=== PATIENT | female | born 1960 | race African-American/Black ===

== ENCOUNTER 2024-08-28 10:49 | Outpatient (CLI) | payer MEDICARE, SELFPAY ==
--- NOTE | 2024-08-28 12:03 | ECG_ITS ---
Test Date: 2024-08-28 12:23:20 Measurements Intervals [place] Rate: 92 P: -1 AR: 147 QRS: 10 QRSD: 92 T: 27 QT: 351 QTc: 435 Interpretive Statements SINUS RHYTHM NONSPECIFIC ST AND T WAVE ABNORMALITY No previous ECG available for comparison Electronically Signed On 08-28-2024 14:46:36 COMPUTER REPAIR INSTRUCTOR by Latia Escalona M.D.
[2024-08-28 12:45] LABS: Urine Cotinine NEGATIVE
[2024-08-28 12:46] LABS: Albumin Level 4.4 g/dL (3.5-5.1)
[2024-08-28 12:50] LABS: Anion Gap 5 mmol/L (4-12); Basophils Percent Auto 0.8 % (0.2-1.2); Blood Urea Nitrogen 25 mg/dL (7-17); Calcium 9.8 mg/dL (8.4-10.2); Carbon Dioxide 22 mmol/L (22-30); Chloride 108 mmol/L (98-107); Eosinophils Absolute Auto 0.4 K/mm3 (0-0.3); Eosinophils Percent Auto 6.8 % (0-4.4); Estimated Glomerular Filt Rate 46; Glucose 90 mg/dL (65-110); Hemoglobin 11.5 g/dL (12.0-15.0); Immature Granulocyte Absolute 0.01 K/mm3 (0.00-0.031); Immature Granulocyte Percent A 0.2 % (0-0.5); Lymphocytes Absolute Auto 1.51 K/mm3 (0.9-3.2); Lymphocytes Percent Auto 28.3 % (18.3-44.2); Mean Corpuscular HGB Conc 31.9 g/dl (32-36); Mean Corpuscular Hemoglobin 28.4 pg (26-34); Mean Corpuscular Volume 88.9 fl (80-100); Mean Platelet Volume 9.3 fl (7.4-10.4); Monocytes Absolute Auto 0.6 K/mm3 (0.1-0.6); Neutrophils Absolute Auto 2.8 K/mm3 (1.3-6.7); Neutrophils Percent Auto 51.9 % (45.5-73.1); Platelet Count Result 299 k/mm3 (150-375); Potassium 4.2 mmol/L (3.4-5.0); Red Blood Count 4.05 M/mm3 (4.2-5.4); Red Cell Distribution Width 14.7 % (11.5-14.5); Sodium 135 mmol/L (137-145); White Blood Count 5.3 K/mm3 (4.5-10.0)
[2024-08-28 12:51] LABS: INR 0.9; Prothrombin Time 12.6 Seconds (11.1-14.7)
[2024-08-28 12:52] LABS: Partial Thromboplastin Time 27.9 Seconds (22.3-36.8)
[2024-08-28 13:09] LABS: Hemoglobin A1C 5.7 % (<5.7)
[2024-08-28 13:54] LABS: MRSA (PCR) NOT DETECTED (NOT DETECTE)
== END 2024-08-28 10:50 | disposition home or self-care (01) ==
PROVIDERS: Anesthesiology; PCP Internal Medicine; Visit Provider Orthopaedic Surgery
DX: M17.11 Unilateral primary osteoarthritis, right knee (principal); N18.9 Chronic kidney disease, unspecified; Z01.818 Encounter for other preprocedural examination
CPT/HCPCS: 36415; 80048; 80307; 82040; 83036; 85025; 85610; 85730; 87641; 93005

== ENCOUNTER 2024-09-16 00:22 | Day surgery (SDC) | payer MEDICARE, SELFPAY ==
[2024-08-28 11:22] VITALS: BP 143/86; PULSE 86; RESP 16; TEMP 37.2; O2SAT 96; BMI 34.5
--- NOTE | 2024-08-28 11:45 | PC.NURSE ---
Report to the Outpatient Waiting Room, entrance under the green pavilion located off [facility], at time __0600am on date _09/16/24 . Planned Procedure Time: _0730am .? Time changes happen often and if your time is changed the preop area will call you the afternoon before. - You and your visitor will be asked to self-screen and do not enter if you have any COVID symptoms. Please call surgeon if you need to reschedule. - A mask is optional within the hospital at this time. Patients may have clear liquids (water, carbonated beverages, clear teas, apple juice) until 3 hours prior to surgery with a maximum of 20 ounces. - No food from midnight until time of surgery and no smoking. This includes no chewing gum, candy or mints. (0430) Take only the following medications with a SIP of water on the morning of surgery: ____Amlodipine and tylenol if needed for pain DO NOT STOP ANY OF YOUR OTHER PRESCRIPTION MEDICATIONS PRIOR TO SURGERY EXCEPT THE FOLLOWING Medications to discontinue per physician Hold all NSAIDS for [address] Fernando Date to take last dose___09/08/24 Hold all vitamins and supplements for 3 days prior to surgery per Anesthesia, date to take last dose is 09/12/24 Please no make-up, nail hebrew, hairspray, perfume, deodorant, or body powder the day of surgery.? No jewelry (including any body piercings) or valuables the day of surgery, leave them at home.? Please take a shower or bath the night before, or the morning of, surgery with an antibacterial soap.? Wear comfortable, loose fitting clothing.? - Jewelry must be removed prior to entering the operating room.? Rings and piercings that are not removed may be cut off. - The hospital will not accept responsibility for valuables.? - Please leave all valuables, including medications, at home the day of surgery. If you are going home after surgery, a licensed coach tour driver must drive you home.? - NO public transportation without another adult if you receive anesthesia. - We recommend that an adult stay with you for 24 hours following discharge. - We also recommend that you do not drive, make important decision, drink alcoholic beverages, or take any drugs that were not prescribed by your health care provider for at least 24 hours after your discharge time. Follow any additional instructions given to you from your surgeon. Pt to check in with PCP regarding cough and current congestion preop. Telephone instructions given to __patient and asked if any additional questions and then verbalized understanding. Patient advised to call surgeon office or pre surgery nurse liaison [phone] if any additional questions.
--- NOTE | 2024-09-12 07:22 | PM.IMHP ---
H&P: HPI History of Present Illness Date/Time: 09/12/24 07:22 Chief Complaint: Patient has an arthritic right knee. She has [id number] changes been unresponsive to conservative treatment at this time. She would like to proceed with knee replacement surgery. Review of Systems Musculoskeletal: Musculoskeletal: Reports arthralgias, Reports joint swelling and Reports stiffness Neurologic: Reports abnormal gait [facility] Past Medical History Medical History (Updated 09/12/24 @ 07:24 by Dave Fernando MD) Osteoarthritis of right knee Osteoarthritis Hypertension Hyperlipidemia Arthritis Surgical History Surgical History (Updated 07/16/24 @ 10:03 by Rayna Moran [facility]) Right knee meniscal tear repair 2016 Family History Family History (Updated 07/16/24 @ 10:04 by Rayna Moran CMA) Father Hypertension Cerebrovascular accident Grandparent Asthma Cancer Social History Social History (Updated 07/16/24 @ 10:07 by Christina Vivar [facility]) Smoking packs per day: 1 Smoking cigarettes per day: 20.0 Years smoked: 3 Smoking pack-years: 3.00 Smoking status: Former smoker Smoking end date: 09/11/78 Additional smoking assessment comments: No nicotine currently, pt denies Alcohol intake: never Substance use: never Do You Feel Safe in your Home?: Yes Lack of Transportation: No Lack of Food: Never True Current Housing: I Have Housing Concerned About Future Housing: No Difficulty Paying Gas/Electric Bills: No Difficulty Paying for Meds: No Currently Unemployed: No Education: Bachelor's Degree Difficulty w/ Childcare or Family Care: No Living arrangements: with family Additional living arrangements comments: daughter Spiritual care concerns: No Meds Home Medications and Allergies Home Medications ?Medication ?Instructions ?Recorded ?Confirmed ?Type amlodipine 10 mg tablet 10 mg PO DAILY 07/16/24 08/28/24 History ascorbate calcium (vitamin C) 500 500 mg PO DAILY 07/16/24 08/28/24 History mg tablet ferrous sulfate 325 mg (65 mg 325 mg PO DAILY 07/16/24 08/28/24 History iron) tablet flaxseed 1,000 mg capsule 1,000 mg PO DAILY 07/16/24 08/28/24 History rosuvastatin 40 mg tablet 40 mg PO DAILY 07/16/24 08/28/24 History acetaminophen 500 mg tablet 500 mg PO Q6H PRN pain 08/28/24 08/28/24 History (Acetaminophen Extra Strength) cetirizine 10 mg tablet (24Hour 10 mg PO DAILY PRN allergy symptoms 08/28/24 08/28/24 History Allergy) diphenhydramine HCl 25 mg capsule 25 mg PO HS PRN itching 08/28/24 08/28/24 History (Allergy Medication) ibuprofen 800 mg tablet (IBU) 800 mg PO Q6H PRN pain 08/28/24 08/28/24 History tramadol 50 mg tablet 50 mg PO Q6H PRN pain 08/28/24 08/28/24 History Allergies Allergy/AdvReac Type Severity Reaction Status Date / Time No Known Allergies Allergy Verified 08/28/24 11:13 Exam Narrative: Examination demonstrates motion from about 5 to 100 and 10?. She has varus deformity. She has grinding crepitus and pain with manipulation. Neurologically she is intact. She walks with an antalgic gait. Eyes: General: appearance normal, both eyes and all related structures Neck: Neck: supple Resp: Effort & Inspection: normal respiratory effort Cardio: Rate: regular rate Rhythm: regular rhythm Radiology Reports: Comments: RIGHT KNEE X-RAYS: Interpretation: AP lateral skyline view right knee demonstrates severe [id number] change right knee with varus deformity. She has moderately severe degenerative changes in her left knee. Knee X-Ray 07/16/24 Orthopedics Result Report 07/16/24 Assessment and Plan Assessment and plan (1) Osteoarthritis of right knee: Code(s): M17.11 - Unilateral primary osteoarthritis, right knee Assessment and Plan: Patient has arthritis right knee. She has failed conservative treatment like to proceed with knee replacement surgery. She would like to do the right knee 1st. I have discussed treatment options with her risks benefits limitations and alternatives in detail. Will proceed with total knee arthroplasty on the right per her request.
[2024-09-16] VITALS (17 sets, daily range): BP systolic 122–153; BP diastolic 56–90; PULSE 81–99; RESP 10–26; TEMP 36.3–36.8; O2SAT 93–100
--- NOTE | ~2024-09-16 | XR_ITS ---
[id number] Ordering provider: Dave Fernando MD History: . POST OP RIGHT TOTAL KNEE . Comparison: None. FINDINGS: BONES: No acute fracture or dislocation. JOINT SPACES: Total knee arthroplasty. SOFT TISSUES: Postoperative changes in the subcutaneous tissues. IMPRESSION: No acute osseous abnormality right knee. Total knee arthroplasty. Reviewed, dictated and finalized at location A. AL HYGIENIST
[2024-09-16] MEDS: ACETAMINOPHEN 500 MG TABLET 1000 MG PO (06:50)
[2024-09-16] MEDS: TRANEXAMIC ACID 1,000MG/ISO100 1,000 MG/100 ML BAG 200 MG IVPB (06:55)
[2024-09-16] MEDS: LACTATED RINGERS 1,000 ML 30 ML IV CONT ×2 (06:55→09:28)
[2024-09-16] MEDS: VANCOMYCIN 1,500 MG/NS 500 ML BAG 250 MG IVPB (07:00)
--- NOTE | 2024-09-16 07:13 | WPDANESEPPF ---
Anes - Initial Pre Proc Eval Procedure: Operation Date: 09/16/24 07:30 Proposed Procedures p Right Total Knee Arthroplasty - Dave Fernando MD Date/Time: 09/16/24 07:13 Surgeon: Dave Fernando MD Pre Op Diagnosis: oa right knee Patient Data Age: 64 Gender: F Height: 1.6 m Weight: 88.4 kg Last Vital Signs Temp 37.2 C 08/28/24 11:22 Pulse 86 08/28/24 11:22 Resp 16 08/28/24 11:22 BP 143/86 H 08/28/24 11:22 Pulse Ox 96 08/28/24 11:22 O2 Del Method Room Air 08/28/24 11:22 Allergies Allergy/AdvReac Type Severity Reaction Status Date / Time No Known Allergies Allergy Verified 08/28/24 11:13 Home Medications ?Medication ?Instructions ?Recorded ?Confirmed ?Type amlodipine 10 mg tablet 10 mg PO DAILY 07/16/24 08/28/24 History ascorbate calcium (vitamin C) 500 500 mg PO DAILY 07/16/24 08/28/24 History mg tablet ferrous sulfate 325 mg (65 mg 325 mg PO DAILY 07/16/24 08/28/24 History iron) tablet flaxseed 1,000 mg capsule 1,000 mg PO DAILY 07/16/24 08/28/24 History rosuvastatin 40 mg tablet 40 mg PO DAILY 07/16/24 08/28/24 History acetaminophen 500 mg tablet 500 mg PO Q6H PRN pain 08/28/24 08/28/24 History (Acetaminophen Extra Strength) cetirizine 10 mg tablet (24Hour 10 mg PO DAILY PRN allergy symptoms 08/28/24 08/28/24 History Allergy) diphenhydramine HCl 25 mg capsule 25 mg PO HS PRN itching 08/28/24 08/28/24 History (Allergy Medication) ibuprofen 800 mg tablet (IBU) 800 mg PO Q6H PRN pain 08/28/24 08/28/24 History tramadol 50 mg tablet 50 mg PO Q6H PRN pain 08/28/24 08/28/24 History Patient hx anesthesia problems: none Family hx anesthesia problems: none Results Review: All pre-operative results and documents have been reviewed as part of the pre-operative evaluation. [facility] Past Medical History Medical History Osteoarthritis of right knee Osteoarthritis Hypertension Hyperlipidemia Arthritis Surgical History Surgical History Right knee meniscal tear repair 2016 Family History Family History Father Hypertension Cerebrovascular accident Grandparent Asthma Cancer Social History Social History Smoking status: Never smoker Alcohol intake: never Substance use: never Do You Feel Safe in your Home?: Yes Lack of Transportation: No Lack of Food: Never True Current Housing: I Have Housing Concerned About Future Housing: No Difficulty Paying Gas/Electric Bills: No Difficulty Paying for Meds: No Currently Unemployed: No Education: Bachelor's Degree Difficulty w/ Childcare or Family Care: No Additional living arrangements comments: daughter Rebecca Goldstein Final PreProcedure Day of Procedure 09/16/24 07:13 Patient weight: obese Heart: regular rate and rhythm Lungs: clear to auscultation Airway: Mallampati scale class II Neurological: alert and oriented Last oral intake: >/= 8 hours ASA classification: III Emergent: no Anesthetic plan: proceed Anesthesia type and monitoring: general LMA and standard monitoring Results Review: All pre-operative results and documents have been reviewed as part of the pre-operative evaluation. Informed Consent: The patient's anesthetic plan and its attendant risks and benefits were discussed with the patient/family/POA. Questions were solicited and answers provided to the satisfaction of the patient/family/POA.
--- NOTE | 2024-09-16 07:17 | WPDHPUPDATE1 ---
History and Physical Update Update Date/Time: 09/16/24 07:17 History and Physical has been reviewed, including an updated exam of the patient. There are NO changes in the patient's condition. Risks, benefits, and alternatives have been discussed and questions answered. Patient agrees to proceed with procedure.
--- NOTE | 2024-09-16 07:29 | WPDANESPNB ---
Anes - Peripheral Nerve Block Date/Time: 09/16/24 07:29 I have discussed with the patient/family/POA the placement of a peripheral nerve block for post-operative pain management, including associated risks, benefits, complications, and side effects. Alternative methods of post-operative analgesia were detailed. Questions were solicited and answers provided to the satisfaction of the patient/family/POA. Time-Out: A pre-procedural Time-Out was completed immediately before starting the procedure and confirmed: Patient Identification, Site, Procedure, Patient Position and the Availability of Requisite Equipment. Clinical Indications: Acute post-operative pain management requested by the operative surgeon. Nerve Block Insertion Note Anes-nerve block: adductor canal right Patient position: supine Skin prep: chlorhexidine Needle: 22 gauge, stimulating, insulated echogenic needle. Needle length: 80 mm Technique: ultrasound Injectate: bupivacaine 0.5% with epi 5 mcg/ml (30ml no epi) and dexamethasone (mg) (4) Observations: tolerated well Complications: none Procedure start time:: 722 Procedure end time:: 729
[2024-09-16] MEDS: ceFAZolin 2 GM/D5W 50 ML 2 GM/50 ML BAG IVPB ×3 (07:30→23:08)
--- NOTE | 2024-09-16 08:16 | SUR.OPER ---
Blood draw sent with Mary Carmen Chavarria CST and received in lab by
[2024-09-16] MEDS: SODIUM CHLORIDE 0.9% IV 37.7 ML, MORPHINE SULFATE INJ (*CRX) 2 MG, ROPivacaine HCL 1% 2... INFILTRATE (08:22)
[2024-09-16] MEDS: GENTAMICIN BONE CEMENT REFOBACIN 1 EACH TOPICAL (08:22)
[2024-09-16] MEDS: ceFAZolin SODIUM 1 GM VIAL IV PUSH (08:40)
[2024-09-16] MEDS: TRANEXAMIC ACID 1,000 MG/10 ML AMPUL 1000 MG IV PUSH (08:45)
--- NOTE | 2024-09-16 09:00 | P.OP_ITS ---
Procedure Note - Detailed Date of Procedure 09/16/24 Pre-op Diagnosis Osteoarthritis right knee Post-op Diagnosis Same Procedure Performed RIGHT total knee arthroplasty Surgeon Dave Fernando MD Anesthesia General Indications Pain and Arthritis Description of Procedure The patient was brought to operating room #7. A general anesthetic was administered. Placed on the operating table and sterilely prepped and draped in usual manner. A longitudinal incision was made. Tourniquet inflated to 300 mmHg for a total of 45 minutes. Dissection was carried down to the fascia. Medial parapatellar incision was made and the patella subluxated laterally. P atella cut from 22 to 14 mm and sized for a 34 mm button. The tibia was cut perpendicular to the long axis and femur cut in 5 degrees of valgus. A 60 femur trialed. 67 tibia was felt to fit the best. The soft tissues balanced, hemostasis obtained. All [address], 67 tibia, 60 femur, 34 mm patella, and 12 mm poly. Motion was 0-125 degrees with good stability in both flexion and extension. The wound was closed with #2 Vicryl, 2-0 Vicryl and nhi. [employer] Estimated Blood Loss 200 Drains No Packing No Pathology None sent Complications No immediate complications Condition Stable Disposition PACU [facility] Billing Surgery - Charge Forward: Surgery Billing ([id number] TKA)
[2024-09-16] MEDS: fentaNYL CITRATE INJ (*CRX) 100 MCG/2 ML VIAL 25 MCG IV PUSH ×8 (09:30→09:53)
[2024-09-16] MEDS: HYDROmorphone HCL INJ (*CRX) 1 MG/ML SYR IV PUSH ×2 (10:09→10:29)
[2024-09-16] MEDS: SODIUM CHLORIDE 0.9% IV 1,000 ML 125 ML IV CONT (12:06)
--- NOTE | 2024-09-16 13:34 | PC.NURSE ---
This patient, Sriram Srinivasan, was admitted to [address] [facility] Surg Room 314-02 on 09/16/24 @ 1145. Patient/family oriented to hospital policies and general routines including ID bracelet, bed and alarms, visiting hours, pain management, procedures, bathroom and other care routines, personal items, smoking policy, room service/diet, and visiting hours. Information on how to activate the Rapid Response Team has been discussed. Patient/Family are encouraged to report perceived risks to care and to ask questions if they do not understand what they are told or what they should do.
[2024-09-16] MEDS: ONDANSETRON INJ 4 MG/2 ML VIAL IV PUSH (14:09)
--- NOTE | 2024-09-16 14:38 | ADMGEN ---
This patient, Sriram Srinivasan, was admitted to 3 [facility] Surg Room 314-02. Patient/family oriented to hospital policies and general routines including ID bracelet, bed and alarms, visiting hours, pain management, procedures, bathroom and other care routines, personal items, smoking policy, room service/diet, and visiting hours. Information on how to activate the Rapid Response Team has been discussed. Patient/Family are encouraged to report perceived risks to care and to ask questions if they do not understand what they are told or what they should do.
[2024-09-16] MEDS: SENNA/DOCUSATE SODIUM TABLET 2 TAB PO (16:46)
[2024-09-16] MEDS: CELECOXIB 200 MG CAPSULE PO (16:46)
[2024-09-16] MEDS: RIVAROXABAN 10 MG TABLET PO (16:46)
[2024-09-16] MEDS: HYDROcodone/acetaminophen (*CRX) 7.5-325 MG TABLET 1 TAB PO ×2 (17:40→23:08)
--- NOTE | 2024-09-16 18:38 | PM.IMCN ---
Assessment and Plan Assessment and plan (1) Osteoarthritis of right knee: Code(s): M17.11 - Unilateral primary osteoarthritis, right knee Status: Acute Assessment and Plan: - Patient s/p RIGHT total knee arthroplasty. - Reports minimal pain to R. Knee. - Continue pain meds PRN. - PT eval and treatment with Ortho restrictions. - Fall precautions. - Further mgt per ortho. (2) Hypertension: Code(s): I10 - Essential (primary) hypertension Status: Acute Assessment and Plan: - BP well currently well controlled. - Resume home home BP meds in AM. - Monitor closely. (3) Hyperlipidemia: Code(s): E78.5 - Hyperlipidemia, unspecified Status: Acute Assessment and Plan: - Statin resumed. HPI Date of Consult Consult date: 09/16/24 Requesting Physician: Dave Fernando MD Primary Care Provider: Yinka HarrisonMD Consult Narrative Narrative: Sriram Srinivasan is a 64 year old female who was admitted for osteoarthritis of Right Knee, and patient underwent a successful RIGHT total knee arthroplasty. Patient currently sitting on chair and reports minimal discomfort to right knee. Patient states she's determined to get well and return to her previous active lifestyle. Review of Systems Review of Systems: All systems reviewed & are unremarkable except as noted in HPI and below PMFSH Past Medical History Medical History (Updated 09/16/24 @ 18:46 by Quyen Harmon NP) Osteoarthritis of right knee Osteoarthritis Hypertension Hyperlipidemia Arthritis Surgical History Surgical History Right knee meniscal tear repair 2016 Family History Family History Father Hypertension Cerebrovascular accident Grandparent Asthma Cancer Social History Social History Smoking packs per day: 1 Smoking cigarettes per day: 20.0 Years smoked: 3 Smoking pack-years: 3.00 Smoking status: Never smoker Smoking end date: 09/11/78 Additional smoking assessment comments: Tried smoking in her 20's Alcohol intake: never Substance use: never Do You Feel Safe in your Home?: Yes Lack of Transportation: No Lack of Food: Never True Current Housing: I Have Housing Concerned About Future Housing: No Difficulty Paying Gas/Electric Bills: No Difficulty Paying for Meds: No Currently Unemployed: No Education: Bachelor's Degree Difficulty w/ Childcare or Family Care: No Living arrangements: with family Additional living arrangements comments: daughter Spiritual care concerns: No Meds Home Medications and Allergies Home Medications ?Medication ?Instructions ?Recorded ?Confirmed ?Type amlodipine 10 mg tablet 10 mg PO DAILY 07/16/24 09/16/24 History ascorbate calcium (vitamin C) 500 500 mg PO DAILY 07/16/24 09/16/24 History mg tablet ferrous sulfate 325 mg (65 mg 325 mg PO DAILY 07/16/24 09/16/24 History iron) tablet flaxseed 1,000 mg capsule 1,000 mg PO DAILY 07/16/24 09/16/24 History rosuvastatin 40 mg tablet 40 mg PO DAILY 07/16/24 09/16/24 History acetaminophen 500 mg tablet 500 mg PO Q6H PRN pain 08/28/24 09/16/24 History (Acetaminophen Extra Strength) cetirizine 10 mg tablet (24Hour 10 mg PO DAILY PRN allergy symptoms 08/28/24 08/28/24 History Allergy) diphenhydramine HCl 25 mg capsule 25 mg PO HS PRN itching 08/28/24 08/28/24 History (Allergy Medication) ibuprofen 800 mg tablet (IBU) 800 mg PO Q6H PRN pain 08/28/24 09/16/24 History tramadol 50 mg tablet 50 mg PO Q6H PRN pain 08/28/24 08/28/24 History Allergies Allergy/AdvReac Type Severity Reaction Status Date / Time No Known Allergies Allergy Verified 09/16/24 13:35 Vital Signs Vital Signs - 24 hr 09/16/24 06:48 09/16/24 09:28 09/16/24 09:35 Temperature 97.6 F 97.9 F Pulse Rate 94 86 85 Respiratory Rate 18 26 H 20 Blood Pressure 153/65 H 127/67 133/76 Pulse Oximetry 100 100 100 Oxygen Delivery Room Air Simple Face Mask Simple Face Mask Oxygen Flow Rate 8 8 09/16/24 09:50 09/16/24 10:05 09/16/24 10:20 Temperature Pulse Rate 86 85 85 Respiratory Rate 26 H 15 15 Blood Pressure 127/67 135/64 150/90 H Pulse Oximetry 100 100 100 Oxygen Delivery Simple Face Mask Simple Face Mask Simple Face Mask Oxygen Flow Rate 8 8 8 09/16/24 10:35 09/16/24 10:50 09/16/24 11:05 Temperature Pulse Rate 85 88 85 Respiratory Rate 12 12 12 Blood Pressure 122/73 135/64 128/73 Pulse Oximetry 95 93 96 Oxygen Delivery Simple Face Mask Room Air Nasal Cannula Oxygen Flow Rate 8 2 09/16/24 11:20 09/16/24 11:35 09/16/24 12:01 Temperature 97.9 F 97.4 F L Pulse Rate 82 82 81 Respiratory Rate 10 L 12 16 Blood Pressure 140/59 L 128/77 127/70 Pulse Oximetry 96 95 96 Oxygen Delivery Nasal Cannula Nasal Cannula Oxygen Flow Rate 2 2 09/16/24 12:31 09/16/24 13:28 09/16/24 13:49 Temperature 98.1 F 97.4 F L Pulse Rate 81 90 Respiratory Rate 16 16 Blood Pressure 127/58 L 137/56 L Pulse Oximetry 98 100 Oxygen Delivery Room Air Oxygen Flow Rate 09/16/24 14:39 09/16/24 17:31 Temperature 98.0 F Pulse Rate 81 Respiratory Rate 16 Blood Pressure 125/63 Pulse Oximetry 100 95 Oxygen Delivery Nasal Cannula Oxygen Flow Rate 2 Exam Narrative: General: Well appearing and in no acute distress. HEENT: Atraumatic, PERRL, EOM, anicteric, moist mucosa. NECK: Supple. Lungs: Clear bilaterally. Heart: RRR, no murmurs. Extremities: No cyanosis, 1+ edema migue. feet. Roe wrap to Right Knee. Skin: Warm and dry. No lesions noted. Neuro: Well oriented. CN II-XII grossly intact. Psych: Pleasant and co-operative. Quality VTE Prophylaxis VTE prophylaxis: mechanical ordered Hospitalist MIPS Advance Care Plan I have confirmed that the patient's Advanced Care Plan is present, code status is documented, or surrogate decision maker is listed in patient medical record.: Yes Medication Reconciliation I have utilized all available resources to obtain, update and review the patients current medications (includes all prescriptions, OTC, herbals, cannabis, and nutritional supplements).: Yes
[2024-09-16] MEDS: CYCLOBENZAPRINE HCL 10 MG TABLET PO (21:26)
[2024-09-17 00:05] VITALS: BP 149/88; PULSE 103; RESP 14; TEMP 36.9; O2SAT 98
[2024-09-17 04:16] VITALS: BP 144/79; PULSE 87; RESP 12; TEMP 36.2; O2SAT 97
[2024-09-17] MEDS: HYDROcodone/acetaminophen (*CRX) 7.5-325 MG TABLET 1 TAB PO ×2 (06:17→10:23)
[2024-09-17] MEDS: ceFAZolin 2 GM/D5W 50 ML 2 GM/50 ML BAG IVPB (06:18)
[2024-09-17 07:16] LABS: Basophils Percent Auto 0.1 % (0.2-1.2); Hematocrit 31.6 % (37.0-47.0); Hemoglobin 10.2 g/dL (12.0-15.0); Immature Granulocyte Absolute 0.05 K/mm3 (0.00-0.031); Immature Granulocyte Percent A 0.5 % (0-0.5); Lymphocytes Absolute Auto 0.67 K/mm3 (0.9-3.2); Lymphocytes Percent Auto 6.2 % (18.3-44.2); Mean Corpuscular HGB Conc 32.3 g/dl (32-36); Mean Corpuscular Hemoglobin 29.2 pg (26-34); Mean Corpuscular Volume 90.5 fl (80-100); Mean Platelet Volume 9.9 fl (7.4-10.4); Monocytes Absolute Auto 0.6 K/mm3 (0.1-0.6); Monocytes Percent Auto 5.7 % (2.6-8.5); Neutrophils Absolute Auto 9.4 K/mm3 (1.3-6.7); Neutrophils Percent Auto 87.5 % (45.5-73.1); Platelet Count Result 284 k/mm3 (150-375); Red Blood Count 3.49 M/mm3 (4.2-5.4); White Blood Count 10.8 K/mm3 (4.5-10.0)
[2024-09-17 07:28] LABS: Anion Gap 6 mmol/L (4-12); Blood Urea Nitrogen 24 mg/dL (7-17); Calcium 9.1 mg/dL (8.4-10.2); Carbon Dioxide 21 mmol/L (22-30); Chloride 108 mmol/L (98-107); Estimated CRCL calculation 48 ml/min; Estimated Glomerular Filt Rate > 60; Glucose 148 mg/dL (65-110); Potassium 4.2 mmol/L (3.4-5.0); Sodium 135 mmol/L (137-145)
--- NOTE | 2024-09-17 07:29 | PM.PNORT ---
Progress Note: A&P Assessment and Plan (1) History of knee replacement procedure of right knee: Code(s): Z96.651 - Presence of right artificial knee joint Status: Acute Assessment and Plan: Patient underwent total knee arthroplasty for osteoarthritis. She has done reasonably well postoperatively and can be dismissed home at this time. She may be full weight-bearing. I would anticipate follow-up in 2 weeks for sutures out. If she has any changes or problems she will call. We discussed the fact that after knee replacement motion is vela and she understands. Subjective Subjective Date/Time Seen: 09/17/24 07:29 Post Op day: 1 Principal diagnosis: RIGHT TOTAL KNEE for osteoarthritis Review of Systems Musculoskeletal: Musculoskeletal: Reports arthralgias, Reports joint swelling and Reports stiffness Neurologic: Reports abnormal gait Exam Narrative: NVI Dressing intact Ambulating with a walker Objective Data Vital Signs Vital Signs: Vital Signs - 24 hr 09/16/24 09:28 09/16/24 09:35 09/16/24 09:50 Temperature 97.9 F Pulse Rate 86 85 86 Respiratory Rate 26 H 20 26 H Blood Pressure 127/67 133/76 127/67 Pulse Oximetry 100 100 100 Oxygen Delivery Simple Face Mask Simple Face Mask Simple Face Mask Oxygen Flow Rate 8 8 8 09/16/24 10:05 09/16/24 10:20 09/16/24 10:35 Temperature Pulse Rate 85 85 85 Respiratory Rate 15 15 12 Blood Pressure 135/64 150/90 H 122/73 Pulse Oximetry 100 100 95 Oxygen Delivery Simple Face Mask Simple Face Mask Simple Face Mask Oxygen Flow Rate 8 8 8 09/16/24 10:50 09/16/24 11:05 09/16/24 11:20 Temperature Pulse Rate 88 85 82 Respiratory Rate 12 12 10 L Blood Pressure 135/64 128/73 140/59 L Pulse Oximetry 93 96 96 Oxygen Delivery Room Air Nasal Cannula Nasal Cannula Oxygen Flow Rate 2 2 09/16/24 11:35 09/16/24 12:01 09/16/24 12:31 Temperature 97.9 F 97.4 F L 98.1 F Pulse Rate 82 81 81 Respiratory Rate 12 16 16 Blood Pressure 128/77 127/70 127/58 L Pulse Oximetry 95 96 98 Oxygen Delivery Nasal Cannula Oxygen Flow Rate 2 09/16/24 13:28 09/16/24 13:49 09/16/24 14:39 Temperature 97.4 F L Pulse Rate 90 Respiratory Rate 16 Blood Pressure 137/56 L Pulse Oximetry 100 100 Oxygen Delivery Room Air Nasal Cannula Oxygen Flow Rate 2 09/16/24 17:00 09/16/24 17:31 09/16/24 20:36 Temperature 98.0 F 98.2 F Pulse Rate 81 99 Respiratory Rate 16 14 Blood Pressure 125/63 153/64 H Pulse Oximetry 95 100 Oxygen Delivery Room Air Oxygen Flow Rate 09/17/24 00:05 09/17/24 04:16 Temperature 98.4 F 97.2 F L Pulse Rate 103 H 87 Respiratory Rate 14 12 Blood Pressure 149/88 H 144/79 H Pulse Oximetry 98 97 Oxygen Delivery Oxygen Flow Rate Intake/Output Intake/Output: Intake & Output 09/14/24 09/15/24 09/16/24 09/17/24 23:59 23:59 23:59 23:59 Intake Total 1350 225 Balance 1350 225 Meds/Results Medications: Active Medications Generic Name Dose Route Start Last Admin Trade Name Freq PRN Reason Stop Dose Admin Hydrocodone Bitart/Acetaminophen 1 tab 09/16/24 11:46 Hydrocodone/Acetaminophen (*Crx) 5-325 Mg Tablet PO Q4H PRN Pain Rated 4-6 Hydrocodone Bitart/Acetaminophen 1 tab 09/16/24 11:46 09/17/24 06:17 Hydrocodone/Acetaminophen (*Crx) 7.5-325 Mg Tablet PO 1 tab Q4H PRN Administration Pain Rated 7-10 Amlodipine Besylate 10 mg 09/17/24 09:00 Amlodipine Besylate 10 Mg Tablet PO DAILY LEANN Ascorbic Acid 500 mg 09/17/24 09:00 Ascorbic Acid 500 Mg Tablet PO DAILY LEANN Celecoxib 200 mg 09/16/24 17:00 09/16/24 16:46 Celecoxib 200 Mg Capsule PO 200 mg BIDWM LEANN Administration Cyclobenzaprine HCl 10 mg 09/16/24 11:46 09/16/24 21:26 Cyclobenzaprine Hcl 10 Mg Tablet PO 10 mg Q8H PRN Administration Spasms Diphenhydramine HCl 25 mg 09/16/24 11:46 Diphenhydramine Hcl Inj 50 Mg/Ml Vial IV PUSH Q6H PRN Itching Diphenhydramine HCl 25 mg 09/16/24 18:36 Diphenhydramine Hcl Cap 25 Mg Capsule PO HS PRN itching Ferrous Sulfate 325 mg 09/17/24 09:00 Ferrous Sulfate [address] BY MOUTH DAILY LEANN Hydromorphone HCl 1 mg 09/16/24 11:46 Hydromorphone Hcl Inj (*Crx) 1 Mg/Ml Syr IV PUSH Q2H PRN Breakthrough Pain Rated 7-10 or NPO Hydromorphone HCl 0.5 mg 09/16/24 11:46 Hydromorphone Hcl Inj (*Crx) 1 Mg/Ml Syr IV PUSH Q2H PRN Breakthrough Pain Rated 4-6 or NPO Cefazolin Sodium 2 gm in 50 mls @ 100 mls/hr 09/16/24 15:00 09/17/24 06:48 Ancef 2 Gm/D5w 50 Ml IVPB 09/17/24 07:29 Infused Q8H [facility] Infusion Ibuprofen 800 mg in 200 mls @ 400 mls/hr 09/16/24 11:46 Caldolor 800 Mg/200 Ml IVPB Q6H PRN Breakthrough Pain Rated 1-3 or NPO Loratadine 10 mg 09/16/24 20:05 Loratadine 10 Mg Tablet PO QAM PRN allergy symptoms Naloxone HCl 0.1 mg 09/16/24 11:46 Naloxone Hcl 0.4 Mg/Ml Vial IV PUSH Q2M PRN Opiate Reversal Ondansetron HCl 4 mg 09/16/24 11:46 09/16/24 14:09 Ondansetron Inj 4 Mg/2 Ml Vial IV PUSH 4 mg Q4H PRN Administration Nausea And Vomiting Polyethylene Glycol 17 gm 09/17/24 09:00 Polyethylene Glycol 3350 17 Gm Powd.Pack PO QAM [facility] Rivaroxaban 10 mg 09/16/24 17:00 09/16/24 16:46 Rivaroxaban 10 Mg Tablet PO 09/27/24 17:01 10 mg DAILY@17 [facility] Administration Rosuvastatin Calcium 40 mg 09/17/24 09:00 Rosuvastatin 20 Mg Tablet PO DAILY [facility] Senna/Docusate Sodium 2 tab 09/16/24 17:00 09/16/24 16:46 Senna/Docusate Sodium Tablet PO 2 tab BID [facility] Administration Tramadol HCl 50 mg 09/16/24 18:36 Tramadol Hcl (*Crx) 50 Mg Tablet PO Q6H PRN pain 1-3 Radiology Results: ITS Impressions Knee X-Ray 09/16/24 09:49 IMPRESSION: No acute osseous abnormality right knee. Total knee arthroplasty. Labs Labs: Laboratory Results - last 24 hr 09/16/24 09/17/24 06:52 06:51 WBC 10.8 H RBC 3.49 L Hgb 10.2 L Hct 31.6 L MCV 90.5 MCH 29.2 MCHC 32.3 RDW 15.0 H Plt Count 284 MPV 9.9 Immature Gran % (Auto) 0.5 Neut % (Auto) 87.5 H Lymph % (Auto) 6.2 L [place] % (Auto) 5.7 Eos % (Auto) 0.0 Baso % (Auto) 0.1 L Lymph # (Auto) 0.67 L [place] # (Auto) 0.6 Eos # (Auto) 0.0 Baso # (Auto) 0.0 Abs Immat Gran (auto) 0.05 H Absolute Neuts (auto) 9.4 H Absolute Nucleated RBC 0.000 Nucleated RBC % 0.0 Sodium 135 L Potassium 4.2 Chloride 108 H Carbon Dioxide 21 L Anion Gap 6 BUN 24 H Creatinine 1.09 H Estim Creat Clear Calc 48 Estimated GFR > 60 Glucose 148 H Calcium 9.1 Blood Type A Positive Antibody Screen Negative
--- NOTE | 2024-09-17 07:32 | P.DS_ITS ---
DS: Admitting Diagnosis Discharge Date 09/17/2024 Admitting Diagnosis Osteoarthritis right knee. DS: Discharge Diagnosis Discharge Diagnosis (1) History of knee replacement procedure of right knee: Code(s): Z96.651 - Presence of right artificial knee joint Status: Acute Assessment and Plan: Patient underwent a knee replacement on the right for osteoarthritis of her right knee. She failed conservative treatment. She has done well postoperatively. I believe she can be dismissed home. Follow-up in 2 weeks to take out the nhi. We discussed motion is being vela after knee replacement surgery. She has any changes or problems she will call. Discussed. DS: Summary Hospital Course Hospital Course: Patient underwent total knee arthroplasty for osteoarthritis. She has done well postoperatively and can be dismissed home at this time. If she has any changes or problems she will call. Otherwise she is dismissed. Status at Discharge Functional status at discharge: uses cane/walker Time Spent with Patient Time attestation: Total time spent providing and/or coordinating discharge services: Exam Narrative: CHERELLE Cerda toes Ambulates with a walker Eyes: General: appearance normal, both eyes and all related structures Neck: Neck: supple Resp: Effort & Inspection: normal respiratory effort Cardio: Rate: regular rate Rhythm: regular rhythm DS: Data Data Completed and Pending Labs on day of discharge: Labs from last 24 hours 09/17/24 09/16/24 06:51 06:52 WBC 10.8 H RBC 3.49 L Hgb 10.2 L Hct 31.6 L MCV 90.5 MCH 29.2 MCHC 32.3 RDW 15.0 H Plt Count 284 MPV 9.9 Immature Gran % (Auto) 0.5 Neut % (Auto) 87.5 H Lymph % (Auto) 6.2 L [place] % (Auto) 5.7 Eos % (Auto) 0.0 Baso % (Auto) 0.1 L Lymph # (Auto) 0.67 L [place] # (Auto) 0.6 Eos # (Auto) 0.0 Baso # (Auto) 0.0 Abs Immat Gran (auto) 0.05 H Absolute Neuts (auto) 9.4 H Absolute Nucleated RBC 0.000 Nucleated RBC % 0.0 Sodium 135 L Potassium 4.2 Chloride 108 H Carbon Dioxide 21 L Anion Gap 6 BUN 24 H Creatinine 1.09 H Estim Creat Clear Calc 48 Estimated GFR > 60 Glucose 148 H Calcium 9.1 Blood Type A Positive Antibody Screen Negative Discharge Plan Discharge Patient Disposition: Home, Self-Care Discharge Instructions: Dr. Dave Fernando M.D [address] [place] [address] POST-OPERATIVE DISCHARGE INSTRUCTIONS TOTAL KNEE ARTHROPLASTY 1. When resting, do not rest in the chair.When resting, lie on your back, with back flat on the couch or bed, with leg elevated above heart to minimize swelling. You may put a pillow under your head. . Significant swelling could indicate a blood clot and if this occurs call the office (or go to the ER) to have a venous ultrasound. Therefore, do not rest in a chair. 2. At least five times a day spend several minutes stretching your knee into flexion while sitting in the chair and also stretching your knee out straight The abilities to bend your knee fulling and straighten your knee fully are two most important knee functions to focus on during your recovery. 3. It is ok to sit in chair to eat, use the toilet and receive a guest and to do your stretching exercises, but, sitting in a chair will cause your leg to swell. Therefore, avoid additional time sitting in the chair. and don't rest in the chair. 4. Wound Care: Nursing will give you an additional Mepilex dressing at the time of discharge. Patient to remove the dressing and apply a new Mepilex dressing at home 7 days after surgery and leave the dressing on until seen in office. 5. May shower with a Mepilex dressing in place.The water will run off the dressing. 6. Unless you are told otherwise, you may put full weight on your operated leg. Use a walker for balance and practice walking as normally as you can, ideally for a few minutes every hour while you are awake. 7. I would advise against putting ice packs on your knee incision. Ice constricts blood flow which can impar healing of the knee incision. IMPORTANT: Remember not to sit in the chair for more than 30 minutes at a time. As a rule, during the first 14 days after surgery, only sit in the chair to work on the chair knee bending stretch exercise, for meals or for use of the restroom. Sitting in the chair promotes significant swelling in the knee and leg which will make your knee stiff and more painful and which simulates having a blood clot in the veins of the leg. If this type of significant diffuse swelling occurs, an ultrasound at the hospital will be necessary to rule out a blood clot. Be up walking around with the walker for a few minutes every hour while awake and then rest laying on your back on the couch or in bed with your leg elevated on cushions or pillows. Do not rest in the chair. Patient Language: Tunisian Stand Alone Forms: General Discharge Instructions Follow-up/Referrals: Dave Fernando MD [Physician] - Discharge Medications: New doxycycline hyclate 100 mg tablet 100 mg PO DAILY Qty: 10 0RF hydrocodone-acetaminophen 7.5-325 mg tablet 1 tablet PO Q4H PRN (Reason: pain) Qty: 40 0RF Xarelto 10 mg tablet 10 mg PO DAILY Qty: 10 0RF Rx Instructions: for 35 days Continued amlodipine 10 mg tablet 10 mg PO DAILY rosuvastatin 40 mg tablet 40 mg PO DAILY flaxseed 1,000 mg capsule 1,000 mg PO DAILY ferrous sulfate 325 mg (65 mg iron) tablet 325 mg PO DAILY ascorbate calcium (vitamin C) 500 mg tablet 500 mg PO DAILY tramadol 50 mg tablet 50 mg PO Q6H PRN (Reason: pain) cetirizine [24Hour Allergy] 10 mg tablet 10 mg PO DAILY PRN (Reason: allergy symptoms) diphenhydramine HCl [Allergy Medication] 25 mg capsule 25 mg PO HS PRN (Reason: itching) ibuprofen [IBU] 800 mg tablet 800 mg PO Q6H PRN (Reason: pain) acetaminophen [Acetaminophen Extra Strength] 500 mg tablet 500 mg PO Q6H PRN (Reason: pain)
--- NOTE | 2024-09-17 07:44 | WPDANESPN ---
Anes - Prog Note Post-Op Date/Time: 09/17/24 07:44 Cardiovascular status: normal Respiratory status: normal Airway patency: baseline Mental status: baseline Post-Op hydration status: normal Vital Signs: Last Vital Signs Temp 36.2 C L 09/17/24 04:16 Pulse 87 09/17/24 04:16 Resp 12 09/17/24 04:16 BP 144/79 H 09/17/24 04:16 Pulse Ox 97 09/17/24 04:16 O2 Del Method Room Air 09/16/24 17:00 O2 Flow Rate 2 09/16/24 14:39 Pain Score (VAS): 0 I/O: Intake & Output 09/16/24 09/16/24 09/17/24 15:59 23:59 07:59 Intake Total 1100 250 225 Balance 1100 250 225 Laboratory Tests 09/17/24 06:51 09/17/24 06:51 09/16/24 09/17/24 06:52 06:51 WBC 10.8 H RBC 3.49 L Hgb 10.2 L Hct 31.6 L MCV 90.5 MCH 29.2 MCHC 32.3 RDW 15.0 H Plt Count 284 MPV 9.9 Immature Gran % (Auto) 0.5 Neut % (Auto) 87.5 H Lymph % (Auto) 6.2 L [place] % (Auto) 5.7 Eos % (Auto) 0.0 Baso % (Auto) 0.1 L Lymph # (Auto) 0.67 L [place] # (Auto) 0.6 Eos # (Auto) 0.0 Baso # (Auto) 0.0 Abs Immat Gran (auto) 0.05 H Absolute Neuts (auto) 9.4 H Absolute Nucleated RBC 0.000 Nucleated RBC % 0.0 Sodium 135 L Potassium 4.2 Chloride 108 H Carbon Dioxide 21 L Anion Gap 6 BUN 24 H Creatinine 1.09 H Estim Creat Clear Calc 48 Estimated GFR > 60 Glucose 148 H Calcium 9.1 Blood Type A Positive Antibody Screen Negative Post-procedural complaints: none Patient Feedback: Patient satisfied with anesthetic care.
[2024-09-17] MEDS: amLODIPine BESYLATE 10 MG TABLET PO (10:12)
[2024-09-17] MEDS: CELECOXIB 200 MG CAPSULE PO (10:13)
[2024-09-17] MEDS: FERROUS SULFATE 325 MG TABLET DR BY MOUTH (10:13)
[2024-09-17] MEDS: ASCORBIC ACID 500 MG TABLET PO (10:13)
[2024-09-17] MEDS: ROSUVASTATIN 20 MG TABLET 40 MG PO (10:13)
--- NOTE | 2024-09-17 11:06 | PM.IMPN ---
Progress Note: A&P Assessment and Plan (1) Osteoarthritis of right knee: Code(s): M17.11 - Unilateral primary osteoarthritis, right knee Status: Acute Assessment and Plan: - Patient s/p RIGHT total knee arthroplasty. - Reports minimal pain to R. Knee. Pain control and DVT prophylaxis per ortho team continue follow up with ortho (2) Hypertension: Code(s): I10 - Essential (primary) hypertension Status: Acute Assessment and Plan: - BP well currently well controlled. Continue home meds (3) Hyperlipidemia: Code(s): E78.5 - Hyperlipidemia, unspecified Status: Acute Assessment and Plan: - Statin resumed. Plan Patient is table for discharge from medical standpoint F/u with PCP in 3-5 days and with ortho as instructed Subjective Date/time seen: 09/17/24 11:06 Interval history: Patient comfortable at bedside She is stable from medical standpoint for discharge Review of Systems Review of Systems: All systems reviewed & are unremarkable except as noted in HPI and below Exam Narrative: General: Well appearing and in no acute distress. HEENT: Atraumatic, PERRL, EOM, anicteric, moist mucosa. NECK: Supple. Lungs: Clear bilaterally. Heart: RRR, no murmurs. Extremities: No cyanosis, 1+ edema migue. feet. Roe wrap to Right Knee. Skin: Warm and dry. No lesions noted. Neuro: Well oriented. CN II-XII grossly intact. Psych: Pleasant and co-operative. Objective Data Vital Signs Vital Signs: Vital Signs - 24 hr 09/16/24 11:20 09/16/24 11:35 09/16/24 12:01 Temperature 97.9 F 97.4 F L Pulse Rate 82 82 81 Respiratory Rate 10 L 12 16 Blood Pressure 140/59 L 128/77 127/70 Pulse Oximetry 96 95 96 Oxygen Delivery Nasal Cannula Nasal Cannula Oxygen Flow Rate 2 2 09/16/24 12:31 09/16/24 13:28 09/16/24 13:49 Temperature 98.1 F 97.4 F L Pulse Rate 81 90 Respiratory Rate 16 16 Blood Pressure 127/58 L 137/56 L Pulse Oximetry 98 100 Oxygen Delivery Room Air Oxygen Flow Rate 09/16/24 14:39 09/16/24 17:00 09/16/24 17:31 Temperature 98.0 F Pulse Rate 81 Respiratory Rate 16 Blood Pressure 125/63 Pulse Oximetry 100 95 Oxygen Delivery Nasal Cannula Room Air Oxygen Flow Rate 2 09/16/24 20:36 09/17/24 00:05 09/17/24 04:16 Temperature 98.2 F 98.4 F 97.2 F L Pulse Rate 99 103 H 87 Respiratory Rate 14 14 12 Blood Pressure 153/64 H 149/88 H 144/79 H Pulse Oximetry 100 98 97 Oxygen Delivery Oxygen Flow Rate Intake/Output Intake/Output: Intake & Output 09/14/24 09/15/24 09/16/24 09/17/24 23:59 23:59 23:59 23:59 Intake Total 1350 585 Balance 1350 585 Meds/Results Medications: Active Medications Generic Name Dose Route Start Last Admin Trade Name Freq PRN Reason Stop Dose Admin Hydrocodone Bitart/Acetaminophen 1 tab 09/16/24 11:46 Hydrocodone/Acetaminophen (*Crx) 5-325 Mg Tablet PO Q4H PRN Pain Rated 4-6 Hydrocodone Bitart/Acetaminophen 1 tab 09/16/24 11:46 09/17/24 10:23 Hydrocodone/Acetaminophen (*Crx) 7.5-325 Mg Tablet PO 1 tab Q4H PRN Administration Pain Rated 7-10 Amlodipine Besylate 10 mg 09/17/24 09:00 09/17/24 10:12 Amlodipine Besylate 10 Mg Tablet PO 10 mg DAILY LEANN Administration Ascorbic Acid 500 mg 09/17/24 09:00 09/17/24 10:13 Ascorbic Acid 500 Mg Tablet PO 500 mg DAILY LEANN Administration Celecoxib 200 mg 09/16/24 17:00 09/17/24 10:13 Celecoxib 200 Mg Capsule PO 200 mg BIDWM LEANN Administration Cyclobenzaprine HCl 10 mg 09/16/24 11:46 09/16/24 21:26 Cyclobenzaprine Hcl 10 Mg Tablet PO 10 mg Q8H PRN Administration Spasms Diphenhydramine HCl 25 mg 09/16/24 11:46 Diphenhydramine Hcl Inj 50 Mg/Ml Vial IV PUSH Q6H PRN Itching Diphenhydramine HCl 25 mg 09/16/24 18:36 Diphenhydramine Hcl Cap 25 Mg Capsule PO HS PRN itching Ferrous Sulfate 325 mg 09/17/24 09:00 09/17/24 10:13 Ferrous Sulfate [address] BY MOUTH 325 mg DAILY LEANN Administration Hydromorphone HCl 1 mg 09/16/24 11:46 Hydromorphone Hcl Inj (*Crx) 1 Mg/Ml Syr IV PUSH Q2H PRN Breakthrough Pain Rated 7-10 or NPO Hydromorphone HCl 0.5 mg 09/16/24 11:46 Hydromorphone Hcl Inj (*Crx) 1 Mg/Ml Syr IV PUSH Q2H PRN Breakthrough Pain Rated 4-6 or NPO Ibuprofen 800 mg in 200 mls @ 400 mls/hr 09/16/24 11:46 Caldolor 800 Mg/200 Ml IVPB Q6H PRN Breakthrough Pain Rated 1-3 or NPO Loratadine 10 mg 09/16/24 20:05 Loratadine 10 Mg Tablet PO QAM PRN allergy symptoms Naloxone HCl 0.1 mg 09/16/24 11:46 Naloxone Hcl 0.4 Mg/Ml Vial IV PUSH Q2M PRN Opiate Reversal Ondansetron HCl 4 mg 09/16/24 11:46 09/16/24 14:09 Ondansetron Inj 4 Mg/2 Ml Vial IV PUSH 4 mg Q4H PRN Administration Nausea And Vomiting Polyethylene Glycol 17 gm 09/17/24 09:00 09/17/24 10:12 Polyethylene Glycol 3350 17 Gm Powd.Pack PO Not Given QAM [facility] Rivaroxaban 10 mg 09/16/24 17:00 09/16/24 16:46 Rivaroxaban 10 Mg Tablet PO 09/27/24 17:01 10 mg DAILY@17 [facility] Administration Rosuvastatin Calcium 40 mg 09/17/24 09:00 09/17/24 10:13 Rosuvastatin 20 Mg Tablet PO 40 mg DAILY [facility] Administration Senna/Docusate Sodium 2 tab 09/16/24 17:00 09/17/24 10:13 Senna/Docusate Sodium Tablet PO Not Given BID [facility] Tramadol HCl 50 mg 09/16/24 18:36 Tramadol Hcl (*Crx) 50 Mg Tablet PO Q6H PRN pain 1-3 Radiology Results: ITS Impressions Knee X-Ray 09/16/24 09:49 IMPRESSION: No acute osseous abnormality right knee. Total knee arthroplasty. Labs Labs: Laboratory Results - last 24 hr 09/17/24 06:51 WBC 10.8 H RBC 3.49 L Hgb 10.2 L Hct 31.6 L MCV 90.5 MCH 29.2 MCHC 32.3 RDW 15.0 H Plt Count 284 MPV 9.9 Immature Gran % (Auto) 0.5 Neut % (Auto) 87.5 H Lymph % (Auto) 6.2 L [place] % (Auto) 5.7 Eos % (Auto) 0.0 Baso % (Auto) 0.1 L Lymph # (Auto) 0.67 L [place] # (Auto) 0.6 Eos # (Auto) 0.0 Baso # (Auto) 0.0 Abs Immat Gran (auto) 0.05 H Absolute Neuts (auto) 9.4 H Absolute Nucleated RBC 0.000 Nucleated RBC % 0.0 Sodium 135 L Potassium 4.2 Chloride 108 H Carbon Dioxide 21 L Anion Gap 6 BUN 24 H Creatinine 1.09 H Estim Creat Clear Calc 48 Estimated GFR > 60 Glucose 148 H Calcium 9.1 Quality VTE Prophylaxis VTE prophylaxis: mechanical ordered
--- OUTSIDE RECORDS SUMMARY | 2024-09-22 13:02 | XMS_ITS | Clinical Summary ---
Author Organization [facility] Address [address], [address] [address] Phone Care Team Providers Care Seed District Sales Manager Name Role Phone Yinka Harrison MD Primary Care Provider [phone] Dave Fernando MD Unavailable [phone] Allergies Active Allergy Reactions Criticality Noted Date Comments Other-Environmental Allergen (Not Found In Search) Itching,Rash 12/24/2023 Medications Ascorbic Acid (VITAMIN C PO) Take 500 mg by mouth. Active IRON PO Take by mouth. Active Flaxseed, Linseed, (Flax Seed Oil) 1000 MG Capsule Take 1,000 mg by mouth daily. Active ibuprofen (MOTRIN) 800 MG Tablet TAKE ONE (1) TAB BY MOUTH EVERY 8 HOURS NEEDED FOR MILD OR MORE SEVERE PAIN. 270 Tablet 1 09/13/19 23 Active triamcinolone (KENALOG) 0.1 % CreamIndications: Irritant contact dermatitis, unspecified trigger Apply sparingly twice a day to the affected area. Rub cream in until invisible. 45 g 1 03/22/20 24 Active rosuvastatin (CRESTOR) 40 MG TabletIndications :Mixed hyperlipidemia Take 1 Tablet by mouth daily. 90 Tablet 1 06/07/20 24 Active amLODIPine (NORVASC) 10 MG TabletIndications :Essential hypertension TAKE ONE (1) TABLET BY MOUTH DAILY. 90 Tablet 2 07/30/20 24 Active fluticasone (FLONASE) 50 MCG/ACT SuspensionIndicat ions:Chronic cough 1 Adams by Nasal route daily. 16 g 09/02/20 24 Active traMADol (ULTRAM) 50 MG TabletIndications :Arthritis,Chroni c pain of right knee,Rheumatoid arthritis involving multiple sites with positive rheumatoid factor (HCC) TAKE 1 TABLET BY MOUTH EVERY 8 HOURS NEEDED FOR MODERATE OR MORE SEVERE PAIN. 30 Tablet 1 09/06/20 24 Active traMADol (ULTRAM) 50 MG TabletIndications :Arthritis,Chroni c pain of right knee,Rheumatoid arthritis involving multiple sites with positive rheumatoid factor (HCC) TAKE 1 TABLET BY MOUTH EVERY 8 HOURS NEEDED FOR MODERATE OR MORE SEVERE PAIN. 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 Obesity Resolved Problems Problem Noted Date Diagnosed Date Resolved Date Chest pain 08/05/2015 07/27/2018 Hyperlipemia 07/27/2018 Hypertension 07/27/2018 Chest pain 07/27/2018 Encounters Date Type Department Care Team Description 09/21/2024 Travel 09/05/2024 Refill [facility] [place] [address] Yinka Harrison MD Medication Refill 09/02/2024 Results Follow-Up [facility] [place] [address] [address] Yinka Harrison MD Chronic cough (Primary Dx) 08/30/2024 9:40 AM UNDER WATER ASSISTANT Ancillary Procedure [facility] [place] [address] Yinka Harrison MD Chronic cough Discharge Disposition: Discharged to home or Selfcare 08/30/2024 9:00 AM UNDER WATER ASSISTANT Office Visit [facility] [place] [address] Yinka Harrison MD Chronic cough (Primary Dx); Colon cancer screening; Screening for osteoporosis; Encounter for vaccination; Postmenopausal Discharge Disposition: Discharged to home or Selfcare 08/30/2024 Travel 08/29/2024 Travel 08/28/2024 Telephone [facility] [address] [place] [phone] Yinka Harrison MD Advice Only 08/13/2024 9:40 AM UNDER WATER ASSISTANT Lab [facility] [address] [place] [address] Abnormal serum creatinine level Discharge Disposition: Discharged to home or Selfcare 08/12/2024 Travel 07/30/2024 [facility] [address] [place] [address] Yinka Harrison MD Medication Refill 07/22/2024 Telephone [facility] [address] [place] [address] Yinka Harrison MD Form Completion (Pre-op) 07/22/2024 Transcribe Orders [facility] [address] [place] [phone] Dave Fernando MD Presence of right artificial knee joint (Primary Dx) 07/15/2024 9:20 AM UNDER WATER ASSISTANT Lab [facility] [address] [place] [address] Lab [place] [facility] Abnormal serum creatinine level Discharge Disposition: Discharged to home or Selfcare 07/15/2024 Telephone [facility] [address] [place] [address] Yinka Harrison MD Results (labs) 07/13/2024 Travel 07/08/2024 Refill [facility] [place] [address] [place] [address] Yinka Harrison MD Medication Refill from Last 3 Months Immunizations Immunization Administration Dates Next Due Covid-19, Mrna, Lnp-s, PF, 1 00 mcg/0.5 mL Dose (Moderna) 05/31/2021,05/03/2021 Influenza Vaccine 07/16/2018,06/23/2015 Influenza Vaccine, Quadrivalent, PF 08/12/2020,1 Influenza, Trivalent, Adjuvanted, PF 08/30/2024 Pneumococcal conjugate PCV20 , polysaccharide [id number] conjugate, adjuvant, PF 08/30/2024 Family History Medical History Relation Name Comments High Cholesterol Father [place] Hypertension Father Jessy Stroke Father Jessy x3 Rheumatoid Arthritis Maternal Aunt Jasmina Asthma Maternal Grandmother Viviana Rheumatoid Arthritis Maternal Grandmother Viviana Rheumatoid Arthritis Mother Shannan Migraines Other Rheumatoid Arthritis Paternal Aunt Arely Breast Cancer Paternal Grandmother Brianne Cancer Paternal Grandmother Brianne Rheumatoid Arthritis Paternal Grandmother Brianne Relation Name Status Comments Father [place] (Age 95) Maternal Aunt Jasmina Maternal Grandmother Viviana Mother Shannan Other Paternal Aunt Arely Paternal Grandmother Brianne Social History Tobacco Use Types Packs/Day Years Used Date Smoking Tobacco: Former Cigarettes Q uit: 09/11/1984 Smokeless Tobacco: Never Alcohol Use Standard Drinks/Week Comments No 0 (1 standard drink = 0.6 oz pur e alcohol) [facility] Utilities Answer Date Recorded In the past 12 months has [employer], [employer], oil, or water [email or web address] threatened to shut off services in your home? No 02/26/2024 Social Connection and Isolat ion Panel [NHANES] Answer Date Recorded In a typical week, how many times do you talk on the phone with family, friends, or neighbors? More than three times a week 02/26/2024 How often do you get togethe r with friends or relatives? More than three times a week 02/26/2024 How often do you attend [facility] or baptism services? More than 4 times per year 02/26/2024 Do you belong to any clubs o r organizations such as spiritism groups, unions, fraternal or athletic groups, or school groups? Yes 02/26/2024 How often do you attend meet ings of the clubs or organizations you belong to? More than 4 times per year 02/26/2024 Are you , , di vorced, , never , or living with a partner? Never 02/26/2024 AUDIT-C Answer Date Recorded Q1: How often do you have a drink containing alcohol? Never 02/26/2024 Q2: How many drinks containi ng alcohol do you have on a typical day when you are drinking? Patient does not drink Q3: How often do you have si x or more drinks on one occasion? Never 02/26/2024 Overall Financial Resource Strain (CARDIA) Answe r Date Recorded How hard is it for you to pa y for the very basics like food, housing, medical care, and heating? Somewhat hard 02/26/2024 PHQ-2 Answer Date Recorded Total Score - Questions 1-9 0 12/10 [facility] - Occupational Stress Questionnaire Answer Date Recorded Do you feel stress - tense, restless, nervous, or anxious, or unable to sleep at night because your mind is troubled all the time - these days? Only a little 02/26/2024 Exercise Vital Sign Answer Date Recorde d On average, how many days pe r week do you engage in moderate to strenuous exercise (like a brisk walk)? 0 days On average, how many minutes do you engage in exercise at this level? Patient declined 02/26/2024 Hunger Vital Sign Answer Date Recorded Within the past 12 months, y ou worried that your food would run out before you got the money to buy more. Never true 02/26/20 24 Within the past 12 months, t he food you bought just didn't last and you didn't have money to get more. Never true 02/26/2024 PRAPARE - Transportation Answer Date Re corded In the past 12 months, has l ack of transportation kept you from medical appointments or from getting medications? No 02/09 In the past 12 months, has l ack of transportation kept you from meetings, work, or from getting things needed for daily living? No 02/26/2024 Housing Stability Vital Sign Answer Sushil e Recorded In the last 12 months, was t here a time when you were not able to pay the mortgage or rent on time? No 12/26/2023 In the last 12 months, how many places have you lived? 1 12/26/2023 In the last 12 months, was t here a time when you did not have a steady place to sleep or slept in a residential (including now)? No 12/26/2023 Housing Stability Vital Sign Answer Sushil e Recorded In the last 12 months, was t here a time when you were not able to pay the mortgage or rent on time? No 02/26/2024 In the past 12 months, how m any times have you moved where you were living? 0 02/26/2024 At any time in the past 12 m [facility], were you homeless or living in a residential (including now)? No 02/26/2024 Education Answer Date Recorded What is the highest level of school you have completed or the highest degree you have received? Bachelor's degree (e.g., BA, AB, BS) 03/05/2021 Sexually Active Control Partners Comments Not Currently None Comments Unknown Sex and Gender Information Value Date Recorded Sex Assigned at Not on file Legal Sex Female 11:27 PM CDT Gender Identity Not on file Sexual Orientation Not on file Last Filed Vital Signs Vital Sign Reading Time Taken Comments Blood Pressure 148/68 08/30/2024 9:14 AM UNDER WATER ASSISTANT Pulse 106 08/30/2024 9:14 AM UNDER WATER ASSISTANT Temperature 36.3 ??C (97.4 ??F) 08/30/2024 9:14 AM CS T Respiratory Rate 18 08/30/2024 9:14 AM UNDER WATER ASSISTANT Oxygen Saturation 99% 08/30/2024 9:14 AM UNDER WATER ASSISTANT Inhaled Oxygen Concentration - - Weight 88.7 kg (195 lb 8 oz) 08/30/2024 9:14 AM UNDER WATER ASSISTANT Height 160 cm (5' 3 ) 08/30/2024 9:14 AM UNDER WATER ASSISTANT Body Mass Index 34.63 08/30/2024 9:14 AM UNDER WATER ASSISTANT Plan of Treatment Upcoming Encounters Date Type Department Care Team (Latest Contact Info) Description 09/23/2024 10:45 AM UNDER WATER ASSISTANT Physical Therapy [facility] [address] [place] [phone] Dave Fernando MD [address] [place] [address] Lucy Garduno, [place] Discharge Disposition: Discharged to home or Selfcare 11/22/2024 10:15 AM CDT [facility]ment [facility] [address] [facility] [place] [phone] Yinka Harrison MD [address] [place] [address] Discharge Disposition: Discharged to home or Selfcare 06/13/2025 10:30 AM CDT Office Visit [facility] [place] [address] [place] [phone] Yinka Harrison MD [address] [place] [address] Health Maintenance Due Date Last Done Comments DEXA Bone Density 1959 TdaP Immunization 1959 Cologuard 2009 Immunochemical Fecal Occult Blood 2009 Zoster Immunization (1 of 2) 2009 Colonoscopy 05/14/2020 05/14/2010 Colorectal Cancer Screening 05/14/2020 Pap Smear 03/24/2024 03/24/2021 SARS-COV-2 Immunization ( season) 2024 05/31/2021, 05/03/2021 Mammogram 01/22/2026 01/23/2024, 12/10, 12/19/2022, Additional history exists Cervical Cancer Screening (CCS) 03/24/2026 HPV/Cotest 03/24/2026 03/24/2021 Respiratory Syncytial Virus (RSV) Immunization (Adult) (1 - 1-dose 75+ series) 2034 05/14/2010 Hepatitis C Virus (HCV) Screening Completed 06/07/2024 Influenza Immunization Completed , 08/12/2020, 06/20/2019, Additional history exists Pneumococcal Immunization (50+ years) Completed 08/30/2024 Pneumococcal Immunization Combined Discontinued 08/30/2024 Hepatitis B Immunization Aged Out No longer eligible based on patient's age to complete this topic Meningococcal Immunization (ACWY) Aged Out No longer eligible based on patient's age to complete this topic Rotavirus Immunization Aged Out No lo nger eligible based on patient's age to complete this topic Procedures Procedure Name Priority Date/Time Associated Diagnosis Comments COMPLETE BLOOD COUNT (CBC) WITH DIFF 09/17/2024 12:00 AM UNDER WATER ASSISTANT UR 24 HR CREATININE CLEARANCE 09/17/2024 12:00 AM UNDER WATER ASSISTANT BASIC METABOLIC PANEL W/ CALCIUM TOTAL 09/17/2024 12:00 AM UNDER WATER ASSISTANT ORTHOPEDIC SURGERY CONSULT 09/16/2024 12:00 AM UNDER WATER ASSISTANT XR - LOWER EXTREMITY 09/16/2024 12:00 AM UNDER WATER ASSISTANT ORTHOPEDIC PROCEDURE 09/16/2024 12:00 AM UNDER WATER ASSISTANT XR CHEST 2 VIEWS Today 08/30/2024 9:44 AM UNDER WATER ASSISTANT Chronic cough PROTIME (PT) (PROTHROMBIN TIME) 08/28/2024 12:00 AM UNDER WATER ASSISTANT HEMOGLOBIN, A1C 08/28/2024 12:00 AM UNDER WATER ASSISTANT APTT (PTT) 08/28/2024 12:00 AM UNDER WATER ASSISTANT COMPLETE BLOOD COUNT (CBC) WITH DIFF 08/28/2024 12:00 AM UNDER WATER ASSISTANT LAB - MISCELLANEOUS 08/28/2024 1 2:00 AM UNDER WATER ASSISTANT RENAL FUNCTION PANEL (RFP) 08/28/2024 12:00 AM UNDER WATER ASSISTANT CULTURE - MISCELLANEOUS 08/28/2024 12:00 AM UNDER WATER ASSISTANT BASIC METABOLIC PANEL W/ CALCIUM TOTAL Routine 08/13/2024 8:40 AM UNDER WATER ASSISTANT Abnormal serum creatinine level BASIC METABOLIC PANEL W/ CALCIUM TOTAL Routine 07/15/2024 9:20 AM UNDER WATER ASSISTANT Abnormal serum creatinine level HEPATITIS C ANTIBODY Routine 06/07/2024 1:31 PM CDT Encounter for hepatitis C screening test for low risk patient KASI SCREENING BILATERAL DIGITAL W CAD W PIYUSH Routine 01/23/2024 9:20 AM CDT Visit for screening mammogram HUMAN PAPILLOMA VIRUS (HPV) Routine 03/24/2021 PATHOLOGY CYTOLOGY HELMINTHOLOGIST Routine 03/24/2021 HM COLONOSCOPY Routine 05/14/2010 from Last 3 Months or Most Recently Relevant to Health Maintenance Results * UR 24 HR CREATININE CLEARANCE (09/17/2024 12:00 AM UNDER WATER ASSISTANT) 09/17/2024 us Provider Scan CHEMISTRY ORDERABLES Final Resul t Performing Organization Address [facility] de Phone Number SCAN * COMPLETE BLOOD COUNT (CBC) WITH DIFF (09/17/2024 12:00 AM UNDER WATER ASSISTANT) Only the most recent of2 resultswithin the time period is included. 09/17/2024 us Provider Scan HEMATOLOGY ORDERABLES Final Resu lt Performing Organization Address [facility] de Phone Number SCAN * BASIC METABOLIC PANEL W/ CALCIUM TOTAL (09/17/2024 12:00 AM UNDER WATER ASSISTANT) Only the most recent of3 resultswithin the time period is included. 09/17/2024 us Provider Scan CHEMISTRY ORDERABLES Final Resul t Performing Organization Address [facility] de Phone Number SCAN * ORTHOPEDIC PROCEDURE (09/16/2024 12:00 AM UNDER WATER ASSISTANT) 09/16/2024 us Provider Scan GEN ORDERS Final Result Performing Organization Address [facility] de Phone Number SCAN * XR - LOWER EXTREMITY (09/16/2024 12:00 AM UNDER WATER ASSISTANT) 09/16/2024 us Provider Scan IMG DIAGNOSTIC ORDERABLES Final Result Performing Organization Address [facility]/State/ZIP Co de Phone Number SCAN * ORTHOPEDIC SURGERY CONSULT (09/16/2024 12:00 AM UNDER WATER ASSISTANT) 09/16/2024 us Provider Scan GENERIC SCAN ORDERS CONSULT [place] Result Performing Organization Address City/[facility]/ZIP Co de Phone Number SCAN * XR CHEST 2 VIEWS (08/30/2024 9:44 AM UNDER WATER ASSISTANT) Anatomical Region Laterality Modality Chest N/A Digital Radiogra phy 08/30/2024 5:31 PM UNDER WATER ASSISTANT Impressions 08/30/2024 5:34 PM UNDER WATER ASSISTANT IMPRESSION: No acute cardiopulmonary abnormality. Narrative 08/30/2024 5:34 PM UNDER WATER ASSISTANT EXAM DESCRIPTION: XR CHEST 2 VIEWS REASON FOR STUDY: Cough and congestion for 2 months ?? TECHNIQUE: Frontal and lateral ??radiographic view(s) of the chest. COMPARISON: 12/15/2016 FINDINGS: LUNGS: ??No focal opacity, pleural effusion, or pneumothorax. ?? HEART/MEDIASTINUM: ??Cardiac silhouette normal in size. Mediastinal and hilar contours appear normal. ?? There is mild atherosclerotic calcification of the aorta. LINES/TUBES: ??None. BONES: ??No acute osseous abnormality. THIS IS AN ELECTRONICALLY VERIFIED FINAL REPORT 08/30/2024 5:31 PM - Electronically signed by ??Richard Mckeon M.D. AM: AM D: ??08/30/2024 5:31 PM T: ??08/30/2024 5:31 PM Report ID: [id number] Reading Location: ??[id number] Procedure Note Richard Mckeon MD - 08/30/2024 EXAM DESCRIPTION: XR CHEST 2 VIEWS REASON FOR STUDY: Cough and congestion for 2 months TECHNIQUE: Frontal and lateral radiographic view(s) of the chest. COMPARISON: 12/15/2016 FINDINGS: LUNGS: No focal opacity, pleural effusion, or pneumothorax. HEART/MEDIASTINUM: Cardiac silhouette normal in size. Mediastinal and hilar contours appear normal. There is mild atherosclerotic calcification of the aorta. LINES/TUBES: None. BONES: No acute osseous abnormality. THIS IS AN ELECTRONICALLY VERIFIED FINAL REPORT 08/30/2024 5:31 PM - Electronically signed by Richard Mckeon M.D. AM: AM Report ID: [id number] Reading Location: [place] [address] IMPRESSION: No acute cardiopulmonary abnormality. us Yinka Harrison MD IMG DIAGNOSTIC ORDERABLES Final Result * LAB - MISCELLANEOUS (08/28/2024 12:00 AM UNDER WATER ASSISTANT) 08/28/2024 us Provider Scan CHEMISTRY ORDERABLES Final Resul t Performing Organization Address [facility] de Phone Number SCAN * CULTURE - MISCELLANEOUS (08/28/2024 12:00 AM UNDER WATER ASSISTANT) 08/28/2024 us Provider Scan MICROBIOLOGY - GENERAL ORDERABLE S Final Result Performing Organization Address [facility] de Phone Number SCAN * RENAL FUNCTION PANEL (RFP) (08/28/2024 12:00 AM UNDER WATER ASSISTANT) 08/28/2024 us Provider Scan CHEMISTRY ORDERABLES Final Resul t Performing Organization Address [facility] de Phone Number SCAN * APTT (PTT) (08/28/2024 12:00 AM UNDER WATER ASSISTANT) 08/28/2024 us Provider Scan HEMATOLOGY ORDERABLES Final Resu lt Performing Organization Address [facility] de Phone Number SCAN * PROTIME (PT) (PROTHROMBIN TIME) (08/28/2024 12:00 AM UNDER WATER ASSISTANT) INR 0.9 SCAN 08/28/2024 us Provider Scan HEMATOLOGY ORDERABLES Final Resu lt Performing Organization Address City/[facility]/ZIP Co de Phone Number SCAN * HEMOGLOBIN, A1C (08/28/2024 12:00 AM UNDER WATER ASSISTANT) HGB-A1C 5.7 SCAN 08/28/2024 us Provider Scan CHEMISTRY ORDERABLES Final Resul t Performing Organization Address [facility] de Phone Number SCAN * HEPATITIS C ANTIBODY (06/07/2024 1:31 PM CDT) hepatitis C antibody 0.14 <1 S/CO 06/07/2024 10:57 PM CDT [facility] Comment: Signal/Cutoff ratio ??< 0.79 is Nondetected Signal/Cutoff ratio 0.80-0.99 is Grayzone Signal/Cutoff ratio > 0.99 is Detected Supplemental assays are recommended if signal/cutoff ratio is >/=1.00. ??Signal/cutoff ratio result >/= 5.00 is 97% predictive of positivity for recombinant immunoblot assay (RIBA) and will be reported to the [place] Department of Public [facility] as required. Blood Venipuncture / Unknown 06/07/2024 1:31 PM CDT 06/07/2024 1:31 PM CDT Yinka Harrison MD CHEMISTRY ORDERABLES [place] l Result Performing Organization Address [facility] [[email or web address]] Co de Phone Number [facility] [address] [place] [address], [place] * KASI SCREENING BILATERAL DIGITAL W CAD W [place] (01/23/2024 9:20 AM CDT) Anatomical Region Laterality Modality breast Bilateral Mammography 01/23/2024 10:1 0 AM CDT Narrative 01/23/2024 12:26 PM CDT - KASI SCREENING BILATERAL DIGITAL W CAD W [place] BILATERAL DIGITAL SCREENING MAMMOGRAM 3D/2D WITH CAD WITH MEDIOLATERAL OBLIQUE CRANIOCAUDAL: 01/23/2024 The study was acquired using digital technology and interpreted from soft copy. Current study was also evaluated with ICAD version 7.2. 2D digital mammographic views, as well as 3D digital tomosynthesis were performed in the CC and MLO projections. ?? CLINICAL: Routine screening. Patient has no complaints. No personal history of cancer. Paternal grandmother had breast cancer. ?? COMPARISONS: Comparison is made to exams dated: ??12/09/2016, 04/02/2015, and 02/05/2014 [facility]. ?? BREAST TISSUE:The tissue of both breasts is predominantly fatty. ?? FINDINGS: There are benign intramammary nodes in the left breast. ?? No significant masses, calcifications, or other findings are seen in either breast. ?? There has been no significant interval change. IMPRESSION: BI-RAD 2 BENIGN There is no mammographic evidence of malignancy. A 1 year screening mammogram is recommended. ?? A letter will be sent to the patient with these results. The patient will be entered into a reminder system with a target due date of 1 year for her next screening exam. Electronically signed by: Violet Stein M.D. ? ll/penshirley:01/23/2024 11:12:16 ?? Vehicle Body Sander(s): Karissa ??RT Juan A(R)(M), [facility] letter sent: Normal Exam ?? Reading location: [facility] BI-RADS: 2 Benign Procedure Note Violet Stein MD - 01/23/2024 - KASI SCREENING BILATERAL DIGITAL W CAD W [place] BILATERAL DIGITAL SCREENING MAMMOGRAM 3D/2D WITH CAD WITH MEDIOLATERAL OBLIQUE CRANIOCAUDAL: 01/23/2024 The study was acquired using digital technology and interpreted from soft copy. Current study was also evaluated with ICAD version 7.2. 2D digital mammographic views, as well as 3D digital tomosynthesis were performed in the CC and MLO projections. CLINICAL: Routine screening. Patient has no complaints. No personal history of cancer. Paternal grandmother had breast cancer. COMPARISONS: Comparison is made to exams dated: 12/09/2016, 04/02/2015, and 02/05/2014 [facility]. BREAST TISSUE:The tissue of both breasts is predominantly fatty. FINDINGS: There are benign intramammary nodes in the left breast. No significant masses, calcifications, or other findings are seen in either breast. There has been no significant interval change. IMPRESSION: BI-RAD 2 BENIGN There is no mammographic evidence of malignancy. A 1 year screening mammogram is recommended. A letter will be sent to the patient with these results. The patient will be entered into a reminder system with a target due date of 1 year for her next screening exam. Electronically signed by: Violet Stein M.D. ll/penrad:01/23/2024 11:12:16 Vehicle Body Sander(s): RT Trevin(R)(M), [facility] letter sent: Normal Exam Reading location: [facility] BI-RADS: 2 Benign Edouard Lozoya IMG MAMMO ORDERABLES Final Resul t * PATHOLOGY CYTOLOGY HELMINTHOLOGIST (03/24/2021) Other Edouard Lozoya PATHOLOGY/CYTOLOGY ORDERABLES Fi nal Result * HUMAN PAPILLOMA VIRUS (HPV) (03/24/2021) Other Edouard Lozyoa LAB SEND OUTS Final Result * HM COLONOSCOPY (05/14/2010) Hollis Mcfadden MD PROCEDURE/MINOR SURGICAL ORDERABLES Final Result from Last 3 Months or Most Recently Relevant to Health Maintenance Insurance MEDICARE [place] [facility] Advance Directives * Full Code (Latest Code Status on File) Date Activated Date Inactivated Comments 08/05/2015 6:23 AM 08/05/2015 9:03 PM Full Code: FULL ARREST: Attempt Resuscitation/CPR and use intubation and mechanical ventilation as indicated. PRE-ARREST: Use all measures to stabilize patient. Care Teams Seed District Sales Manager Relationship Specialty Start Date End Date Yinka Harrison MD [address] [place] [address] PCP - General Internal Medicine 07/27/18 Dave Fernando MD [address] [place] [address] Consulting Physician Orthopaedic Surgery 02/20/19
--- OUTSIDE RECORDS SUMMARY | 2024-09-22 13:02 | XMS_ITS | Encounter Summary ---
Author Organization [facility] Address [address] [place] [address] Phone Care Team Providers Care Production Engine Repairer Name Role Phone Yinka Harrison MD Primary Care Provider [phone] Dave Fernando MD Unavailable Reason for Referral * Radiology Services (Routine) - Authorized Specialty Diagnoses / Procedures Referred By Contac t Referred To Contact Radiology Diagnoses Screening for osteoporosis Postmenopausal Procedures KASI BONE DENSITOMETRY AXIAL SKELETON Yinka Harrison MD [address] [place] [address] Phone: tel: fax: Referral ID Status Reason Start Date Expiration Date V isits Requested Visits Authorized [id number] Authorized 08/30/2024 1 1 STERED ASSOCIATE Reason for Visit * Reason Comments Cough Onset 2 weeks, suppo se to be having knee surgery Sep 16, would like to be checked out. Deep cough, yellow phlem. Metallic taste in mouth, no blood. Pt denies SOB Encounter Details Date Type Department Care Team (Late Contact Info) Description 08/30/2024 9:00 AM REGISTERED ASSOCIATE Office Visit [facility] - Primary Care - [place] [address] [place] [address] Yinka Harrison MD [address] [place] [address] Chronic cough (Primary Dx); Colon cancer screening; Screening for osteoporosis; Encounter for vaccination; Postmenopausal Discharge Disposition: Discharged to home or Selfcare Social History Tobacco Use Types Packs/Day Years Used Date Smoking Tobacco: Former Cigarettes Q uit: 09/11/1984 Smokeless Tobacco: Never Alcohol Use Standard Drinks/Week Comments No 0 (1 standard drink = 0.6 oz pur e alcohol) [facility] Utilities Answer Date Recorded In the past 12 months has [employer], gas, oil, or water [employer] threatened to shut off services in your [...] week 02/26/2024 How often do you attend [facility] ch or sabianist services? More than 4 times per year 02/26/2024 Do you belong to any clubs o r organizations such as jain groups, unions, fraternal or athletic groups, or [...] Total Score - Questions 1-9 0 12/10 [facility] [place] of Occupat ional Health - Occupational Stress Questionnaire Answer Date Recorded [...] place to sleep or slept in a fpc (including now)? No 12/26/2023 Housing Stability Vital Sign Answer Sushil e Recorded In the last 12 months, was t here a time when you were not able to pay the mortgage or rent on time? No 02/26/2024 In the past 12 months, how m any times have you moved where you were living? 0 02/26/2024 At any time in the past 12 m [facility], were you homeless or living in a fpc (including now)? No 02/26/2024 Education Answer Date [...] on file Sexual Orientation Not on file documented as of this encounter Last Filed Vital Signs Vital Sign Reading Time Taken Comments Blood Pressure 148/68 08/30/2024 9:14 AM REGISTERED ASSOCIATE Pulse 106 08/30/2024 9:14 AM REGISTERED ASSOCIATE Temperature 36.3 ??C (97.4 ??F) 08/30/2024 9:14 AM CS T Respiratory Rate 18 08/30/2024 9:14 AM REGISTERED ASSOCIATE Oxygen Saturation 99% 08/30/2024 9:14 AM REGISTERED ASSOCIATE Inhaled Oxygen Concentration - - Weight 88.7 kg (195 lb 8 oz) 08/30/2024 9:14 AM REGISTERED ASSOCIATE Height 160 cm (5' 3 ) 08/30/2024 9:14 AM REGISTERED ASSOCIATE Body Mass Index 34.63 08/30/2024 9:14 AM REGISTERED ASSOCIATE documented in this encounter Patient Instructions * Patient Instructions* Yinka Harrison MD - 08/30/2024 9:00 AM REGISTERED ASSOCIATE Use an OTC cough medication (dextromethorphan) as needed for cough, Mucinex (plain) as needed for nasal and head congestion, and [place] nasal spray liberally (at least 10-20 times per day). The nasal spray is the most important item. Avoid use of decongestants. STERED ASSOCIATE documented in this encounter Progress Notes * Julissa Rivera CMA - 08/30/2024 9:00 AM CST Sriram Srinivasan, 64 y.o., female is here for Cough Medication Refills: Patient reports/denies need for medication refills. Orders Pended: no Requested Prescriptions No prescriptions requested or ordered in this encounter Home Medications Medication Sig Start Date End Date Taking? Authorizing Provider amLODIPine (NORVASC) 10 MG Tablet TAKE ONE (1) TABLET BY MOUTH DAILY. 07/30/24 Yinka Harrison MD Ascorbic Acid (VITAMIN C PO) Take 500 mg by mouth. Provider, Historical, MD Flaxseed, Linseed, (Flax Seed Oil) 1000 MG Capsule Take 1,000 mg by mouth daily. Provider, MD Rsoendo ibuprofen (MOTRIN) 800 MG Tablet TAKE ONE (1) TAB BY MOUTH EVERY 8 HOURS NEEDED FOR MILD OR MORESEVERE PAIN. 09/13/22 Yinka Harrison MD IRON PO Take by mouth. Provider, MD Rosendo rosuvastatin (CRESTOR) 40 MG Tablet Take 1 Tablet by mouth daily. 06/07/24 Yinka Harrison MD traMADol (ULTRAM) 50 MG Tablet TAKE 1 TABLET BY MOUTH EVERY 8 HOURS NEEDED FOR MODERATE OR MORE SEVERE PAIN. 07/08/24 Yinka Harrison MD triamcinolone (KENALOG) 0.1 % Cream Apply sparingly twice a day to the affected area. Rub cream in until invisible. 03/22/24 Yinka Harrison MD There are no discontinued medications. I have reviewed the home medication list with the patient and have reconciled discrepancies. The list is accurate to the best of my knowledge. Smoking Status: Social History Tobacco Use Smoking status: Former Smokeless tobacco: Never Substance Use Topics Alcohol use: No Alcohol/week: 0.0 oz Drug use: No Smoking Cessation Counseling Given: no Health Care Maintenance: Health Maintenance Due Topic Date Due DEXA Bone Density Never done TdaP Immunization Never done Zoster Immunization (1 of 2) Never done Pneumococcal Immunization (65+ years) (1 of 1 - PCV) Never done Colorectal Cancer Screening 05/14/2020 Influenza Immunization (1) 05/12/2024 SARS-COV-2 Immunization ( season) 2024 Orders Pended: yes The following BPA's have been addressed with the patient today: Flu, Pneumonia, Colonoscopy, and Bone Density STERED ASSOCIATE * Yinka Harrison MD - 08/30/2024 9:00 AM CST Subjective: Subjective HPI Patient presents today because of a chronic cough. She indicates it has been present ???since I called a few weeks ago for the Negin Lopez?? . Review of her chart indicates that she called on July 03 and, at that time, she had had her symptoms for at least a week. That would make her coughpersistent for over 2 months. Denies any fever, chills, dyspnea, sore throat, rhinorrhea or eye symptoms. Review of Systems Constitutional: Negative. HENT: Negative. Eyes: Negative. Respiratory: Positive for cough. Cardiovascular: Negative. Gastrointestinal: Negative. Endocrine: Negative. Genitourinary: Negative. Musculoskeletal: Negative. Skin: Negative. Allergic/Immunologic: Negative. Neurological: Negative. Hematological: Negative. Psychiatric/Behavioral: Negative. Objective: Objective Physical Exam Vitals reviewed. Constitutional: Appearance: She is well-developed. Comments: Moderate nonproductive cough during exam. HENT: Head: Normocephalic and atraumatic. Nose: Mucosal edema (Mildly pale) present. No rhinorrhea. Mouth/Throat: Lips: [place]. Mouth: Mucous membranes are moist. Pharynx: Oropharynx is clear. Uvula midline. No oropharyngeal exudate or posterior oropharyngeal erythema. Eyes: General: Lids are normal. Right eye: No discharge. Left eye: No discharge. Extraocular Movements: Extraocular movements intact. Conjunctiva/sclera: Conjunctivae normal. Pupils: Pupils are equal, round, and reactive to light. Neck: Thyroid: No thyroid mass. Trachea: Trachea normal. Cardiovascular: Rate and Rhythm: Normal rate and regular rhythm. Heart sounds: Normal heart sounds. No murmur heard. No friction rub. No gallop. Pulmonary: Effort: Pulmonary effort is normal. No respiratory distress. Breath sounds: Normal breath sounds. No wheezing or rales. Chest: Chest wall: No tenderness. Musculoskeletal: Cervical back: Normal range of motion and neck supple. Lymphadenopathy: Cervical: No cervical adenopathy. Skin: General: Skin is warm and dry. Findings: No rash. Psychiatric: Attention and Perception: Attention normal. Mood and Affect: Mood is anxious. Speech: Speech normal. Behavior: Behavior normal. Thought Content: Thought content normal. Judgment: Judgment normal. Assessment and Plan Assessment & Plan See Diagnoses, Orders, Follow-up, and Instructions Problem List Items Addressed This Visit None Visit Diagnoses Chronic cough - Primary Relevant Orders XR CHEST 2 VIEWS Colon cancer screening Relevant Orders COLOGUARD Screening for osteoporosis Relevant Orders KASI BONE DENSITOMETRY AXIAL SKELETON Encounter for vaccination Relevant Orders INFLUENZA TRIVALENT ADJUVANTED VACCINE IM INFLUENZA IMMUNIZATION QUESTIONS PNEUMOCOCCAL CONJUGATE VACCINE (PCV20) IM PCV-20 IMMUNIZATION QUESTIONS Postmenopausal Relevant Orders KASI BONE DENSITOMETRY AXIAL SKELETON Obtain chest x-ray. Advice given on OTC treatment of her chronic cough. I suspect she may have someallergy related issues which might be contributing to the cough. Influenza vaccine and Prevnar 20 vaccine given. DEXA scan ordered. Cologuard test ordered. Follow-up as scheduled. I have seen and examined the patient on today's date. Documentation for this visit was completed using the assistance of a template. Everything documented in this visit was personally performed todaywith the necessary additions, deletions and changes. STERED ASSOCIATE * Julissa Rivera CMA - 08/30/2024 9:00 AM CST Sriram is here for Flu immunizations per order of Dr. Harrison dated 08/30/24. Administered in right deltoid . Vaccine Information Sheet(s) were given on 08/30/24. Verbal consent was obtained. Sriram tolerated the immunization well without incident. See Immunization activity for details. Sriram is here for Prevnar immunizations per order of Dr. Harrison dated 08/30/24. Administered in left deltoid . Vaccine Information Sheet(s) were given on 08/30/24. Verbal consent was obtained. Sriram tolerated the immunization well without incident. See Immunization activity for details. STERED ASSOCIATE documented in this encounter Plan of Treatment Upcoming Encounters Date Type Department Care Team (Latest Contact Info) Description 09/23/2024 10:45 AM REGISTERED ASSOCIATE Physical Therapy [facility] [address], [address] [place] [address] Dave Fernando MD [address] [place] [address] Lucy Garduno, [place] Discharge Disposition: Discharged to home or Selfcare 11/22/2024 10:15 AM CDT Appointment [facility] [place] [address] Yinka Harrison MD [address] [place] [address] Discharge Disposition: Discharged to home or Selfcare 06/13/2025 10:30 AM CDT Office Visit [facility] - [place] [address] [place] [address] Yinka Harrison MD [address] [place] [address] Scheduled Orders Name Type Priority Associated Diagnoses Orde r Schedule KASI BONE DENSITOMETRY AXIAL SKELETON Imaging Routine Screening for osteoporosis Postmenopausal Expected: 08/30/2024, Expires: 08/29/2025 COLOGUARD Lab Routine Colon cancer screening Ordered: 08/30/2024 documented as of this encounter Results * XR CHEST 2 VIEWS (08/30/2024 9:44 AM REGISTERED ASSOCIATE) Anatomical Region Laterality Modality Chest N/A Digital Radiogra phy 08/30/2024 5:31 PM REGISTERED ASSOCIATE Impressions 08/30/2024 5:34 PM REGISTERED ASSOCIATE IMPRESSION: No acute cardiopulmonary abnormality. Narrative 08/30/2024 5:34 PM REGISTERED ASSOCIATE EXAM DESCRIPTION: XR CHEST 2 VIEWS REASON [...] PM T: ??08/30/2024 5:31 PM Report ID: [id number] Reading Location: ??[id number] Procedure Note Linda, Richard, MD - 08/30/2024 EXAM DESCRIPTION: XR CHEST [...] Richard Mckeon M.D. AM: AM Report ID: [id number] Reading Location: [place] [address] IMPRESSION: No acute cardiopulmonary abnormality. Yinka Harrison MD IMG DIAGNOSTIC ORDERABLES Final Result documented in this encounter Visit Diagnoses Diagnosis Chronic cough- Primary Cough Colon cancer screening Special screening for malignant neoplasms, colon Screening for osteoporosis Special screening for osteoporosis Encounter for vaccination Postmenopausal Asymptomatic postmenopausal status (age-related) (natural) Chronic cough Cough documented in this encounter Additional Health Concerns Assessment Noted Time PHQ-9 Depression Total Score: 0 12/27/19 24 8:35 AM CDT documented as of this encounter Care Teams Production Engine Repairer Relationship Specialty Start Date End Date Yinka Harrison MD [address] [place] [address] PCP - General Internal Medicine 07/27/18 Dave Fernando MD [address] [place] [address] Consulting Physician Orthopaedic Surgery 02/20/19 documented as of this encounter
--- OUTSIDE RECORDS SUMMARY | 2024-09-22 13:02 | XMS_ITS | CONTINUITY OF CARE DOCUMENT ---
Author Name stephanie brown Address Unknown Organization [facility] Address [address] [place] [address] Phone [phone] Care Team Providers Care Distribution Center Assistant Name Role Phone stephanie brown Unavailable Unavailable
--- OUTSIDE RECORDS SUMMARY | 2024-09-22 13:02 | XMS_ITS | Encounter Summary ---
Author Organization [employer] Care Team Providers Care Panel Raiser Operator Name Role Phone Yinka Harrison MD Primary Care Provider [phone] Dave Fernando MD Unavailable Encounter Details Date Type Department Care Team (Latest Contact Info) Description 08/30/2024 Travel Social History Tobacco Use Types Packs/Day Years Used Date Smoking Tobacco: Former Cigarettes Q uit: 09/11/1984 Smokeless Tobacco: Never Alcohol Use Standard Drinks/Week Comments No 0 (1 standard drink = 0.6 oz pur e alcohol) [facility] Utilities Answer Date Recorded In the past 12 months has [employer], gas, oil, or water company threatened to shut off services in your [...] week 02/26/2024 How often do you attend chur ch or yazidism services? More than 4 times per year 02/26/2024 Do you belong to any clubs o r organizations such as methodist groups, unions, fraternal or athletic groups, or [...] Total Score - Questions 1-9 0 12/10 [facility] [place] of Occupat ional Health - Occupational Stress [...] place to sleep or slept in a correction (including now)? No 12/26/2023 Housing Stability Vital Sign Answer Sushil e Recorded In the last 12 months, was t here a time when you were not able to pay the mortgage or rent on time? No 02/26/2024 In the past 12 months, how m any times have you moved where you were living? 0 02/26/2024 At any time in the past 12 m [facility], were you homeless or living in a correction (including now)? No 02/26/2024 Education Answer Date [...] on file documented as of this encounter Plan of Treatment Upcoming Encounters Date Type Department Care Team (Latest Contact Info) Description 09/23/2024 10:45 AM CASH POSTING CLERK Physical Therapy [facility] [address], [address] [place] [address] Dave Fernando MD [address] [place] [address] Lucy Garduno, [place] Discharge Disposition: Discharged to home or Selfcare 11/22/2024 10:15 AM CDT Appointment [facility] 1 [place] [address] Yinka Harrison MD [address] [place] [address] Discharge Disposition: Discharged to home or Selfcare 06/13/2025 10:30 AM CDT Office Visit [facility] - Primary Care - [place] [address] [place] [phone] Yinka Harrison MD [address] [place] [address] documented as of this encounter Visit Diagnoses Not on filedocumented in this encounter Additional Health Concerns Assessment Noted Time PHQ-9 Depression Total Score: 0 12/27/19 24 8:35 AM CDT documented as of this encounter Care Teams Panel Raiser Operator Relationship Specialty Start Date End Date Yinka Harrison MD [address] [place] [address] PCP - General Internal Medicine 07/27/18 Dave Fernando MD [address] [place] [address] Consulting Physician Orthopaedic Surgery 02/20/19 documented as of this encounter
--- OUTSIDE RECORDS SUMMARY | 2024-09-22 13:02 | XMS_ITS | Encounter Summary ---
Author Organization [facility] Address [address] [place] [address] Phone Care Team Providers Care Websphere Commerce Consultant Name Role Phone Yinka Harrison MD Primary Care Provider [phone] Dave Fernando MD Unavailable [phone] Encounter Details Date Type Department Care Team (Latest Contact Info) Description 08/30/2024 9:40 AM SAND MOLDER Ancillary Procedure [facility] - Diagnostic Radiology - [place] [address] [place] [address] Yinka Harrison MD [address] [place], [place] [id number] Chronic cough Discharge Disposition: Discharged to home or Selfcare Social History Tobacco Use Types Packs/Day Years Used Date Smoking Tobacco: Former Cigarettes Q uit: 09/11/1984 Smokeless Tobacco: Never Alcohol Use Standard Drinks/Week Comments No 0 (1 standard drink = 0.6 oz pur e alcohol) [facility] Utilities Answer Date Recorded In the past 12 months has [employer], gas, oil, or water company threatened to [...] often do you attend chur ch or mormonism services? More than 4 times per year 02/26/2024 Do you belong to any clubs o r organizations such as presybeterian groups, unions, fraternal or athletic groups, or [...] Total Score - Questions 1-9 0 12/10 [facility] of Occupat ional Health - Occupational Stress [...] place to sleep or slept in a retirement (including now)? No 12/26/2023 Housing Stability Vital Sign Answer Sushil e Recorded In the last 12 months, was t here a time when you were not able to pay the mortgage or rent on time? No 02/26/2024 In the past 12 months, how m any times have you moved where you were living? 0 02/26/2024 At any time in the past 12 m [facility], were you homeless or living in a retirement (including now)? No 02/26/2024 Education Answer Date [...] (Latest Contact Info) Description 09/23/2024 10:45 AM SAND MOLDER Physical Therapy [facility] [address] [place] [address] Dave Fernando MD [address] [place] [address] Lucy Garduno, [place] Discharge Disposition: Discharged to home or Selfcare 11/22/2024 10:15 AM CDT Appointment [facility] 1 [place] [address] Yinka Harrison MD [address] [place] [address] Discharge Disposition: Discharged to home or Selfcare 06/13/2025 10:30 AM CDT Office Visit [facility] - Primary Care - [place] [address] [place] [address] Yinka Harrison MD [address] [place] [address] documented as of this encounter Procedures Procedure Name Priority Date/Time Associated Diagnosis Comments XR CHEST 2 VIEWS Today 08/30/2024 9:44 AM SAND MOLDER Chronic cough documented in this encounter Results * XR CHEST 2 VIEWS (08/30/2024 9:44 AM SAND MOLDER) Anatomical Region Laterality Modality Chest N/A Digital Radiogra phy 08/30/2024 5:31 PM SAND MOLDER Impressions 08/30/2024 5:34 PM SAND MOLDER IMPRESSION: No acute cardiopulmonary abnormality. Narrative 08/30/2024 5:34 PM SAND MOLDER EXAM DESCRIPTION: XR CHEST 2 VIEWS REASON [...] PM T: ??08/30/2024 5:31 PM Report ID: [id number] Reading Location: ??[id number] Procedure Note Richard Mckeon MD - 08/30/2024 [...] Richard Mckeon M.D. AM: AM Report ID: [id number] Reading Location: [id number] IMPRESSION: No acute cardiopulmonary abnormality. us Yinka Harrison MD IMG DIAGNOSTIC ORDERABLES Final Result documented in this encounter Visit Diagnoses Diagnosis Chronic cough Cough documented in this encounter Additional Health Concerns Assessment Noted Time PHQ-9 Depression Total Score: 0 12/27/19 24 8:35 AM CDT documented as of this encounter Care Teams Websphere Commerce Consultant Relationship Specialty Start Date End Date Yinka Harrison MD [address] [place] [address] PCP - General Internal Medicine 07/27/18 Dave Fernando MD [address] [place] [address] Consulting Physician Orthopaedic Surgery 02/20/19 documented as of this encounter
--- OUTSIDE RECORDS SUMMARY | 2024-09-22 13:02 | XMS_ITS | Encounter Summary ---
Author Organization [facility] Address [address] [place] [address] Phone Care Team Providers Care Skidder Driver Name Role Phone Yinka Harrison MD Primary Care Provider [phone] Dave Fernando MD Unavailable [phone] Reason for Visit * Reason Comments Medication Refill Encounter Details Date Type Department Care Team (Late st Contact Info) Description 09/05/2024 Refill [facility] - Primary Care - [place] [address] [place] [address] Yinka Harrison MD [address] [place] [address] Medication Refill Social History Tobacco Use Types Packs/Day Years Used Date Smoking Tobacco: Former Cigarettes Q uit: 09/11/1984 Smokeless Tobacco: Never Alcohol Use Standard Drinks/Week Comments No 0 (1 standard drink = 0.6 oz pur e alcohol) [facility] Utilities Answer Date Recorded In the past 12 months has [employer], gas, oil, or water company threatened to [...] often do you attend chur ch or episcopalian services? More than 4 times per year 02/26/2024 Do you belong to any clubs o r organizations such as jainism groups, unions, fraternal or athletic groups, or [...] Total Score - Questions 1-9 0 12/10 [facility] of Occupat ional Health - Occupational Stress [...] place to sleep or slept in a mcfp (including now)? No 12/26/2023 Housing Stability Vital Sign Answer Sushil e Recorded In the last 12 months, was t here a time when you were not able to pay the mortgage or rent on time? No 02/26/2024 In the past 12 months, how m any times have you moved where you were living? 0 02/26/2024 At any time in the past 12 m [facility], were you homeless or living in a mcfp (including now)? No 02/26/2024 Education Answer Date [...] on file documented as of this encounter Miscellaneous Notes * Telephone Encounter - Yinka Harrison MD - 09/06/2024 8:04 AM INSTRUMENT MAKER APPRENTICE Refill request approved. RUMENT MAKER APPRENTICE * Telephone Encounter - Graeme Hansen RN - 09/05/2024 1:47 PM CST Medication failed the protocol, provider to review and approve the medication order if appropriate. Requested Prescriptions Pending Prescriptions Disp Refills traMADol (ULTRAM) 50 MG Tablet [Pharmacy Med Name: TRAMADOL HYDROCHLORIDE 50MG TABLET] 30 Tablet 1 Sig: TAKE 1 TABLET BY MOUTH EVERY 8 HOURS NEEDED FOR MODERATE OR MORE SEVERE PAIN. Not Delegated - Opioid Agonists Protocol Failed - 09/05/2024 1:47 PM Failed - This refill cannot be delegated Passed - Visit with relevant provider in past 12 months or upcoming 90 days Recent Visits Date Type Provider Dept 08/30/24 Office Visit Yinka Harrison MD [facility] 06/07/24 Office Visit Yinka Harrison MD [facility] 02/26/24 Office Visit Yinka Harrison MD [facility] 12/27/23 Office Visit Yinka Harrison MD [facility] Showing recent visits within past 365 days and meeting all other requirements Future Appointments No visits were found meeting these conditions. Showing future appointments within next 90 days and meeting all other requirements RUMENT MAKER APPRENTICE documented in this encounter Plan of Treatment Upcoming Encounters Date Type Department Care Team (Latest Contact Info) Description 09/23/2024 10:45 AM INSTRUMENT MAKER APPRENTICE Physical Therapy [facility] [address] [place] [address] Dave Fernando MD [address] [place] [address] Lucy Garduno, [place] Discharge Disposition: Discharged to home or Selfcare 11/22/2024 10:15 AM CDT Appointment [facility] [place] [address] Yinka Harrison MD [address] [place] [address] Discharge Disposition: Discharged to home or Selfcare 06/13/2025 10:30 AM CDT Office Visit [facility] - Primary Care - [place] [address] [place] [address] Yinka Harrison MD [address] [place] [address] documented as of this encounter Visit Diagnoses Diagnosis Arthritis Arthropathy, unspecified, site unspecified Chronic pain of right knee Rheumatoid arthritis involving multiple sites with positive rheumatoid factor (HCC) documented in this encounter Additional Health Concerns Assessment Noted Time PHQ-9 Depression Total Score: 0 12/27/19 24 8:35 AM CDT documented as of this encounter Care Teams Skidder Driver Relationship Specialty Start Date End Date Yinka Harrison MD [address] [place] [address] PCP - General Internal Medicine 07/27/18 Dave Fernando MD [address] [place] [address] Consulting Physician Orthopaedic Surgery 02/20/19 documented as of this encounter
--- OUTSIDE RECORDS SUMMARY | 2024-09-22 13:02 | XMS_ITS | Encounter Summary ---
Author Organization [facility] Care Team Providers Care Ordering Machine Operator Name Role Phone Yinka Harrison MD Primary Care Provider [phone] Dave Fernando MD Unavailable [phone] Encounter Details Date Type Department Care Team (Latest Contact Info) Description 08/29/2024 Travel Social History Tobacco Use Types Packs/Day Years Used Date Smoking Tobacco: Former Smokeless Tobacco: Never Alcohol Use Standard Drinks/Week Comments No 0 (1 standard drink = 0.6 oz pur e alcohol) [facility] Utilities Answer Date Recorded In the past 12 months has [employer], gas, oil, or water company threatened [...] often do you attend chur ch or cheondoism services? More than 4 times per year 02/26/2024 Do you belong to any clubs o r organizations such as latter day groups, unions, fraternal or athletic groups, or [...] Score - Questions 1-9 0 12/10 [facility] of Occupat [facility] - Occupational Stress Questionnaire Answer Date Recorded [...] place to sleep or slept in a assisted (including now)? No 12/26/2023 Housing Stability Vital Sign Answer Sushil e Recorded In the last 12 months, was t here a time when you were not able to pay the mortgage or rent on time? No 02/26/2024 In the past 12 months, how m any times have you moved where you were living? 0 02/26/2024 At any time in the past 12 m [place], were you homeless or living in a assisted (including now)? No 02/26/2024 Education Answer Date Recorded What is the highest level of school you have completed or the highest degree you have received? Bachelor's degree (e.g., BA, AB, BS) 03/05/2021 Sexually Active Control Partners Comments Never Comments No Sex and Gender Information Value Date Recorded Sex Assigned at Not on file Legal Sex Female 11:27 PM CDT Gender Identity Not on file Sexual Orientation Not on file documented as of this encounter Plan of Treatment Upcoming Encounters Date Type Department Care Team (Latest Contact Info) Description 09/23/2024 10:45 AM GRADES 9 12 TUTOR Physical Therapy [facility] [address], [address] [place] [phone] Dave Fernando MD [address] [place] [address] Lucy Garduno, [place] Discharge Disposition: Discharged to home or Selfcare 11/22/2024 10:15 AM CDT Appointment [facility] 1 [place] [address] Yinka Harrison MD [address] [place] [address] Discharge Disposition: Discharged to home or Selfcare 06/13/2025 10:30 AM CDT Office Visit [facility] - Primary Care - [place] [address] [place] [phone] Yinka Harrison MD [address] [place] [address] documented as of this encounter Visit Diagnoses Not on filedocumented in this encounter Additional Health Concerns Assessment Noted Time PHQ-9 Depression Total Score: 0 12/27/19 24 8:35 AM CDT documented as of this encounter Care Teams Ordering Machine Operator Relationship Specialty Start Date End Date Yinka Harrison MD [address] [place] [address] PCP - General Internal Medicine 07/27/18 Dave Fernando MD [address] [place] [address] Consulting Physician Orthopaedic Surgery 02/20/19 documented as of this encounter
--- OUTSIDE RECORDS SUMMARY | 2024-09-22 13:02 | XMS_ITS | Encounter Summary ---
Author Organization [facility] Address [address] [place] [address] Phone Care Team Providers Care Drafter Patent Name Role Phone Yinka Harrison MD Primary Care Provider [phone] Dave Fernando MD Unavailable [phone] Encounter Details Date Type Department Care Team (Late st Contact Info) Description 08/13/2024 9:40 AM BOOM TENDER Lab [facility] - Primary Care - [address] [address] Lab, [facility] Abnormal serum creatinine level Discharge Disposition: Discharged to home or Selfcare Social History Tobacco Use Types Packs/Day Years Used Date Smoking Tobacco: Former Smokeless Tobacco: Never Alcohol Use Standard Drinks/Week Comments No 0 (1 standard drink = 0.6 oz pur e alcohol) [facility] Utilities Answer Date Recorded In the past 12 months has [employer], gas, oil, or water [employer] threatened to shut off services in your [...] week 02/26/2024 How often do you attend [facility] or roman catholic services? More than 4 times per year 02/26/2024 Do you belong to any clubs o r organizations such as jehovah's witness groups, unions, fraternal or athletic groups, or [...] Total Score - Questions 1-9 0 12/10 [facility] of Occupat ional Health - Occupational [...] place to sleep or slept in a senior living (including now)? No 12/26/2023 Housing Stability Vital Sign Answer Sushil e Recorded In the last 12 months, was t here a time when you were not able to pay the mortgage or rent on time? No 02/26/2024 In the past 12 months, how m any times have you moved where you were living? 0 02/26/2024 At any time in the past 12 m [facility], were you homeless or living in a senior living (including now)? No 02/26/2024 Education Answer Date [...] on file documented as of this encounter Progress Notes * Alix Hernández - 08/13/2024 9:40 AM CST Sriram presents for lab draw per order of Dr. Yinka Harrison dated 08/13/24. Specimen collected from right antecubital without incident. sah TENDER * Eleni Rizzo RMA - 08/13/2024 9:40 AM CST Result letter sent. TENDER documented in this encounter Plan of Treatment Upcoming Encounters Date Type Department Care Team (Latest Contact Info) Description 09/23/2024 10:45 AM BOOM TENDER Physical Therapy [facility] [address], [address] [place] [phone] Dave Fernando MD [address] [place] [address] Lucy Garduno, [place] Discharge Disposition: Discharged to home or Selfcare 11/22/2024 10:15 AM CDT [facility]ointment [facility] [place] [address] Yinka Harrison MD [address] [place] [address] Discharge Disposition: Discharged to home or Selfcare 06/13/2025 10:30 AM CDT [facility] - Primary Care - [place] [address] [place] [address] Yinka Harrison MD [address] [place] [address] documented as of this encounter Procedures Procedure Name Priority Date/Time Associated Diagnosis Comments BASIC METABOLIC PANEL W/ CALCIUM TOTAL Routine 08/13/2024 8:40 AM BOOM TENDER Abnormal serum creatinine level documented in this encounter Results * (ABNORMAL) BASIC METABOLIC PANEL W/ CALCIUM TOTAL (08/13/2024 8:40 AM BOOM TENDER) SODIUM 141 136 - 145 mmol/L 08/13/2024 1:30 PM BOOM TENDER [facility] POTASSIUM 3.7 3.5 - 5.1 mmol/L 08/13/2024 1:30 PM BOOM TENDER [facility] CHLORIDE 109(H) 98 - 107 mmol/L 08/13/2024 1:30 PM BOOM TENDER [facility] CO2, VENOUS 22 22 - 30 mmol/L 08/13/2024 1:30 PM BOOM TENDER [facility] ANION GAP 13.7 <18.0 mmol/L 08/13/2024 1:30 PM BOOM TENDER [facility] GLUCOSE 72 70 - 99 mg/dL 08/13/2024 1:30 PM BOOM TENDER [facility] BUN 23(H) 10 - 20 mg/dL 08/13/2024 1:30 PM BOOM TENDER [facility] CREATININE, BLOOD 1.33(H) 0.60 - 1.00 mg/dL 08/13/2024 1:30 PM BOOM TENDER [facility] BUN/CREATININE RATIO 17 12 - 20 ratio 08/13/2024 1:30 PM BOOM TENDER [facility] CALCIUM 10.2 8.7 - 10.5 mg/dL 08/13/2024 1:30 PM BOOM TENDER [facility] IS THE PATIENT REQUIRED TO BE FASTING? No 08/13/2024 1:30 PM BOOM TENDER [facility] GFR, ESTIMATED 44(L) >=60 08/13/2024 1:30 PM BOOM TENDER [facility] Comment: Creatinine Clearance is the preferred criteria for selecting drug dose adjustments in renally impaired patients. ??The GFR is provided as additional pertinent clinical information. GFR is reported in mL/min/1.73 sq m. Calculation based on the Chronic Kidney Disease Epidemiology Collaboration (CKD- EPI) equation refit without adjustment for race. GFR, EST. 49(L) >=60 024 1:30 PM BOOM TENDER [facility] GFR, EST. NONAFRICAN 40(L) >=60 08/13/2024 1:30 PM BOOM TENDER [facility] Blood Venipuncture / Unknown 08/13/2024 8:40 AM BOOM TENDER 08/13/2024 8:40 AM BOOM TENDER us Yinka Harrison MD CHEMISTRY ORDERABLES [place] peacock Result [facility] [address] [place] [address] documented in this encounter Visit Diagnoses Diagnosis Abnormal serum creatinine level documented in this encounter Additional Health Concerns Assessment Noted Time PHQ-9 Depression Total Score: 0 12/27/19 24 8:35 AM CDT documented as of this encounter Care Teams Drafter Patent Relationship Specialty Start Date End Date Yinka Harrison MD [address] [place] [address] PCP - General Internal Medicine 07/27/18 Dave Fernando MD [address] [place] [address] Consulting Physician Orthopaedic Surgery 02/20/19 documented as of this encounter
--- OUTSIDE RECORDS SUMMARY | 2024-09-22 13:02 | XMS_ITS | Encounter Summary ---
Author Organization [facility] Address [address] [place] [address] Phone Care Team Providers Care Shade Hanger Name Role Phone Yinka Harrison MD Primary Care Provider [phone] Dave Fernando MD Unavailable [phone] Reason for Visit * Reason Onset Date Comments Advice Only 08/28/2024 Encounter Details Date Type Department Care Team (Late st Contact Info) Description 08/28/2024 Telephone [facility] [address] [place] [address] Yinka Harrison MD [address] [place] [address] Advice Only Social History Tobacco Use Types Packs/Day Years Used Date Smoking Tobacco: Former Smokeless Tobacco: Never Alcohol Use Standard Drinks/Week Comments No 0 (1 standard drink = 0.6 oz pur e alcohol) [facility] Utilities Answer Date Recorded In the past 12 months has [employer] electric, gas, oil, or water company threatened [...] often do you attend chur ch or uatsdin services? More than 4 times per year 02/26/2024 Do you belong to any clubs o r organizations such as denominational groups, unions, fraternal or athletic groups, or [...] Total Score - Questions 1-9 0 12/10 [facility] of Occupat ional [facility] - Occupational Stress Questionnaire Answer Date [...] place to sleep or slept in a halfway (including now)? No 12/26/2023 Housing Stability Vital [...] were you homeless or living in a halfway (including now)? No 02/26/2024 Education Answer Date [...] encounter Miscellaneous Notes * Telephone Encounter - Carmen Bailey - 08/28/2024 12:36 PM CST Symptom: Cough Outcome: Transfer to windows system admin queue Reason: Wheezing (high-pitched whistling sound) The caller accepted this outcome. Caller Denied: * Struggling for each breath (severe trouble breathing) * Choked on something RACTING ENGINEER documented in this encounter Plan of Treatment Upcoming Encounters Date Type Department Care Team (Latest Contact Info) Description 09/23/2024 10:45 AM CONTRACTING ENGINEER Physical Therapy [facility] [place] [facility] [address] [place] [address] Dave Fernando MD [address] [place] [address] Lucy Garduno, [place] Discharge Disposition: Discharged to home or Selfcare 11/22/2024 10:15 AM CDT [facility] 1 [facility] [place] [place] [address] Yinka Harrison MD [address] [place] [address] Discharge Disposition: Discharged to home or Selfcare 06/13/2025 10:30 AM CDT Office Visit [facility] - Primary Care - [place] [address] [place] [address] Yinka Harrison MD [address] [place] [address] documented as of this encounter Visit Diagnoses Not on filedocumented in this encounter Additional Health Concerns Assessment Noted Time PHQ-9 Depression Total Score: 0 12/27/19 24 8:35 AM CDT documented as of this encounter Care Teams Shade Hanger Relationship Specialty Start Date End Date Yinka Harrison MD [address] [place] [address] PCP - General Internal Medicine 07/27/18 Dave Fernando MD [address] [place] [address] Consulting Physician Orthopaedic Surgery 02/20/19 documented as of this encounter
--- OUTSIDE RECORDS SUMMARY | 2024-09-22 13:02 | XMS_ITS | Encounter Summary ---
Author Organization [facility] Address [address] [place] [address] Phone Care Team Providers Care Splicing Machine Operator Automatic Name Role Phone Yinka Harrison MD Primary Care Provider [phone] Dave Fernando MD Unavailable [phone] Reason for Visit * Reason Onset Date Comments Results 09/02/2024 Chest x-ray Encounter Details Date Type Department Care Team (Late st Contact Info) Description 09/02/2024 Results Follow-Up [facility] - Primary Care - [place] [address] [place] [address] Yinka Harrison MD [address] [place] [address] Chronic cough (Primary Dx) Social History Tobacco Use Types Packs/Day Years Used Date Smoking Tobacco: Former Cigarettes Q uit: 09/11/1984 Smokeless Tobacco: Never Alcohol Use Standard Drinks/Week Comments No 0 (1 standard drink = 0.6 oz pur e alcohol) [facility] Utilities Answer Date Recorded In the past 12 months has [employer], gas, oil, or water company threatened to [...] any clubs o r organizations such as worship groups, unions, fraternal or athletic groups, or [...] Total Score - Questions 1-9 0 12/10 [facility] - Occupational Stress Questionnaire Answer Date [...] place to sleep or slept in a fci (including now)? No 12/26/2023 Housing Stability Vital [...] time in the past 12 m [facility], were you homeless or living in a fci (including now)? No 02/26/2024 Education Answer Date [...] encounter Miscellaneous Notes * Telephone Encounter - Mariposa Castelan RN - 09/02/2024 11:15 AM MANAGER PROCESS Phoned patient with chest x-ray results. Patient aware and verbalized understanding. No questions for this RN. GER PROCESS * Telephone Encounter - Yinka Harrison MD - 09/02/2024 7:26 AM MANAGER PROCESS Patient's chest x-ray is clear. I have sent a prescription for fluticasone nasal spray to the patient's pharmacy. She is to use this in conjunction with the nasal saline discussed at her office visitlast week. GER PROCESS documented in this encounter Plan of Treatment Upcoming Encounters Date Type Department Care Team (Latest Contact Info) Description 09/23/2024 10:45 AM MANAGER PROCESS Physical [facility] [address] [place] [address] Dave Fernando MD [address] [place] [address] Lucy Garduno, PT [place] Discharge Disposition: Discharged to home or Selfcare 11/22/2024 10:15 AM CDT [facility] 1 [place] [address] Yinka Harrison MD [address] [place] [address] Discharge Disposition: Discharged to home or Selfcare 06/13/2025 10:30 AM CDT Office Visit [facility] - Primary Care - [place] [address] [place] [address] Yinka Harrison MD [address] [place] [address] documented as of this encounter Visit Diagnoses Diagnosis Chronic cough- Primary Cough documented in this encounter Additional Health Concerns Assessment Noted Time PHQ-9 Depression Total Score: 0 12/27/19 24 8:35 AM CDT documented as of this encounter Care Teams Splicing Machine Operator Automatic Relationship Specialty Start Date End Date Yinka Harrison MD [address] [place] [address] PCP - General Internal Medicine 07/27/18 Dave Fernando MD [address] [facility] [address] [place] [address] Consulting Physician Orthopaedic Surgery 02/20/19 documented as of this encounter
--- OUTSIDE RECORDS SUMMARY | 2024-09-22 13:03 | XMS_ITS | Encounter Summary ---
Author Organization [facility] Address [address] [place] [address] Phone Care Team Providers Care Psychological Science Professor Name Role Phone Yinka Harrison MD Primary Care Provider [phone] Dave Fernando MD Unavailable [phone] Reason for Visit * Reason Onset Date Comments Results 07/15/2024 labs Encounter Details Date Type Department Care Team (Late st Contact Info) Description 07/15/2024 Telephone [facility] - Primary Care - [place] [address] [place] [address] Yinka Harrison MD [address] [place] [address] Results (labs) Social History Tobacco Use Types Packs/Day Years Used Date Smoking Tobacco: Former Smokeless Tobacco: Never Alcohol Use Standard Drinks/Week Comments No 0 (1 standard drink = 0.6 oz pur e alcohol) [facility] Utilities Answer Date Recorded In the past 12 months has [employer] electric, gas, oil, or water company threatened [...] often do you attend chur ch or nondenominational services? More than 4 times per year 02/26/2024 Do you belong to any clubs o r organizations such as yarsanism groups, unions, fraternal or athletic groups, or [...] Score - Questions 1-9 0 12/10 [facility] of Occupat ional [facility] - Occupational Stress Questionnaire Answer Date Recorded [...] place to sleep or slept in a prison (including now)? No 12/26/2023 Housing Stability Vital [...] time in the past 12 m [facility], were you homeless or living in a prison (including now)? No 02/26/2024 Education Answer Date [...] encounter Miscellaneous Notes * Telephone Encounter - Paris Clark RN - 07/15/2024 3:35 PM CST Situation: Results Background: Patient returning call for results Assessment: Results given per below Patient scheduled her lab appointment. She also voiced understanding of holding her hydrochlorothiazide daily Recommendation: Patient voiced understanding, and all questions answered. All Patient Appointments Provider Department Dept Phone 08/14/2024 9:[address] [facility] - Primary Care - [place] [phone] 06/13/2025 10:30 AM Yinka Harrison [facility] - Primary Care - [place] [phone] UTER FORENSICS ANALYST * Telephone Encounter - Mariposa Castelan RN - 07/15/2024 2:25 PM COMPUTER FORENSICS ANALYST Attempted to call patient with results, no answer at this time. Left message to call back. UTER FORENSICS ANALYST * Telephone Encounter - Yinka Harrison MD - 07/15/2024 2:21 PM COMPUTER FORENSICS ANALYST Creatinine level is persistently elevated at 1.71. Please ask the patient to stop taking her hydrochlorothiazide daily. She is to remain well hydrated and we will repeat her BMP in 1 month. UTER FORENSICS ANALYST documented in this encounter Plan of Treatment Upcoming Encounters Date Type Department Care Team (Latest Contact Info) Description 09/23/2024 10:45 AM COMPUTER FORENSICS ANALYST Physical Therapy [facility] [address] [place] [phone] Dave Fernando MD [address] [place] [address] Lucy Garduno, [place] Discharge Disposition: Discharged to home or Selfcare 11/22/2024 10:15 AM CDT Appointment [facility] 1 [place] [address] Yinka Harrison MD [address] [place] [address] Discharge Disposition: Discharged to home or Selfcare 06/13/2025 10:30 AM CDT Office Visit [facility] - Primary Care - [place] [address] [place] [id number] Yinka Harrison MD [address] [place] [address] documented as of this encounter Results * (ABNORMAL) BASIC METABOLIC PANEL W/ CALCIUM TOTAL (08/13/2024 8:40 AM COMPUTER FORENSICS ANALYST) SODIUM 141 136 - 145 mmol/L 08/13/2024 1:30 PM [facility] POTASSIUM 3.7 3.5 - 5.1 mmol/L 08/13/2024 1:30 PM [facility] CHLORIDE 109(H) 98 - 107 mmol/L 08/13/2024 1:30 PM [facility] CO2, VENOUS 22 22 - 30 mmol/L 08/13/2024 1:30 PM [facility] ANION GAP 13.7 <18.0 mmol/L 08/13/2024 1:30 PM [facility] GLUCOSE 72 70 - 99 mg/dL 08/13/2024 1:30 PM [facility] BUN 23(H) 10 - 20 mg/dL 08/13/2024 1:30 PM [facility] CREATININE, BLOOD 1.33(H) 0.60 - 1.00 mg/dL 08/13/2024 1:30 PM [facility] BUN/CREATININE RATIO 17 12 - 20 ratio 08/13/2024 1:30 PM [facility] CALCIUM 10.2 8.7 - 10.5 mg/dL 08/13/2024 1:30 PM [facility] IS THE PATIENT REQUIRED TO BE FASTING? No 08/13/2024 1:30 PM [facility] GFR, ESTIMATED 44(L) >=60 08/13/2024 1:30 PM [facility] Comment: Creatinine Clearance is the preferred criteria for selecting drug dose adjustments in renally impaired patients. ??The GFR is provided as additional pertinent clinical information. GFR is reported in mL/min/1.73 sq m. Calculation based on the Chronic Kidney Disease Epidemiology Collaboration (CKD- EPI) equation refit without adjustment for race. GFR, EST. 49(L) >=60 024 1:30 PM COMPUTER FORENSICS ANALYST [facility] GFR, EST. NONAFRICAN 40(L) >=60 08/13/2024 1:30 PM COMPUTER FORENSICS ANALYST [facility] Blood Venipuncture / Unknown 08/13/2024 8:40 AM COMPUTER FORENSICS ANALYST 08/13/2024 8:40 AM COMPUTER FORENSICS ANALYST us Yinka Harrison MD CHEMISTRY ORDERABLES [place] l Result [facility] [address] [place] [address] documented in this encounter Visit Diagnoses Diagnosis Abnormal serum creatinine level- Primary documented in this encounter Additional Health Concerns Assessment Noted Time PHQ-9 Depression Total Score: 0 12/27/19 24 8:35 AM CDT documented as of this encounter Care Teams Psychological Science Professor Relationship Specialty Start Date End Date Yinka Harrison MD [address] [place] [address] PCP - General Internal Medicine 07/27/18 Dave Fernando MD [address] [place] [address] Consulting Physician Orthopaedic Surgery 02/20/19 documented as of this encounter
--- OUTSIDE RECORDS SUMMARY | 2024-09-22 13:03 | XMS_ITS | Encounter Summary ---
Author Organization [facility] Address [address] [place] [address] Phone Care Team Providers Care Family Support Coordinator Name Role Phone Yinka Harrison MD Primary Care Provider [phone] Dave Fernando MD Unavailable [phone] Reason for Referral * PT/OT/ST (Routine) - Authorized Specialty Diagnoses / Procedures Referred By Contac t Referred To Contact Physical Therapy Diagnoses Presence of right artificial knee joint Dave Fernando MD [address] [place] [address] Phone: tel: fax: [facility] [address] [place] [address] Phone: tel: fax: Referral ID Status Reason Start Date Expiration Date V isits Requested Visits Authorized [id number] Authorized 07/22/2024 50 50 Scheduling Instructions WORKING SHOP LABORER Encounter Details Date Type Department Care Team (Latest Contact Info) Description 07/22/2024 Transcribe Orders [facility] [address] [place] [address] Dave Fernando MD [address] [place] [address] Presence of right artificial knee joint (Primary Dx) Social History Tobacco Use Types Packs/Day Years Used Date Smoking Tobacco: Former Smokeless Tobacco: Never Alcohol Use Standard Drinks/Week Comments No 0 (1 standard drink = 0.6 oz pur e alcohol) [facility] Utilities Answer Date Recorded In the past 12 months has th e electric, gas, oil, or water company threatened [...] often do you attend chur ch or adventism services? More than 4 times per year 02/26/2024 Do you belong to any clubs o r organizations such as jew groups, unions, fraternal or athletic groups, or [...] Total Score - Questions 1-9 0 12/10 [facility] of Occupat ional Health - Occupational Stress [...] place to sleep or slept in a mcc (including now)? No 12/26/2023 Housing Stability Vital Sign Answer Sushil e Recorded In the last 12 months, was t here a time when you were not able to pay the mortgage or rent on time? No 02/26/2024 In the past 12 months, how m any times have you moved where you were living? 0 02/26/2024 At any time in the past 12 m [facility], were you homeless or living in a mcc (including now)? No 02/26/2024 Education Answer Date [...] (Latest Contact Info) Description 09/23/2024 10:45 AM WOODWORKING SHOP LABORER Physical Therapy [facility] [address] [place] [address] Dave Fernando MD [address] [place] [address] Lucy Garduno, [place] Discharge Disposition: Discharged to home or Selfcare 11/22/2024 10:15 AM CDT Appointment [facility] 1 [place] [address] Yinka Harrison MD [address] [place] [address] Discharge Disposition: Discharged to home or Selfcare 06/13/2025 10:30 AM CDT Office Visit [facility] - Primary Care - [place] [address] [place] [phone] Yinka Harrison MD [address] [place] [address] Scheduled Referrals Name Type Priority Associated Diagnoses Orde r Schedule PHYSICAL THERAPY REFERRAL Outpatient Referral Routine Presence of right artificial knee joint Expected: 07/22/2024, Expires: 07/22/2025 documented as of this encounter Visit Diagnoses Diagnosis Presence of right artificial knee joint- Primary Knee joint replacement by other means documented in this encounter Additional Health Concerns Assessment Noted Time PHQ-9 Depression Total Score: 0 12/27/19 24 8:35 AM CDT documented as of this encounter Care Teams Family Support Coordinator Relationship Specialty Start Date End Date Yinka Harrison MD [address] [place] [address] PCP - General Internal Medicine 07/27/18 Dave Fernando MD [address] [facility] [address] [place] [address] Consulting Physician Orthopaedic Surgery 02/20/19 documented as of this encounter
--- OUTSIDE RECORDS SUMMARY | 2024-09-22 13:03 | XMS_ITS | Encounter Summary ---
Author Organization [facility] Address [address] [place] [address] Phone Care Team Providers Care Pattern Chart Writer Name Role Phone Yinka Harrison MD Primary Care Provider [phone] Dave Fernando MD Unavailable [phone] Reason for Visit * Reason Comments f/u rash is back and now on arms Both fo rearms, back, chest, and lower left hip Encounter Details Date Type Department Care Team (Late st Contact Info) Description 02/26/2024 1:15 PM CDT Office Visit [facility] - Primary Care - [place] [address] [place] [address] Yinka Harrison MD [address] [place] [address] Irritant contact dermatitis, unspecified trigger (Primary Dx) Discharge Disposition: Discharged to home or Selfcare Social History Tobacco Use Types Packs/Day Years Used Date Smoking Tobacco: Former Smokeless Tobacco: Never Tobacco Cessation:Counseling Given: Not Answered Alcohol Use Standard Drinks/Week Comments No 0 (1 standard drink = 0.6 oz pur e alcohol) [facility] Utilities Answer Date Recorded In the past 12 months has e electric, gas, oil, or water company [...] 02/26/2024 How often do you attend chur or presybeterian services? More than 4 times per year 02/26/2024 Do you belong to any clubs o r organizations such as rastafari groups, unions, fraternal or athletic groups, or [...] Total Score - Questions 1-9 0 12/10 [facility] of Occupat ional Health - Occupational [...] place to sleep or slept in a [place] (including now)? No 12/26/2023 Housing Stability Vital Sign Answer Sushil e Recorded In the last 12 months, was t here a time when you were not able to pay the mortgage or rent on time? No 02/26/2024 In the past 12 months, how m any times have you moved where you were living? 0 02/26/2024 At any time in the past 12 m [facility], were you homeless or living in a [place] (including now)? No 02/26/2024 Education Answer Date [...] Sign Reading Time Taken Comments Blood Pressure 142/64 02/26/2024 1:08 PM CDT Pulse 97 02/26/2024 1:08 PM CDT Temperature 36.3 ??C (97.4 ??F) 02/26/2024 1:08 PM CD T Respiratory Rate 18 02/26/2024 1:08 PM CDT Oxygen Saturation 98% 02/26/2024 1:08 PM CDT Inhaled Oxygen Concentration - - Weight 90.7 kg (200 lb) 02/26/2024 1:08 PM CDT Height 160 cm (5' 3 ) 02/26/2024 1:08 PM CDT Body Mass Index 35.43 02/26/2024 1:08 PM CDT documented in this encounter Functional Status * Audit-C Score Answer Date of Assessment Author 0 02/26/2024 8:46 AM CDT Maxime Wiley Within the last year, have you been humiliated or emotionally abused in other ways by your partner or ex-partner? Answer Date of Assessment Author No 02/26/2024 8:46 AM CDT Maxime Wiley Within the last year, have you been afraid of your partner or ex-partner? Answer Date of Assessment Author No 02/26/2024 8:46 AM CDT Maxime Wiley Within the last year, have you been raped or forced to have any kind of sexual activity by your partner or ex-partner? Answer Date of Assessment Author No 02/26/2024 8:46 AM CDT Maxime Wiley Within the last year, have you been kicked, hit, slapped, or otherwise physically hurt by your partner or ex-partner? Answer Date of Assessment Author No 02/26/2024 8:46 AM CDT Maxime Wiley Q1: How often do you have a drink containing alcohol? Answer Date of Assessment Author Never 02/26/2024 8:46 AM CDT Maxime Wiley Q2: How many drinks containing alcohol do you have on a typical day when you are drinking? Answer Date of Assessment Author Patient does not drink 02/26/2024 8:46 AM CDT Maxime Frost Q3: How often do you have six or more drinks on one occasion? Answer Date of Assessment Author Never 02/26/2024 8:46 AM CDT Maxime Wiley documented as of this encounter Patient Instructions * Patient Instructions* Yinka Harrison MD - 02/26/2024 1:15 PM CDT Avoid using dryer fabric softener sheets. Use only detergent and bar soap marked as for sensitive skin . Avoid body washes. Use a moisturizing skin lotion after showering or bathing. Use the 'extra rinse cycle' button on your washing machine, if available. If clothing has previously been washed with dryer sheets, make certain it is rinsed again before wearing (this includes bed sheets and towels). documented in this encounter Progress Notes * Mariajose Elkins, FINANCIAL SUPERVISOR - 02/26/2024 1:15 PM CDT Sriram Srinivasan, 63 y.o., female is here for f/u rash is back and now on arms (Both forearms, back,chest, and lower left hip /) Medication Refills: Patient reports/denies need for medication refills. Orders Pended: yes Requested Prescriptions No prescriptions requested or ordered in this encounter Home Medications Medication Sig Start Date End Date Taking? Authorizing Provider amLODIPine (NORVASC) 10 MG Tablet TAKE ONE (1) TABLET BY MOUTH DAILY. 10/09/23 Yes Yinka Harrison MD Ascorbic Acid (VITAMIN C PO) Take 500 mg by mouth. Yes ProviderRosendo MD Flaxseed, Linseed, (Flax Seed Oil) 1000 MG Capsule Take 1,000 mg by mouth daily. Yes Rosendo Hussein MD hydroCHLOROthiazide 12.5 MG Tablet TAKE ONE (1) TABLET BY MOUTH DAILY. 05/24/23 Yes Yinka Harrison MD ibuprofen (MOTRIN) 800 MG Tablet TAKE ONE (1) TAB BY MOUTH EVERY 8 HOURS NEEDED FOR MILD OR MORESEVERE PAIN. 09/13/22 Yes Yinka Harrison MD IRON PO Take by mouth. Yes ProviderRosendo MD rosuvastatin (CRESTOR) 20 MG Tablet TAKE 1 TABLET BY MOUTH DAILY. 10/02/23 Yes Yinka Harrison MD traMADol (ULTRAM) 50 MG Tablet Take 1 Tablet by mouth every 8 hours as needed for Moderate or more severe pain. 01/04/24 Yes Yinka Harrison MD triamcinolone (KENALOG) 0.1 % Cream Apply sparingly twice a day to the affected area. Rub cream in until invisible. 01/08/24 Yes Yinka Harrison MD There are no discontinued [...] Maintenance: Health Maintenance Due Topic Date Due Hepatitis C Virus (HCV) Screening Never done TdaP Immunization Never done Zoster Immunization (1 of 2) Never done Respiratory Syncytial Virus (RSV) Immunization (Adult - or age 60+ years) (1 - 1-dose 60+ series) Never done Colorectal Cancer Screening 05/14/2020 SARS-COV-2 Immunization (2022- season) 2023 Orders Pended: no The following BPA's have been addressed with the patient today: N/A * Yinka Harrison MD - 02/26/2024 1:15 PM CDT Images from the original note were not included. Subjective: Subjective HPI Patient presents with a pruritic rash. This has been bothering her for a few weeks now. She had a similar episode back in mid December that was initially mistaken as a case of shingles. Subsequently, the diagnosis was changed to dermatitis and she had relief of the rash at that time with steroids. On q uestioning, she indicates that she does use dryer fabric softener sheets regularly. Review of Systems Constitutional: Negative. HENT: Negative. Eyes: Negative. Respiratory: Negative. Cardiovascular: Negative. Gastrointestinal: Negative. Endocrine: Negative. Genitourinary: Negative. Musculoskeletal: Negative. Skin: Positive for rash. Allergic/Immunologic: Negative. Neurological: Negative. Hematological: Negative. Psychiatric/Behavioral: Negative. Objective: Objective Physical Exam Constitutional: Appearance: She is well-developed. HENT: Head: Normocephalic. Right Ear: External ear normal. Left Ear: External ear normal. Nose: Nose normal. Eyes: Pupils: Pupils are equal, round, and reactive to light. Cardiovascular: Rate and Rhythm: Normal rate and regular rhythm. Pulmonary: Effort: Pulmonary effort is normal. No respiratory distress. Musculoskeletal: General: Normal range of motion. Cervical back: Normal range of motion. Skin: General: Skin is warm and dry. Findings: Erythema and rash present. Rash is macular, papular and scaling (slight). Neurological: Mental Status: She is alert and oriented to person, place, and time. Psychiatric: Attention and Perception: Attention normal. Mood and Affect: Mood is anxious. Speech: Speech normal. Behavior: Behavior normal. Thought Content: Thought content normal. Judgment: Judgment normal. Assessment and Plan Assessment & Plan See Diagnoses, Orders, Follow-up, and Instructions Problem List Items Addressed This Visit None Visit Diagnoses Irritant contact dermatitis, unspecified trigger - Primary Relevant Medications methylPREDNISolone (MEDROL) 4 MG Tablet triamcinolone (KENALOG) 0.1 % Cream Medrol Dosepak and triamcinolone cream prescribed for the irritant contact dermatitis. I have advised her on proper laundry care and showering in order to avoid exposure to chemical irritants. Follow-up as scheduled. I have seen and examined the patient on today's date. Documentation for this visit was completed using the assistance of a template. Everything documented in this visit was personally performed todaywith the necessary additions, deletions and changes. documented in this encounter Plan of Treatment Upcoming Encounters Date Type Department Care Team (Latest Contact Info) Description 09/23/2024 10:45 AM POWERHOUSE MECHANIC HELPER Physical Therapy [facility] [address] [place] [address] Dave Fernando MD [address] [place] [address] Lucy Garduno, PT [place] Discharge Disposition: Discharged to home or Selfcare 11/22/2024 10:15 AM CDT Appointment [facility] [address] [place] [address] Yinka Harrison MD [address] [place] [address] Discharge Disposition: Discharged to home or Selfcare 06/13/2025 10:30 AM CDT Office Visit [facility] - Primary Care - [place] [address] [place] [address] Yinka Harrison MD [address] [place] [address] documented as of this encounter Visit Diagnoses Diagnosis Irritant contact dermatitis, unspecified trigger- Primary documented in this encounter Additional Health Concerns Assessment Noted Time PHQ-9 Depression Total Score: 0 12/27/19 24 8:35 AM CDT documented as of this encounter Care Teams Pattern Chart Writer Relationship Specialty Start Date End Date Yinka Harrison MD [address] [place] [address] PCP - General Internal Medicine 07/27/18 Dave Fernando MD [address] [place] [address] Consulting Physician Orthopaedic Surgery 02/20/19 documented as of this encounter
--- OUTSIDE RECORDS SUMMARY | 2024-09-22 13:03 | XMS_ITS | Encounter Summary ---
Author Organization [facility] Address [address] [place] [address] Phone Care Team Providers Care Crew Dispatcher Name Role Phone Yinka Harrison MD Primary Care Provider [phone] Dave Fernando MD Unavailable [phone] Reason for Visit * Reason Onset Date Comments Medication Refill 05/07/2024 Encounter Details Date Type Department Care Team (Late st Contact Info) Description 05/07/2024 MyChart RX Renewal [facility] - Primary Care - [place] [address] [place] [address] Yinka Harrison MD [address] [place] [address] Medication Renewal Reviewed Social History Tobacco Use Types Packs/Day Years Used Date Smoking Tobacco: Former Smokeless Tobacco: Never Alcohol Use Standard Drinks/Week Comments No 0 (1 standard drink = 0.6 oz pur e alcohol) [facility] Utilities Answer Date Recorded In the past 12 months has [employer], gas, oil, or water company threatened [...] often do you attend chur ch or pentecostalism services? More than 4 times per year 02/26/2024 Do you belong to any clubs o r organizations such as alevism groups, unions, fraternal or athletic groups, or [...] Total Score - Questions 1-9 0 12/10 [facility] - Occupational Stress [...] place to sleep or slept in a chcf (including now)? No 12/26/2023 Housing Stability Vital [...] in the past 12 m [facility], were you homeless or living in a chcf (including now)? No 02/26/2024 Education Answer Date [...] Telephone Encounter - Yinka Harrison MD - 05/07/2024 8:31 AM CDT Refill request approved. * Telephone Encounter - Mariposa Castelan RN - 05/07/2024 8:20 AM CDT Medication failed the protocol, provider to review and approve the medication order if appropriate. Requested Prescriptions Pending Prescriptions Disp Refills traMADol (ULTRAM) 50 MG Tablet 30 Tablet 1 Sig: Take 1 Tablet by mouth every 8 hours as needed for Moderate or more severe pain. Not Delegated - Opioid Agonists Protocol Failed - 05/07/2024 8:07 AM Failed - This refill cannot be delegated Passed - Visit with relevant provider in past 12 months or upcoming 90 days Recent Visits Date Type Provider Dept 02/26/24 Office Visit Yinka Harrison MD [facility] 12/27/23 Office Visit Yinka Harrison MD [facility] Showing recent visits within past 365 days and meeting all other requirements Future Appointments Date Type Provider Dept 05/21/24 Appointment Yinka Harrison MD [facility] Showing future appointments within next 90 days and meeting all other requirements documented in this encounter Plan of Treatment Upcoming Encounters Date Type Department Care Team (Latest Contact Info) Description 09/23/2024 10:45 AM CORONARY CARE UNIT NURSE Physical Therapy [facility] Rehab at [facility] [address], [address] [place] [address] Dave Fernando MD [address] [place] [address] Lucy Garduno, [place] Discharge Disposition: Discharged to home or Selfcare 11/22/2024 10:15 AM CDT Appointment [facility] Mammography 1 [place] [address] Ynika Harrison MD [address] [place] [address] Discharge Disposition: Discharged to home or Selfcare 06/13/2025 10:30 AM CDT Office Visit [facility] - Primary Care - [place] [address] [place] [phone] Yinka Harrison MD [address] [place] [address] documented as of this encounter Visit Diagnoses Diagnosis Arthritis Arthropathy, unspecified, site unspecified Chronic pain of right knee Rheumatoid arthritis involving multiple sites with positive rheumatoid factor (HCC) documented in this encounter Additional Health Concerns Assessment Noted Time PHQ-9 Depression Total Score: 0 12/27/19 24 8:35 AM CDT documented as of this encounter Care Teams Crew Dispatcher Relationship Specialty Start Date End Date Yinka Harrison MD [address] [place] [address] PCP - General Internal Medicine 07/27/18 Dave Fernando MD [address] [place] [address] Consulting Physician Orthopaedic Surgery 02/20/19 documented as of this encounter
--- OUTSIDE RECORDS SUMMARY | 2024-09-22 13:03 | XMS_ITS | Encounter Summary ---
Author Organization [facility] Address [address] [place] [address] Phone Care Team Providers Care Histopathologist Name Role Phone Yinka Harrison MD Primary Care Provider [phone] Dave Fernando MD Unavailable [phone] Reason for Visit * Reason Onset Date Comments Form Completion 07/22/2024 Pre-op Encounter Details Date Type Department Care Team (Late st Contact Info) Description 07/22/2024 Telephone [facility] - Primary Care - [place] [address] [place] [address] Yinka Harrison MD [address] [place] [address] Form Completion (Pre-op) Social History Tobacco Use Types Packs/Day Years Used Date Smoking Tobacco: Former Smokeless Tobacco: Never Alcohol Use Standard Drinks/Week Comments No 0 (1 standard drink = 0.6 oz pur e alcohol) [facility] Utilities Answer Date Recorded In the past 12 months has [employer], gas, oil, or water company threatened [...] often do you attend chur ch or roman catholic services? More than 4 times per year 02/26/2024 Do you belong to any clubs o r organizations such as moravian groups, unions, fraternal or athletic groups, or [...] Total Score - Questions 1-9 0 12/10 [facility] ional Health - [...] in the past 12 m [facility], were you homeless or living [...] Telephone Encounter - Mariposa Castelan RN - 07/23/2024 10:11 AM ACIDIZER Form completed and copy to [facility]. Faxed successfully. IZER * Telephone Encounter - Mariposa Castelan RN - 07/22/2024 3:52 PM ACIDIZER Pre-op form received from [facility]. To be completed and faxed to them at [phone]. Placed in PCP inbox. IZER IZER documented in this encounter Plan of Treatment Upcoming Encounters Date Type Department Care Team (Latest Contact Info) Description 09/23/2024 10:45 AM ACIDIZER [facility] [address], [address] [place] [address] Dave Fernando MD [address] [place] [address] Lucy Garduno, [place] Discharge Disposition: Discharged to home or Selfcare 11/22/2024 10:15 AM CDT Appointment [facility] Mammography 1 [place] [address] Yinka Harrison MD [address] [place] [address] Discharge Disposition: Discharged to home or Selfcare 06/13/2025 10:30 AM CDT Office Visit [facility] - Primary Care - [place] [address] [place] [address] Yinka Harrison MD [address] [place] [address] documented as of this encounter Visit Diagnoses Not on filedocumented in this encounter Additional Health Concerns Assessment Noted Time PHQ-9 Depression Total Score: 0 12/27/19 24 8:35 AM CDT documented as of this encounter Care Teams Histopathologist Relationship Specialty Start Date End Date Yinka Harrison MD [address] [place] [address] PCP - General Internal Medicine 07/27/18 Dave Fernando MD [address] [place] [address] Consulting Physician Orthopaedic Surgery 02/20/19 documented as of this encounter
--- OUTSIDE RECORDS SUMMARY | 2024-09-22 13:03 | XMS_ITS | Encounter Summary ---
Author Organization [facility] Address [address] [place] [address] Phone Care Team Providers Care Automatic Punch Press Operator Name Role Phone Yinka Harrison MD Primary Care Provider [phone] Dave Fernando MD Unavailable [phone] Reason for Visit * Reason Comments Medication Refill Encounter Details Date Type Department Care Team (Late st Contact Info) Description 06/18/2024 Refill [facility] - Primary Care - [place] [address] [place] [address] Yinka Harrison MD [address] [place] [address] Medication Refill Social History Tobacco Use Types Packs/Day Years Used Date Smoking Tobacco: Former Smokeless Tobacco: Never Alcohol Use Standard Drinks/Week Comments No 0 (1 standard drink = 0.6 oz pur e alcohol) [facility] Utilities Answer Date Recorded In the past 12 months has [employer], gas, oil, or water company threatened [...] often do you attend chur ch or synagogue services? More than 4 times per year 02/26/2024 Do you belong to any clubs o r organizations such as zoroastrianism groups, unions, fraternal or athletic groups, or [...] Score - Questions 1-9 0 12/10 [facility] - Occupational Stress Questionnaire Answer Date [...] place to sleep or slept in a snf (including now)? No 12/26/2023 Housing Stability Vital Sign Answer Sushil e Recorded In the last 12 months, was t here a time when you were not able to pay the mortgage or rent on time? No 02/26/2024 In the past 12 months, how m any times have you moved where you were living? 0 02/26/2024 At any time in the past 12 m [facility], were you homeless or living in a snf (including now)? No 02/26/2024 Education Answer Date [...] encounter Miscellaneous Notes * Telephone Encounter - Graeme Hansen RN - 06/18/2024 2:22 PM CDT Medication(s) refilled and signed per [facility] Chronic Medication Refill Standing Order for Pediatricand Adult Patients. Requested Prescriptions Pending Prescriptions Disp Refills hydroCHLOROthiazide 12.5 MG Tablet [Pharmacy Med Name: HYDROCHLOROTHIAZIDE 12.5MG TABLET] 90 Tablet3 Sig: TAKE ONE (1) TABLET BY MOUTH DAILY. Diuretics Protocol Passed - 06/18/2024 2:22 PM Passed - Serum potassium on record in past 12 months POTASSIUM Date Value Ref Range Status 06/07/2024 4.2 3.5 - 5.1 mmol/L Final Passed - Serum sodium on record in past 12 months SODIUM Date Value Ref Range Status 06/07/2024 141 136 - 145 mmol/L Final Passed - Blood pressure on record in past 12 months Clinician-entered: BP Readings from Last 3 Encounters: 06/07/24 136/78 02/26/24 142/64 12/27/23 144/60 Patient-entered: No data recorded Passed - Visit with relevant provider in past 12 months or upcoming 90 days Recent Visits Date Type Provider Dept 06/07/24 Office Visit Yinka Harrison MD [facility] 02/26/24 Office Visit Yinka Harrison MD [facility] 12/27/23 Office Visit Yinka Harrison MD [facility] Showing recent visits within past 365 days and meeting all other requirements Future Appointments Date Type Provider Dept 07/05/24 Appointment Lab, [facility] Showing future appointments within next 90 days and meeting all other requirements Passed - GFR on record in past 12 months GFR, EST. Date Value Ref Range Status 06/07/2024 40 (L) >=60 Final documented in this encounter Plan of Treatment Upcoming Encounters Date Type Department Care Team (Latest Contact Info) Description 09/23/2024 10:45 AM FRONT END DEVELOPER DESIGNER Physical Therapy [facility] Rehab at [facility] [address] [address], [address] [place] [address] Dave Fernando MD [address] [place] [address] Lucy Garduno, [place] Discharge Disposition: Discharged to home or Selfcare 11/22/2024 10:15 AM CDT Appointment [facility] Mammography 1 [place] [address] Yinka Harrison MD [address] [place] [address] Discharge Disposition: Discharged to home or Selfcare 06/13/2025 10:30 AM CDT Office Visit [facility] - Primary Care - [place] [address] [place] [address] Yinka Harrison MD [address] [place] [address] documented as of this encounter Visit Diagnoses Not on filedocumented in this encounter Additional Health Concerns Assessment Noted Time PHQ-9 Depression Total Score: 0 12/27/19 24 8:35 AM CDT documented as of this encounter Care Teams Automatic Punch Press Operator Relationship Specialty Start Date End Date Yinka Harrison MD [address] [place] [address] PCP - General Internal Medicine 07/27/18 Dave Fernando MD [address] [place] [address] Consulting Physician Orthopaedic Surgery 02/20/19 documented as of this encounter
--- OUTSIDE RECORDS SUMMARY | 2024-09-22 13:03 | XMS_ITS | Encounter Summary ---
Author Organization [employer] Care Team Providers Care Gastroenterology Physician Name Role Phone Yinka Harrison MD Primary Care Provider [phone] Dave Fernando MD Unavailable [phone] Encounter Details Date Type Department Care Team (Latest Contact Info) Description 06/05/2024 Travel Social History Tobacco Use Types Packs/Day Years Used Date Smoking Tobacco: Former Smokeless Tobacco: Never Alcohol Use Standard Drinks/Week Comments No 0 (1 standard drink = 0.6 oz pur e alcohol) [facility] Utilities Answer Date Recorded In the past 12 months has [employer], gas, oil, or water company threatened [...] often do you attend chur ch or episcopal services? More than 4 times per year 02/26/2024 Do you belong to any clubs o r organizations such as sabianist groups, unions, fraternal or athletic groups, or [...] Total Score - Questions 1-9 0 12/10 [facility] - Occupational Stress Questionnaire [...] place to sleep or slept in a usp (including now)? No 12/26/2023 Housing Stability Vital [...] were you homeless or living in a usp (including now)? No 02/26/2024 Education Answer Date [...] (Latest Contact Info) Description 09/23/2024 10:45 AM ACCOUNT MANAGEMENT SPECIALIST Physical Therapy [facility] at [facility] [address] [place] [address] Dave Fernando MD [address] [place] [address] Lucy Gard[place], [place] Discharge Disposition: Discharged to home or Selfcare 11/22/2024 10:15 AM CDT Appointment [facility] Mammography 1 [place] [address] Yinka Harrison MD [address] [place] [address] Discharge Disposition: Discharged to home or Selfcare 06/13/2025 10:30 AM CDT Office Visit [facility] - Primary Care - [place] [address] [place] [address] Yinka Harrison MD [address] [place] [address] documented as of this encounter Visit Diagnoses Not on filedocumented in this encounter Additional Health Concerns Assessment Noted Time PHQ-9 Depression Total Score: 0 12/27/19 24 8:35 AM CDT documented as of this encounter Care Teams Gastroenterology Physician Relationship Specialty Start Date End Date Yinka Harrison MD [address] [place] [address] PCP - General Internal Medicine 07/27/18 Dave Fernando MD [address] [place] [address] Consulting Physician Orthopaedic Surgery 02/20/19 documented as of this encounter
--- OUTSIDE RECORDS SUMMARY | 2024-09-22 13:03 | XMS_ITS | Encounter Summary ---
Author Organization [employer] Care Team Providers Care Broadcast Journalist Name Role Phone Yinka Harrison MD Primary Care Provider [phone] Dave Fernando MD Unavailable [phone] Encounter Details Date Type Department Care Team (Latest Contact Info) Description 08/12/2024 Travel Social History Tobacco Use Types Packs/Day Years Used Date Smoking Tobacco: Former Smokeless Tobacco: Never Alcohol Use Standard Drinks/Week Comments No 0 (1 standard drink = 0.6 oz pur e alcohol) [facility] Utilities Answer Date Recorded In the past 12 months has [employer], gas, oil, or water company threatened [...] often do you attend chur ch or tenriism services? More than 4 times per year 02/26/2024 Do you belong to any clubs o r organizations such as latter-day groups, unions, fraternal or athletic groups, or [...] Total Score - Questions 1-9 0 12/10 [facility]at [facility] - Occupational Stress Questionnaire Answer Date [...] place to sleep or slept in a custodial (including now)? No 12/26/2023 Housing Stability Vital [...] were you homeless or living in a custodial (including now)? No 02/26/2024 Education Answer Date [...] (Latest Contact Info) Description 09/23/2024 10:45 AM GRAPHICS MANAGER Physical Therapy [facility] Rehab at [facility] [address] [place] [address] Dave Fernando MD [address] [place] [address] Lucy Garduno, [place] Discharge Disposition: Discharged to home or Selfcare 11/22/2024 10:15 AM CDT Appointment [facility] Mammography 1 [place] [address] Yinka Harrison MD [address] [place] [address] Discharge Disposition: Discharged to home or Selfcare 06/13/2025 10:30 AM CDT Office Visit [facility] - Primary Care - [place] [address] [place] [phone] Yinka Harrison MD [address] [place] [address] documented as of this encounter Visit Diagnoses Not on filedocumented in this encounter Additional Health Concerns Assessment Noted Time PHQ-9 Depression Total Score: 0 12/27/19 24 8:35 AM CDT documented as of this encounter Care Teams Broadcast Journalist Relationship Specialty Start Date End Date Yinka Harrison MD [address] [place] [address] PCP - General Internal Medicine 07/27/18 Dave Fernando MD [address] [place] [address] Consulting Physician Orthopaedic Surgery 02/20/19 documented as of this encounter
--- OUTSIDE RECORDS SUMMARY | 2024-09-22 13:03 | XMS_ITS | Encounter Summary ---
Author Organization [facility] Address [address] [place] [address] Phone Care Team Providers Care C Software Developer Name Role Phone Yinka Harrison MD Primary Care Provider [phone] Dave Fernando MD Unavailable [phone] Reason for Visit * Reason Comments Preventive Care Encounter Details Date Type Department Care Team (Late st Contact Info) Description 06/07/2024 1:00 PM CDT Office Visit [facility] - Primary Care - [place] [address] [place] [address] Yinka Harrison MD [address] [place] [address] Encounter for health maintenance examination (Adult) (Primary Dx); Hypertension, essential; Mixed hyperlipidemia; Arthritis; Encounter for hepatitis C screening test for low risk patient Discharge Disposition: Discharged to home or Selfcare Social History Tobacco Use Types Packs/Day Years Used Date Smoking Tobacco: Former Smokeless Tobacco: Never Tobacco Cessation:Counseling Given: Not Answered Alcohol Use Standard Drinks/Week Comments No 0 (1 standard drink = 0.6 oz pur e alcohol) [facility] Utilities Answer Date Recorded In [...] How often do you attend chur or zoroastrianism services? More than 4 times per year 02/26/2024 Do you belong to any clubs o r organizations such as hindu groups, unions, fraternal or athletic groups, or [...] Total Score - Questions 1-9 0 12/10 [facility] - Occupational [...] any time in the past [address] [facility], were you homeless or living in [...] Sign Reading Time Taken Comments Blood Pressure 136/78 06/07/2024 1:08 PM CDT Pulse 89 06/07/2024 1:08 PM CDT Temperature 36.5 ??C (97.7 ??F) 06/07/2024 1:08 PM CD T Respiratory Rate 16 06/07/2024 1:08 PM CDT Oxygen Saturation 98% 06/07/2024 1:08 PM CDT Inhaled Oxygen Concentration - - Weight 86.7 kg (191 lb 1.6 oz) 06/07/2024 1:08 P M CDT Height 160 cm (5' 3 ) 06/07/2024 1:08 PM CDT Body Mass Index 33.85 06/07/2024 1:08 PM CDT documented in this encounter Progress Notes * Taco Roper, VETERINARY INSPECTOR - 06/07/2024 1:00 PM CDT Sriram Srinivasan, 63 y.o., female is here for Preventive Care Medication Refills: Patient reports/denies need for medication refills. Orders Pended: no Requested Prescriptions No prescriptions requested or ordered in this encounter Home Medications Medication Sig Start Date End Date Taking? Authorizing Provider amLODIPine (NORVASC) 10 MG Tablet TAKE ONE (1) TABLET BY MOUTH DAILY. 10/09/23 Yinka Harrison MD Ascorbic Acid (VITAMIN C PO) Take 500 mg by mouth. Provider, MD Rosendo Flaxseed, Linseed, (Flax Seed Oil) 1000 MG Capsule Take 1,000 mg by mouth daily. ProviderRosendo MD hydroCHLOROthiazide 12.5 MG Tablet TAKE ONE (1) TABLET BY MOUTH DAILY. 03/15/24 Yinka Harrison MD ibuprofen (MOTRIN) 800 MG Tablet TAKE ONE (1) TAB BY MOUTH EVERY 8 HOURS NEEDED FOR MILD OR MORESEVERE PAIN. 09/13/22 Yinka Harrison MD IRON PO Take by mouth. ProviderRosendo MD rosuvastatin (CRESTOR) 20 MG Tablet TAKE 1 TABLET BY MOUTH DAILY. 10/02/23 Yinka Harrison MD traMADol (ULTRAM) 50 MG Tablet Take 1 Tablet by mouth every 8 hours as needed for Moderate or more severe pain. 05/07/24 Yinka Harrison MD triamcinolone (KENALOG) 0.1 % [...] Zoster Immunization (1 of 2) Never done Colorectal Cancer Screening 05/14/2020 Influenza Immunization (1) 05/12/2024 SARS-COV-2 Immunization ( season) 2024 Orders Pended: no The following BPA's have been addressed with the patient today: Smoking and Depression * Yinka Harrison MD - 06/07/2024 1:00 PM CDT Subjective: Subjective HPI Follow-up for annual fasting well exam. The patient is also followed for hypertension, hyperlipidemia and arthritis. She reports no new medical issues. No new family history to report. Past medical history, social history, family history and medications have been reviewed. Review of Systems Constitutional: Negative. HENT: Negative. Eyes: Negative. Respiratory: Negative. Cardiovascular: Negative. Gastrointestinal: Negative. Endocrine: Negative. Genitourinary: Negative. Musculoskeletal: Negative. Skin: Negative. Allergic/Immunologic: Negative. Neurological: Negative. Hematological: Negative. Psychiatric/Behavioral: Negative. Objective: Objective Physical Exam Constitutional: Appearance: Normal appearance. She is well-developed. Comments: Ambulates with cane and transfers with mild difficulty. HENT: Head: Normocephalic. Right Ear: Tympanic membrane, ear canal and external ear normal. Tympanic membrane is not erythematous or bulging. Left Ear: Tympanic membrane, ear canal and external ear normal. Tympanic membrane is not erythematous or bulging. Nose: Nose normal. Mouth/Throat: Lips: [place]. Mouth: Mucous membranes are moist. Pharynx: Oropharynx is clear. Uvula midline. Tonsils: No tonsillar exudate. Eyes: General: Lids are normal. Conjunctiva/sclera: Conjunctivae normal. Pupils: Pupils are equal, round, and reactive to light. Neck: Thyroid: No thyroid mass or thyromegaly. Trachea: Trachea normal. Cardiovascular: Rate and Rhythm: Normal rate and regular rhythm. Pulses: Normal pulses. Heart sounds: Normal heart sounds. No murmur heard. No friction rub. No gallop. Pulmonary: Effort: Pulmonary effort is normal. No respiratory distress. Breath sounds: Normal breath sounds. No wheezing or rales. Chest: Chest wall: No tenderness. Abdominal: General: Bowel sounds are normal. There is no distension. Palpations: Abdomen is soft. There is no hepatomegaly or mass. Tenderness: There is no abdominal tenderness. There is no right CVA tenderness, left CVA tenderness, guarding or rebound. Hernia: No hernia is present. Musculoskeletal: General: No swelling or tenderness. Normal range of motion. Cervical back: Normal range of motion and neck supple. Lymphadenopathy: Cervical: No cervical adenopathy. Skin: General: Skin is warm and dry. Coloration: Skin is not pale. Findings: No erythema or rash. Neurological: Mental Status: She is alert and oriented to person, place, and time. Coordination: Coordination normal. Gait: Gait normal. Deep Tendon Reflexes: Reflexes are normal and symmetric. Psychiatric: Attention and Perception: Attention normal. Mood and Affect: Mood is anxious (slight). Speech: Speech normal. Behavior: Behavior normal. Thought Content: Thought content normal. Cognition and Memory: Cognition normal. Judgment: Judgment normal. Assessment and Plan Assessment & Plan See Diagnoses, Orders, Follow-up, and Instructions Problem List Items Addressed This Visit Cardiovascular Hypertension, essential Relevant Orders COMPLETE BLOOD COUNT (CBC) WITH DIFF CMP (COMPREHENSIVE METABOLIC PANEL) Mixed hyperlipidemia Relevant Orders LIPID PANEL Musculoskeletal Arthritis Other Visit Diagnoses Encounter for health maintenance examination (Adult) - Primary Relevant Orders COMPLETE BLOOD COUNT (CBC) WITH DIFF CMP (COMPREHENSIVE METABOLIC PANEL) LIPID PANEL Encounter for hepatitis C screening test for low risk patient Relevant Orders HEPATITIS C ANTIBODY Check CMP, CBC, lipids and hepatitis-C antibody. She will be going on Medicare in July and to get a referral to orthopedics regarding her knees at that time. She will also be willing to proceed with screening colonoscopy at that time. Follow-up in 1 year with annual fasting exam. I have seen and examined the patient on today's date. Documentation for this visit was completed using the assistance of a template. Everything documented in this visit was personally performed todaywith the necessary additions, deletions and changes. documented in this encounter Plan of Treatment Upcoming Encounters Date Type Department Care Team (Latest Contact Info) Description 09/23/2024 10:45 AM HOGSHEAD PRESS OPERATOR Physical Therapy [facility] [place] [facility] [address], [address] [place] [phone] Dave Fernando MD [address] [place] [address] Lucy Garduno, [place] Discharge Disposition: Discharged to home or Selfcare 11/22/2024 10:15 AM CDT Appointment [facility] 1 [facility] [place] [phone] Yinka Harrison MD [address] [place] [address] Discharge Disposition: Discharged to home or Selfcare 06/13/2025 10:30 AM CDT Office Visit [facility] - Primary Care - [place] [address] [place] [address] Yinka Harrison MD [address] [place] [address] documented as of this encounter Results * HEPATITIS C ANTIBODY (06/07/2024 1:31 PM CDT) hepatitis C antibody 0.14 <1 S/CO 06/07/2024 10:57 PM CDT [facility] Comment: Signal/Cutoff ratio ??< 0.79 is Nondetected Signal/Cutoff ratio 0.80-0.99 is Grayzone Signal/Cutoff ratio > 0.99 is Detected Supplemental assays are recommended if signal/cutoff ratio is >/=1.00. ??Signal/cutoff ratio result >/= 5.00 is 97% predictive of positivity for recombinant immunoblot assay (RIBA) and will be reported to the [place] Department of Public Health as required. Blood Venipuncture / Unknown 06/07/2024 1:31 PM CDT 06/07/2024 1:31 PM CDT us Yinka Harrison MD CHEMISTRY ORDERABLES [place] l Result [facility] [address] [place] [address], [place] * (ABNORMAL) LIPID PANEL (06/07/2024 1:31 PM CDT) CHOLESTEROL 251(H) <200 mg/dL 06/07/2024 3:37 PM CDT [facility] TRIGLYCERIDES 118 <150 mg/dL 06/07/2024 3:37 PM CDT [facility] HDL CHOLESTEROL 59 >40 mg/dL 3:37 PM CDT [facility] LDL 168(H) <130 mg/dL 06/07/2024 3:37 PM CDT [facility] VLDL 24 10 - 50 mg/dL 06/07/2024 3:37 PM CDT [facility] CHOL/HDL RATIO 4.3 0.0 - 4.4 06/07/2024 3:37 PM CDT [facility] NON-HDL CHOLESTEROL 192(H) <130 mg/dL 06/07/2024 3:37 PM CDT [facility] IS THE PATIENT REQUIRED TO BE FASTING? Yes 06/07/2024 3:37 PM CDT [facility] HAS THE PATIENT BEEN FASTING? Yes 06/07/2024 3:37 PM CDT [facility] Blood Venipuncture / Unknown 06/07/2024 1:31 PM CDT 06/07/2024 1:31 PM CDT us Yinka Harrison MD CHEMISTRY ORDERABLES [place] l Result [facility] [address] [place] [address] * (ABNORMAL) CMP (COMPREHENSIVE METABOLIC PANEL) (06/07/2024 1:31 PM CDT) SODIUM 141 136 - 145 mmol/L 06/07/2024 3:37 PM CDT [facility] POTASSIUM 4.2 3.5 - 5.1 mmol/L 06/07/2024 3:37 PM CDT [facility] CHLORIDE 105 98 - 107 mmol/L 06/07/2024 3:37 PM CDT [facility] CO2, VENOUS 28 22 - 30 mmol/L 06/07/2024 3:37 PM CDT [facility] ANION GAP 12.2 <18.0 mmol/L 06/07/2024 3:37 PM CDT [facility] GLUCOSE 94 70 - 99 mg/dL 06/07/2024 3:37 PM CDT [facility] BUN 22(H) 10 - 20 mg/dL 06/07/2024 3:37 PM CDT [facility] CREATININE, BLOOD 1.56(H) 0.60 - 1.00 mg/dL 06/07/2024 3:37 PM CDT [facility] BUN/CREATININE RATIO 14 12 - 20 ratio 06/07/2024 3:37 PM CDT [facility] TOTAL PROTEIN 8.0 6.3 - 8.2 g/dL 06/07/2024 3:37 PM CDT [facility] ALBUMIN 4.1 3.5 - 5.0 g/dL 06/07/2024 3:37 PM CDT [facility] A/G RATIO 1.1 1.0 - 2.2 06/07/2024 3:37 PM CDT [facility] CALCIUM 10.3 8.7 - 10.5 mg/dL 06/07/2024 3:37 PM CDT [facility] T BILI 0.3 0.2 - 1.2 mg/dL 06/07/2024 3:37 PM CDT [facility] SGOT (AST) 23 5 - 34 U/L 06/07/2024 3:37 PM CDT [facility] SGPT (ALT) 14 0 - 55 U/L 06/07/2024 3:37 PM CDT [facility] ALKALINE PHOSPHATASE 69 40 - 150 U/L 06/07/2024 3:37 PM CDT [facility] IS THE PATIENT REQUIRED TO BE FASTING? No 06/07/2024 3:37 PM CDT [facility] GFR, ESTIMATED 37(L) >=60 06/07/2024 3:37 PM CDT [facility] Comment: Creatinine Clearance is the preferred criteria for selecting drug dose adjustments in renally impaired patients. ??The GFR is provided as additional pertinent clinical information. GFR is reported in mL/min/1.73 sq m. Calculation based on the Chronic Kidney Disease Epidemiology Collaboration (CKD- EPI) equation refit without adjustment for race. GFR, EST. 40(L) >=60 024 3:37 PM CDT [facility] GFR, EST. NONAFRICAN 33(L) >=60 06/07/2024 3:37 PM CDT [facility] Blood Venipuncture / Unknown 06/07/2024 1:31 PM CDT 06/07/2024 1:31 PM CDT us Yinka Harrison MD CHEMISTRY ORDERABLES [place] l Result [facility] [address] [place] [address] documented in this encounter Visit Diagnoses Diagnosis Encounter for health maintenance examination (Adult)- Primary Unspecified general medical examination Hypertension, essential Unspecified essential hypertension Mixed hyperlipidemia Arthritis Arthropathy, unspecified, site unspecified Encounter for hepatitis C screening test for low risk patient documented in this encounter Additional Health Concerns Assessment Noted Time PHQ-9 Depression Total Score: 0 12/27/19 24 8:35 AM CDT documented as of this encounter Care Teams C Software Developer Relationship Specialty Start Date End Date Yinka Harrison MD [address] [place] [address] PCP - General Internal Medicine 07/27/18 Dave Fernando MD [address] [facility] [address] [place] [address] Consulting Physician Orthopaedic Surgery 02/20/19 documented as of this encounter
--- OUTSIDE RECORDS SUMMARY | 2024-09-22 13:03 | XMS_ITS | Encounter Summary ---
Author Organization [employer] Care Team Providers Care Systems Technologist Name Role Phone Yinka Harrison MD Primary Care Provider [phone] Dave Fernando MD Unavailable [phone] Encounter Details Date Type Department Care Team (Latest Contact Info) Description 02/26/2024 Travel Social History Tobacco Use Types Packs/Day Years Used Date Smoking Tobacco: Former Smokeless Tobacco: Never Alcohol Use Standard Drinks/Week Comments No 0 (1 standard drink = 0.6 oz pur e alcohol) [facility] Utilities Answer Date Recorded In the past 12 months has [employer] electric, gas, oil, or water company threatened [...] often do you attend chur ch or oriental orthodox services? More than 4 times per year 02/26/2024 Do you belong to any clubs o r organizations such as synagogue groups, unions, fraternal or athletic groups, or [...] Total Score - Questions 1-9 0 12/10 [facility] - Occupational Stress Questionnaire Answer Date [...] place to sleep or slept in a long-term (including now)? No 12/26/2023 Housing Stability Vital [...] were you homeless or living in a long-term (including now)? No 02/26/2024 Education Answer Date [...] on file documented as of this encounter Functional Status * Audit-C Score Answer Date of Assessment Author 0 02/26/2024 8:46 AM CDMaxime Helms Within the last year, have you been humiliated or emotionally abused in other ways by your partner or ex-partner? Answer Date of Assessment Author No 02/26/2024 8:46 AM CDMaxime Helms Within the last year, have you been afraid of your partner or ex-partner? Answer Date of Assessment Author No 02/26/2024 8:46 AM Maxime Harrison Within the last year, have you been raped or forced to have any kind of sexual activity by your partner or ex-partner? Answer Date of Assessment Author No 02/26/2024 8:46 AM Maxime Harrison Within the last year, have you been kicked, hit, slapped, or otherwise physically hurt by your partner or ex-partner? Answer Date of Assessment Author No 02/26/2024 8:46 AM Maxime Harrison Q1: How often do you have a drink containing alcohol? Answer Date of Assessment Author Never 02/26/2024 8:46 AM Maxime Harrison Q2: How many drinks containing alcohol do you have on a typical day when you are drinking? Answer Date of Assessment Author Patient does not drink 02/26/2024 8:46 AM CDT Maxime Frost * Q3: How often do you have six or more drinks on one occasion? Answer Date of Assessment Author Never 02/26/2024 8:46 AM CDT Maxime Wiley documented as of this encounter Plan of Treatment Upcoming Encounters Date Type Department Care Team (Latest Contact Info) Description 09/23/2024 10:45 AM PIN DRAFTING MACHINE TENDER Physical Therapy [facility] [address], [address] [place] [phone] Dave Fernando MD [address] [place] [address] Lucy Garduno, [place] Discharge Disposition: Discharged to home or Selfcare 11/22/2024 10:15 AM CDT [facility]ment [facility] 1 [place] [address] Yinka Harrison MD [address] [place] [address] Discharge Disposition: Discharged to home or Selfcare 06/13/2025 10:30 AM CDT Office Visit [facility] - Primary Care - [place] [address] [place] [phone] Yinka Harrison MD [address] [place] [address] documented as of this encounter Visit Diagnoses Not on filedocumented in this encounter Additional Health Concerns Assessment Noted Time PHQ-9 Depression Total Score: 0 12/27/19 24 8:35 AM CDT documented as of this encounter Care Teams Systems Technologist Relationship Specialty Start Date End Date Yinka Harrison MD [address] [place] [address] PCP - General Internal Medicine 07/27/18 Dave Fernando MD [address] [facility] [address] [place] [address] Consulting Physician Orthopaedic Surgery 02/20/19 documented as of this encounter
--- OUTSIDE RECORDS SUMMARY | 2024-09-22 13:03 | XMS_ITS | Encounter Summary ---
Author Organization [employer] Care Team Providers Care Residential Instructor Name Role Phone iYnka Harrison MD Primary Care Provider [phone] Dave Fernando MD Unavailable [phone] Encounter Details Date Type Department Care Team (Latest Contact Info) Description 07/13/2024 Travel Social History Tobacco Use Types Packs/Day Years Used Date Smoking Tobacco: Former Smokeless Tobacco: Never Alcohol Use Standard Drinks/Week Comments No 0 (1 standard drink = 0.6 oz pur e alcohol) [facility] Utilities Answer Date Recorded In the past 12 months has [employer] electric, gas, oil, or water company threatened [...] often do you attend chur ch or methodist services? More than 4 times per year 02/26/2024 Do you belong to any clubs o r organizations such as quaker groups, unions, fraternal or athletic groups, or [...] Questions 1-9 0 12/10 [facility] - Occupational Stress Questionnaire Answer [...] (Latest Contact Info) Description 09/23/2024 10:45 AM WEAPONS AND TACTICS INSTRUCTOR Physical Therapy [facility] [address] [place] [phone] Dave Fernando MD [address] [place] [address] Lucy Garduno, [place] Discharge Disposition: Discharged to home or Selfcare 11/22/2024 10:15 AM CDT Appointment [facility] 1 [place] [address] Yinka Harrison MD [address] [place] [address] Discharge Disposition: Discharged to home or Selfcare 06/13/2025 10:30 AM CDT Office Visit [facility] - Primary Care - [place] [address] [place] [phone] Yinka Harrison MD [address] [place] [address] documented as of this encounter Visit Diagnoses Not on filedocumented in this encounter Additional Health Concerns Assessment Noted Time PHQ-9 Depression Total Score: 0 12/27/19 24 8:35 AM CDT documented as of this encounter Care Teams Residential Instructor Relationship Specialty Start Date End Date Yinka Harrison MD [address] [place] [address] PCP - General Internal Medicine 07/27/18 Dave Fernando MD [address] [place] [address] Consulting Physician Orthopaedic Surgery 02/20/19 documented as of this encounter
--- OUTSIDE RECORDS SUMMARY | 2024-09-22 13:03 | XMS_ITS | Encounter Summary ---
Author Organization [facility] Address [address] [place] [address] Phone Care Team Providers Care Component Assembler Supervisor Name Role Phone Yinka Harrison MD Primary Care Provider [phone] Dave Fernando MD Unavailable [phone] Reason for Visit * Reason Comments Medication Refill Encounter Details Date Type Department Care Team (Late st Contact Info) Description 07/30/2024 Refill [facility] - Primary Care - [place] [address] [place] [address] Yinka Harrison MD [address] [place] [address] Medication Refill Social History Tobacco Use Types Packs/Day Years Used Date Smoking Tobacco: Former Smokeless Tobacco: Never Alcohol Use Standard Drinks/Week Comments No 0 (1 standard drink = 0.6 oz pur e alcohol) [facility] Utilities Answer Date Recorded In the past 12 months has [employer] electric, gas, oil, or water company threatened [...] any clubs o r organizations such as islam groups, unions, fraternal or athletic groups, or [...] Total Score - Questions 1-9 0 12/10 [facility] - Occupational Stress Questionnaire Answer [...] any time in the past 12 m [facility], were you homeless or living in a [...] Telephone Encounter - Graeme Hansen RN - 07/30/2024 12:38 PM CST Medication(s) refilled and signed per [facility] Chronic Medication Refill Standing Order for Pediatricand Adult Patients. Requested Prescriptions Pending Prescriptions Disp Refills amLODIPine (NORVASC) 10 MG Tablet [Pharmacy Med Name: AMLODIPINE BESYLATE 10MG TABLET] 90 Tablet 2 Sig: TAKE ONE (1) TABLET BY MOUTH DAILY. Calcium-Channel Blockers Protocol Passed - 07/30/2024 11:45 AM Passed - BP on record in the past year Clinician-entered: BP Readings from Last 3 Encounters: 06/07/24 136/78 02/26/24 142/64 12/27/23 144/60 Patient-entered: No data recorded Passed - Visit with relevant provider in past 12 months or upcoming 90 days Recent Visits Date Type Provider Dept 06/07/24 Office Visit Yinka Harrison MD [facility] 02/26/24 Office Visit Yinka Harrison MD [facility] 12/27/23 Office Visit Yinka Harrison MD [facility] Showing recent visits within past 365 days and meeting all other requirements Future Appointments Date Type Provider Dept 08/14/24 Appointment Lab, [facility] Showing future appointments within next 90 days and meeting all other requirements MAKER documented in this encounter Plan of Treatment Upcoming Encounters Date Type Department Care Team (Latest Contact Info) Description 09/23/2024 10:45 AM BAIT MAKER Physical Therapy [facility] at [facility] [address], [address] [place] [address] Dave Fernando MD [address] [place] [address] Lucy Garduno, PT [place] Discharge Disposition: Discharged to home or Selfcare 11/22/2024 10:15 AM CDT Appointment [facility] [address] [place] [address] Yinka Harrison MD [address] [place] [address] Discharge Disposition: Discharged to home or Selfcare 06/13/2025 10:30 AM CDT Office Visit [facility] - Primary Care - [place] [address] [place] [phone] Yinka Harrison MD [address] [place] [address] documented as of this encounter Visit Diagnoses Diagnosis Essential hypertension Unspecified essential hypertension documented in this encounter Additional Health Concerns Assessment Noted Time PHQ-9 Depression Total Score: 0 12/27/19 24 8:35 AM CDT documented as of this encounter Care Teams Component Assembler Supervisor Relationship Specialty Start Date End Date Yinka Harrison MD [address] [place] [address] PCP - General Internal Medicine 07/27/18 Dave Fernando MD [address] [place] [place] [address] Consulting Physician Orthopaedic Surgery 02/20/19 documented as of this encounter
--- OUTSIDE RECORDS SUMMARY | 2024-09-22 13:03 | XMS_ITS | Encounter Summary ---
Author Organization [facility] Address [address] [place] [address] Phone Care Team Providers Care Central Service Supply Distributor Name Role Phone Yinka Harrison MD Primary Care Provider [phone] Dave Fernando MD Unavailable [phone] Reason for Visit * Reason Comments Medication Refill Encounter Details Date Type Department Care Team (Late st Contact Info) Description 07/08/[address] [facility] - Primary Care - [place] [address] [place] [address] Yinka Harrison MD [address] [place] [address] Medication Refill Social History Tobacco Use Types Packs/Day Years Used Date Smoking Tobacco: Former Smokeless Tobacco: Never Alcohol Use Standard Drinks/Week Comments No 0 (1 standard drink = 0.6 oz pur e alcohol) [facility] Utilities Answer Date Recorded In the past 12 months has [employer] electric, gas, oil, or water company threatened [...] any clubs o r organizations such as shinto groups, unions, fraternal or athletic groups, or [...] Score - Questions 1-9 0 12/10 [facility] - Occupational Stress Questionnaire Answer Date [...] place to sleep or slept in a care home (including now)? No 12/26/2023 Housing Stability Vital [...] were you homeless or living in a care home (including now)? No 02/26/2024 Education Answer Date [...] Telephone Encounter - Yinka Harrison MD - 07/08/2024 9:46 AM CDT Refill request approved. * Telephone Encounter - Graeme Hansen RN - 07/08/2024 8:40 AM CDT Medication failed the protocol, provider to review and approve the medication order if appropriate. Requested Prescriptions Pending Prescriptions Disp Refills traMADol (ULTRAM) 50 MG Tablet [Pharmacy Med Name: TRAMADOL HYDROCHLORIDE 50MG TABLET] 30 Tablet 1 Sig: Take 1 Tablet by mouth every 8 hours as needed for Moderate or more severe pain. Not Delegated - Opioid Agonists Protocol Failed - 07/08/2024 7:39 AM Failed - This refill cannot be delegated Passed - Visit with relevant provider in past 12 months or upcoming 90 days Recent Visits Date Type Provider Dept 06/07/24 Office Visit Yinka Harrison MD [facility] 02/26/24 Office Visit Yinka Harrison MD [facility] 12/27/23 Office Visit Yinka Harrison MD [facility] Showing recent visits within past 365 days and meeting all other requirements Future Appointments Date Type Provider Dept 07/15/24 Appointment Lab, [facility] Showing future appointments within next 90 days and meeting all other requirements documented in this encounter Plan of Treatment Upcoming Encounters Date Type Department Care Team (Latest Contact Info) Description 09/23/2024 10:45 AM ECONOMIST RESEARCH ASSISTANT Physical Therapy [facility] [address] [facility], [address] [place] [address] Dave Fernando MD [address] [place] [address] Lucy Garduno, PT [place] Discharge Disposition: Discharged to home or Selfcare 11/22/2024 10:15 AM CDT Appointment [facility] [address] [place] [address] Yinka Harrison MD [address] [place] [address] Discharge Disposition: Discharged to home or Selfcare 06/13/2025 10:30 AM CDT Office [facility] - Primary Care - [place] [address] [place] [id number] Yinka Harrison MD [address] [place] [address] documented as of this encounter Visit Diagnoses Diagnosis Arthritis Arthropathy, unspecified, site unspecified Chronic pain of right knee Rheumatoid arthritis involving multiple sites with positive rheumatoid factor (HCC) documented in this encounter Additional Health Concerns Assessment Noted Time PHQ-9 Depression Total Score: 0 12/27/19 24 8:35 AM CDT documented as of this encounter Care Teams Central Service Supply Distributor Relationship Specialty Start Date End Date Yinka Harrison MD [address] [place] [address] PCP - General Internal Medicine 07/27/18 Dave Fernando MD [address] [place] [place] [address] Consulting Physician Orthopaedic Surgery 02/20/19 documented as of this encounter
--- OUTSIDE RECORDS SUMMARY | 2024-09-22 13:03 | XMS_ITS | Encounter Summary ---
Author Organization [facility] Address [address] [place] [address] Phone Care Team Providers Care Motor Vehicle Assembler Name Role Phone Yinka Harrison MD Primary Care Provider [phone] Dave Fernando MD Unavailable [phone] Reason for Visit * Reason Onset Date Comments Results 06/07/2024 labs Encounter Details Date Type Department Care Team (Late st Contact Info) Description 06/07/2024 Telephone [facility] - [place] [address] [place] [address] Yinka Harrison MD [address] [place] [address] Results (labs) Social History Tobacco Use Types Packs/Day Years Used Date Smoking Tobacco: Former Smokeless Tobacco: Never Alcohol Use Standard Drinks/Week Comments No 0 (1 standard drink = 0.6 oz pur e alcohol) [facility] Utilities Answer Date Recorded In the past 12 months has [employer] electric, gas, oil, or water company threatened [...] any clubs o r organizations such as buddhism groups, unions, fraternal or athletic groups, or [...] Total Score - Questions 1-9 0 12/10 [facility]at ional [facility] - Occupational [...] time in the past 12 m [facility], were you homeless or living [...] Telephone Encounter - Mariposa Castelan RN - 06/11/2024 8:30 AM CDT Phoned patient with PCP message. Patient aware and verbalized understanding. No questions for this RN. * Telephone Encounter - Mariposa Castelan RN - 06/10/2024 9:48 AM CDT Attempted to phone patient to relay PCP message. No answer. Voicemail left to call the office. * Telephone Encounter - Yinka Harrison MD - 06/07/2024 4:35 PM CDT Please ask her to double up on her rosuvastatin dosage. A new prescription has been sent to the patient's pharmacy reflecting the dosage change. * Telephone Encounter - Chelsea Vila RN - 06/07/2024 4:23 PM CDT Situation: Results Background: See Notes below Assessment: Patient given following information: Yinka Harrison MD Lab results are OK except the patient's lipids are moderately elevated. Has she been taking her rosuvastatin daily? Also, the patient's creatinine level is mildly elevated at 1.56. I have ordered a repeat BMP for 1 month to reassess. Lab scheduled in one month All Patient Appointments Provider Department Dept Phone 07/05/2024 9:00 AM Lab, [facility] - Primary Care - [place] [phone] Recommendation: Routing to provider. Patient states she takes her rosuvastatin everyday without missing doses. * Telephone Encounter - Mariposa Castelan RN - 06/07/2024 4:15 PM CDT Attempted to call patient with results, no answer at this time. Left message to call back. * Telephone Encounter - Yinka Harrison MD - 06/07/2024 4:10 PM CDT Lab results are OK except the patient's lipids are moderately elevated. Has she been taking her rosuvastatin daily? Also, the patient's creatinine level is mildly elevated at 1.56. I have ordered a repeat BMP for 1 month to reassess. documented in this encounter Plan of Treatment Upcoming Encounters Date Type Department Care Team (Latest Contact Info) Description 09/23/2024 10:45 AM SKI TOP TRIMMER Physical Therapy [facility] at [facility] [address], [address] [place] [phone] Dave Fernando MD [address] [place] [address] Lucy Garduno, [place] Discharge Disposition: Discharged to home or Selfcare 11/22/2024 10:15 AM CDT [facility] 1 [place] [address] Yinka Harrison MD [address] [place] [address] Discharge Disposition: Discharged to home or Selfcare 06/13/2025 10:30 AM CDT Office Visit [facility] - Primary Care - [place] [address] [place] [address] Yinka Harrison MD [address] [place] [address] documented as of this encounter Results * (ABNORMAL) BASIC METABOLIC PANEL W/ CALCIUM TOTAL (07/15/2024 9:20 AM SKI TOP TRIMMER) SODIUM 140 136 - 145 mmol/L 07/15/2024 1:39 PM SKI TOP TRIMMER [facility] POTASSIUM 3.7 3.5 - 5.1 mmol/L 07/15/2024 1:39 PM SKI TOP TRIMMER [facility] CHLORIDE 106 98 - 107 mmol/L 07/15/2024 1:39 PM SKI TOP TRIMMER [facility] CO2, VENOUS 23 22 - 30 mmol/L 07/15/2024 1:39 PM SKI TOP TRIMMER [facility] ANION GAP 14.7 <18.0 mmol/L 07/15/2024 1:39 PM SKI TOP TRIMMER [facility] GLUCOSE 90 70 - 99 mg/dL 07/15/2024 1:39 PM [facility] BUN 29(H) 10 - 20 mg/dL 07/15/2024 1:39 PM [facility] CREATININE, BLOOD 1.71(H) 0.60 - 1.00 mg/dL 07/15/2024 1:39 PM [facility] BUN/CREATININE RATIO 17 12 - 20 ratio 07/15/2024 1:39 PM [facility] CALCIUM 10.0 8.7 - 10.5 mg/dL 07/15/2024 1:39 PM [facility] IS THE PATIENT REQUIRED TO BE FASTING? No 07/15/2024 1:39 PM SKI TOP TRIMMER [facility] GFR, ESTIMATED 33(L) >=60 07/15/2024 1:39 PM [facility] Comment: Creatinine Clearance is the preferred criteria for selecting drug dose adjustments in renally impaired patients. ??The GFR is provided as additional pertinent clinical information. GFR is reported in mL/min/1.73 sq m. Calculation based on the Chronic Kidney Disease Epidemiology Collaboration (CKD- EPI) equation refit without adjustment for race. GFR, EST. 36(L) >=60 024 1:39 PM SKI TOP TRIMMER [facility] GFR, EST. NONAFRICAN 30(L) >=60 07/15/2024 1:39 PM [facility] Blood Venipuncture / Unknown 07/15/2024 9:20 AM SKI TOP TRIMMER 07/15/2024 9:20 AM SKI TOP TRIMMER us Yinka Harrison MD CHEMISTRY ORDERABLES [place]acock Result [facility] [address] [place] [address] documented in this encounter Visit Diagnoses Diagnosis Abnormal serum creatinine level- Primary Hyperlipidemia Mixed hyperlipidemia documented in this encounter Additional Health Concerns Assessment Noted Time PHQ-9 Depression Total Score: 0 12/27/19 24 8:35 AM CDT documented as of this encounter Care Teams Motor Vehicle Assembler Relationship Specialty Start Date End Date Yinka Harrison MD [address] [place] [address] PCP - General Internal Medicine 07/27/18 Dave Fernando MD [address] [place] [address] Consulting Physician Orthopaedic Surgery 02/20/19 documented as of this encounter
--- OUTSIDE RECORDS SUMMARY | 2024-09-22 13:03 | XMS_ITS | Encounter Summary ---
Author Organization [facility] Address [address] [place] [address] Phone Care Team Providers Care Superintendent Drilling Name Role Phone Yinka Harrison MD Primary Care Provider [phone] Dave Fernando MD Unavailable [phone] Encounter Details Date Type Department Care Team (Late st Contact Info) Description 06/07/2024 1:30 PM CDT Lab [facility] - Primary Care - [address] [address] Lab, [facility] Encounter for health maintenance examination (Adult); Hypertension, essential; Mixed hyperlipidemia; Encounter for hepatitis C screening test for low risk patient Discharge Disposition: Discharged to home or Selfcare Social History Tobacco Use Types Packs/Day Years Used Date Smoking Tobacco: Former Smokeless Tobacco: Never Alcohol Use Standard Drinks/Week Comments No 0 (1 standard drink = 0.6 oz pur e alcohol) [facility] Utilities Answer Date Recorded In the past 12 months has [employer], gas, oil, or water company threatened to [...] week 02/26/2024 How often do you attend [facility] or anglican services? More than 4 times per year [...] 12/10 [facility] - [...] place to sleep or slept in a intermediate (including now)? No 12/26/2023 Housing Stability Vital Sign Answer Sushil e Recorded In the last 12 months, was t here a time when you were not able to pay the mortgage or rent on time? No 02/26/2024 In the past 12 months, how m any times have you moved where you were living? 0 02/26/2024 At any time in the past 12 m [facility], were you homeless or living in a intermediate (including now)? No 02/26/2024 Education Answer Date [...] as of this encounter Progress Notes * Lulu Ma - 06/07/2024 1:30 PM CDT Sriram presents for lab draw per order of Dr. Yinka Harrison dated 06/07/24. Specimen collected from right antecubital without incident. sah documented in this encounter Plan of Treatment Upcoming Encounters Date Type Department Care Team (Latest Contact Info) Description 09/23/2024 10:45 AM JD EDWARDS CONSULTANT Physical Therapy [facility] at [facility] [address], [address] [place] [phone] Dave Fernando MD [address] [place] [address] Lucy Garduno, [place] Discharge Disposition: Discharged to home or Selfcare 11/22/2024 10:15 AM CDT [facility]ointment [facility] 1 [place] [address] Yinka Harrison MD [address] [place] [address] Discharge Disposition: Discharged to home or Selfcare 06/13/2025 10:30 AM CDT Office Visit [facility] - Primary Care - [place] [address] [place] [address] Yinka Harrison MD [address] [place] [address] documented as of this encounter Procedures Procedure Name Priority Date/Time Associated Diagnosis Comments CBC WITH AUTO DIFFERENTIAL Routine 06/07/2024 1:31 PM CDT Encounter for health maintenance examination (Adult) Hypertension, essential LIPID PANEL Routine 06/07/2024 1:31 PM CDT Encounter for health maintenance examination (Adult) Mixed hyperlipidemia HEPATITIS C ANTIBODY Routine 06/07/2024 1:31 PM CDT Encounter for hepatitis C screening test for low risk patient CMP (COMPREHENSIVE METABOLIC PANEL) Routine 06/07/2024 1:31 PM CDT Encounter for health maintenance examination (Adult) Hypertension, essential COMPLETE BLOOD COUNT (CBC) WITH DIFF Routine 06/07/2024 1:31 PM CDT Encounter for health maintenance examination (Adult) Hypertension, essential documented in this encounter Results * (ABNORMAL) CBC WITH AUTO DIFFERENTIAL (06/07/2024 1:31 PM CDT) WBC 5.13 4.00 - 12.00 10(3)/[facility] 06/07/2024 3:11 PM CDT [facility] RBC 4.46 3.80 - 5.30 10(6)/[facility] 06/07/2024 3:11 PM CDT [facility] HEMOGLOBIN (HGB) 12.7 12.0 - 15.8 g/dL 06/07/2024 3:11 PM CDT [facility] HEMATOCRIT (HCT) 39.3 36.0 - 47.0 % 06/07/2024 3:11 PM CDT [facility] MCV 88.1 82.0 - 96.0 fL 06/07/2024 3:11 PM CDT [facility] MCH 28.5 26.0 - 34.0 pg 06/07/2024 3:11 PM CDT [facility] MCHC 32.3 31.0 - 36.0 g/dL 06/07/2024 3:11 PM CDT [facility] PLATELET COUNT 370 140 - 440 10(3)/[facility] 06/07/2024 3:11 PM CDT [facility] RDW 13.7 11.8 - 15.5 % 06/07/2024 3:11 PM CDT [facility] MPV 9.4(L) 9.7 - 12.4 fL 06/07/2024 3:11 PM CDT [facility] NEUTROPHILS 54.1 47.0 - 73.0 % 06/07/2024 3:11 PM CDT [facility] LYMPHOCYTES 26.7 18.0 - 42.0 % 06/07/2024 3:11 PM CDT [facility] MONOCYTES 13.3(H) 4.0 - 12.0 % 06/07/2024 3:11 PM CDT [facility] EOSINOPHILS 5.3(H) 0.0 - 5.0 % 06/07/2024 3:11 PM CDT [facility] BASOPHILS 0.6 0.0 - 1.0 % 06/07/2024 3:11 PM CDT [facility] ABSOLUTE NEUTROPHILS 2.78 1.60 - 7.70 10(3)/[facility] 06/07/2024 3:11 PM CDT [facility] ABSOLUTE LYMPHOCYTES 1.37 1.30 - 3.20 10(3)/[facility] 06/07/2024 3:11 PM CDT [facility] ABSOLUTE MONOCYTES 0.68 0.20 - 1.00 10(3)/[facility] 06/07/2024 3:11 PM CDT [facility] ABSOLUTE EOSINOPHIL 0.27 0.00 - 0.40 10(3)/[facility] 06/07/2024 3:11 PM CDT [facility] ABSOLUTE BASOPHILS 0.03 0.00 - 0.10 10(3)/[facility] 06/07/2024 3:11 PM CDT [facility] NRBC PER 100 WBC 0 06/07/20 24 3:11 PM CDT [facility] Blood Venipuncture / Unknown 06/07/2024 1:31 PM CDT 06/07/2024 1:31 PM CDT us Yinka Harrison MD HEMATOLOGY ORDERABLES Fin al Result [facility] [address] [place] [address] * HEPATITIS C ANTIBODY (06/07/2024 1:31 PM CDT) hepatitis C antibody 0.14 <1 S/CO 06/07/2024 10:57 PM CDT [facility] Comment: Signal/Cutoff ratio ??< 0.79 is Nondetected Signal/Cutoff ratio 0.80-0.99 is Grayzone Signal/Cutoff ratio > 0.99 is Detected Supplemental assays are recommended if signal/cutoff ratio is >/=1.00. ??Signal/cutoff ratio result >/= 5.00 is 97% predictive of positivity for recombinant immunoblot assay (RIBA) and will be reported to the [place] Department of Public Health as required. Blood Venipuncture / Unknown 06/07/2024 1:31 PM CDT 06/07/2024 1:31 PM CDT us Yinka Harrison MD CHEMISTRY ORDERABLES [place] l Result [facility] [address] [place] [address], [place] * (ABNORMAL) LIPID PANEL (06/07/2024 1:31 PM CDT) CHOLESTEROL 251(H) <200 mg/dL 06/07/2024 3:37 PM CDT [facility] TRIGLYCERIDES 118 <150 mg/dL 06/07/2024 3:37 PM CDT [facility] HDL CHOLESTEROL 59 >40 mg/dL 3:37 PM CDT [facility] LDL 168(H) <130 mg/dL 06/07/2024 3:37 PM CDT [facility] VLDL 24 10 - 50 mg/dL 06/07/2024 3:37 PM CDT [facility] CHOL/HDL RATIO 4.3 0.0 - 4.4 06/07/2024 3:37 PM CDT [facility] NON-HDL CHOLESTEROL 192(H) <130 mg/dL 06/07/2024 3:37 PM CDT [facility] IS THE PATIENT REQUIRED TO BE FASTING? Yes 06/07/2024 3:37 PM CDT [facility] HAS THE PATIENT BEEN FASTING? Yes 06/07/2024 3:37 PM CDT [facility] Blood Venipuncture / Unknown 06/07/2024 1:31 PM CDT 06/07/2024 1:31 PM CDT us Yinka Harrison MD CHEMISTRY ORDERABLES [place] l Result [facility] [address] [place] [address] * (ABNORMAL) CMP (COMPREHENSIVE METABOLIC PANEL) (06/07/2024 1:31 PM CDT) SODIUM 141 136 - 145 mmol/L 06/07/2024 3:37 PM CDT [facility] POTASSIUM 4.2 3.5 - 5.1 mmol/L 06/07/2024 3:37 PM CDT [facility] CHLORIDE 105 98 - 107 mmol/L 06/07/2024 3:37 PM CDT [facility] CO2, VENOUS 28 22 - 30 mmol/L 06/07/2024 3:37 PM CDT [facility] ANION GAP 12.2 <18.0 mmol/L 06/07/2024 3:37 PM CDT [facility] GLUCOSE 94 70 - 99 mg/dL 06/07/2024 3:37 PM CDT [facility] BUN 22(H) 10 - 20 mg/dL 06/07/2024 3:37 PM CDT [facility] CREATININE, BLOOD 1.56(H) 0.60 - 1.00 mg/dL 06/07/2024 3:37 PM CDT [facility] BUN/CREATININE RATIO 14 12 - 20 ratio 06/07/2024 3:37 PM CDT [facility] TOTAL PROTEIN 8.0 6.3 - 8.2 g/dL 06/07/2024 3:37 PM CDT [facility] ALBUMIN 4.1 3.5 - 5.0 g/dL 06/07/2024 3:37 PM CDT [facility] A/G RATIO 1.1 1.0 - 2.2 06/07/2024 3:37 PM CDT [facility] CALCIUM 10.3 8.7 - 10.5 mg/dL 06/07/2024 3:37 PM CDT [facility] T BILI 0.3 0.2 - 1.2 mg/dL 06/07/2024 3:37 PM CDT [facility] SGOT (AST) 23 5 - 34 U/L 06/07/2024 3:37 PM CDT [facility] SGPT (ALT) 14 0 - 55 U/L 06/07/2024 3:37 PM CDT [facility] ALKALINE PHOSPHATASE 69 40 - 150 U/L 06/07/2024 3:37 PM CDT [facility] IS THE PATIENT REQUIRED TO BE FASTING? No 06/07/2024 3:37 PM CDT [facility] GFR, ESTIMATED 37(L) >=60 06/07/2024 3:37 PM CDT [facility] Comment: Creatinine Clearance is the preferred criteria for selecting drug dose adjustments in renally impaired patients. ??The GFR is provided as additional pertinent clinical information. GFR is reported in mL/min/1.73 sq m. Calculation based on the Chronic Kidney Disease Epidemiology Collaboration (CKD- EPI) equation refit without adjustment for race. GFR, EST. 40(L) >=60 024 3:37 PM CDT [facility] GFR, EST. NONAFRICAN 33(L) >=60 06/07/2024 3:37 PM CDT [facility] Blood Venipuncture / Unknown 06/07/2024 1:31 PM CDT 06/07/2024 1:31 PM CDT us Yinka Harrison MD CHEMISTRY ORDERABLES [place] l Result [facility] [address] [place] [address] documented in this encounter Visit Diagnoses Diagnosis Encounter for health maintenance examination (Adult) Unspecified general medical examination Hypertension, essential Unspecified essential hypertension Mixed hyperlipidemia Encounter for hepatitis C screening test for low risk patient documented in this encounter Additional Health Concerns Assessment Noted Time PHQ-9 Depression Total Score: 0 12/27/19 24 8:35 AM CDT documented as of this encounter Care Teams Superintendent Drilling Relationship Specialty Start Date End Date Yinka Harrison MD [address] [place] [address] PCP - General Internal Medicine 07/27/18 Dave Fernando MD [address] [place] [address] Consulting Physician Orthopaedic Surgery 02/20/19 documented as of this encounter
--- OUTSIDE RECORDS SUMMARY | 2024-09-22 13:03 | XMS_ITS | Encounter Summary ---
Author Organization [facility] Address [address] [place] [address] Phone Care Team Providers Care Body Repairer Name Role Phone Yinka Harrison MD Primary Care Provider [phone] Dave Fernando MD Unavailable [phone] Encounter Details Date Type Department Care Team (Late st Contact Info) Description 07/15/2024 9:20 AM MEDIA STRATEGIST Lab [facility] - Primary Care - [address] [address] Lab, [facility] Abnormal serum creatinine level Discharge Disposition: Discharged to home or Selfcare Social History Tobacco Use Types Packs/Day Years Used Date Smoking Tobacco: Former Smokeless Tobacco: Never Alcohol Use Standard Drinks/Week Comments No 0 (1 standard drink = 0.6 oz pur e alcohol) [facility] Utilities Answer Date Recorded In the past 12 months has [employer], gas, oil, or water [employer] threatened to shut off services in your [...] week 02/26/2024 How often do you attend [facility] or rastafarian services? More than 4 times per year 02/26/2024 Do you belong to any clubs o r organizations such as bahai groups, unions, fraternal or athletic groups, or [...] Total Score - Questions 1-9 0 12/10 [facility] - Occupational Stress [...] place to sleep or slept in a detention (including now)? No 12/26/2023 Housing Stability Vital [...] were you homeless or living in a detention (including now)? No 02/26/2024 Education Answer Date [...] encounter Progress Notes * Lulu Ma - 07/15/2024 9:20 AM CST Sriram presents for lab draw per order of Dr. Yinka Harrison dated 07/15/24. Specimen collected from right antecubital without incident. sah A STRATEGIST documented in this encounter Plan of Treatment Upcoming Encounters Date Type Department Care Team (Latest Contact Info) Description 09/23/2024 10:45 AM MEDIA STRATEGIST Physical Therapy [facility] [place] [address] [place] [phone] Dave Fernando MD [address] [place] [address] Lucy Garduno, [place] Discharge Disposition: Discharged to home or Selfcare 11/22/2024 10:15 AM CDT Appointment [facility] 1 [facility] [place] [address] Yinka Harrison MD [address] [place], [place] [id number] Discharge Disposition: Discharged to home or Selfcare 06/13/2025 10:30 AM CDT Office Visit [facility] Care - [place] [address] [place] [id number] Yinka Harrison MD [address] [place] [address] documented as of this encounter Procedures Procedure Name Priority Date/Time Associated Diagnosis Comments BASIC METABOLIC PANEL W/ CALCIUM TOTAL Routine 07/15/2024 9:20 AM MEDIA STRATEGIST Abnormal serum creatinine level documented in this encounter Results * (ABNORMAL) BASIC METABOLIC PANEL W/ CALCIUM TOTAL (07/15/2024 9:20 AM MEDIA STRATEGIST) SODIUM 140 136 - 145 mmol/L 07/15/2024 1:39 PM MEDIA STRATEGIST [facility] POTASSIUM 3.7 3.5 - 5.1 mmol/L 07/15/2024 1:39 PM MEDIA STRATEGIST [facility] CHLORIDE 106 98 - 107 mmol/L 07/15/2024 1:39 PM MEDIA STRATEGIST [facility] CO2, VENOUS 23 22 - 30 mmol/L 07/15/2024 1:39 PM MEDIA STRATEGIST [facility] ANION GAP 14.7 <18.0 mmol/L 07/15/2024 1:39 PM MEDIA STRATEGIST [facility] GLUCOSE 90 70 - 99 mg/dL 07/15/2024 1:39 PM MEDIA STRATEGIST [facility] BUN 29(H) 10 - 20 mg/dL 07/15/2024 1:39 PM MEDIA STRATEGIST [facility] CREATININE, BLOOD 1.71(H) 0.60 - 1.00 mg/dL 07/15/2024 1:39 PM MEDIA STRATEGIST [facility] BUN/CREATININE RATIO 17 12 - 20 ratio 07/15/2024 1:39 PM MEDIA STRATEGIST [facility] CALCIUM 10.0 8.7 - 10.5 mg/dL 07/15/2024 1:39 PM MEDIA STRATEGIST [facility] IS THE PATIENT REQUIRED TO BE FASTING? No 07/15/2024 1:39 PM MEDIA STRATEGIST [facility] GFR, ESTIMATED 33(L) >=60 07/15/2024 1:39 PM MEDIA STRATEGIST [facility] Comment: Creatinine Clearance is the preferred criteria for selecting drug dose adjustments in renally impaired patients. ??The GFR is provided as additional pertinent clinical information. GFR is reported in mL/min/1.73 sq m. Calculation based on the Chronic Kidney Disease Epidemiology Collaboration (CKD- EPI) equation refit without adjustment for race. GFR, EST. 36(L) >=60 024 1:39 PM MEDIA STRATEGIST [facility] GFR, EST. NONAFRICAN 30(L) >=60 07/15/2024 1:39 PM MEDIA STRATEGIST [facility] Blood Venipuncture / Unknown 07/15/2024 9:20 AM MEDIA STRATEGIST 07/15/2024 9:20 AM MEDIA STRATEGIST us Yinka Harrison MD CHEMISTRY ORDERABLES [place] peacock Result [facility] [address] [place] [address] documented in this encounter Visit Diagnoses Diagnosis Abnormal serum creatinine level documented in this encounter Additional Health Concerns Assessment Noted Time PHQ-9 Depression Total Score: 0 12/27/19 24 8:35 AM CDT documented as of this encounter Care Teams Body Repairer Relationship Specialty Start Date End Date Yinka Harrison MD [address] [place] [address] PCP - General Internal Medicine 07/27/18 Dave Fernando MD [address] [facility] [address] [place] [address] Consulting Physician Orthopaedic Surgery 02/20/19 documented as of this encounter
--- OUTSIDE RECORDS SUMMARY | 2024-09-22 13:03 | XMS_ITS | Encounter Summary ---
Author Organization [facility] Address [address] [place] [address] Phone Care Team Providers Care Research Anthropologist Name Role Phone Yinka Harrison MD Primary Care Provider [phone] Dave Fernando MD Unavailable [phone] Reason for Visit * Reason Comments Medication Refill Encounter Details Date Type Department Care Team (Late st Contact Info) Description 02/29/2024 Refill [facility] - Primary Care - [place] [address] [place] [address] Yinka Harrison MD [address] [place] [address] Medication Refill Social History Tobacco Use Types Packs/Day Years Used Date Smoking Tobacco: Former Smokeless Tobacco: Never Alcohol Use Standard Drinks/Week Comments No 0 (1 standard drink = 0.6 oz pur e alcohol) [facility] Utilities Answer Date Recorded In the past 12 months has [employer], gas, oil, or water company threatened [...] often do you attend chur ch or catholic services? More than 4 times per year 02/26/2024 Do you belong to any clubs o r organizations such as hoahaoism groups, unions, fraternal or athletic groups, or [...] Total Score - Questions 1-9 0 12/10 [facility] - Occupational Stress Questionnaire Answer Date [...] any time in the past 12 m [facility], were you homeless or living [...] Telephone Encounter - Yinka Harrison MD - 03/01/2024 7:51 AM CDT Refill request approved. * Telephone Encounter - Graeme Hansen RN - 02/29/2024 2:21 PM CDT Medication failed the protocol, provider to review and approve the medication order if appropriate. Requested Prescriptions Pending Prescriptions Disp Refills traMADol (ULTRAM) 50 MG Tablet [Pharmacy Med Name: TRAMADOL HYDROCHLORIDE 50MG TABLET] 30 Tablet 1 Sig: Take 1 Tablet by mouth every 8 hours as needed for Moderate or more severe pain. Not Delegated - Opioid Agonists Protocol Failed - 02/29/2024 2:07 PM Failed - This refill cannot be delegated Passed - Visit with relevant provider in past 12 months or upcoming 90 days Recent Visits Date Type Provider Dept 02/26/24 Office Visit Yinka Harrison MD [facility] 12/27/23 Office Visit Yinka Harrison MD [facility] 04/17/23 Office Visit Yinka Harrison MD [facility] Showing recent visits within past 365 days and meeting all other requirements Future Appointments Date Type Provider Dept 04/18/24 Appointment Yinka Harrison MD [facility] Showing future appointments within next 90 days and meeting all other requirements documented in this encounter Plan of Treatment Upcoming Encounters Date Type Department Care Team (Latest Contact Info) Description 09/23/2024 10:45 AM ANESTHESIOLOGIST ASSISTANT CERTIFIED Physical Therapy [facility] Re[facility] at [facility] [address] [facility], [address] [place] [address] Dave Fernando MD [address] [place] [address] Lucy Garduno, PT [place] Discharge Disposition: Discharged to home or Selfcare 11/22/2024 10:15 AM CDT Appointment [facility] Mammography 1 [place] [address] Yinka Harrison MD [address] [place] [address] Discharge Disposition: Discharged to home or Selfcare 06/13/2025 10:30 AM CDT Office Visit [facility] - Primary Care - [place] [address] [place] [phone] Yinka Harrison MD [address] [place] [address] documented as of this encounter Visit Diagnoses Diagnosis Arthritis Arthropathy, unspecified, site unspecified Chronic pain of right knee Rheumatoid arthritis involving multiple sites with positive rheumatoid factor (HCC) documented in this encounter Additional Health Concerns Assessment Noted Time PHQ-9 Depression Total Score: 0 12/27/19 24 8:35 AM CDT documented as of this encounter Care Teams Research Anthropologist Relationship Specialty Start Date End Date Yinka Harrison MD [address] [place] [address] PCP - General Internal Medicine 07/27/18 Dave Fernando MD [address] [place] [address] Consulting Physician Orthopaedic Surgery 02/20/19 documented as of this encounter
--- OUTSIDE RECORDS SUMMARY | 2024-09-22 13:03 | XMS_ITS | Encounter Summary ---
Author Organization [facility] Address [address] [place] [address] Phone Care Team Providers Care Brickmason Helper Name Role Phone Yinka Harrison MD Primary Care Provider [phone] Dave Fernando MD Unavailable [phone] Reason for Visit * Reason Comments Medication Refill Encounter Details Date Type Department Care Team (Late st Contact Info) Description 03/15/2024 Refill [facility] - Primary Care - [place] [address] [place] [address] Yinka Harrison MD [address] [place] [address] Medication Refill Social History Tobacco Use Types Packs/Day Years Used Date Smoking Tobacco: Former Smokeless Tobacco: Never Alcohol Use Standard Drinks/Week Comments No 0 (1 standard drink = 0.6 oz pur e alcohol) [facility] Utilities Answer Date Recorded In the past 12 months has [employer] electric, gas, oil, or water company threatened [...] any clubs o r organizations such as christianity groups, unions, fraternal or athletic groups, or [...] 1-9 0 12/10 [facility] - Occupational Stress Questionnaire Answer Date [...] any time in the past 12 m [facility], were you homeless or living in [...] Telephone Encounter - Graeme Hansen RN - 03/15/2024 8:20 AM CDT Medication(s) refilled and signed per [facility] Chronic Medication Refill Standing Order for Pediatricand Adult Patients. Requested Prescriptions Pending Prescriptions Disp Refills hydroCHLOROthiazide 12.5 MG Tablet [Pharmacy Med Name: HYDROCHLOROTHIAZIDE 12.5MG TABLET] 90 Tablet0 Sig: TAKE ONE (1) TABLET BY MOUTH DAILY. Diuretics Protocol Passed - 03/15/2024 7:33 AM Passed - Serum potassium on record in past 12 months POTASSIUM Date Value Ref Range Status 04/20/2023 4.1 3.5 - 5.1 mmol/L Final Passed - Serum sodium on record in past 12 months SODIUM Date Value Ref Range Status 04/20/2023 141 136 - 145 mmol/L Final Passed - Blood pressure on record in past 12 months Clinician-entered: BP Readings from Last 3 Encounters: 02/26/24 142/64 12/27/23 144/60 04/17/23 140/80 Patient-entered: No data recorded Passed - Visit with relevant provider in past 12 months or upcoming 90 days Recent Visits Date Type Provider Dept 02/26/24 Office Visit Yinka Harrison MD [facility] 12/27/23 Office Visit Yinka Harrison MD [facility] 04/17/23 Office Visit Yinka Harrison MD [facility] Showing recent visits within past 365 days and meeting all other requirements Future Appointments Date Type Provider Dept 04/18/24 Appointment Yinka Harrison MD [facility] Showing future appointments within next 90 days and meeting all other requirements Passed - GFR on record in past 12 months GFR, EST. Date Value Ref Range Status 04/20/2023 >60 >=60 Final documented in this encounter Plan of Treatment Upcoming Encounters Date Type Department Care Team (Latest Contact Info) Description 09/23/2024 10:45 AM PROJECTION PRINTER Physical Therapy [facility] Rehab at [facility] [address] [facility], [address] [place] [address] Dave Fernando MD [address] [place] [address] Lucy Garduno, [place] Discharge Disposition: Discharged to home or Selfcare 11/22/2024 10:15 AM CDT Appointment [facility] Mammography 1 [place] [address] Yinka Harrison MD [address] [place] [address] Discharge Disposition: Discharged to home or Selfcare 06/13/2025 10:30 AM CDT [facility] - [place] [address] [place] [address] Yinka Harrison MD [address] [place] [address] documented as of this encounter Visit Diagnoses Not on filedocumented in this encounter Additional Health Concerns Assessment Noted Time PHQ-9 Depression Total Score: 0 12/27/19 24 8:35 AM CDT documented as of this encounter Care Teams Brickmason Helper Relationship Specialty Start Date End Date Yinka Harrison MD [address] [place] [address] PCP - General Internal Medicine 07/27/18 Dave Fernando MD [address] [place] [address] Consulting Physician Orthopaedic Surgery 02/20/19 documented as of this encounter
--- OUTSIDE RECORDS SUMMARY | 2024-09-22 13:04 | XMS_ITS | Encounter Summary ---
Author Organization [facility] Address [address] [place] [address] Phone Care Team Providers Care Day Haul Youth Supervisor Name Role Phone Yinka Harrison MD Primary Care Provider [phone] Dave Fernando MD Unavailable [phone] Reason for Visit * Reason Comments Medication Refill Encounter Details Date Type Department Care Team (Late st Contact Info) Description 10/02/2023 [facility] - [place] [address] [place] [address] Yinka Harrison MD [address] [place] [address] Medication Refill Social History Tobacco Use Types Packs/Day Years Used Date Smoking Tobacco: Former Smokeless Tobacco: Never Alcohol Use Standard Drinks/Week Comments No 0 (1 standard drink = 0.6 oz pur e alcohol) PHQ-2 Answer Date Recorded Total Score - Questions 1-9 0 08/0 09/2021 Education Answer Date Recorded What is the [...] encounter Miscellaneous Notes * Telephone Encounter - Kamla Lowry, RN - 10/02/2023 11:42 AM CST Medication(s) refilled and signed per [facility] Chronic Medication Refill Standing Order for Pediatricand Adult Patients. Requested Prescriptions Pending Prescriptions Disp Refills ??? rosuvastatin (CRESTOR) 20 MG Tablet [Pharmacy Med Name: ROSUVASTATIN CALCIUM 20MG TABLET] 90 Tablet 2 Sig: TAKE 1 TABLET BY MOUTH DAILY. Hmg CoA Reductase Inhibitors Protocol Passed - 10/02/2023 8:27 AM Passed - Visit with relevant provider in past 12 months or upcoming 90 days Recent Visits Date Type Provider Dept 04/17/23 Office Visit Yinka Harrison MD [facility] Showing recent visits within past 365 days and meeting all other requirements Future Appointments No visits were found meeting these conditions. Showing future appointments within next 90 days and meeting all other requirements Passed - Lipid panel in past 12 months LDL Date Value Ref Range Status 04/20/2023 169 (H) <130 mg/dL Final HDL CHOLESTEROL Date Value Ref Range Status 04/20/2023 65 >40 mg/dL Final CHOLESTEROL Date Value Ref Range Status 04/20/2023 253 (H) <200 mg/dL Final TRIGLYCERIDES Date Value Ref Range Status 04/20/2023 94 <150 mg/dL Final VLDL Date Value Ref Range Status 04/20/2023 19 10 - 50 mg/dL Final CHOL/HDL RATIO Date Value Ref Range Status 04/20/2023 3.9 0.0 - 4.4 Final NON-HDL CHOLESTEROL Date Value Ref Range Status 04/20/2023 188 (H) <130 mg/dL Final Passed - CMP in past 12 months SODIUM Date Value Ref Range Status 04/20/2023 141 136 - 145 mmol/L Final POTASSIUM Date Value Ref Range Status 04/20/2023 4.1 3.5 - 5.1 mmol/L Final CHLORIDE Date Value Ref Range Status 04/20/2023 106 98 - 107 mmol/L Final CO2, VENOUS Date Value Ref Range Status 04/20/2023 25 22 - 30 mmol/L Final ANION GAP Date Value Ref Range Status 04/20/2023 14.1 <18.0 mmol/L Final GLUCOSE Date Value Ref Range Status 04/20/2023 84 70 - 99 mg/dL Final BUN Date Value Ref Range Status 04/20/2023 20 10 - 20 mg/dL Final CREATININE, BLOOD Date Value Ref Range Status 04/20/2023 1.08 (H) 0.60 - 1.00 mg/dL Final BUN/CREATININE RATIO Date Value Ref Range Status 04/20/2023 19 12 - 20 ratio Final TOTAL PROTEIN Date Value Ref Range Status 04/20/2023 7.6 6.3 - 8.2 g/dL Final ALBUMIN Date Value Ref Range Status 04/20/2023 4.1 3.5 - 5.0 g/dL Final A/G RATIO Date Value Ref Range Status 04/20/2023 1.2 1.0 - 2.2 Final CALCIUM Date Value Ref Range Status 04/20/2023 9.4 8.7 - 10.5 mg/dL Final T BILI Date Value Ref Range Status 04/20/2023 0.3 0.2 - 1.2 mg/dL Final SGOT (AST) Date Value Ref Range Status 04/20/2023 22 5 - 34 U/L Final SGPT (ALT) Date Value Ref Range Status 04/20/2023 14 0 - 55 U/L Final ALKALINE PHOSPHATASE Date Value Ref Range Status 04/20/2023 65 40 - 150 U/L Final GFR, EST. NONAFRICAN Date Value Ref Range Status 04/20/2023 51 (L) >=60 Final GFR, EST. Date Value Ref Range Status 04/20/2023 >60 >=60 Final GFR, ESTIMATED Date Value Ref Range Status 04/20/2023 58 (L) >=60 Final Comment: Creatinine Clearance is the preferred criteria for selecting drug dose adjustments in renally impaired patients. ??The GFR is provided as additional pertinent clinical information. GFR is reported in mL/min/1.73 sq m. Calculation based on the Chronic Kidney Disease Epidemiology Collaboration (CKD- EPI) equation refitwithout adjustment for race. IS THE PATIENT REQUIRED TO BE FASTING? Date Value Ref Range Status 04/20/2023 No Final HER STAKER documented in this encounter Plan of Treatment Upcoming Encounters Date Type Department Care Team (Latest Contact Info) Description 09/23/2024 10:45 AM LEATHER STAKER Physical Therapy [facility] at [facility] [address], [address] [place] [address] Dave Fernando MD [address] [place] [address] Lucy Garduno, [place] Discharge Disposition: Discharged to home or Selfcare 11/22/2024 10:15 AM CDT [facility]ment [facility] 1 [facility] [place] [address] Yinka Harrison MD [address] [place] [address] Discharge Disposition: Discharged to home or Selfcare 06/13/2025 10:30 AM CDT Office Visit [facility] - Primary Care - [place] [address] [place] [address] Yinka Harrison MD [address] [place] [address] documented as of this encounter Visit Diagnoses Diagnosis Hyperlipidemia Mixed hyperlipidemia documented in this encounter Additional Health Concerns Assessment Noted Time PHQ-9 Depression Total Score: 0 03/10/ 21 10:00 AM CDT documented as of this encounter Care Teams Day Haul Youth Supervisor Relationship Specialty Start Date End Date Yinka Harrison MD [address] [place] [address] PCP - General Internal Medicine 07/27/18 Dave Fernando MD [address] [place] [address] Consulting Physician Orthopaedic Surgery 02/20/19 documented as of this encounter
--- OUTSIDE RECORDS SUMMARY | 2024-09-22 13:04 | XMS_ITS | Encounter Summary ---
Author Organization [facility] Address [address] [place] [address] Phone Care Team Providers Care Structures Mechanic Name Role Phone Yinka Harrison MD Primary Care Provider [phone] Dave Fernando MD Unavailable [phone] Encounter Details Date Type Department Care Team (Late st Contact Info) Description 04/20/2023 9:50 AM CDT Lab [facility] - Primary Care - [address] [address] Lab, [facility] Encounter for health maintenance examination (Adult); Hypertension, essential; Rheumatoid arthritis involving multiple sites with positive rheumatoid factor (HCC); Mixed hyperlipidemia Discharge Disposition: Discharged to home or Selfcare [...] on file Sexual Orientation Not on file COVID-19 Exposure Response Date Recorded In the last 10 days, have stoney mauricio been in contact with someone who was confirmed or suspected to have Coronavirus/COVID-19? No / Unsure 04/20/2023 9:30 AM CDT documented as of this encounter Progress Notes * Nargis Gage RMA - 04/20/2023 9:50 AM CDT Sriram presents for lab draw per order of Dr. Harrison dated 04/20/23. Specimen collected from right antecubital without incident. sah documented in this encounter Plan of Treatment Upcoming Encounters Date Type Department Care Team (Latest Contact Info) Description 09/23/2024 10:45 AM SPRAY CEMENTER Physical Therapy [facility] Rehab at [facility] [address], [address] [place] [address] Dave Fernando MD [address] [place] [address] Lucy Garduno, [place] Discharge Disposition: Discharged to home or Selfcare 11/22/2024 10:15 AM CDT Appointment [facility] Mammography 1 [place] [address] Yinka Harrison MD [address] [place] [address] Discharge Disposition: Discharged to home or Selfcare 06/13/2025 10:30 AM CDT Office Visit [facility] - Primary Care - [place] [address] [place] [address] Yinka Harrison MD [address] [place] [address] documented as of this encounter Procedures Procedure Name Priority Date/Time Associated Diagnosis Comments CBC WITH AUTO DIFFERENTIAL Today 04/20/2023 9:31 AM CDT Encounter for health maintenance examination (Adult) Hypertension, essential Rheumatoid arthritis involving multiple sites with positive rheumatoid factor (HCC) LIPID PANEL Routine 04/20/2023 9:31 AM CDT Encounter for health maintenance examination (Adult) Mixed hyperlipidemia CMP (COMPREHENSIVE METABOLIC PANEL) Today 04/20/2023 9:31 AM CDT Encounter for health maintenance examination (Adult) Hypertension, essential COMPLETE BLOOD COUNT (CBC) WITH DIFF Today 04/20/2023 9:31 AM CDT Encounter for health maintenance examination (Adult) Hypertension, essential Rheumatoid arthritis involving multiple sites with positive rheumatoid factor (HCC) documented in this encounter Results * (ABNORMAL) CBC WITH AUTO DIFFERENTIAL (04/20/2023 9:31 AM CDT) WBC 4.21 4.00 - 12.00 10(3)/mcL 04/20/2023 12:39 PM CDT [facility] RBC 4.08 3.80 - 5.30 10(6)/mcL 04/20/2023 12:39 PM CDT [facility] HEMOGLOBIN (HGB) 12.1 12.0 - 15.8 g/dL 04/20/2023 12:39 PM CDT [facility] HEMATOCRIT (HCT) 38.0 36.0 - 47.0 % 04/20/2023 12:39 PM CDT [facility] MCV 93.1 82.0 - 96.0 fL 04/20/2023 12:39 PM CDT [facility] MCH 29.7 26.0 - 34.0 pg 04/20/2023 12:39 PM CDT [facility] MCHC 31.8 31.0 - 36.0 g/dL 04/20/2023 12:39 PM CDT [facility] PLATELET COUNT 295 140 - 440 10(3)/mcL 04/20/2023 12:39 PM CDT [facility] RDW 13.4 11.8 - 15.5 % 04/20/2023 12:39 PM CDT [facility] MPV 10.0 9.7 - 12.4 fL 04/20/2023 12:39 PM CDT [facility] NEUTROPHILS 47.7 47.0 - 73.0 % 04/20/2023 12:39 PM CDT [facility] LYMPHOCYTES 31.6 18.0 - 42.0 % 04/20/2023 12:39 PM CDT [facility] MONOCYTES 15.9(H) 4.0 - 12.0 % 04/20/2023 12:39 PM CDT [facility] EOSINOPHILS 3.8 0.0 - 5.0 % 04/20/2023 12:39 PM CDT [facility] BASOPHILS 1.0 0.0 - 1.0 % 04/20/2023 12:39 PM CDT [facility] ABSOLUTE NEUTROPHILS 2.01 1.60 - 7.70 10(3)/mcL 04/20/2023 12:39 PM CDT [facility] ABSOLUTE LYMPHOCYTES 1.33 1.30 - 3.20 10(3)/mcL 04/20/2023 12:39 PM CDT [facility] ABSOLUTE MONOCYTES 0.67 0.20 - 1.00 10(3)/mcL 04/20/2023 12:39 PM CDT [facility] ABSOLUTE EOSINOPHIL 0.16 0.00 - 0.40 10(3)/mcL 04/20/2023 12:39 PM CDT [facility] ABSOLUTE BASOPHILS 0.04 0.00 - 0.10 10(3)/mcL 04/20/2023 12:39 PM CDT [facility] NRBC PER 100 WBC 0 04/20/20 12:39 PM CDT [facility] Blood Venipuncture / Unknown 04/20/2023 9:31 AM CDT 04/20/2023 9:31 AM CDT us Yinka Harrison MD HEMATOLOGY ORDERABLES Fin al Result Performing Organization Address City/[facility]/ZIP Co de Phone Number [facility] [place] [address] * (ABNORMAL) LIPID PANEL (04/20/2023 9:31 AM CDT) CHOLESTEROL 253(H) <200 mg/dL 04/20/2023 1:07 PM CDT [facility] TRIGLYCERIDES 94 <150 mg/dL 04/20/2023 1:07 PM CDT [facility] HDL CHOLESTEROL 65 >40 mg/dL 1:07 PM CDT [facility] LDL 169(H) <130 mg/dL 04/20/2023 1:07 PM CDT [facility] VLDL 19 10 - 50 mg/dL 04/20/2023 1:07 PM CDT [facility] CHOL/HDL RATIO 3.9 0.0 - 4.4 04/20/2023 1:07 PM CDT [facility] NON-HDL CHOLESTEROL 188(H) <130 mg/dL 04/20/2023 1:07 PM CDT [facility] IS THE PATIENT REQUIRED TO BE FASTING? Yes 04/20/2023 1:07 PM CDT [facility] HAS THE PATIENT BEEN FASTING? Yes 04/20/2023 1:07 PM CDT [facility] Blood Venipuncture / Unknown 04/20/2023 9:31 AM CDT 04/20/2023 9:31 AM CDT us Yinka Harrison MD CHEMISTRY ORDERABLES [place] l Result Performing Organization Address City/[facility]/ZIP Co de Phone Number [facility] [place] [address] * (ABNORMAL) CMP (COMPREHENSIVE METABOLIC PANEL) (04/20/2023 9:31 AM CDT) SODIUM 141 136 - 145 mmol/L 04/20/2023 1:07 PM CDT [facility] POTASSIUM 4.1 3.5 - 5.1 mmol/L 04/20/2023 1:07 PM T [facility] CHLORIDE 106 98 - 107 mmol/L 04/20/2023 1:07 PM [facility] CO2, VENOUS 25 22 - 30 mmol/L 04/20/2023 1:07 PM T [facility] ANION GAP 14.1 <18.0 mmol/L 04/20/2023 1:07 PM T [facility] GLUCOSE 84 70 - 99 mg/dL 04/20/2023 1:07 PM [facility] BUN 20 10 - 20 mg/dL 04/20/2023 1:07 PM [facility] CREATININE, BLOOD 1.08(H) 0.60 - 1.00 mg/dL 04/20/2023 1:07 PM [facility] BUN/CREATININE RATIO 19 12 - 20 ratio 04/20/2023 1:07 PM [facility] TOTAL PROTEIN 7.6 6.3 - 8.2 g/dL 04/20/2023 1:07 PM [facility] ALBUMIN 4.1 3.5 - 5.0 g/dL 04/20/2023 1:07 PM [facility] A/G RATIO 1.2 1.0 - 2.2 04/20/2023 1:07 PM [facility] CALCIUM 9.4 8.7 - 10.5 mg/dL 04/20/2023 1:07 PM [facility] T BILI 0.3 0.2 - 1.2 mg/dL 04/20/2023 1:07 PM [facility] SGOT (AST) 22 5 - 34 U/L 04/20/2023 1:07 PM [facility] SGPT (ALT) 14 0 - 55 U/L 04/20/2023 1:07 PM [facility] ALKALINE PHOSPHATASE 65 40 - 150 U/L 04/20/2023 1:07 PM CDT [facility] IS THE PATIENT REQUIRED TO BE FASTING? No 04/20/2023 1:07 PM CDT [facility] GFR, ESTIMATED 58(L) >=60 04/20/2023 1:07 PM CDT [facility] Comment: Creatinine Clearance is the preferred criteria for selecting drug dose adjustments in renally impaired patients. ??The GFR is provided as additional pertinent clinical information. GFR is reported in mL/min/1.73 sq m. Calculation based on the Chronic Kidney Disease Epidemiology Collaboration (CKD- EPI) equation refit without adjustment for race. GFR, EST. >60 >=60 023 1:07 PM CDT [facility] GFR, EST. NONAFRICAN 51(L) >=60 04/20/2023 1:07 PM CDT [facility] Blood Venipuncture / Unknown 04/20/2023 9:31 AM CDT 04/20/2023 9:31 AM CDT us Yinka Harrison MD CHEMISTRY ORDERABLES [place] peacock Result [facility] [place] [address] documented in this encounter Visit Diagnoses Diagnosis Encounter for health maintenance examination (Adult) Unspecified general medical examination Hypertension, essential Unspecified essential hypertension Rheumatoid arthritis involving multiple sites with positive rheumatoid factor (HCC) Mixed hyperlipidemia documented in this encounter Additional Health Concerns Assessment Noted Time PHQ-9 Depression Total Score: 0 03/10/20 21 10:00 AM CDT documented as of this encounter Care Teams Structures Mechanic Relationship Specialty Start Date End Date Yinka Harrison MD [address] [place] [address] PCP - General Internal Medicine 07/27/18 Dave Fernando MD [address] [place] [address] Consulting Physician Orthopaedic Surgery 02/20/19 documented as of this encounter
--- OUTSIDE RECORDS SUMMARY | 2024-09-22 13:04 | XMS_ITS | Encounter Summary ---
Author Organization [facility] Address [address] [place] [address] Phone Care Team Providers Care Winter Intern Name Role Phone Yinka Harrison MD Primary Care Provider [phone] Dave Fernando MD Unavailable [phone] Reason for Visit * Reason Comments Medication Refill Encounter Details Date Type Department Care Team (Late st Contact Info) Description 09/[facility] [place] [address] [place] [address] Yinka Harrison MD [address] [place] [address] Medication Refill Social History Tobacco [...] Telephone Encounter - Yinka Harrison MD - 09/06/2023 8:35 AM SKIP LOAD DRIVER Refill request approved. LOAD DRIVER * Telephone Encounter - Graeme Hansen RN - 09/01/2023 2:22 PM CST Medication failed the protocol, provider to review and approve the medication order if appropriate. Requested Prescriptions Pending Prescriptions Disp Refills traMADol (ULTRAM) 50 MG Tablet [Pharmacy Med Name: TRAMADOL HYDROCHLORIDE 50MG TABLET] 30 Tablet 1 Sig: Take 1 Tablet by mouth every 8 hours as needed for Moderate or more severe pain. Not Delegated - Opioid Agonists Protocol Failed - 09/01/2023 2:07 PM Failed - This refill cannot be delegated Passed - Visit with relevant provider in past 12 months or upcoming 90 days Recent Visits Date Type Provider Dept 04/17/23 Office Visit Yinka Harrison MD [facility] Showing recent visits within past 365 days and meeting all other requirements Future Appointments No visits were found meeting these conditions. Showing future appointments within next 90 days and meeting all other requirements LOAD DRIVER documented in this encounter Plan of Treatment Upcoming Encounters Date Type Department Care Team (Latest Contact Info) Description 09/23/2024 10:45 AM SKIP LOAD DRIVER [facility] [address] [place] [address] Dave Fernando MD [address] [place] [address] Lucy Garduno, PT [place] Discharge Disposition: Discharged to home or Selfcare 11/22/2024 10:15 AM CDT [facility] 1 [place] [address] Yinka Harrison MD [address] [place] [address] Discharge Disposition: Discharged to home or Selfcare 06/13/2025 10:30 AM CDT Office Visit [facility] - Primary Care - [place] [address] [place] [address] Yinka Harrison MD [address] [place] [address] documented as of this encounter Visit Diagnoses Diagnosis Arthritis Arthropathy, unspecified, site unspecified Chronic pain of right knee Rheumatoid arthritis involving multiple sites with positive rheumatoid factor (HCC) documented in this encounter Additional Health Concerns Assessment Noted Time PHQ-9 Depression Total Score: 0 03/10/20 21 10:00 AM CDT documented as of this encounter Care Teams Winter Intern Relationship Specialty Start Date End Date Yinka Harrison MD [address] [place] [address] PCP - General Internal Medicine 07/27/18 Dave Fernando MD [address] [place] [address] Consulting Physician Orthopaedic Surgery 02/20/19 documented as of this encounter
--- OUTSIDE RECORDS SUMMARY | 2024-09-22 13:04 | XMS_ITS | Encounter Summary ---
Author Organization [employer] Care Team Providers Care Improvement Leader Name Role Phone Yinka Harrison MD Primary Care Provider [phone] Dave Frenando MD Unavailable [phone] Encounter Details Date Type Department Care Team (Latest Contact Info) Description 12/26/2023 Travel Social History Tobacco Use Types Packs/Day Years Used Date Smoking Tobacco: Former Smokeless Tobacco: Never Alcohol Use Standard Drinks/Week Comments No 0 (1 standard drink = 0.6 oz pur e alcohol) [facility] Utilities Answer Date Recorded In the past 12 months has [employer] electric, gas, oil, or water company threatened to shut off services in your home? No 12/26/2023 Social Connection and Isolat ion Panel [NHANES] Answer Date Recorded In a typical week, how many times do you talk on the phone with family, friends, or neighbors? More than three times a week 12/26/2023 How often do you get togethe r with friends or relatives? More than three times a week 12/26/2023 How often do you attend chur ch or zoroastrianism services? More than 4 times per year 12/26/2023 Do you belong to any clubs o r organizations such as jainism groups, unions, fraternal or athletic groups, or school groups? No 12/26/2023 How often do you attend meet ings of the clubs or organizations you belong to? Never 12/26/2023 Are you , , di vorced, , never , or living with a partner? Never 12/26/2023 AUDIT-C Answer Date Recorded Q1: How often do you have a drink containing alcohol? Never 12/26/2023 Q2: How many drinks containi ng alcohol do you have on a typical day when you are drinking? Patient does not drink Q3: How often do you have si x or more drinks on one occasion? Never 12/26/2023 Overall Financial Resource Strain (CARDIA) Answe r Date Recorded How hard is it for you to pa y for the very basics like food, housing, medical care, and heating? Somewhat hard 12/26/2023 PHQ-2 Answer Date Recorded Total Score - Questions 1-9 0 12/10 [facility] [place] of Occupat ional Health - Occupational Stress Questionnaire Answer Date Recorded Do you feel stress - tense, restless, nervous, or anxious, or unable to sleep at night because your mind is troubled all the time - these days? Only a little 12/26/2023 Exercise Vital Sign Answer Date Recorde d On average, how many days pe r week do you engage in moderate to strenuous exercise (like a brisk walk)? 1 day 12/26/2023 On average, how many minutes do you engage in exercise at this level? 30 min 12/26/2023 Hunger Vital Sign Answer Date Recorded Within the past 12 months, y ou worried that your food would run out before you got the money to buy more. Never true 12/26/19 24 Within the past 12 months, t he food you bought just didn't last and you didn't have money to get more. Never true 12/26/2023 PRAPARE - Transportation Answer Date Re corded In the past 12 months, has l ack of transportation kept you from medical appointments or from getting medications? No 12/10 In the past 12 months, has l ack of transportation kept you from meetings, work, or from getting things needed for daily living? No 12/26/2023 Housing Stability Vital Sign Answer [...] place to sleep or slept in a penitentiary (including now)? No 12/26/2023 Education Answer Date Recorded What is the [...] Score Answer Date of Assessment Author 0 12/26/2023 2:56 PM CDT [employer], System Background * Within the last year, have you been humiliated or emotionally abused in other ways by your partner or ex-partner? Answer Date of Assessment Author No 12/26/2023 2:56 PM CDT My[facility], System Background * Within the last year, have you been afraid of your partner or ex-partner? Answer Date of Assessment Author No 12/26/2023 2:56 PM CDT [facility]ael[facility], System Background * Within the last year, have you been raped or forced to have any kind of sexual activity by your partner or ex-partner? Answer Date of Assessment Author No 12/26/2023 2:56 PM CDT [employer], System Background * Within the last year, have you been kicked, hit, slapped, or otherwise physically hurt by your partner or ex-partner? Answer Date of Assessment Author No 12/26/2023 2:56 PM CDT [facility]aelat, System Background * Q1: How often do you have a drink containing alcohol? Answer Date of Assessment Author Never 12/26/2023 2:56 PM CDT Mychart, System Background * Q2: How many drinks containing alcohol do you have on a typical day when you are drinking? Answer Date of Assessment Author Patient does not drink 12/26/2023 2:56 PM CDT My chart, System Background * Q3: How often do you have six or more drinks on one occasion? Answer Date of Assessment Author Never 12/26/2023 2:56 PM CDT My[facility], System Background documented as of this encounter Plan of Treatment Upcoming Encounters Date Type Department Care Team (Latest Contact Info) Description 09/23/2024 10:45 AM GEOLOGICAL SCIENCE TEACHER Physical Therapy [facility] Rehab at [facility] [address], [address] [place] [address] Dave Fernando MD [address] [place] [address] Lucy Garduno, PT [place] Discharge Disposition: Discharged to home or Selfcare 11/22/2024 10:15 AM CDT [facility]ment [facility] 1 [facility] [place] [address] Yinka Harrison MD [address] [place] [address] Discharge Disposition: Discharged to home or Selfcare 06/13/2025 10:30 AM CDT Office Visit [facility] - Primary Care - [place] [address] [place] [address] Yinka Harrison MD [address] [place] [address] documented as of this encounter Visit Diagnoses Not on filedocumented in this encounter Additional Health Concerns Assessment Noted Time PHQ-9 Depression Total Score: 0 03/10/20 21 10:00 AM CDT documented as of this encounter Care Teams Improvement Leader Relationship Specialty Start Date End Date Yinka Harrison MD [address] [place] [address] PCP - General Internal Medicine 07/27/18 Dave Fernando MD [address] [place] [address] Consulting Physician Orthopaedic Surgery 02/20/19 documented as of this encounter
--- OUTSIDE RECORDS SUMMARY | 2024-09-22 13:04 | XMS_ITS | Encounter Summary ---
Author Organization [facility] Address [address] [place] [address] Phone Care Team Providers Care Patent Prosecution Paralegal Name Role Phone Yinka Harrison MD Primary Care Provider [phone] Dave Fernando MD Unavailable [phone] Merari Mclean IN SCHOOL SUSPENSION COORDINATOR Unavailable Unavailab le Reason for Visit * Reason Onset Date Comments Follow-up 06/28/2023 Encounter Details Date Type Department Care Team (Late st Contact Info) Description 06/28/2023 Telephone [facility] [address] [place] [address] Yinka Harrison MD [address] [place] [address] Follow-up Social History Tobacco Use Types Packs/Day Years [...] encounter Miscellaneous Notes * Telephone Encounter - Jesi Raymond RN - 06/28/2023 2:12 PM CDT SITUATION: Patient calling and states that the office sent a [employer] messagetoday that she thinks was not intended for her. This RN is unable to see any messages that Have been sent via [employer]. Transferred call to office Avani assisting patient. BACKGROUND: NA ASSESSMENT:NA RECOMMENDATION: NA documented in this encounter Plan of Treatment Upcoming Encounters Date Type Department Care Team (Latest Contact Info) Description 09/23/2024 10:45 AM CLOTHES DESIGNER Physical Therapy [facility] Rehab at [facility] [address], [address] [place] [address] Dave Fernando MD [address] [place] [address] Lucy Garduno, PT [place] Discharge Disposition: Discharged to home or Selfcare 11/22/2024 10:15 AM CDT Appointment [facility] Mammography 1 [place] [address] Yinka Harrison MD [address] [place] [address] Discharge Disposition: Discharged to home or Selfcare 06/13/2025 10:30 AM CDT Office Visit [facility] - Primary Care - [place] [address] [place] [address] Yinka Harrison MD [address] [place] [address] documented as of this encounter Visit Diagnoses Not on filedocumented in this encounter Additional Health Concerns Assessment Noted Time PHQ-9 Depression Total Score: 0 03/10/20 21 10:00 AM CDT documented as of this encounter Care Teams Patent Prosecution Paralegal Relationship Specialty Start Date End Date Yinka Harrison MD [address] [place] [address] PCP - General Internal Medicine 07/27/18 Dave Fernando MD [address] [place] [address] Consulting Physician Orthopaedic Surgery 02/20/19 Merari Mclean LSW [place] Space Systems Operations Craftsman 05/05/23 07/04/23 documented as of this encounter
--- OUTSIDE RECORDS SUMMARY | 2024-09-22 13:04 | XMS_ITS | Encounter Summary ---
Author Organization [facility] Address [address] [place] [address] Phone Care Team Providers Care Dye Boarding Machine Operator Name Role Phone Yinka Harrison MD Primary Care Provider [phone] Dave Fernando MD Unavailable [phone] Merari Mclean JEWELRY ENAMELER Unavailable Unavailab le Encounter Details Date Type Department Care Team (Late st Contact Info) Description 06/28/2023 Patient Outreach [facility] - Primary Care - [place] [address] [place] [address] Yinka Harrison MD [address] [place] [address] Social History Tobacco Use Types Packs/Day Years [...] (Latest Contact Info) Description 09/23/2024 10:45 AM MAJOR CASE DETECTIVE Physical Therapy [facility] Rehab at [facility] [address], [address] [place] [address] Dave Fernando MD [address] [place] [address] Lucy Garduno, PT [place] Discharge Disposition: Discharged to home or Selfcare 11/22/2024 10:15 AM CDT Appointment [facility] Mammography 1 [place] [address] Yinka Harrison MD [address] [place] [address] Discharge Disposition: Discharged to home or Selfcare 06/13/2025 10:30 AM CDT Office Visit [facility] - Primary Care - [place] [address] [place] [address] Yinka Harrison MD [address] [place] [address] documented as of this encounter Visit Diagnoses Not on filedocumented in this encounter Additional Health Concerns Assessment Noted Time PHQ-9 Depression Total Score: 0 03/10/20 21 10:00 AM CDT documented as of this encounter Care Teams Dye Boarding Machine Operator Relationship Specialty Start Date End Date Yinka Harrison MD [address] [place] [address] PCP - General Internal Medicine 07/27/18 Dave Fernando MD [address] [place] [address] Consulting Physician Orthopaedic Surgery 02/20/19 Merari Mclean LSW [place] Safety Director 05/05/23 07/04/23 documented as of this encounter
--- OUTSIDE RECORDS SUMMARY | 2024-09-22 13:04 | XMS_ITS | Encounter Summary ---
Author Organization [facility] Address [address] [facility] [place] [address] Phone Care Team Providers Care Rig Builder Helper Name Role Phone Yinka Harrison MD Primary Care Provider [phone] Dave Fernando MD Unavailable [phone] Merari Mclean Unavailable Unavailab le Reason for Visit * Reason Comments Care Management Monitoring call Encounter Details Date Type Department Care Team (Late st Contact Info) Description 05/17/2023 Care Management [facility] Product Inspection Supervisor Management [address] [place] [address] Merari Mclean, EMILI [place] Care Management (Monitoring call ) Social History Tobacco Use Types Packs/Day Years [...] Recorded In the last 10 days, have yo u been in contact with someone who was confirmed or suspected to have Coronavirus/COVID-19? No / Unsure 04/20/2023 9:30 AM CDT documented as of this encounter Progress Notes * Merari Mclean LSW - 05/17/2023 2:58 PM CDT Product Inspection Supervisor Management Biweekly Monitoring Call: Contact made with patient Reviewed Mutually Agreed Upon Goals: 1) I will have [facility] sister's elmo and/or apply for Medicare B for outpatient office visit coverage(High Priority Goal): On Track. Patient reports she called administration and was told she was terminated from Part B in 2019 due to lack of payment and if she were to re enroll in Part B she would have a 10% per year penalty added onto the cost. Patient states she declines to apply and prefers to just be self pay and keep the payment plan she has with [facility]. 2) I will complete [facility] advance care planning: On Track. Patient has ACP packet and plans to fill out and mail back to [facility]. Other Concerns (if applicable): None Next Steps: 1. Patient will fill out ACP forms and mail back to [facility] in the addressed stamped envelope provided to patient. Follow up: Patient agreeable to follow up in 2 weeks. (patient declines call next week, asking for more time to fill out ACP forms). Callback set: yes Please call Tour Guide EMILI CHADWICK @ [phone] for any needs/concerns. documented in this encounter Plan of Treatment Upcoming Encounters Date Type Department Care Team (Latest Contact Info) Description 09/23/2024 10:45 AM FISH FARM MANAGER Physical Therapy [facility] Rehab at [facility] [address], [address] [place] [address] Dave Fernando MD [address] [place] [address] Lucy Garduno, PT [place] Discharge Disposition: Discharged to home or Selfcare 11/22/2024 10:15 AM CDT Appointment [facility] Mammography 1 [place] [address] Yinka Harrison MD [address] [place] [address] Discharge Disposition: Discharged to home or Selfcare 06/13/2025 10:30 AM CDT Office Visit [facility] - Primary Care - [place] [address] [place] [address] Yinka Harrison MD [address] [place] [address] documented as of this encounter Visit Diagnoses Not on filedocumented in this encounter Additional Health Concerns Assessment Noted Time PHQ-9 Depression Total Score: 0 03/10/20 21 10:00 AM CDT documented as of this encounter Care Teams Rig Builder Helper Relationship Specialty Start Date End Date Yinka Harrison MD [address] [place] [address] PCP - General Internal Medicine 07/27/18 Dave Fernando MD [address] [place] [address] Consulting Physician Orthopaedic Surgery 02/20/19 Merari Mclean LSW [place] Tour Guide 05/05/23 07/04/23 documented as of this encounter
--- OUTSIDE RECORDS SUMMARY | 2024-09-22 13:04 | XMS_ITS | Encounter Summary ---
Author Organization [facility] Address [address] [place] [address] Phone Care Team Providers Care Microsoft Exchange Architect Name Role Phone Yinka Harrison MD Primary Care Provider [phone] Dave Fernando MD Unavailable [phone] Encounter Details Date Type Department Care Team (Late st Contact Info) Description 11/07/2023 Transcribe Orders [facility] Central Scheduling 1 [place] [address] Edouard Lozoya [facility], [address] [address] Visit for screening mammogram (Primary Dx) Social History Tobacco Use Types [...] (Latest Contact Info) Description 09/23/2024 10:45 AM OPERATIONS INTERN Physical Therapy [facility] Rehab at [facility] [address] [place] [address] Dave Fernando MD [address] [place] [address] Lucy Garduno, PT [place] Discharge Disposition: Discharged to home or Selfcare 11/22/2024 10:15 AM CDT Appointment [facility] Mammography 1 [facility] [place] [address] Yinka Harrison MD [address] [place] [address] Discharge Disposition: Discharged to home or Selfcare 06/13/2025 10:30 AM CDT Office Visit [facility] - Primary Care - [place] [address] [place] [address] Yinka Harrison MD [address] [place] [address] documented as of this encounter Visit Diagnoses Diagnosis Visit for screening mammogram- Primary Other screening mammogram documented in this encounter Additional Health Concerns Assessment Noted Time PHQ-9 Depression Total Score: 0 03/10/20 21 10:00 AM CDT documented as of this encounter Care Teams Microsoft Exchange Architect Relationship Specialty Start Date End Date Yinka Harrison MD [address] [place] [address] PCP - General Internal Medicine 07/27/18 Dave Fernando MD [address] [place] [address] Consulting Physician Orthopaedic Surgery 02/20/19 documented as of this encounter
--- OUTSIDE RECORDS SUMMARY | 2024-09-22 13:04 | XMS_ITS | Encounter Summary ---
Author Organization [facility] Address [address] [place] [address] Phone Care Team Providers Care Configuration Specialist Name Role Phone Yinka Harrison MD Primary Care Provider [phone] Dave Fernando MD Unavailable [phone] Reason for Visit * Reason Comments Medication Refill Encounter Details Date Type Department Care Team (Late st Contact Info) Description 10/09/2023 [facility] - [place] [address] [place] [address] Yinka Harrison MD [address] [place] [address] Medication Refill Social History Tobacco [...] Telephone Encounter - Graeme Hansen RN - 10/09/2023 11:03 AM CST Medication(s) refilled and signed per [facility] Chronic Medication Refill Standing Order for Pediatricand Adult Patients. Requested Prescriptions Pending Prescriptions Disp Refills ??? amLODIPine (NORVASC) 10 MG Tablet [Pharmacy Med Name: AMLODIPINE BESYLATE 10MG TABLET] 90 Tablet 2 Sig: TAKE ONE (1) TABLET BY MOUTH DAILY. Calcium-Channel Blockers Protocol Passed - 10/09/2023 9:26 AM Passed - BP on record in the past year Clinician-entered: BP Readings from Last 3 Encounters: 04/17/23 140/80 04/11/22 120/72 03/10/21 138/68 Patient-entered: No data recorded Passed - Visit with relevant provider in past 12 months or upcoming 90 days Recent Visits Date Type Provider Dept 04/17/23 Office Visit Yinka Harrison MD [facility] Showing recent visits within past 365 days and meeting all other requirements Future Appointments No visits were found meeting these conditions. Showing future appointments within next 90 days and meeting all other requirements S DELIVERY DRIVER documented in this encounter Plan of Treatment Upcoming Encounters Date Type Department Care Team (Latest Contact Info) Description 09/23/2024 10:45 AM PARTS DELIVERY DRIVER Physical Therapy [facility] Rehab at [facility] 200 [facility] [address] [place] [address] Dave Fernando MD [address] [place] [address] Lucy Garduno, PT [place] Discharge Disposition: Discharged to home or Selfcare 11/22/2024 10:15 AM CDT Appointment [facility] Mammography 1 [place] [address] Yinka Harrison MD [address] [place] [address] Discharge Disposition: Discharged to home or Selfcare 06/13/2025 10:30 AM CDT [facility] - [place] [address] [place] [address] Yinak Harrison MD [address] [place] [address] documented as of this encounter Visit Diagnoses Diagnosis Essential hypertension Unspecified essential hypertension documented in this encounter Additional Health Concerns Assessment Noted Time PHQ-9 Depression Total Score: 0 03/10/20 21 10:00 AM CDT documented as of this encounter Care Teams Configuration Specialist Relationship Specialty Start Date End Date Yinka Harrison MD [address] [place] [address] PCP - General Internal Medicine 07/27/18 Dave Fernando MD [address] [place] [address] Consulting Physician Orthopaedic Surgery 02/20/19 documented as of this encounter
--- OUTSIDE RECORDS SUMMARY | 2024-09-22 13:04 | XMS_ITS | Encounter Summary ---
Author Organization [facility] Address [address] [facility] [place] [address] Phone Care Team Providers Care Supervisory Cbp Officer Name Role Phone Yinka Harrison MD Primary Care Provider [phone] Dave Fernando MD Unavailable [phone] Reason for Visit * Reason Comments Care Management discharge Encounter Details Date Type Department Care Team (Late st Contact Info) Description 07/05/2023 Care Management [facility] Asbestos Siding Mechanic Management [address] [place], [place] [id number] Merari Mclean LSW ID Care Management (discharge) Social History Tobacco Use Types Packs/Day Years [...] Progress Notes * Merari Mclean LSW - 07/05/2023 2:18 PM CDT Sriram Srinivasan is being graduated from care management due to patient no longer wants to work on goals, declines ongoing care management. Patient confirms she has ACP packet but does not have time to complete. She has contact number for SW CM and will call if she needs help with ACP forms. Declines to apply for Medicare B due to the financial penalties from late enrollment. Declines to apply for [facility] financial assistance, will continue to make payments on her payment plan with [facility]. software program manager's name and care management flag removed from the chart. Patient agreeable to reach out to SW CM or PCP team if needs/concern arise. documented in this encounter Plan of Treatment Upcoming Encounters Date Type Department Care Team (Latest Contact Info) Description 09/23/2024 10:45 AM RN FAMILY Physical Therapy [facility] Rehab at [facility] [address] [place] [address] Dave Fernando MD [address] [place] [address] Lucy Garduno, PT [place] Discharge Disposition: Discharged to home or Selfcare 11/22/2024 10:15 AM CDT [facility] 1 [place] [address] Yinka Harrison MD [address] [place] [address] Discharge Disposition: Discharged to home or Selfcare 06/13/2025 10:30 AM CDT Office Visit [facility] - Primary Care - [place] [address] [place] [phone] Yinka Harrison MD [address] [place] [address] documented as of this encounter Visit Diagnoses Not on filedocumented in this encounter Additional Health Concerns Assessment Noted Time PHQ-9 Depression Total Score: 0 03/10/20 21 10:00 AM CDT documented as of this encounter Care Teams Supervisory Cbp Officer Relationship Specialty Start Date End Date Yinka Harrison MD [address] [place] [address] PCP - General Internal Medicine 07/27/18 Dave Fernando MD [address] [place] [address] Consulting Physician Orthopaedic Surgery 02/20/19 documented as of this encounter
--- OUTSIDE RECORDS SUMMARY | 2024-09-22 13:04 | XMS_ITS | Encounter Summary ---
Author Organization [facility] Address [address] [place] [address] Phone Care Team Providers Care Hammer Smith Name Role Phone Yinka Harrison MD Primary Care Provider [phone] Dave Fernando MD Unavailable [phone] Encounter Details Date Type Department Care Team (Late st Contact Info) Description 12/26/2023 Telephone [facility] [address] [place] [address] Yinka Harrison MD [address] [place] [address] Social History Tobacco Use Types Packs/Day Years Used Date Smoking Tobacco: Former Smokeless Tobacco: Never Alcohol Use Standard Drinks/Week Comments No 0 (1 standard drink = 0.6 oz pur e alcohol) [facility] Utilities Answer Date Recorded In the past 12 months has [employer], gas, oil, or water [employer] threatened to shut off services in your [...] week 12/26/2023 How often do you attend [facility] or mandaeism services? More than 4 times per year 12/26/2023 Do you belong to any clubs o r organizations such as confucianism groups, unions, fraternal or athletic groups, or [...] Score - Questions 1-9 0 12/10 [facility] of Occupat ional [facility] - Occupational Stress Questionnaire Answer Date [...] in a fpc (including now)? No 12/26/2023 Education Answer Date [...] Assessment Author 0 12/26/2023 2:56 PM CDT Mychart, System Background [...] 2:56 PM CDT Mychart, System Background * Q1: How often do [...] 2:56 PM CDT Mychart, System Background * Question Answer Date of Assessment Author Little interest or pleasure in doing things Not at all 12/27/2023 8:35 AM CDT Shan Ahn RMA Feeling down, depressed, or hopeless Not at all 12/27/2023 8:35 AM CDT Shan Ahn RMA * Over the past 2 weeks, how often have you been bothered by any of the following problems? Question Answer Date of Assessment Author Patient Health Questionnaire -2 Score 0 12/27/2023 8:35 AM CDT Shan Ahn RMA documented as of this encounter Plan of Treatment Upcoming Encounters Date Type Department Care Team (Latest Contact Info) Description 09/23/2024 10:45 AM FENDER REPAIRER Physical Therapy [facility] at [facility] [address], [address] [place] [phone] Dave Fernando MD [address] [place] [address] Lucy Garduno, [place] Discharge Disposition: Discharged to home or Selfcare 11/22/2024 10:15 AM CDT [facility] [address] [facility] [address] Yinka Harrison MD [address] [place] [address] Discharge Disposition: Discharged to home or Selfcare 06/13/2025 10:30 AM CDT Office Visit [facility] Medical [facility] - Primary Care - [place] [address] [place] [phone] Yinka Harrison MD [address] [place] [address] documented as of this encounter Visit Diagnoses Not on filedocumented in this encounter Additional Health Concerns Assessment Noted Time PHQ-9 Depression Total Score: 0 03/10/20 21 10:00 AM CDT documented as of this encounter Care Teams Hammer Smith Relationship Specialty Start Date End Date Yinka Harrison MD [address] [place] [address] PCP - General Internal Medicine 07/27/18 Dave Fernando MD [address] [place] [place] [address] Consulting Physician Orthopaedic Surgery 02/20/19 documented as of this encounter
--- OUTSIDE RECORDS SUMMARY | 2024-09-22 13:04 | XMS_ITS | Encounter Summary ---
Author Organization [employer] Care Team Providers Care Slitter Scorer Name Role Phone Yinka Harrison MD Primary Care Provider [phone] Dave Fernando MD Unavailable [phone] Encounter Details Date Type Department Care Team (Latest Contact Info) Description 01/23/2024 Travel Social History Tobacco Use Types Packs/Day Years Used Date Smoking Tobacco: Former Smokeless Tobacco: Never Alcohol Use Standard Drinks/Week Comments No 0 (1 standard drink = 0.6 oz pur e alcohol) [facility] Utilities Answer Date Recorded In the past 12 months has [employer], gas, oil, or water company threatened [...] often do you attend chur ch or voodoo services? More than 4 times per year 12/26/2023 Do you belong to any clubs o r organizations such as congregational groups, unions, fraternal or athletic groups, or [...] Total Score - Questions 1-9 0 12/10 [facility] of Occupat ional Health - Occupational Stress [...] place to sleep or slept in a skilled nursing (including now)? No 12/26/2023 Education Answer Date [...] (Latest Contact Info) Description 09/23/2024 10:45 AM ROUGH ROUNDER Physical Therapy [facility] Re[facility] at [facility] [address], [address] [place] [address] Dave Fernando MD [address] [place] [address] Lucy Garduno, PT [place] Discharge Disposition: Discharged to home or Selfcare 11/22/2024 10:15 AM CDT [facility] [address] [place] [address] Yinka Harrison MD [address] [place] [address] Discharge Disposition: Discharged to home or Selfcare 06/13/2025 10:30 AM CDT Office Visit [facility] - Primary Care - [place] [address] [place] [phone] Yinka Harrison MD [address] [place] [address] documented as of this encounter Visit Diagnoses Not on filedocumented in this encounter Additional Health Concerns Assessment Noted Time PHQ-9 Depression Total Score: 0 12/27/19 24 8:35 AM CDT documented as of this encounter Care Teams Slitter Scorer Relationship Specialty Start Date End Date Yinka Harrison MD [address] [place] [address] PCP - General Internal Medicine 07/27/18 Dave Fernando MD [address] [place] [place] [address] Consulting Physician Orthopaedic Surgery 02/20/19 documented as of this encounter
--- OUTSIDE RECORDS SUMMARY | 2024-09-22 13:04 | XMS_ITS | Encounter Summary ---
Author Organization [facility] [employer] [facility] Care Team Providers Care Crystalizer Name Role Phone Yinka Harrison MD Primary Care Provider [phone] Dave Fernando MD Unavailable [phone] Encounter Details Date Type Department Care Team (Latest Contact Info) Description 04/20/2023 Travel Social History Tobacco Use Types Packs/Day [...] AM CDT documented as of this encounter Plan of Treatment Upcoming Encounters Date Type Department Care Team (Latest Contact Info) Description 09/23/2024 10:45 AM TRAIN BRAKER Physical Therapy [facility] at [facility] [address] [place] [address] Dave Fernando MD [address] [place] [address] Lucy Garduno, [place] Discharge Disposition: Discharged to home or Selfcare 11/22/2024 10:15 AM CDT [facility]ment [facility] 1 [place] [address] Yinka Harrison MD [address] [place] [address] Discharge Disposition: Discharged to home or Selfcare 06/13/2025 10:30 AM CDT Office Visit [facility] - Primary Care - [place] [address] [place] [address] Yinka Harrison MD [address] [place] [address] documented as of this encounter Visit Diagnoses Not on filedocumented in this encounter Additional Health Concerns Assessment Noted Time PHQ-9 Depression Total Score: 0 03/10/20 21 10:00 AM CDT documented as of this encounter Care Teams Crystalizer Relationship Specialty Start Date End Date Yinka Harrison MD [address] [place] [address] PCP - General Internal Medicine 07/27/18 Dave Fernando MD [address] [place] [address] Consulting Physician Orthopaedic Surgery 02/20/19 documented as of this encounter
--- OUTSIDE RECORDS SUMMARY | 2024-09-22 13:04 | XMS_ITS | Encounter Summary ---
Author Organization [facility] Address [address] [place] [address] Phone Care Team Providers Care Bareback Rider Name Role Phone Yinka Harrison MD Primary Care Provider [phone] Dave Fernando MD Unavailable [phone] Merari Mclean Unavailable Unavailab le Reason for Visit * Reason Comments Care Management SW enrollment Encounter Details Date Type Department Care Team (Latest Contact Info) Description 05/05/2023 2:00 PM CDT [facility] Management [facility] Nursery Worker Management [address] [place] [address] Merari Mclean LSW [place] Care Management ( enrollment) Social History Tobacco Use Types Packs/Day Years [...] AM CDT documented as of this encounter Functional Status * Question Answer Date of Assessment Author Little interest or pleasure in doing things Not at all 05/05/2023 3:05 PM CDT Merari Mclean LSW Feeling down, depressed, or hopeless Not at all 05/05/2023 3:05 PM CDT Merari Mclean LSW * Over the past 2 weeks, how often have you been bothered by any of the following problems? Question Answer Date of Assessment Author Patient Health Questionnaire -2 Score 0 05/05/2023 3:05 PM CDT Merari Mclean LSW documented as of this encounter Progress Notes * Merari Mclean LSW - 05/05/2023 2:00 PM CDT Sriram is a 62 y.o. year old female who was referred by Dr. Harrison for insurance issues. Patient's medical history is significant for rheumatoid arthritis, HTN, HLD, anemia, and chronic right knee pain. shine worker assessment completed with patient on this date. Also present was None. The [facility] were assessed: Living Situation and Support Patient lives in her own home that she own in [place]. She has an adult daughter who lives with her. She also has support from other adult children who live locally. Patient is her own caregiver. Needs: None Community Involvement Patient goes to [facility] for help applying for [employer] every year. Needs: Denies need. Financial and Insurance Patient has SSDI. Patient has Medicare A only and pays out of pocket for outpatient medical care and prescriptions. Needs: [facility] financial assistance application and Medicare B application. Transportation and Access to Care Patient has a valid license and car. Adult children also give her rides. Needs: None Substance Use, Mental Health and Legal Hx of smoking cigarettes, but has quit. Needs: Denies need for resources DME and ADL's Has a cane and can complete her own ADL's. Needs: None Medication Management Patient manages her own medications and pays out of pocket at [facility] in [place]. [facility] pharmacist gives her a discount and she can afford medications/no issues. Patient denies issues with adherence or understanding. Needs: None Education/Vocation Completed a Bachelor's degree. Patient is on disability since 2019. Needs: None Advanced Care Planning No ACP forms on file. Patient is decisional. Needs: RENITA VILLA will mail ACP packet to patient None Needs: None Current care gaps: Colonoscopy and Zoster vaccine (shingles) Plan to close care gaps: patient declines to close due to cost/lack of Medicare B coverage Patient has MyChart: Yes Needs RN CM assessment NO, if so, why: Patient denies need for credit officer During our time together the medication list, problem list, allergies, history, adult psychosocial review and adult systems review were reviewed. The HRA, PHQ, History Section and Systems Review werecompleted and reviewed with the patient. At this time, enrollment into care management is recommended. Sriram is in agreement We were able to identify the following goals: 1) I will have [facility] and/or apply for Medicare B 2) I will complete [facility] advance care planning RENITA VILLA educated on [facility] financial assistance program and Medicare B application/coverage. Mailing applications to patient to review along with ACP packet. Initial CM follow up scheduled in two weeks (patient declined call next week asked for call after ). Patient is agreeable. * Yinka Harrison MD - 05/05/2023 2:00 PM CDT I have reviewed the care plan and agree with it, except for any suggestions or changes listed below. documented in this encounter Miscellaneous Notes * Care Plan - Merari Mclean LSW - 05/05/2023 2:[address] Harrison please review care plan and offer suggestions for change or give approval by adding the following Smart Phrase '.[email or web address]', then route back to Ceo Na. Patient Care Plan Sriram Srinivasan (:1960) Age: 62 y.o.. Action needed for Problem List/Medication List: None Ceo Na's Impressions: Sriram is a 62 y.o. female who was referred to care management for insurance questions/issues. Patient has Medicare A only. During this assessment, it was determined that the patient and this blog writer will focus on the followin. I will have [facility] and/or apply for Medicare B for outpatient office visit coverage. 2. I will complete [facility] advance care planning ACP: Power of Surveillance Agent for Health Care (POA-HC): No POA-HC form, education provided and assistance offered. Current [facility] Discussion Record Status:: No [facility] Discussion record present, education provided and assistance offered Needs: Living Arrangement Referral Needed: None Community Resources Needed: Denies need Financial Referral Needed: [facility] financial assistance application; Medicare Part B application Behavioral Health Resources Needed: Denies need Durable Medical Equipment Needed: None ADL Assistance Needed: None Additional Action Needed: ACP packet mailed to patient Neurology needs: Denies HEENT needs: Denies Respiratory needs: Denies Cardiovascular needs: Denies GI//NEPHROLOGY needs: Denies Reproductive needs: Denies Endocrinology needs: Denies Musculoskeletal needs: Denies Integumentary needs: Denies Preventative interventions needing action: Zoster; Colonoscopy What is holding you back from talking about getting help for one or more of the needs identified above?: I do not require help. Care Team: Patient Care Team: Yinka Harrison MD as PCP - General (Internal Medicine) Dave Fernando MD as Consulting Physician (Orthopaedic Surgery) Merari Mclean LSW as Ceo NaAuto Damage Insurance Appraiser: [id number] [address] [facility] [address] [facility] [place] [address] IMAGING TECHNOLOGISTBOWLING OR SKATING FRONT DESK CLERK REVIEW Health Problem of Greatest Importance: Health problems of greatest importance to patient: Other (arthritis) Nutrition: Diet: Low fat diet; Low salt diet Route: Oral Pain score/location: Pain Score: 6 Pain Loc: KNEE HEENT: Medical Conditions/Disabilities: None Treatment/Monitoring: None HEENT needs: Denies Neurology: Medical Conditions: None Treatment/Monitoring: None Neurology needs: Denies Respiratory: Medical Conditions: None Treatment/Monitoring: None Respiratory needs: Denies Cardiovascular: Medical Conditions: HTN; HLD Treatment/Monitoring: Medications Cardiovascular needs: Denies GI//Nephrology: Medical Conditions: None Diet: Low fat diet; Low salt diet Treatment/Monitoring: None GI//NEPHROLOGY needs: Denies Reproductive: Medical Conditions: None Treatment/Monitoring: None Reproductive needs: Denies Endocrinology: Medical Conditions: None Treatment/Monitoring: None Endocrinology needs: Denies Lab Results Component Value Date LDL 169 (H) 04/20/2023 CREATININE 1.08 (H) 04/20/2023 Hematology/Immunology: Medical Conditions: Anemia Treatment/Monitoring: None Musculoskeletal: Medical Conditions: Rheumatoid Arthritis (RA); Chronic pain Treatment/Monitoring: Medications; Cane Current symptoms: Pain Musculoskeletal needs: Denies Integumentary: Medical Conditions: None Treatment/Monitoring: None Integumentary needs: Denies Care Gaps: Preventative interventions up to date: No Preventative interventions needing action: Zoster; Colonoscopy Adherence/Compliance to current medical recommendations: Mostly compliant Substance Use: Tobacco use: reports that she has quit smoking. She has never used smokeless tobacco. Alcohol use: reports no history of alcohol use. Drug use: reports no history of drug use. Medication Reviewed: Merari Mclean 05/05/2023 2:49 pm Problem List Reviewed: Merari Mclean 05/05/2023 2:48 pm Allergies Reviewed: Merari Mclean 05/05/2023 2:49 pm IMAGING TECHNOLOGIST PSYCHOSOCIAL REVIEW Cognitive: Cognitive Assessment: Alert & Oriented Decision maker: Patient Cultural Spiritual: Do you have any Cultural/Spiritual practices that we should be aware of?: No Living Situation: Living Arrangements: Children Type of Residence: Private residence Levels of home: One level # of steps to enter home: 5 steps Living Arrangement Referral Needed: None Support: Support Systems: Family member(s); Children; Friends/Neighbors Support System Comments: adult children are supportive Ship Steward: Self Behavioral Health: Initial Score - If the score is 2 or higher, please proceed with the additional evaluation.: 0 Do you feel physically and emotionally safe where you currently live?: Yes In the past year, have you been afraid of your partner or ex-partner?: No Stress is when someone feels tense, nervous, anxious, or can???t sleep at night because their mind is troubled. How stressed are you?: A little bit Behavioral Health Resources Currently Using: None Behavioral Health Resources Needed: Denies need Community Resources: Community Resources: None Community Resources Needed: Denies need Financial: In the past year, have you been unable to get clothing when it was really needed?: No In the past year, have you been unable to pay for utilities when it was really needed?: No In the past year, have you been unable to pay for director child development center when it was really needed?: No In the past year, have you been unable to pay for Medicine or any health care (medical, dental, mental health, vision) when it was really needed?: Yes Within the past 12 months, have you worried that your food would run out before you got money to buy more?: Never true Within the past 12 months, have you found that the food you bought just didn't last and you didn't have money to get more?: Never true Insurance benefits reviewed with patient?: N/A Financial Referral Needed: [facility] financial assistance application; Medicare Part B application Transportation: Transportation Information: Family/Friends drive; Drives self In the past 12 months, has lack of transportation kept you from medical appointments or from getting medications?: No In the past 12 months, has lack of transportation kept you from meetings, work, or getting things needed for daily living?: No Additional Transportation Needed: None Fall Risk: Does the patient report or do you observe difficulty in gait or balance?: Yes Has the patient fallen twice in the past year without injury or once in the past year with injury?:No Activities of Daily Living: ADL/Functional Assessment: Independent ADL Assistance Needed: None Durable Medical Equipment: Durable Medical Equipment: Cane Durable Medical Equipment Needed: None Patient Education/Learning Assessment: Learning needs?: None identified Learning barriers?: None identified Annual Health Risk Assessment Score: HRA Composite Score:: 9 (05/05/2023 2:54 PM) Depression Screening Scores: Initial Score - If the score is 2 or higher, please proceed with the additional evaluation.: 0 PATIENT GOALS: The Ceo Na and the patient mutually agreed upon the following goals: . ??? Complete Advance Directive Goal: I will complete [facility] Advanced Care Planning Anticipated Completion Date: In the next 3 months Patient's Preferred Goal: Standard Challenges/Barriers: Lack of knowledge of forms Readiness to Change: Thinking about making a change Notify Care Team if: You have questions or are ready to complete an Advanced Care Planning appointment Short Term Goals: Social work resident care associate will mail Advanced Care Planning packet to patient. and I will complete Advanced Care Planning with [facility] staff/social services manager. ??? Financial Goal: I will have [facility] Suzie Sarah and/or apply for Medicare B for outpatient office visit coverage Anticipated Completion Date: In the next 3 months Patient's Preferred Goal: Highest Priority Challenges/Barriers: Knowledge of resources Readiness to Change: Thinking about making a change Notify Care Team if: You have any issues completing goals outlined below Short Term Goals: I will complete the [facility] Suzie Sarah application , I will gather all necessary financial documents to complete my application, and I will notify my CM when I receive a response from my applications SW CM will mail Medicare part B application and [facility] financial assistance application to patient. Patient will review applications and apply for programs as needed Care Plan note documented on 05/05/23 by EMILI CHADWICK documented in this encounter Plan of Treatment Upcoming Encounters Date Type Department Care Team (Latest Contact Info) Description 09/23/2024 10:45 AM GRAIN INSPECTOR Physical Therapy [facility]hab at [facility] [address] [facility], [address] [place] [address] Dave Fernando MD [address] [place] [address] Lucy Garduno, [place] Discharge Disposition: Discharged to home or Selfcare 11/22/2024 10:15 AM CDT Appointment [facility] Mammography [address] [facility] [place] [address] Yinka Harrison MD [address] [place] [address] Discharge Disposition: Discharged to home or Selfcare 06/13/2025 10:30 AM CDT Office Visit [facility] - [place] [address] [place] [address] Yinka Harrison MD [address] [place] [address] documented as of this encounter Visit Diagnoses Diagnosis Chronic pain of right knee- Primary documented in this encounter Additional Health Concerns Assessment Noted Time PHQ-9 Depression Total Score: 0 03/10/20 21 10:00 AM CDT documented as of this encounter Care Teams Bareback Rider Relationship Specialty Start Date End Date Yinka Harrison MD [address] [place] [address] PCP - General Internal Medicine 07/27/18 Dave Fernando MD [address] [place] [address] Consulting Physician Orthopaedic Surgery 02/20/19 Merari Mclean LSW [place] Ceo Na 05/05/23 07/04/23 documented as of this encounter
--- OUTSIDE RECORDS SUMMARY | 2024-09-22 13:04 | XMS_ITS | Encounter Summary ---
Author Organization [facility] Address [address] [place] [address] Phone Care Team Providers Care Medical Oncology Physician Name Role Phone Yinka Harrison MD Primary Care Provider [phone] Dave Fernando MD Unavailable [phone] Reason for Visit * Reason Onset Date Comments Medication Refill 09/05/2023 Encounter Details Date Type Department Care Team (Late st Contact Info) Description 09/05/[address] [facility] - Primary Care - [place] [address] [place] [address] Yinka Harrison MD [address] [place] [address] Medication Renewal Declined Social History Tobacco Use Types Packs/Day Years [...] Telephone Encounter - Mariposa Castelan RN - 09/06/2023 8:41 AM CULINARY INTERNSHIP Duplicate request. NARY INTERNSHIP documented in this encounter Plan of Treatment Upcoming Encounters Date Type Department Care Team (Latest Contact Info) Description 09/23/2024 10:45 AM CULINARY INTERNSHIP Physical Therapy [facility] at [facility] [address], [address] [place] [address] Dave Fernando MD [address] [place] [address] Lucy Garduno, [place] Discharge Disposition: Discharged to home or Selfcare 11/22/2024 10:15 AM CDT [facility] 1 [place] [address] Yinka Harrison MD [address] [place] [address] Discharge Disposition: Discharged to home or Selfcare 06/13/2025 10:30 AM CDT Office Visit [facility] - Primary Care - [place] [address] [place] [address] Yinka Harrison MD [address] [place] [address] documented as of this encounter Visit Diagnoses Diagnosis Arthritis Arthropathy, unspecified, site unspecified Chronic pain of right knee Rheumatoid arthritis involving multiple sites with positive rheumatoid factor (HCC) documented in this encounter Additional Health Concerns Assessment Noted Time PHQ-9 Depression Total Score: 0 03/10/20 21 10:00 AM CDT documented as of this encounter Care Teams Medical Oncology Physician Relationship Specialty Start Date End Date Yinka Harrison MD [address] [place] [address] PCP - General Internal Medicine 07/27/18 Dave Fernando MD [address] [place] [address] Consulting Physician Orthopaedic Surgery 02/20/19 documented as of this encounter
--- OUTSIDE RECORDS SUMMARY | 2024-09-22 13:04 | XMS_ITS | Encounter Summary ---
Author Organization [facility] Care Team Providers Care Mva Reactor Operator Name Role Phone Yinka Harrison MD Primary Care Provider [phone] Dave Fernando MD Unavailable [phone] Encounter Details Date Type Department Care Team (Latest Contact Info) Description 04/17/2023 Travel Social History Tobacco Use Types Packs/Day Years Used Date Smoking Tobacco: Former Smokeless Tobacco: Never Alcohol Use Standard Drinks/Week Comments No 0 (1 standard drink = 0.6 oz pur e alcohol) PHQ-2 Answer Date Recorded Total Score - Questions 1-9 0 08/09/2021 Education Answer Date Recorded What is the [...] suspected to have Coronavirus/COVID-19? No / Unsure 04/17/2023 10:24 AM CDT documented as of this encounter Functional Status * Question Answer Date of Assessment Author Little interest or pleasure in doing things Not at all 04/17/2023 10:00 AM CDT Jesi Donaldson RMA Feeling down, depressed, or hopeless Not at all 04/17/2023 10:00 AM CDT Jesi Donaldson RMA * Over the past 2 weeks, how often have you been bothered by any of the following problems? Question Answer Date of Assessment Author Patient Health Questionnaire -2 Score 0 04/17/2023 10:00 AM CDT Jesi Donaldson RMA documented as of this encounter Plan of Treatment Upcoming Encounters Date Type Department Care Team (Latest Contact Info) Description 09/23/2024 10:45 AM NEUROLOGICAL SURGERY TEACHER Physical Therapy [facility] [address], [address] [place] [address] Dave Fernando MD [address] [place] [address] Lucy Garduno, PT [place] Discharge Disposition: Discharged to home or Selfcare 11/22/2024 10:15 AM CDT [facility]ointment [facility] 1 [facility] [place] [address] Yinka Harrison MD [address] [place] [address] Discharge Disposition: Discharged to home or Selfcare 06/13/2025 10:30 AM CDT Office Visit [facility] - Primary Care - [place] [address] [place] [address] Yinka Harrison MD [address] [place] [address] documented as of this encounter Visit Diagnoses Not on filedocumented in this encounter Additional Health Concerns Assessment Noted Time PHQ-9 Depression Total Score: 0 03/10/20 21 10:00 AM CDT documented as of this encounter Care Teams Mva Reactor Operator Relationship Specialty Start Date End Date Yinka Harrison MD [address] [place] [address] PCP - General Internal Medicine 07/27/18 Dave Fernando MD [address] [facility] [address] [place] [address] Consulting Physician Orthopaedic Surgery 02/20/19 documented as of this encounter
--- OUTSIDE RECORDS SUMMARY | 2024-09-22 13:04 | XMS_ITS | Encounter Summary ---
Author Organization [facility] Address [address] [place] [address] Phone Care Team Providers Care Patient Resource Specialist Name Role Phone Yinka Harrison MD Primary Care Provider [phone] Dave Fernando MD Unavailable [phone] Reason for Visit * Radiology Services (Routine) - Closed Specialty Diagnoses / Procedures Referred By Alyce lemus Referred To Contact Radiology Diagnoses Visit for screening mammogram Procedures KASI SCREENING BILATERAL DIGITAL W CAD W PIYUSH KASI SCREENING BILATERAL DIGITAL W CAD [address] [place] [address] Phone: tel: fax: Referral ID Status Reason Start Date Expiration Date Visits Re quested Visits Authorized [id number] Closed 11/07/2023 1 1 Encounter Details Date Type Department Care Team (Latest Contact Info) Description 01/23/2024 8:37 AM CDT - 01/23/2024 11:59 PM CDT Hospital Encounter [facility] Mammography 1 [place] [phone] [facility] [address] [place] [address] Discharge Disposition: Discharged to home or Selfcare Social History Tobacco Use Types Packs/Day Years Used Date Smoking Tobacco: Former Smokeless Tobacco: Never Alcohol Use Standard Drinks/Week Comments No 0 (1 standard drink = 0.6 oz pur e alcohol) [facility] Utilities Answer Date Recorded In the [...] often do you attend chur ch or sabianism services? More than 4 times per year 12/26/2023 Do you belong to any clubs o r organizations such as restoration groups, unions, fraternal or athletic groups, or [...] Total Score - Questions 1-9 0 12/10 [facility] of Occupat ional Health - Occupational Stress [...] on file documented as of this encounter Medications at Time of Discharge Ascorbic Acid (VITAMIN C PO) Take 500 mg by mouth. Flaxseed, Linseed, (Flax Seed Oil) 1000 MG Capsule Take 1,000 mg by mouth daily. ibuprofen (MOTRIN) 800 MG Tablet TAKE ONE (1) TAB BY MOUTH EVERY 8 HOURS NEEDED FOR MILD OR MORE SEVERE PAIN. 270 Tablet 1 09/13/2022 IRON PO Take by mouth. amLODIPine (NORVASC) 10 MG TabletIndications:Es sential hypertension TAKE ONE (1) TABLET BY MOUTH DAILY. 90 Tablet 2 10/09/2023 11/19/202 4 hydroCHLOROthiazide 12.5 MG Tablet TAKE ONE (1) TABLET BY MOUTH DAILY. 90 Tablet 2 05/24/2023 4 rosuvastatin (CRESTOR) 20 MG TabletIndications:Mi xed hyperlipidemia TAKE 1 TABLET BY MOUTH DAILY. 90 Tablet 2 10/02/2023 4 traMADol (ULTRAM) 50 MG TabletIndications:Ar thritis,Chronic pain of right knee,Rheumatoid arthritis involving multiple sites with positive rheumatoid factor (HCC) Take 1 Tablet by mouth every 8 hours as needed for Moderate or more severe pain. 30 Tablet 1 01/04/2024 4 triamcinolone (KENALOG) 0.1 % CreamIndications:Harpal matitis Apply sparingly twice a day to the affected area. Rub cream in until invisible. 45 g 1 01/08/2024 4 documented as of this encounter Plan of Treatment Upcoming Encounters Date Type Department Care Team (Latest Contact Info) Description 09/23/2024 10:45 AM SALES AND SERVICE ENGINEER Physical Therapy [facility] at [facility] [address] [place] [address] Dave Fernando MD [address] [place] [address] Lucy Garduno, PT [place] Discharge Disposition: Discharged to home or Selfcare 11/22/2024 10:15 AM CDT Appointment [facility] Mammography 1 [facility] [place] [address] Yinka Harrison MD [address] [place] [address] Discharge Disposition: Discharged to home or Selfcare 06/13/2025 10:30 AM CDT Office Visit [facility] - Primary Care - [place] [address] [place] [phone] Yinka Harrison MD [address] [place] [address] documented as of this encounter Procedures Procedure Name Priority Date/Time Associated Diagnosis Comments KASI SCREENING BILATERAL DIGITAL W CAD W PIYUSH Routine 01/23/2024 9:20 AM CDT Visit for screening mammogram documented in this encounter Results * KASI SCREENING BILATERAL DIGITAL W CAD [...] copy. Current study was also evaluated with [employer] version 7.2. 2D digital mammographic views, as well as 3D digital tomosynthesis were performed in the CC and MLO projections. ?? CLINICAL: Routine screening. Patient has no complaints. No personal history of cancer. Paternal grandmother had breast cancer. ?? COMPARISONS: Comparison is made to exams dated: ??12/09/2016, 04/02/2015, and 02/05/2014 [facility]. ?? BREAST TISSUE:The tissue of both breasts [...] Electronically signed by: Violet Stein M.D. ? vivien/carmine:01/23/2024 11:12:16 ?? High School Professional(s): Karissa ??RT Juan A(R)(M), [facility] letter sent: Normal Exam ?? Reading location: [place] BI-RADS: 2 Benign Procedure Note Violet Stein [...] to exams dated: 12/09/2016, 04/02/2015, and 02/05/2014 [facility]. BREAST TISSUE:The tissue of both breasts is [...] next screening exam. Electronically signed by: Violet puga/carmine:01/23/2024 11:12:16 High School Professional(s): RT Trevin(Sonia)(M), [facility] letter sent: Normal Exam Reading location: [place] BI-RADS: 2 Benign Edouard Lozoya [facility] MAMMO ORDERABLES Final Resul t documented in this encounter Visit Diagnoses Diagnosis Visit for screening mammogram Other screening mammogram documented in this encounter Additional Health Concerns Assessment Noted Time PHQ-9 Depression Total Score: 0 12/27/19 24 8:35 AM CDT documented as of this encounter Care Teams Patient Resource Specialist Relationship Specialty Start Date End Date Yinka Harrison MD [address] [place] [address] PCP - General Internal Medicine 07/27/18 Dave Fernando MD [address] [facility] [address] [place] [address] Consulting Physician Orthopaedic Surgery 02/20/19 documented as of this encounter
--- OUTSIDE RECORDS SUMMARY | 2024-09-22 13:04 | XMS_ITS | Encounter Summary ---
Author Organization [facility] Address [address] [place] [address] Phone Care Team Providers Care Motor Patrol Operator Name Role Phone Yinka Harrison MD Primary Care Provider [phone] Dave Fernando MD Unavailable [phone] Reason for Visit * Reason Comments Medication Refill Encounter Details Date Type Department Care Team (Late st Contact Info) Description 10/31/2023 [facility] - [place] [address] [place] [address] Yinka Harrison MD [address] [place] [address] Medication Refill Social History Tobacco [...] Telephone Encounter - Yinka Harrison MD - 10/31/2023 9:43 AM INDEPENDENT PRODUCER Refill request approved. PENDENT PRODUCER * Telephone Encounter - Graeme Hansen RN - 10/31/2023 9:13 AM CST Medication failed the protocol, provider to review and approve the medication order if appropriate. Requested Prescriptions Pending Prescriptions Disp Refills traMADol (ULTRAM) 50 MG Tablet [Pharmacy Med Name: TRAMADOL HYDROCHLORIDE 50MG TABLET] 30 Tablet 1 Sig: TAKE 1 TABLET BY MOUTH EVERY 8 HOURS NEEDED FOR MODERATE OR MORE SEVERE PAIN. Not Delegated - Opioid Agonists Protocol Failed - 10/31/2023 8:37 AM Failed - This refill cannot be delegated Passed - Visit with relevant provider in past 12 months or upcoming 90 days Recent Visits Date Type Provider Dept 04/17/23 Office Visit Yinka Harrison MD [facility] Showing recent visits within past 365 days and meeting all other requirements Future Appointments No visits were found meeting these conditions. Showing future appointments within next 90 days and meeting all other requirements PENDENT PRODUCER documented in this encounter Plan of Treatment Upcoming Encounters Date Type Department Care Team (Latest Contact Info) Description 09/23/2024 10:45 AM INDEPENDENT PRODUCER [facility] [address], [address] [place] [address] Dave Fernando MD [address] [place] [address] Lucy Garduno, PT [place] Discharge Disposition: Discharged to home or Selfcare 11/22/2024 10:15 AM CDT [facility] 1 [place] [address] Yinka Harrison MD [address] [facility] [place] [address] Discharge Disposition: Discharged to home or Selfcare 06/13/2025 10:30 AM CDT Office Visit [facility] - Primary Care - [place] [address] [place] [address] Yinka Harrison MD [address] [place] [address] documented as of this encounter Visit Diagnoses Diagnosis Arthritis Arthropathy, unspecified, site unspecified Chronic pain of right knee Rheumatoid arthritis involving multiple sites with positive rheumatoid factor (HCC) documented in this encounter Additional Health Concerns Assessment Noted Time PHQ-9 Depression Total Score: 0 03/10/20 21 10:00 AM CDT documented as of this encounter Care Teams Motor Patrol Operator Relationship Specialty Start Date End Date Yinka Harrison MD [address] [place] [address] PCP - General Internal Medicine 07/27/18 Dave Fernando MD [address] [place] [address] Consulting Physician Orthopaedic Surgery 02/20/19 documented as of this encounter
--- OUTSIDE RECORDS SUMMARY | 2024-09-22 13:04 | XMS_ITS | Encounter Summary ---
Author Organization [facility] Address [address] [place] [address] Phone Care Team Providers Care Division Chair Name Role Phone Yinka Harrison MD Primary Care Provider [phone] Dave Fernando MD Unavailable [phone] Merari Mclean GIS PROGRAMMER Unavailable Unavailab le Reason for Visit * Reason Onset Date Comments Medication Refill 07/04/2023 Encounter Details Date Type Department Care Team (Late st Contact Info) Description 07/04/2023 MyChart RX Renewal [facility] - Primary Care - [place] [address] [place] [address] Yinka Harrison MD [address] [place] [address] Medication Renewal Reviewed Social History Tobacco Use Types Packs/Day Years Used Date Smoking Tobacco: Former Smokeless Tobacco: Never Alcohol Use Standard Drinks/Week Comments No 0 (1 standard drink = 0.6 oz pur e alcohol) PHQ-2 Answer Date Recorded Total Score - Questions 1-9 0 0809/2021 Education Answer Date Recorded What is the [...] Telephone Encounter - Yinka Harrison MD - 07/04/2023 10:00 AM CDT Refill request approved. * Telephone Encounter - Mariposa Castelan RN - 07/04/2023 9:49 AM CDT Medication failed the protocol, provider to review and approve the medication order if appropriate. Requested Prescriptions Pending Prescriptions Disp Refills traMADol (ULTRAM) 50 MG Tablet 30 Tablet 1 Sig: Take 1 Tablet by mouth every 8 hours as needed for Moderate or more severe pain. Not Delegated - Opioid Agonists Protocol Failed - 07/04/2023 9:47 AM Failed - This refill cannot be [...] (Latest Contact Info) Description 09/23/2024 10:45 AM DISTRICT DIRECTOR Physical [facility] [address] [place] [address] Dave Fernando MD [address] [place] [address] Lucy Garduno, PT [place] Discharge Disposition: Discharged to home or Selfcare 11/22/2024 10:15 AM CDT [facility] 1 [facility] [place] [address] Yinka Harrison MD [address] [place] [address] Discharge Disposition: Discharged to home or Selfcare 06/13/2025 10:30 AM CDT Office Visit [facility] - Primary Care - [place] [address] [place] [address] Yinka Harrison MD [address] [place] [address] documented as of this encounter Visit Diagnoses Diagnosis Arthritis Arthropathy, unspecified, site unspecified Chronic pain of right knee Rheumatoid arthritis involving multiple sites with positive rheumatoid factor (HCC) documented in this encounter Additional Health Concerns Assessment Noted Time PHQ-9 Depression Total Score: 0 03/10/20 10:00 AM CDT documented as of this encounter Care Teams Division Chair Relationship Specialty Start Date End Date Yinka Harrison MD [address] [place] [address] PCP - General Internal Medicine 07/27/18 Dave Fernando MD [address] [place] [address] Consulting Physician Orthopaedic Surgery 02/20/19 Merari Mclean LSW [place] Gear Inspector 05/05/23 07/04/23 documented as of this encounter
--- OUTSIDE RECORDS SUMMARY | 2024-09-22 13:04 | XMS_ITS | Encounter Summary ---
Author Organization [facility] Address [address] [place] [address] Phone Care Team Providers Care Fund Manager Name Role Phone Yinka Harrison MD Primary Care Provider [phone] Dave Fernando MD Unavailable [phone] Merari Mclean [facility] Unavailable Unavailab le Reason for Visit * Reason Comments Medication Refill Encounter Details Date Type Department Care Team (Late st Contact Info) Description 05/24/2023 Refill [facility] Primary [place] - [place] [address] [place] [address] Yinka Harrison MD [address] [place] [address] Medication Refill Social History Tobacco [...] encounter Miscellaneous Notes * Telephone Encounter - Makayla Arreguin RN - 05/24/2023 9:22 AM CDT Medication(s) refilled and signed per [facility] Chronic Medication Refill Standing Order for Pediatricand Adult Patients. Requested Prescriptions Pending Prescriptions Disp Refills ??? hydroCHLOROthiazide 12.5 MG Tablet [Pharmacy Med Name: HYDROCHLOROTHIAZIDE 12.5MG TABLET] 90 Tablet 2 Sig: TAKE ONE (1) TABLET BY MOUTH DAILY. Diuretics Protocol Passed - 05/24/2023 9:19 AM Passed - Serum potassium on record [...] Dept 04/17/23 Office Visit Yinka Harrison MD [facility] Showing recent visits within past 365 days and meeting all other requirements Future Appointments No visits were found meeting these conditions. Showing future appointments within next 90 days and meeting all other requirements Passed - GFR on record in past 12 months GFR, EST. Date Value Ref Range Status 04/20/2023 >60 >=60 Final Refused Prescriptions Disp Refills ??? rosuvastatin (CRESTOR) 10 MG Tablet [Pharmacy Med Name: ROSUVASTATIN CALCIUM 10MG TABLET] 90 Tablet 3 Sig: TAKE 1 TABLET BY MOUTH DAILY. Hmg CoA Reductase Inhibitors Protocol Passed - 05/24/2023 9:19 AM Passed - Visit with relevant provider in past 12 months or upcoming 90 days Recent Visits Date Type Provider Dept 04/17/23 Office Visit Yinka Harrison MD [facility] Showing recent visits within past [...] Value Ref Range Status 04/20/2023 No Final * Telephone Encounter - Makayla Arreguin RN - 05/24/2023 9:20 AM CDT The original prescription was reordered on 07/20/2022 by Yinka Harrison MD. Renewing this prescription may not be appropriate. documented in this encounter Plan of Treatment Upcoming Encounters Date Type Department Care Team (Latest Contact Info) Description 09/23/2024 10:45 AM STAND IN Physical Therapy [facility] Rehab at [facility] [address] [place] [address] Dave Fernando MD [address] [place] [address] Lucy Garduno, PT [place] Discharge Disposition: Discharged to home or Selfcare 11/22/2024 10:15 AM CDT [facility] 1 [place] [address] Yinka Harrison MD [address] [place] [address] Discharge Disposition: Discharged to home or Selfcare 06/13/2025 10:30 AM CDT Office Visit [facility] - Primary Care - [place] [address] [place] [address] Yinka Harrison MD [address] [place] [address] documented as of this encounter Visit Diagnoses Diagnosis Hyperlipidemia Mixed hyperlipidemia documented in this encounter Additional Health Concerns Assessment Noted Time PHQ-9 Depression Total Score: 0 03/10/20 21 10:00 AM CDT documented as of this encounter Care Teams Fund Manager Relationship Specialty Start Date End Date Yinka Harrison MD [address] [place] [address] PCP - General Internal Medicine 07/27/18 Dave Fernando MD [address] [place] [address] Consulting Physician Orthopaedic Surgery 02/20/19 Merari Mclean LSW [place] Drill Rig Operator Helper 05/05/23 07/04/23 documented as of this encounter
--- OUTSIDE RECORDS SUMMARY | 2024-09-22 13:04 | XMS_ITS | Encounter Summary ---
Author Organization [facility] Address [address] [place] [address] Phone Care Team Providers Care Manager Manufacturing Name Role Phone Yinka Harrison MD Primary Care Provider [phone] Dave Fernando MD Unavailable [phone] Reason for Visit * Reason Comments Medication Refill Encounter Details Date Type Department Care Team (Late st Contact Info) Description 07/31/[address] [facility] - [place] [address] [place] [address] Yinka Harrison MD [address] [place] [address] Medication Refill Social History Tobacco [...] Telephone Encounter - Yinka Harrison MD - 08/01/2023 7:41 AM JEWELRY DIPPER Location was filled for 2 months on July 04, 2023. LRY DIPPER * Telephone Encounter - Kamla Lowry RN - 08/01/2023 7:33 AM CST Medication failed the protocol, provider to review and approve the medication order if appropriate. Requested Prescriptions Pending Prescriptions Disp Refills traMADol (ULTRAM) 50 MG Tablet [Pharmacy Med Name: TRAMADOL HCL 50MG TABLET] 30 Tablet 1 Sig: Take 1 Tablet by mouth every 8 hours as needed for Moderate or more severe pain. Not Delegated - Opioid Agonists Protocol Failed - 07/31/2023 5:55 PM Failed - This refill cannot be delegated Passed - Visit with relevant provider in past 12 months or upcoming 90 days Recent Visits Date Type Provider Dept 04/17/23 Office Visit Yinka Harrison MD [facility] Showing recent visits within past 365 days and meeting all other requirements Future Appointments No visits were found meeting these conditions. Showing future appointments within next 90 days and meeting all other requirements LRY DIPPER documented in this encounter Plan of Treatment Upcoming Encounters Date Type Department Care Team (Latest Contact Info) Description 09/23/2024 10:45 AM JEWELRY DIPPER [facility] [address], [address] [place] [address] Dave Fernando MD [address] [place] [address] Lucy Garduno, [place] Discharge Disposition: Discharged to home or Selfcare 11/22/2024 10:15 AM CDT Appointment [facility] Mammography 1 [place] [address] Yinka Harrison MD [address] [place] [address] Discharge Disposition: Discharged to home or Selfcare 06/13/2025 10:30 AM CDT Office Visit [facility] - Primary Care - [place] [address] [place] [address] Yinka Harrison MD [address] [place] [address] documented as of this encounter Visit Diagnoses Diagnosis Arthritis Arthropathy, unspecified, site unspecified Chronic pain of right knee Rheumatoid arthritis involving multiple sites with positive rheumatoid factor (HCC) documented in this encounter Additional Health Concerns Assessment Noted Time PHQ-9 Depression Total Score: 0 03/10/20 21 10:00 AM CDT documented as of this encounter Care Teams Manager Manufacturing Relationship Specialty Start Date End Date Yinka Harrison MD [address] [place] [address] PCP - General Internal Medicine 07/27/18 Dave Fernando MD [address] [place] [address] Consulting Physician Orthopaedic Surgery 02/20/19 documented as of this encounter
--- OUTSIDE RECORDS SUMMARY | 2024-09-22 13:04 | XMS_ITS | Encounter Summary ---
Author Organization [facility] Address [address] [facility] [place] [address] Phone Care Team Providers Care Branch Or Department Chief Librarian Name Role Phone Yinka Harrison MD Primary Care Provider [phone] Dave Fernando MD Unavailable [phone] Merari Mclean Unavailable Unavailab le Reason for Visit * Reason Comments Care Management Bi weekly monitoring Encounter Details Date Type Department Care Team (Late st Contact Info) Description 06/01/2023 Care Management [facility] [employer] [facility] [facility] Management [address] [place] [address] Merari Mclean LSW [place] Care Management (Bi weekly monitoring) Social History Tobacco Use Types Packs/Day Years [...] Progress Notes * Merari Mclean LSW - 06/01/2023 3:21 PM CDT [employer] Network Associate Management Biweekly Monitoring Call: Contact made with patient Reviewed Mutually Agreed Upon Goals: 1) I will have [facility] Sister[facility] Sarah and/or Medicare B (High Priority Goal): Goal deleted. Patient declines to apply for [facility] financial assistance, she is on a payment plan with [facility] and is good with that. She also declines to apply for Medicare B as she would have a penalty due to late enrollment. 2) I will complete [facility] advance care planning: On Track. Patient has the ACP packet but reports she has not had time to fill it out. Will try to work on this soon and mail back to [facility]. Other Concerns (if applicable): None Next Steps: 1. Patient will fill out ACP packet Follow up: Patient agreeable to follow up in 1 month. (patient denies need for any further weekly calls, asking for time to complete next step) Callback set: yes Please call Respiratory Manager EMILI CHADWICK @ [phone] for any needs/concerns. documented in this encounter Plan of Treatment Upcoming Encounters Date Type Department Care Team (Latest Contact Info) Description 09/23/2024 10:45 AM SHELL SHOP SUPERVISOR Physical Therapy [facility] at [facility] [address] [place] [address] Dave Fernando MD [address] [place] [address] Lucy Garduno, [place] Discharge Disposition: Discharged to home or Selfcare 11/22/2024 10:15 AM CDT [facility] [place] [address] Yinka Harrison MD [address] [place] [address] Discharge Disposition: Discharged to home or Selfcare 06/13/2025 10:30 AM CDT Office Visit [facility] - Primary Care - [place] [address] [place] [address] Yinka Harrison MD [address] [place] [address] documented as of this encounter Visit Diagnoses Not on filedocumented in this encounter Additional Health Concerns Assessment Noted Time PHQ-9 Depression Total Score: 0 03/10/20 21 10:00 AM CDT documented as of this encounter Care Teams Branch Or Department Chief Librarian Relationship Specialty Start Date End Date Yinka Harrison MD [address] [place] [address] PCP - General Internal Medicine 07/27/18 Dave Fernando MD [address] [place] [address] Consulting Physician Orthopaedic Surgery 02/20/19 Merari Mclean LSW [place] Respiratory Manager 05/05/23 07/04/23 documented as of this encounter
--- OUTSIDE RECORDS SUMMARY | 2024-09-22 13:04 | XMS_ITS | Encounter Summary ---
Author Organization [facility] Address [address] [place] [address] Phone Care Team Providers Care Bituminous Paving Machine Operator Name Role Phone Yinka Harrison MD Primary Care Provider [phone] Dave Fernando MD Unavailable [phone] Reason for Visit * Reason Comments Rash Left forearm Encounter Details Date Type Department Care Team (Late st Contact Info) Description 12/27/2023 8:30 AM CDT Office Visit [facility] - Primary Care - [place] [address] [place] [address] Yinka Harrison MD [address] [place] [address] Herpes zoster without complication (Primary Dx) Discharge Disposition: Discharged to home or Selfcare Social History Tobacco Use Types Packs/Day Years Used Date Smoking Tobacco: Former Smokeless Tobacco: Never Tobacco Cessation:Counseling Given: Not Answered Alcohol Use Standard Drinks/Week Comments No 0 (1 standard drink = 0.6 oz pur e alcohol) [facility] Utilities Answer Date Recorded In the past 12 months has [employer], gas, oil, or water [place] threatened to shut off services in your [...] 12/26/2023 How often do you attend chur or anabaptism services? More than 4 times per year 12/26/2023 Do you belong to any clubs o r organizations such as faith groups, unions, fraternal or athletic groups, or [...] Total Score - Questions 1-9 0 12/10 [facility] of Occupat ional [facility] - Occupational Stress Questionnaire Answer Date [...] a care home (including now)? No 12/26/2023 Education Answer Date [...] Sign Reading Time Taken Comments Blood Pressure 144/60 12/27/2023 8:34 AM CDT Pulse 98 12/27/2023 8:34 AM CDT Temperature 36.3 ??C (97.4 ??F) 12/27/2023 8:34 AM CD T Respiratory Rate 14 12/27/2023 8:34 AM CDT Oxygen Saturation 98% 12/27/2023 8:34 AM CDT Inhaled Oxygen Concentration - - Weight 95.3 kg (210 lb) 12/27/2023 8:34 AM CDT Height 160 cm (5' 3 ) 12/27/2023 8:34 AM CDT Body Mass Index 37.2 12/27/2023 8:34 AM CDT documented in this encounter Functional Status * Question Answer [...] Ahn RMA documented as of this encounter Progress Notes * Shan Ahn RMA - 12/27/2023 8:30 AM CDT Sriram Srinivasan, 63 y.o., female is here for Rash (Left forearm) Medication Refills: Patient reports/denies need for medication [...] Take 1,000 mg by mouth daily. Yes ProviderRosendo MD hydroCHLOROthiazide 12.5 MG Tablet TAKE [...] needed for Moderate or more severe pain. 11/05/23 Yes Yinka Harrison MD There are no discontinued medications. I have reviewed the home medication list with the patient and have reconciled discrepancies. The list is accurate to the best of my knowledge. Smoking Status: Social History Tobacco Use Smoking status: Former Smokeless tobacco: Never Substance Use Topics Alcohol use: No Alcohol/week: 0.0 oz Drug use: No Smoking Cessation Counseling Given: n/a Health Care Maintenance: Health Maintenance Due Topic Date Due Hepatitis C Virus (HCV) Screening Never done TdaP Immunization Never done Zoster Immunization (1 of 2) Never done Respiratory Syncytial Virus (RSV) Immunization (Adult - or age 60+ years) (1 - 1-dose 60+ series) Never done Colorectal Cancer Screening 05/14/2020 SARS-COV-2 Immunization (2022- season) 2023 Orders Pended: no * Yinka Harrison MD - 12/27/2023 8:30 AM CDT Images from the original note were not included. Subjective: Subjective HPI Patient presents because of a rash on her left forearm. This began about 3 days ago. She describesit as pruritic and ???tingly?? . No other associated symptoms. Review of Systems Constitutional: Negative. HENT: Negative. Eyes: Negative. Respiratory: Negative. Cardiovascular: Negative. Gastrointestinal: Negative. Endocrine: Negative. Genitourinary: Negative. Musculoskeletal: Negative. Skin: Positive for rash (Left forearm). Allergic/Immunologic: Negative. Neurological: Negative. Hematological: Negative. Psychiatric/Behavioral: [...] warm and dry. Findings: Erythema and rash (Hyperesthesia) present. Rash is macular and papular. Neurological: Mental Status: She is alert and oriented to person, place, and time. Psychiatric: Attention and Perception: Attention normal. Mood and Affect: Mood is anxious (slight). Speech: Speech normal. Behavior: Behavior normal. Thought Content: Thought content normal. Judgment: Judgment normal. Assessment and Plan Assessment & Plan See Diagnoses, Orders, Follow-up, and Instructions Problem List Items Addressed This Visit None Visit Diagnoses Herpes zoster without complication - Primary Relevant Medications valACYclovir (Valtrex) 1 GM Tablet Valtrex prescribed for the shingles. Advised to use OTC hydrocortisone for any itching that she experiences. I have also suggested that she consider getting the shingles vaccine when all is said and done. Follow-up as scheduled. I have seen and examined the patient on today's date. Documentation for this visit was completed using the assistance of a template. Everything documented in this visit was personally performed todaywith the necessary additions, deletions and changes. documented in this encounter Plan of Treatment Upcoming Encounters Date Type Department Care Team (Latest Contact Info) Description 09/23/2024 10:45 AM LEAN PROCESS DEPLOYMENT CONSULTANT Physical Therapy [facility] at [facility] [address] [place] [address] Dave Fernando MD [address] [place] [address] Lucy Garduno, [place] Discharge Disposition: Discharged to home or Selfcare 11/22/2024 10:15 AM CDT Appointment [facility] Mammography 1 [place] [address] Yinka Harrison MD [address] [place] [address] Discharge Disposition: Discharged to home or Selfcare 06/13/2025 10:30 AM CDT Office Visit [facility] - Primary Care - [place] [address] [place] [address] Yinka Harrison MD [address] [place] [address] documented as of this encounter Visit Diagnoses Diagnosis Herpes zoster without complication- Primary documented in this encounter Additional Health Concerns Assessment Noted Time PHQ-9 Depression Total Score: 0 12/27/19 24 8:35 AM CDT documented as of this encounter Care Teams Bituminous Paving Machine Operator Relationship Specialty Start Date End Date Yinka Harrison MD [address] [place] [address] PCP - General Internal Medicine 07/27/18 Dave Fernando MD [address] [place] [address] Consulting Physician Orthopaedic Surgery 02/20/19 documented as of this encounter
--- OUTSIDE RECORDS SUMMARY | 2024-09-22 13:04 | XMS_ITS | Encounter Summary ---
Author Organization [facility] Address [address] [facility] [place] [address] Phone Care Team Providers Care Strainer Tender Name Role Phone Yinka Amezcua MD Primary Care Provider [phone] Dave Fernando MD Unavailable [phone] Merari Mclean [facility] Unavailable Unavailab le Reason for Visit * Reason Onset Date Comments Medication Management 06/13/2023 Follow-up 06/13/2023 Encounter Details Date Type Department Care Team (Late st Contact Info) Description 06/13/2023 Telephone [facility] [address] [place] [address] Yinka Amezcua MD [address] [place] [address] Medication Management; Follow-up Social History Tobacco Use Types Packs/Day [...] Telephone Encounter - Mariposa Castelan RN - 06/14/2023 9:47 AM CDT Attempted to call patient with PCP response, no answer at this time. Left message to check with pharmacy for Rx. * Addendum Note - Yinka Amezcua MD - 06/14/2023 8:59 AM CDTAddended by: YINKA AMEZCUA on: 06/14/2023 08:59 AM Modules accepted: Orders * Telephone Encounter - Yinka Amezcua MD - 06/14/2023 8:58 AM CDT Rosuvastatin refilled. * Telephone Encounter - Tianna Bcukley RN - 06/14/2023 8:52 AM CDT Patient returning phone call. Patient still needing a script sent to pharmacy for 90 day supply of the rosuvastatin 20mg. Patient is out of the medication. Please advise * Telephone Encounter - Yinka Amezcua MD - 06/14/2023 8:17 AM CDT Yes, she should be taking the 20 mg dosage. I am not certain how she has been getting the 10 mg dosage filled since that script was discontinued last July when the 20 mg dosage was approved. Thiswould suggest a pharmacy error. * Telephone Encounter - Mariposa Castelan RN - 06/13/2023 2:04 PM CDT Phoned patient. She states she was unaware that she needed to increase the crestor as ordered on 07/20/22. Had been filling her medications on an old prescription. Last filled for the 10 mg dosing on02/17/23 for 90-days. Has ran out and now needs refills. Should this be increased to the 20 mg now? * Telephone Encounter - Manisha Lyle - 06/13/2023 1:06 PM CDT RFC: Sriram Srinivasan called regarding her refill request for her Crestor (rosuvastatin). The pharmacyindicated that it was for 20 mg and she indicated her bottle says only 10mg. She would like to speak with someone regarding this and get it refilled as soon as possible.. Please call Sriram (relationship to patient self) back regarding above referenced patient. Patient's Provider is Christy. documented in this encounter Plan of Treatment Upcoming Encounters Date Type Department Care Team (Latest Contact Info) Description 09/23/2024 10:45 AM MARINE PIPEFITTER Physical Therapy [facility] at [facility] [address] [place] [address] Dave Fernando MD [address] [place] [address] Lucy Garduno, PT [place] Discharge Disposition: Discharged to home or Selfcare 11/22/2024 10:15 AM CDT Appointment [facility] Mammography 1 [place] [address] Yinka Amezcua MD [address] [place] [address] Discharge Disposition: Discharged to home or Selfcare 06/13/2025 10:30 AM CDT Office Visit [facility] - Primary Care - [place] [address] [place] [address] Yinka Amezcua MD [address] [place] [address] documented as of this encounter Visit Diagnoses Diagnosis Hyperlipidemia Mixed hyperlipidemia documented in this encounter Additional Health Concerns Assessment Noted Time PHQ-9 Depression Total Score: 0 03/10/20 21 10:00 AM CDT documented as of this encounter Care Teams Strainer Tender Relationship Specialty Start Date End Date Yinka Amezcua MD [address] [place] [address] PCP - General Internal Medicine 07/27/18 Dave Fernando MD [address] [place] [address] Consulting Physician Orthopaedic Surgery 02/20/19 Merari Mclean LSW [place] Die Keeper 05/05/23 07/04/23 documented as of this encounter
--- OUTSIDE RECORDS SUMMARY | 2024-09-22 13:04 | XMS_ITS | Encounter Summary ---
Author Organization [facility] Address [address] [place] [address] Phone Care Team Providers Care Mixer Runner Name Role Phone Yinka Harrison MD Primary Care Provider [phone] Dave Fernando MD Unavailable [phone] Reason for Visit * Reason Comments Patient Outreach referral Encounter Details Date Type Department Care Team (Late st Contact Info) Description 04/18/2023 Care Management [facility] Sole Trimmer Management [address] [place], [place] [id number] Magalie Atwood, [place] Patient Outreach (referral) Social History Tobacco Use Types Packs/Day Years [...] as of this encounter Progress Notes * Magalie Atwood LPN - 04/18/2023 11:32 AM CDT Patient referral in PCP workque for AMB Care Management. Referral note from [facility] /PCP- Yinka Harrison MD. Referral received for issues with insurance. CM outreach placed to patient today to offer SW CM (Merari) Care Management assistance. Spoke with client Insurance carrier: Medicare hose tubing backer needed: pending SW discretion ACP (POA paperwork): No Discussion record: No Scheduled phone assessment with Merari PRESTON on 05-05-23 at 2 PM. Welcome letter sent Yes HRA/History sent via [employer]: No Routed information to Merari PRESTON as FYI. documented in this encounter Plan of Treatment Upcoming Encounters Date Type Department Care Team (Latest Contact Info) Description 09/23/2024 10:45 AM OPERATIONS BOARDMAN Physical Therapy [facility] at [facility] [address] [place] [address] Dave Fernando MD [address] [place] [address] Lucy Garduno, PT [place] Discharge Disposition: Discharged to home or Selfcare 11/22/2024 10:15 AM CDT [facility] 1 [facility] [place] [address] Yinka Harrison MD [address] [place] [address] Discharge Disposition: Discharged to home or Selfcare 06/13/2025 10:30 AM CDT Office Visit [facility] - Primary Care - [place] [address] [place] [address] Yinka Harrison MD [address] [place] [address] documented as of this encounter Procedures Procedure Name Priority Date/Time Associated Diagnosis Comments PATIENT CARE MGMT EVAL REFERRAL Routine 04/18/2023 12:04 PM CDT Encounter for health maintenance examination (Adult) documented in this encounter Results * PATIENT CARE MGMT EVAL REFERRAL (04/18/2023 12:04 PM CDT) us Yinka Harrison MD OUTPT REFERRALS EXT/INT F inal Result documented in this encounter Visit Diagnoses Diagnosis Encounter for health maintenance examination (Adult) Unspecified general medical examination documented in this encounter Additional Health Concerns Assessment Noted Time PHQ-9 Depression Total Score: 0 03/10/20 21 10:00 AM CDT documented as of this encounter Care Teams Mixer Runner Relationship Specialty Start Date End Date Yinka Harrison MD [address] [place] [address] PCP - General Internal Medicine 07/27/18 Dave Fernando MD [address] [place] [address] Consulting Physician Orthopaedic Surgery 02/20/19 documented as of this encounter
--- OUTSIDE RECORDS SUMMARY | 2024-09-22 13:04 | XMS_ITS | Encounter Summary ---
Author Organization [facility] Address [address] [place] [address] Phone Care Team Providers Care Project Mgr Name Role Phone Yinka Harrison MD Primary Care Provider [phone] Dave Fernando MD Unavailable [phone] Merari Mclean [facility] Unavailable Unavailab le Reason for Visit * Reason Comments Medication Refill Encounter Details Date Type Department Care Team (Late st Contact Info) Description 07/04/2023 Refill [facility] Primary Care - [place] [address] [place] [address] Yinka Harrison MD [address] [place] [address] Medication Refill Social History Tobacco [...] Telephone Encounter - Kamla Lowry, RN - 07/04/2023 9:55 AM CDT Duplicate request. documented in this encounter Plan of Treatment Upcoming Encounters Date Type Department Care Team (Latest Contact Info) Description 09/23/2024 10:45 AM ROOFING LABORER Physical Therapy [facility] at [facility] [address] [place] [address] Dave Fernando MD [address] [place] [address] Lucy Garduno, PT [place] Discharge Disposition: Discharged to home or Selfcare 11/22/2024 10:15 AM CDT [facility] [place] [address] Yinka Harrison MD [address] [place] [address] Discharge Disposition: Discharged to home or Selfcare 06/13/2025 10:30 AM CDT Office Visit [facility] - Primary Care - [place] [address] [place] [address] Yinka Harrison MD [address] [place] [address] documented as of this encounter Visit Diagnoses Diagnosis Arthritis Arthropathy, unspecified, site unspecified Chronic pain of right knee Rheumatoid arthritis involving multiple sites with positive rheumatoid factor (HCC) documented in this encounter Additional Health Concerns Assessment Noted Time PHQ-9 Depression Total Score: 0 03/10/20 21 10:00 AM CDT documented as of this encounter Care Teams Project Mgr Relationship Specialty Start Date End Date Yinka Harrison MD [address] [place] [address] PCP - General Internal Medicine 07/27/18 Dave Fernando MD [address] [place] [address] Consulting Physician Orthopaedic Surgery 02/20/19 Merari Mclean LSW [place] Goldbeater 05/05/23 07/04/23 documented as of this encounter
--- OUTSIDE RECORDS SUMMARY | 2024-09-22 13:04 | XMS_ITS | Encounter Summary ---
Author Organization [facility] Address [address] [place] [address] Phone Care Team Providers Care Millinery Blocker Name Role Phone Yinka Harrison MD Primary Care Provider [phone] Dave Fernando MD Unavailable [phone] Reason for Visit * Reason Comments Medication Refill Encounter Details Date Type Department Care Team (Late st Contact Info) Description 04/29/2023 Refill [facility] - [place] [address] [place] [address] Yinka Harrison MD [address] [place] [address] Medication Refill Social History Tobacco [...] In the last 10 days, have stoney u been in contact with someone who was confirmed or suspected to have Coronavirus/COVID-19? No / Unsure 04/20/2023 9:30 AM CDT documented as of this encounter Miscellaneous Notes * Telephone Encounter - Yinka Harrison MD - 05/01/2023 9:20 AM CDT Refill request approved. * Telephone Encounter - Citlaly Esteban RN - 05/01/2023 9:06 AM CDT Medication failed the protocol, provider to review and approve the medication order if appropriate. Requested Prescriptions Pending Prescriptions Disp Refills traMADol (ULTRAM) 50 MG Tablet [Pharmacy Med Name: TRAMADOL HCL 50MG TABLET] 30 Tablet 1 Sig: Take 1 Tablet by mouth every 8 hours as needed for Moderate or more severe pain. Not Delegated - Opioid Agonists Protocol Failed - 04/29/2023 12:55 PM Failed - This refill cannot be delegated Passed - Visit with relevant provider in past 12 months or upcoming 90 days Recent Visits Date Type Provider Dept 04/17/23 Office Visit Yinka Harrison MD [facility] Showing recent visits within past 365 days and meeting all other requirements Future Appointments No visits were found meeting these conditions. Showing future appointments within next 90 days and meeting all other requirements documented in this encounter Plan of Treatment Upcoming Encounters Date Type Department Care Team (Latest Contact Info) Description 09/23/2024 10:45 AM EQUALIZER OPERATOR Physical Therapy [facility] at [facility] [address], [address] [place] [address] Dave Fernando MD [address] [place] [address] Lucy Garduno, [place] Discharge Disposition: Discharged to home or Selfcare 11/22/2024 10:15 AM CDT [facility] [place] [address] Yinka Harrison MD [address] [place] [address] Discharge Disposition: Discharged to home or Selfcare 06/13/2025 10:30 AM CDT Office Visit [facility] - Primary Care - [place] [address] [place] [address] Yinka Harrison MD [address] [place] [address] documented as of this encounter Visit Diagnoses Diagnosis Arthritis Arthropathy, unspecified, site unspecified Chronic pain of right knee Rheumatoid arthritis involving multiple sites with positive rheumatoid factor (HCC) documented in this encounter Additional Health Concerns Assessment Noted Time PHQ-9 Depression Total Score: 0 03/10/20 21 10:00 AM CDT documented as of this encounter Care Teams Millinery Blocker Relationship Specialty Start Date End Date Yinka Harrison MD [address] [place] [address] PCP - General Internal Medicine 07/27/18 Dave Fernando MD [address] [place] [address] Consulting Physician Orthopaedic Surgery 02/20/19 documented as of this encounter
--- OUTSIDE RECORDS SUMMARY | 2024-09-22 13:04 | XMS_ITS | Encounter Summary ---
Author Organization [facility] Address [address] [place] [address] Phone Care Team Providers Care Paid Intern Name Role Phone Yinka Harrison MD Primary Care Provider [phone] Dave Fernando MD Unavailable [phone] Encounter Details Date Type Department Care Team (Late st Contact Info) Description 02/26/2024 Telephone [facility] [address] [place] [address] Yinka Harrison MD [address] [place] [address] Social History Tobacco Use Types Packs/Day Years Used Date Smoking Tobacco: Former Smokeless Tobacco: Never Alcohol Use Standard Drinks/Week Comments No 0 (1 standard drink = 0.6 oz pur e alcohol) [facility] Utilities Answer Date Recorded In the past 12 months has [employer], gas, oil, or water [employer] threatened to shut off services in your [...] week 02/26/2024 How often do you attend [facility] or congregational services? More than 4 times per year 02/26/2024 Do you belong to any clubs o r organizations such as scientologist groups, unions, fraternal or athletic groups, or [...] Total Score - Questions 1-9 0 12/10 [facility] - Occupational Stress Questionnaire Answer [...] Assessment Author No 02/26/2024 8:46 AM CDT Saurabh, Maxime J * Within the last year, have you been kicked, hit, slapped, or otherwise physically hurt by your partner or ex-partner? Answer Date of Assessment Author No 02/26/2024 8:46 AM CDT Maxime Wiley Q1: How often do you have a drink containing alcohol? Answer Date of Assessment Author Never 02/26/2024 8:46 AM CDT Maxime Wiley * Q2: How many drinks containing alcohol [...] (Latest Contact Info) Description 09/23/2024 10:45 AM BRIM SETTER Physical Therapy [facility] at [facility] [address] [facility], [address] [place] [address] Dave Fernando MD [address] [place] [address] Lucy Garduno, [place] Discharge Disposition: Discharged to home or Selfcare 11/22/2024 10:15 AM CDT [facility] [place] [address] Yinka Harrison MD [address] [place] [address] Discharge Disposition: Discharged to home or Selfcare 06/13/2025 10:30 AM CDT Office Visit [facility] - Primary Care - [place] [address] [place] [address] Yinka Harrison MD [address] [place] [address] documented as of this encounter Visit Diagnoses Not on filedocumented in this encounter Additional Health Concerns Assessment Noted Time PHQ-9 Depression Total Score: 0 12/27/19 24 8:35 AM CDT documented as of this encounter Care Teams Paid Intern Relationship Specialty Start Date End Date Yinka Harrison MD [address] [place] [address] PCP - General Internal Medicine 07/27/18 Dave Fernando MD [address] [place] [address] Consulting Physician Orthopaedic Surgery 02/20/19 documented as of this encounter
--- OUTSIDE RECORDS SUMMARY | 2024-09-22 13:05 | XMS_ITS | Encounter Summary ---
Author Organization [facility] Address [address] [place] [address] Phone Care Team Providers Care General Cleaner Name Role Phone Yinka Harrison MD Primary Care Provider [phone] Dave Fernando MD Unavailable [phone] Reason for Visit * Reason Comments Medication Refill Encounter Details Date Type Department Care Team (Late st Contact Info) Description 08/25/2022 [facility] - [place] [address] [place] [address] Yinka Harrison MD [address] [place] [address] Medication Refill Social History Tobacco [...] Telephone Encounter - Yinka Harrison MD - 08/25/2022 9:17 AM HELMET HAT BRIM CUTTER Refill request approved. ET HAT BRIM CUTTER * Telephone Encounter - Mariposa Castelan RN - 08/25/2022 9:08 AM HELMET HAT BRIM CUTTER Medication failed the protocol, provider to review and approve the medication order if appropriate. Requested Prescriptions Pending Prescriptions Disp Refills traMADol (ULTRAM) 50 MG Tablet [Pharmacy Med Name: TRAMADOL HCL 50MG TABLET] 30 Tablet 0 Sig: TAKE ONE (1) TABLET BY MOUTH EVERY 8 HOURS NEEDED FOR MODERATE OR MORE SEVERE PAIN. Not Delegated - Opioid Agonists Protocol Failed - 08/25/2022 9:04 AM Failed - This refill cannot be delegated Passed - Visit with relevant provider in past 12 months or upcoming 90 days Recent Visits Date Type Provider Dept 04/11/22 Office Visit Yinka Harrison MD [facility] Showing recent visits within past 365 days and meeting all other requirements Future Appointments No visits were found meeting these conditions. Showing future appointments within next 90 days and meeting all other requirements ET HAT BRIM CUTTER documented in this encounter Plan of Treatment Upcoming Encounters Date Type Department Care Team (Latest Contact Info) Description 09/23/2024 10:45 AM HELMET HAT BRIM CUTTER [facility] [address] [place] [address] Dave Fernando MD [address] [place] [address] Lucy Garduno, [place] Discharge Disposition: Discharged to home or Selfcare 11/22/2024 10:15 AM CDT [facility] 1 [place] [address] Yinka Harrison MD [facility] [place] [address] Discharge Disposition: Discharged to home or Selfcare 06/13/2025 10:30 AM CDT Office Visit [facility] - Primary Care - [place] [address] [place] [address] Yinka Harrison MD [address] [place] [address] documented as of this encounter Visit Diagnoses Diagnosis Arthritis Arthropathy, unspecified, site unspecified Chronic pain of right knee Rheumatoid arthritis involving multiple sites with positive rheumatoid factor (HCC) documented in this encounter Additional Health Concerns Assessment Noted Time PHQ-9 Depression Total Score: 0 03/10/20 21 10:00 AM CDT documented as of this encounter Care Teams General Cleaner Relationship Specialty Start Date End Date Yinka Harrison MD [address] [place] [address] PCP - General Internal Medicine 07/27/18 Dave Fernando MD [address] [place] [address] Consulting Physician Orthopaedic Surgery 02/20/19 documented as of this encounter
--- OUTSIDE RECORDS SUMMARY | 2024-09-22 13:05 | XMS_ITS | Encounter Summary ---
Author Organization [facility] Address [address] [place] [address] Phone Care Team Providers Care Data Engineer Name Role Phone Yinka Harrison MD Primary Care Provider [phone] Dave Fernando MD Unavailable [phone] Reason for Visit * Reason Comments Medication Refill Encounter Details Date Type Department Care Team (Late st Contact Info) Description 07/05[facility]2022 [facility] - [place] [address] [place] [address] Lucy Forbes, EVE, MULTIPLE PRESSURE RIVETER OPERATOR [address] [place] [address] Medication Refill Social History Tobacco [...] Telephone Encounter - Kamla Lowry, RN - 07/05/2022 10:25 AM CDT Refill requested too soon. Refilled 07/04/22. documented in this encounter Plan of Treatment Upcoming Encounters Date Type Department Care Team (Latest Contact Info) Description 09/23/2024 10:45 AM POWERED BRIDGE SPECIALIST Physical Therapy [facility] at [facility] [address] [place] [address] Dave Fernando MD [address] [place] [address] Lucy Garduno, [place] Discharge Disposition: Discharged to home or Selfcare 11/22/2024 10:15 AM CDT [facility] [place] [address] Yinka Harrison MD [address] [place] [address] Discharge Disposition: Discharged to home or Selfcare 06/13/2025 10:30 AM CDT Office Visit [facility] - Primary Care - [place] [address] [place] [address] Yinka Harrison MD [address] [place] [address] documented as of this encounter Visit Diagnoses Diagnosis Arthritis Arthropathy, unspecified, site unspecified Chronic pain of right knee Rheumatoid arthritis involving multiple sites with positive rheumatoid factor (HCC) documented in this encounter Additional Health Concerns Assessment Noted Time PHQ-9 Depression Total Score: 0 03/10/20 21 10:00 AM CDT documented as of this encounter Care Teams Data Engineer Relationship Specialty Start Date End Date Yinka Harrison MD [address] [place] [address] PCP - General Internal Medicine 07/27/18 Dave Fernando MD [address] [place] [place] [address] Consulting Physician Orthopaedic Surgery 02/20/19 documented as of this encounter
--- OUTSIDE RECORDS SUMMARY | 2024-09-22 13:05 | XMS_ITS | Encounter Summary ---
Author Organization [facility] Address [address] [place] [address] Phone Care Team Providers Care Secondary Connector Armature Name Role Phone Yinka Harrison MD Primary Care Provider [phone] Dave Fernando MD Unavailable [phone] Reason for Visit * Reason Comments Medication Refill Encounter Details Date Type Department Care Team (Late st Contact Info) Description 06/09/2022 [facility] [place] [address] [place] [address] Yinka Harrison MD [address] [place] [address] Medication Refill Social History Tobacco [...] Telephone Encounter - Mariposa Castelan RN - 06/09/2022 11:11 AM CDT Medication(s) [facility] and [facility] Med[facility] Refill Standing Order for Pediatricand Adult Patients. Requested Prescriptions Pending Prescriptions Disp Refills ??? amLODIPine (NORVASC) 10 MG Tablet [Pharmacy Med Name: AMLODIPINE BESYLATE 10MG TABLET] 90 Tablet 3 Sig: TAKE ONE (1) TABLET BY MOUTH DAILY. Calcium-Channel Blockers Protocol Passed - 06/09/2022 10:39 AM Passed - BP on record in the past year Clinician-entered: BP Readings from Last 3 Encounters: 04/11/22 120/72 03/10/21 138/68 03/09/20 136/80 Patient-entered: No data recorded Passed - Visit with relevant provider in past 12 months or upcoming 90 days Recent Visits Date Type Provider Dept 04/11/22 Office Visit Yinka Harrison MD [facility] Showing recent visits within past 365 days and meeting all other requirements Future Appointments No visits were found meeting these conditions. Showing future appointments within next 90 days and meeting all other requirements documented in this encounter Plan of Treatment Upcoming Encounters Date Type Department Care Team (Latest Contact Info) Description 09/23/2024 10:45 AM PRETZEL TWISTER Physical Therapy [facility] at [facility] [address] [facility], [address] [place] [address] Dave Fernando MD [address] [place] [address] Lucy Garduno, [place] Discharge Disposition: Discharged to home or Selfcare 11/22/2024 10:15 AM CDT Appointment [facility]amm[facility] 1 [place] [address] Yinka Harrison MD [address] [place] [address] Discharge Disposition: Discharged to home or Selfcare 06/13/2025 10:30 AM CDT Office Visit [facility] - Primary Care - [place] [address] [place] [address] Yinka Harrison MD [address] [place] [address] documented as of this encounter Visit Diagnoses Diagnosis Essential hypertension Unspecified essential hypertension documented in this encounter Additional Health Concerns Assessment Noted Time PHQ-9 Depression Total Score: 0 03/10/20 21 10:00 AM CDT documented as of this encounter Care Teams Secondary Connector Armature Relationship Specialty Start Date End Date Yinka Harrison MD [address] [place] [address] PCP - General Internal Medicine 07/27/18 Dave Fernando MD [address] [place] [address] Consulting Physician Orthopaedic Surgery 02/20/19 documented as of this encounter
--- OUTSIDE RECORDS SUMMARY | 2024-09-22 13:05 | XMS_ITS | Encounter Summary ---
Author Organization [facility] Address [address] [place] [address] Phone Care Team Providers Care Pinion Staker Name Role Phone Yinka Harrison MD Primary Care Provider [phone] Dave Fernando MD Unavailable [phone] Reason for Visit * Reason Onset Date Comments Medication Refill 11/02/2022 Encounter Details Date Type Department Care Team (Late st Contact Info) Description 11/02/2022 MyChart RX Renewal [facility] - Primary Care - [place] [address] [place] [address] Yinka Harrison MD [address] [place] [address] Medication Renewal Reviewed Social History [...] Miscellaneous Notes * Telephone Encounter - Yinka Hrarison MD - 11/02/2022 9:00 AM STUDENT SERVICES REP Refill request approved. ENT SERVICES REP * Telephone Encounter - Mariposa Castelan RN - 11/02/2022 8:07 AM STUDENT SERVICES REP Medication failed the protocol, provider to review and approve the medication order if appropriate. Requested Prescriptions Pending Prescriptions Disp Refills traMADol (ULTRAM) 50 MG Tablet 30 Tablet 0 Sig: Take 1 Tablet by mouth every 8 hours as needed for Moderate or more severe pain. Not Delegated - Opioid Agonists Protocol Failed - 11/02/2022 7:49 AM Failed - This refill cannot be delegated Passed - Visit with relevant provider in past 12 months or upcoming 90 days Recent Visits Date Type Provider Dept 04/11/22 Office Visit Yinka Harrison MD [facility] Showing recent visits within past 365 days and meeting all other requirements Future Appointments No visits were found meeting these conditions. Showing future appointments within next 90 days and meeting all other requirements ENT SERVICES REP documented in this encounter Plan of Treatment Upcoming Encounters Date Type Department Care Team (Latest Contact Info) Description 09/23/2024 10:45 AM STUDENT SERVICES REP [facility] [address] [place] [address] Dave Fernando MD [address] [place] [address] Lucy Garduno, [place] Discharge Disposition: Discharged to home or Selfcare 11/22/2024 10:15 AM CDT [facility] 1 [place] [address] Yinka Harrison MD [address] [place] [address] Discharge Disposition: Discharged to home or Selfcare 06/13/2025 10:30 AM CDT Office Visit [facility] - Primary Care - [place] [address] [place] [address] Yinka Harrison MD [address] [place] [address] documented as of this encounter Visit Diagnoses Diagnosis Arthritis Arthropathy, unspecified, site unspecified Chronic pain of right knee Rheumatoid arthritis involving multiple sites with positive rheumatoid factor (HCC) documented in this encounter Additional Health Concerns Assessment Noted Time PHQ-9 Depression Total Score: 0 03/10/20 21 10:00 AM CDT documented as of this encounter Care Teams Pinion Staker Relationship Specialty Start Date End Date Yinka Harrison MD [address] [place] [address] PCP - General Internal Medicine 07/27/18 Dave Fernando MD [address] [place] [address] Consulting Physician Orthopaedic Surgery 02/20/19 documented as of this encounter
--- OUTSIDE RECORDS SUMMARY | 2024-09-22 13:05 | XMS_ITS | Encounter Summary ---
Author Organization [facility] Address [address] [place] [address] Phone Care Team Providers Care Ui Lead Developer Name Role Phone Yinka Harrison MD Primary Care Provider [phone] Dave Fernando MD Unavailable [phone] Encounter Details Date Type Department Care Team (Late st Contact Info) Description 04/15/2022 9:00 AM CDT Lab [facility] - Primary Care - [address] [address] [facility], [facility] Encounter for health maintenance examination (Adult); Hypertension, essential; Hyperlipidemia; Rheumatoid arthritis involving multiple sites with positive rheumatoid factor (HCC) Discharge Disposition: Discharged to home or Selfcare [...] suspected to have Coronavirus/COVID-19? No / Unsure 04/15/2022 8:48 AM CDT documented as of this encounter Progress Notes * Nargis Gage RMA - 04/15/2022 9:00 AM CDT Sriram presents for lab draw per order of Dr. Harrison dated 04/15/22. Specimen collected from right antecubital without incident. sah documented in this encounter Plan of Treatment Upcoming Encounters Date Type Department Care Team (Latest Contact Info) Description 09/23/2024 10:45 AM ROLLING CHAIR PUSHER Physical Therapy [facility] [address] [place] [address] Dave Fernando MD [address] [place] [address] Lucy Garduno, [place] Discharge Disposition: Discharged to home or Selfcare 11/22/2024 10:15 AM CDT Appointment [facility] [place] [address] Yinka Harrison MD [address] [place] [address] Discharge Disposition: Discharged to home or Selfcare 06/13/2025 10:30 AM CDT Office Visit [facility] - Primary Care - [place] [address] [place] [address] Yinka Harrison MD [address] [place] [address] documented as of this encounter Procedures Procedure Name Priority Date/Time Associated Diagnosis Comments CBC WITH AUTO DIFFERENTIAL Today 04/15/2022 8:51 AM CDT Encounter for health maintenance examination (Adult) THYROID STIMULATING HORMONE (TSH) Today 04/15/2022 8:51 AM CDT Encounter for health maintenance examination (Adult) ERYTHROCYTE SEDIMENTATION RATE (ESR) Routine 04/15/2022 8:51 AM CDT Rheumatoid arthritis involving multiple sites with positive rheumatoid factor (HCC) RHEUMATOID FACTOR (RFQT) QUANT Routine 04/15/2022 8:51 AM CDT Rheumatoid arthritis involving multiple sites with positive rheumatoid factor (HCC) LIPID PANEL Routine 04/15/2022 8:51 AM CDT Encounter for health maintenance examination (Adult) Hyperlipidemia CMP (COMPREHENSIVE METABOLIC PANEL) Today 04/15/2022 8:51 AM CDT Encounter for health maintenance examination (Adult) Hypertension, essential COMPLETE BLOOD COUNT (CBC) WITH DIFF Today 04/15/2022 8:51 AM CDT Encounter for health maintenance examination (Adult) documented in this encounter Results * (ABNORMAL) CBC WITH AUTO DIFFERENTIAL (04/15/2022 8:51 AM CDT) WBC 5.82 4.00 - 12.00 10(3)/mcL 04/15/2022 12:37 PM CDT [facility] RBC 3.84 3.80 - 5.30 10(6)/mcL 04/15/2022 12:37 PM CDT [facility] HEMOGLOBIN (HGB) 11.3(L) 12.0 - 15.8 g/dL 04/15/2022 12:37 PM CDT [facility] HEMATOCRIT (HCT) 35.1(L) 36.0 - 47.0 % 04/15/2022 12:37 PM CDT [facility] MCV 91.4 82.0 - 96.0 fL 04/15/2022 12:37 PM CDT [facility] MCH 29.4 26.0 - 34.0 pg 04/15/2022 12:37 PM CDT [facility] MCHC 32.2 31.0 - 36.0 g/dL 04/15/2022 12:37 PM CDT [facility] PLATELET COUNT 300 140 - 440 10(3)/mcL 04/15/2022 12:37 PM CDT [facility] RDW 13.2 11.8 - 15.5 % 04/15/2022 12:37 PM CDT [facility] MPV 10.3 9.7 - 12.4 fL 04/15/2022 12:37 PM CDT [facility] NEUTROPHILS 59.5 47.0 - 73.0 % 04/15/2022 12:37 PM CDT [facility] LYMPHOCYTES 26.3 18.0 - 42.0 % 04/15/2022 12:37 PM CDT [facility] MONOCYTES 12.7(H) 4.0 - 12.0 % 04/15/2022 12:37 PM CDT [facility] EOSINOPHILS 1.0 0.0 - 5.0 % 04/15/2022 12:37 PM CDT [facility] BASOPHILS 0.5 0.0 - 1.0 % 04/15/2022 12:37 PM CDT [facility] ABSOLUTE NEUTROPHILS 3.46 1.60 - 7.70 10(3)/mcL 04/15/2022 12:37 PM CDT [facility] ABSOLUTE LYMPHOCYTES 1.53 1.30 - 3.20 10(3)/[facility] 04/15/2022 12:37 PM CDT [facility] ABSOLUTE MONOCYTES 0.74 0.20 - 1.00 10(3)/[facility] 04/15/2022 12:37 PM CDT [facility] ABSOLUTE EOSINOPHIL 0.06 0.00 - 0.40 10(3)/mcL 04/15/2022 12:37 PM CDT [facility] ABSOLUTE BASOPHILS 0.03 0.00 - 0.10 10(3)/mcL 04/15/2022 12:37 PM CDT [facility] NRBC PER 100 WBC 0 04/15/20 12:37 PM CDT [facility] Blood Venipuncture / Unknown 04/15/2022 8:51 AM CDT 04/15/2022 8:51 AM CDT Yinka Harrison MD HEMATOLOGY ORDERABLES Fin al Result Performing Organization Address [facility] Co de Phone Number [facility] [place] [address] * (ABNORMAL) RHEUMATOID FACTOR (RFQT) QUANT (04/15/2022 8:51 AM CDT) RHEUMATOID FACTOR QT 113(H) <14 IU/mL 04/15/2022 1:47 PM CDT [facility] Blood Venipuncture / Unknown 04/15/2022 8:51 AM CDT 04/15/2022 8:51 AM CDT Narrative [facility] - 04/15/2022 1:47 PM CDT RHEUMATOID FACTORS CAN BE FOUND IN RHEUMATOID ARTHRITIS, SYPHILIS, VIRAL INFECTIONS, LEPROSY, CHRONIC LIVER DISEASE, NEOPLASMS, AND OTHER INFLAMMATORY CONDITIONS. RF PREVALENCE ALSO INCREASES WITH AGE. THUS A POSITIVE TEST IS NOT RESTRICTED TO RA. CONVERSELY, A NEGATIVE TEST DOES NOT RULE OUT RA, RHEUMATOID FACTORS ARE NOT DETECTABLE IN 10% OF ADULTS WITH THE DISEASE. Yinka Harrison MD CHEMISTRY ORDERABLES [place] l Result Performing Organization Address [facility] Co de Phone Number [facility] [place] [address] * (ABNORMAL) ERYTHROCYTE SEDIMENTATION RATE (ESR) (04/15/2022 8:51 AM CDT) ESR (SED RATE, ERYTHROCYTE SEDIMENTATION RATE) 30(H) <30 mm/h 04/15/2022 12:52 PM CDT [facility] Comment: Patients presenting with increased level of fibrinogen, gamma globulins, or abnormally shaped RBCs could affect the results for the erythrocyte sedimentation rate (ESR). Results should be clinically correlated. Blood Venipuncture / Unknown 04/15/2022 8:51 AM CDT 04/15/2022 8:51 AM CDT Yinka Harrison MD HEMATOLOGY ORDERABLES Fin al Result Performing Organization Address City/[facility]/ZIP Co de Phone Number [facility] [place] [address] * THYROID STIMULATING HORMONE (TSH) (04/15/2022 8:51 AM CDT) TSH 0.643 0.270 - 4.200 mIU/L 04/15/2022 1:47 PM CDT [facility] Blood Venipuncture / Unknown 04/15/2022 8:51 AM CDT 04/15/2022 8:51 AM CDT Yinka Harrison MD CHEMISTRY ORDERABLES [place] l Result Performing Organization Address [facility] Co de Phone Number [facility] [place] [address] * (ABNORMAL) LIPID PANEL (04/15/2022 8:51 AM CDT) CHOLESTEROL 321(H) <=200 mg/dL 04/15/2022 1:47 PM CDT [facility] TRIGLYCERIDES 66 <150 mg/dL 04/15/2022 1:47 PM CDT [facility] HDL CHOLESTEROL 62.5 >40 mg/dL 2 1:47 PM CDT [facility] LDL 245(H) 5 - 130 mg/dL 04/15/2022 1:47 PM CDT [facility] VLDL 13 5 - 55 mg/dL 04/15/2022 1:47 PM CDT [facility] CHOL/HDL RATIO 5.1(H) 0.0 - 4.4 04/15/2022 1:47 PM CDT [facility] NON-HDL CHOLESTEROL 258.5(H) <130 mg/dL 04/15/2022 1:47 PM CDT [facility] IS THE PATIENT REQUIRED TO BE FASTING? Yes 04/15/2022 1:47 PM CDT [facility] HAS THE PATIENT BEEN FASTING? Yes 04/15/2022 1:47 PM CDT [facility] Blood Venipuncture / Unknown 04/15/2022 8:51 AM CDT 04/15/2022 8:51 AM CDT us Yinka Harrison MD CHEMISTRY ORDERABLES [place] peacock Result [facility] [place] [address] * (ABNORMAL) CMP (COMPREHENSIVE METABOLIC PANEL) (04/15/2022 8:51 AM CDT) SODIUM 141 136 - 144 mmol/L 04/15/2022 1:47 PM CDT [facility] POTASSIUM 3.7 3.5 - 5.1 mmol/L 04/15/2022 1:47 PM CDT [facility] CHLORIDE 106 100 - 110 mmol/L 04/15/2022 1:47 PM CDT [facility] CO2, VENOUS 23 22 - 32 mmol/L 04/15/2022 1:47 PM CDT [facility] ANION GAP 15.7 8.0 - 20.0 mmol/L 04/15/2022 1:47 PM CDT [facility] GLUCOSE 90 70 - 99 mg/dL 04/15/2022 1:47 PM CDT [facility] BUN 34(H) 8 - 23 mg/dL 04/15/2022 1:47 PM CDT [facility] CREATININE, BLOOD 1.14(H) 0.60 - 1.10 mg/dL 04/15/2022 1:47 PM CDT [facility] BUN/CREATININE RATIO 30(H) 12 - 20 ratio 04/15/2022 1:47 PM T [facility] TOTAL PROTEIN 7.7 6.0 - 8.3 g/dL 04/15/2022 1:47 PM [facility] ALBUMIN 4.4 3.5 - 5.2 g/dL 04/15/2022 1:47 PM [facility] Comment: The colormetric methods used for the determination of Albumin may lead to falsely elevated test results in patients suffering from renal failure or insufficiency due to interference with other proteins. A/G RATIO 1.3 1.0 - 2.0 04/15/2022 1:47 PM [facility] CALCIUM 9.7 8.9 - 10.3 mg/dL 04/15/2022 1:47 PM [facility] T BILI <0.3 <=1.2 mg/dL 04/15/2022 1:47 PM T [facility] SGOT (AST) 21 <=32 U/L 04/15/2022 1:47 PM [facility] SGPT (ALT) 15 <=41 U/L 04/15/2022 1:47 PM [facility] ALKALINE PHOSPHATASE 63 35 - 105 U/L 04/15/2022 1:47 PM [facility] IS THE PATIENT REQUIRED TO BE FASTING? No 04/15/2022 1:47 PM T [facility] GFR, ESTIMATED 54(L) >=60 04/15/2022 1:47 PM [facility] Comment: Creatinine Clearance is the preferred criteria for selecting drug dose adjustments in renally impaired patients. ??The GFR is provided as additional pertinent clinical information. GFR is reported in mL/min/1.73 sq m. Blood Venipuncture / Unknown 04/15/2022 8:51 AM CDT 04/15/2022 8:51 AM CDT us Yinka Harrison MD CHEMISTRY ORDERABLES [place] peacock Result [facility] [place] [address] documented in this encounter Visit Diagnoses Diagnosis Encounter for health maintenance examination (Adult) Unspecified general medical examination Hypertension, essential Unspecified essential hypertension Hyperlipidemia Mixed hyperlipidemia Rheumatoid arthritis involving multiple sites with positive rheumatoid factor (HCC) documented in this encounter Additional Health Concerns Assessment Noted Time PHQ-9 Depression Total Score: 0 03/10/20 21 10:00 AM CDT documented as of this encounter Care Teams Ui Lead Developer Relationship Specialty Start Date End Date Yinka Harrison MD [address] [address] PCP - General Internal Medicine 07/27/18 Dave Fernando MD [address] [place] [address] Consulting Physician Orthopaedic Surgery 02/20/19 documented as of this encounter
--- OUTSIDE RECORDS SUMMARY | 2024-09-22 13:05 | XMS_ITS | Encounter Summary ---
Author Organization [facility] Address [address] [place] [address] Phone Care Team Providers Care Steaming Cabinet Tender Name Role Phone Yinka Harrison MD Primary Care Provider [phone] Dave Fernando MD Unavailable [phone] Reason for Visit * Reason Onset Date Comments Medication Refill 07/03/2022 Encounter Details Date Type Department Care Team (Late st Contact Info) Description 07/03/2022 MyChart RX Renewal [facility] - Primary Care - [place] [address] [place] [address] Yinka Harrison MD [address] [place] [address] Medication Renewal Request Social History Tobacco Use Types Packs/Day Years [...] encounter Miscellaneous Notes * Telephone Encounter - Lucy Fobres APRN, CNP - 07/04/2022 8:12 AM CDT [place] Prescription Monitoring Site reviewed. documented in this encounter Plan of Treatment Upcoming Encounters Date Type Department Care Team (Latest Contact Info) Description 09/23/2024 10:45 AM LICENSED LOAN OFFICER ASSISTANT [facility] [address] [place] [address] Dave Fernando MD [address] [place] [address] Lucy Garduno, PT [place] Discharge Disposition: Discharged to home or Selfcare 11/22/2024 10:15 AM CDT [facility] [place] [address] Yinka Harrison MD [address] [place] [address] Discharge Disposition: Discharged to home or Selfcare 06/13/2025 10:30 AM CDT Office Visit [facility] - Primary Care - [place] [address] [place] [phone] Yinka Harrison MD [address] [place] [address] documented as of this encounter Visit Diagnoses Diagnosis Arthritis Arthropathy, unspecified, site unspecified Chronic pain of right knee Rheumatoid arthritis involving multiple sites with positive rheumatoid factor (HCC) documented in this encounter Additional Health Concerns Assessment Noted Time PHQ-9 Depression Total Score: 0 03/10/20 21 10:00 AM CDT documented as of this encounter Care Teams Steaming Cabinet Tender Relationship Specialty Start Date End Date Yinka Harrison MD [address] [place] [address] PCP - General Internal Medicine 07/27/18 Dave Fernando MD [address] [place] [address] Consulting Physician Orthopaedic Surgery 02/20/19 documented as of this encounter
--- OUTSIDE RECORDS SUMMARY | 2024-09-22 13:05 | XMS_ITS | Encounter Summary ---
Author Organization [facility] [employer] [facility] Care Team Providers Care Hoist Operator Name Role Phone Yinka Harrison MD Primary Care Provider [phone] Dave Fernando MD Unavailable [phone] Encounter Details Date Type Department Care Team (Latest Contact Info) Description 04/11/2022 Travel Social History Tobacco Use Types Packs/Day [...] suspected to have Coronavirus/COVID-19? No / Unsure 04/11/2022 2:23 AM CDT documented as of this encounter Plan of Treatment Upcoming Encounters Date Type Department Care Team (Latest Contact Info) Description 09/23/2024 10:45 AM BRAKE OPERATOR HELPER Physical Therapy [facility] [address] [place] [address] Dave Fernando MD [address] [place] [address] Lucy Garduno, PT [place] Discharge Disposition: Discharged to home or Selfcare 11/22/2024 10:15 AM CDT [facility] 1 [place] [address] Yinka Harrison MD [address] [place] [address] Discharge Disposition: Discharged to home or Selfcare 06/13/2025 10:30 AM CDT Office Visit [facility] - Primary Care - [place] [address] [place] [address] Yinka Harrison MD [address] [place] [address] documented as of this encounter Visit Diagnoses Not on filedocumented in this encounter Additional Health Concerns Assessment Noted Time PHQ-9 Depression Total Score: 0 03/10/20 21 10:00 AM CDT documented as of this encounter Care Teams Hoist Operator Relationship Specialty Start Date End Date Yinka Harrison MD [address] [place] [address] PCP - General Internal Medicine 07/27/18 Dave Fernando MD [address] [place] [address] Consulting Physician Orthopaedic Surgery 02/20/19 documented as of this encounter
--- OUTSIDE RECORDS SUMMARY | 2024-09-22 13:05 | XMS_ITS | Encounter Summary ---
Author Organization [facility] Address [address] [place] [address] Phone Care Team Providers Care Sales Order Coordinator Name Role Phone Yinka Harrison MD Primary Care Provider [phone] Dave Fernando MD Unavailable [phone] Reason for Visit * Reason Comments Medication Refill Encounter Details Date Type Department Care Team (Late st Contact Info) Description 05/04/2022 Refill [facility] Primary Care - [place] [address] [place] [address] Yinka Harrison MD [address] [place] [address] Medication Refill Social History Tobacco [...] Telephone Encounter - Yinka Harrison MD - 05/04/2022 10:12 AM CDT Refill request approved. * Telephone Encounter - Makayla Arreguin RN - 05/04/2022 10:08 AM CDT Medication failed the protocol, provider to review and approve the medication order if appropriate. Requested Prescriptions Pending Prescriptions Disp Refills traMADol (ULTRAM) 50 MG Tablet [Pharmacy Med Name: TRAMADOL HCL 50MG TABLET] 30 Tablet 1 Sig: TAKE ONE (1) TABLET BY MOUTH EVERY 8 HOURS NEEDED FOR MODERATE OR MORE SEVERE PAIN. Not Delegated - Opioid Agonists Protocol Failed - 05/04/2022 9:23 AM Failed - This refill cannot be delegated Passed - Visit with relevant provider in past 12 months or upcoming 90 days Recent Visits Date Type Provider Dept 04/11/22 Office Visit Yinka Harrison MD [facility] Showing recent visits within past 365 days and meeting all other requirements Future Appointments No visits were found meeting these conditions. Showing future appointments within next 90 days and meeting all other requirements * Telephone Encounter - Makayla Arreguin RN - 05/04/2022 10:08 AM CDT Per [place] PDMP last fill date 04/11/22. documented in this encounter Plan of Treatment Upcoming Encounters Date Type Department Care Team (Latest Contact Info) Description 09/23/2024 10:45 AM MECHANICAL DESIGN ENGINEER PRODUCTS Physical Therapy [facility] [place] [facility] [address] [place] [address] Dave Fernando MD [address] [place] [address] Lucy Garduno, PT [place] Discharge Disposition: Discharged to home or Selfcare 11/22/2024 10:15 AM CDT [facility]ment [facility] [address] [place] [address] Yinka Harrison MD [address] [place] [address] Discharge Disposition: Discharged to home or Selfcare 06/13/2025 10:30 AM CDT Office Visit [facility] - Primary Care - [place] [address] [place] [phone] Yinka Harrison MD [address] [place] [address] documented as of this encounter Visit Diagnoses Diagnosis Arthritis Arthropathy, unspecified, site unspecified Chronic pain of right knee Rheumatoid arthritis involving multiple sites with positive rheumatoid factor (HCC) documented in this encounter Additional Health Concerns Assessment Noted Time PHQ-9 Depression Total Score: 0 03/10/20 21 10:00 AM CDT documented as of this encounter Care Teams Sales Order Coordinator Relationship Specialty Start Date End Date Yinka Harrison MD [address] [place] [address] PCP - General Internal Medicine 07/27/18 Dave Fernando MD [address] [place] [address] Consulting Physician Orthopaedic Surgery 02/20/19 documented as of this encounter
--- OUTSIDE RECORDS SUMMARY | 2024-09-22 13:05 | XMS_ITS | Encounter Summary ---
Author Organization [facility] Address [address] [place] [address] Phone Care Team Providers Care Knitter Helper Name Role Phone Yinka Harrison MD Primary Care Provider [phone] Dave Fernando MD Unavailable [phone] Reason for Visit * Reason Comments Medication Refill Encounter Details Date Type Department Care Team (Late st Contact Info) Description 05/12/2022 Refill [facility] Care - [place] [address] [place] [address] Yinka Harrison MD [address] [place] [address] Medication Refill Social History Tobacco [...] encounter Miscellaneous Notes * Telephone Encounter - Jen Zurita RN - 05/12/2022 9:22 AM CDT Medication(s) refilled and signed per [facility] Chronic Medication Refill Standing Order for Pediatricand Adult Patients. Requested Prescriptions Pending Prescriptions Disp Refills ??? hydroCHLOROthiazide 12.5 MG Tablet [Pharmacy Med Name: HYDROCHLOROTHIAZIDE 12.5MG TABLET] 90 Tablet 0 Sig: TAKE ONE (1) TABLET BY MOUTH DAILY. Diuretics Protocol Passed - 05/12/2022 9:06 AM Passed - Serum potassium on record in past 12 months POTASSIUM Date Value Ref Range Status 04/15/2022 3.7 3.5 - 5.1 mmol/L Final Passed - Serum sodium on record in past 12 months SODIUM Date Value Ref Range Status 04/15/2022 141 136 - 144 mmol/L Final Passed - Blood pressure on record in past 12 months Clinician-entered: BP Readings from Last 3 Encounters: 04/11/22 120/72 03/10/21 138/68 03/09/20 136/80 Patient-entered: No data recorded Passed - Visit with relevant provider in past 12 months or upcoming 90 days Recent Visits Date Type Provider Dept 04/11/22 Office Visit Yinka Harrison MD [facility] Showing recent visits within past 365 days and meeting all other requirements Future Appointments No visits were found meeting these conditions. Showing future appointments within next 90 days and meeting all other requirements Passed - GFR on record in past 12 months GFR, EST. Date Value Ref Range Status 03/10/2021 >60 >=60 Final Comment: Creatinine Clearance is the preferred criteria for selecting drug dose adjustments in renally impaired patients. The GFR is provided as additional pertinent clinical information. GFR is reported in mL/min/1.73 sq m. documented in this encounter Plan of Treatment Upcoming Encounters Date Type Department Care Team (Latest Contact Info) Description 09/23/2024 10:45 AM INTRANET SUPPORT Physical Therapy [facility] at [facility] [address] [place] [address] Dave Fernando MD [address] [place] [address] Lucy Garduno, PT [place] Discharge Disposition: Discharged to home or Selfcare 11/22/2024 10:15 AM CDT [facility] [place] [place] [address] Yinka Harrison MD [address] [place] [address] Discharge Disposition: Discharged to home or Selfcare 06/13/2025 10:30 AM CDT Office Visit [facility] - Primary Care - [place] [address] [place] [address] Yinka Harrison MD [address] [place] [address] documented as of this encounter Visit Diagnoses Not on filedocumented in this encounter Additional Health Concerns Assessment Noted Time PHQ-9 Depression Total Score: 0 03/10/20 21 10:00 AM CDT documented as of this encounter Care Teams Knitter Helper Relationship Specialty Start Date End Date Yinka Harrison MD [address] [place] [address] PCP - General Internal Medicine 07/27/18 Dave Fernando MD [address] [place] [address] Consulting Physician Orthopaedic Surgery 02/20/19 documented as of this encounter
--- OUTSIDE RECORDS SUMMARY | 2024-09-22 13:05 | XMS_ITS | Encounter Summary ---
Author Organization [facility] Address [address] [place] [address] Phone Care Team Providers Care Relations Liaison Name Role Phone Yinka Harrison MD Primary Care Provider [phone] Dave Fernando MD Unavailable [phone] Reason for Visit * Reason Onset Date Comments Medication Refill 03/03/2022 Encounter Details Date Type Department Care Team (Late st Contact Info) Description 03/03/2022 MyChart RX Renewal [facility] - Primary Care - [place] [address] [place] [address] Yinka Harrison MD [address] [place] [address] Medication Renewal Request Social History Tobacco Use Types Packs/Day Years Used Date Smoking Tobacco: Former Smokeless Tobacco: Never Alcohol Use Standard Drinks/Week Comments No 0 (1 standard drink = 0.6 oz pur e alcohol) PHQ-2 Answer Date Recorded Total Score - Questions 1-9 0 02/11 Education Answer Date Recorded What is the [...] Telephone Encounter - Yinka Harrison MD - 03/03/2022 11:17 AM CDT Refill request approved. * Telephone Encounter - Mariposa Castelan RN - 03/03/2022 10:58 AM CDT Medication approved and signed per standing order protocol. Tramadol failed protocol. Routed to PCP. documented in this encounter Plan of Treatment Upcoming Encounters Date Type Department Care Team (Latest Contact Info) Description 09/23/2024 10:45 AM MINISTER ASSISTANT Physical Therapy [facility] [address], [address] [place] [address] Dave Fernando MD [address] [place] [address] Lucy Garduno, [place] Discharge Disposition: Discharged to home or Selfcare 11/22/2024 10:15 AM CDT [facility]ment [facility] 1 [place] [address] Yinka Harrison MD [address] [place] [address] Discharge Disposition: Discharged to home or Selfcare 06/13/2025 10:30 AM CDT [facility] - [place] [address] [place] [id number] Yinka Harrison MD [address] [place] [address] documented as of this encounter Visit Diagnoses Diagnosis Essential hypertension Unspecified essential hypertension Arthritis Arthropathy, unspecified, site unspecified Chronic pain of right knee Rheumatoid arthritis involving multiple sites with positive rheumatoid factor (HCC) documented in this encounter Additional Health Concerns Assessment Noted Time PHQ-9 Depression Total Score: 0 03/10/20 21 10:00 AM CDT documented as of this encounter Care Teams Relations Liaison Relationship Specialty Start Date End Date Yinka Harrison MD [address] [place] [address] PCP - General Internal Medicine 07/27/18 Dave Fernando MD [address] [place] [place] [address] Consulting Physician Orthopaedic Surgery 02/20/19 documented as of this encounter
--- OUTSIDE RECORDS SUMMARY | 2024-09-22 13:05 | XMS_ITS | Encounter Summary ---
Author Organization [facility] Address [address] [place] [address] Phone Care Team Providers Care Shuttler Name Role Phone Yinka Harrison MD Primary Care Provider [phone] Dave Fernando MD Unavailable [phone] Reason for Visit * Reason Comments Medication Refill Encounter Details Date Type Department Care Team (Late st Contact Info) Description 02/28/2023 [facility] [place] [address] [place] [address] Yinka Harrison MD [address] [place] [address] Medication Refill Social History Tobacco [...] Telephone Encounter - Yinka Harrison MD - 03/01/2023 7:42 AM CDT Refill request approved. * Telephone Encounter - Citlaly Esteban RN - 02/28/2023 2:56 PM CDT Medication failed the protocol, provider to review and approve the medication order if appropriate. Requested Prescriptions Pending Prescriptions Disp Refills traMADol (ULTRAM) 50 MG Tablet [Pharmacy Med Name: TRAMADOL HCL 50MG TABLET] 30 Tablet 0 Sig: TAKE 1 TABLET BY MOUTH EVERY 8 HOURS NEEDED FOR MODERATE OR MORE SEVERE PAIN. Not Delegated - Opioid Agonists Protocol Failed - 02/28/2023 2:04 PM Failed - This refill cannot be delegated Passed - Visit with relevant provider in past 12 months or upcoming 90 days Recent Visits Date Type Provider Dept 04/11/22 Office Visit Yinka Harrison MD [facility] Showing recent visits within past 365 days and meeting all other requirements Future Appointments Date Type Provider Dept 04/14/23 Appointment Yinka Harrison MD [facility] Showing future appointments within next 90 days and meeting all other requirements documented in this encounter Plan of Treatment Upcoming Encounters Date Type Department Care Team (Latest Contact Info) Description 09/23/2024 10:45 AM AUTISM TUTOR Physical Therapy [facility] Rehab at [facility] [address], [address] [place] [phone] Dave Fernando MD [address] [place] [address] Lucy Garduno, [place] Discharge Disposition: Discharged to home or Selfcare 11/22/2024 10:15 AM CDT Appointment [facility] Mammography 1 [place] [address] Yinka Harrison MD [address] [place] [address] Discharge Disposition: Discharged to home or Selfcare 06/13/2025 10:30 AM CDT Office Visit [facility] - Primary Care - [place] [address] [place] [address] Yinka Harrison MD [address] [place] [address] documented as of this encounter Visit Diagnoses Diagnosis Arthritis Arthropathy, unspecified, site unspecified Chronic pain of right knee Rheumatoid arthritis involving multiple sites with positive rheumatoid factor (HCC) documented in this encounter Additional Health Concerns Assessment Noted Time PHQ-9 Depression Total Score: 0 03/10/20 21 10:00 AM CDT documented as of this encounter Care Teams Shuttler Relationship Specialty Start Date End Date Yinka Harrison MD [address] [place] [address] PCP - General Internal Medicine 07/27/18 Dave Fernando MD [address] [place] [address] Consulting Physician Orthopaedic Surgery 02/20/19 documented as of this encounter
--- OUTSIDE RECORDS SUMMARY | 2024-09-22 13:05 | XMS_ITS | Encounter Summary ---
Author Organization [facility] Address [address] [place] [address] Phone Care Team Providers Care Data Developer Name Role Phone Yinka Harrison MD Primary Care Provider [phone] Dave Fernando MD Unavailable [phone] Reason for Visit * Reason Comments Preventive Care Joint pain in hands, shoulder, wrists. Encounter Details Date Type Department Care Team (Late st Contact Info) Description 04/11/2022 1:30 PM CDT Office Visit [facility] - Primary Care - [place] [address] [place] [address] Yinka Harrison MD [address] [place] [address] Encounter for health maintenance examination (Adult) (Primary Dx); Hypertension, essential; Hyperlipidemia; Rheumatoid arthritis involving multiple [...] AM CDT documented as of this encounter Last Filed Vital Signs Vital Sign Reading Time Taken Comments Blood Pressure 120/72 04/11/2022 1:25 PM CDT Pulse 92 04/11/2022 1:25 PM CDT Temperature 36.4 ??C (97.5 ??F) 04/11/2022 1:25 PM CD T Respiratory Rate 18 04/11/2022 1:25 PM CDT Oxygen Saturation 98% 04/11/2022 1:25 PM CDT Inhaled Oxygen Concentration - - Weight 95.7 kg (211 lb) 04/11/2022 1:25 PM CDT Height 160 cm (5' 3 ) 04/11/2022 1:25 PM CDT Body Mass Index 37.38 04/11/2022 1:25 PM CDT documented in this encounter Progress Notes * Jesi Donaldson, RMA - 04/11/2022 1:30 PM CDT Sriram Srinivasan, 61 y.o., female is here for Preventive Care (Joint pain in hands, shoulder, wrists.) Medication Refills: Patient reports/denies need for medication refills. Orders Pended: no Requested Prescriptions No prescriptions requested or ordered in this encounter Home Medications Medication Sig Start Date End Date Taking? Authorizing Provider amLODIPine (NORVASC) 10 MG Tablet Take 1 Tablet by mouth daily. 03/03/22 Yes Yinka Harrison MD Ascorbic Acid (VITAMIN C PO) Take 500 mg by mouth. Yes ProviderRosendo MD Flaxseed, Linseed, (Flax Seed Oil) 1000 MG Capsule Take 1,000 mg by mouth daily. Yes Rosendo Hussein MD hydroCHLOROthiazide 12.5 MG Tablet TAKE ONE (1) TABLET BY MOUTH DAILY. 01/31/22 Yes Yinka Harrison MD ibuprofen (MOTRIN) 800 MG Tablet TAKE 1 TAB BY MOUTH EVERY 8 HOURS NEEDED FOR MILD OR MORE SEVERE PAIN. 06/22/21 Yes Yinka Harrison MD IRON PO Take by mouth. Yes Provider, MD Rosendo pravastatin (PRAVACHOL) 40 MG Tablet TAKE ONE (1) TABLET BY MOUTH DAILY. 04/06/22 Yes Yinka Harrison MD traMADol (ULTRAM) 50 MG Tablet Take 1 Tablet by mouth every 8 hours as needed for Moderate or more severe pain. 03/14/22 Yes Yinka Harrison MD There are no discontinued medications. I have reviewed the home medication list with the patient and have reconciled discrepancies. The list is accurate to the best of my knowledge. Smoking Status: Social History Tobacco Use ??? Smoking status: Former Smoker ??? Smokeless tobacco: Never Used Substance Use Topics ??? Alcohol use: No Alcohol/week: 0.0 oz ??? Drug use: No Smoking Cessation Counseling Given: no Health Care Maintenance: Health Maintenance Due Topic Date Due ??? Hepatitis B Immunization (1 of 3 - 3-dose series) Never done ??? Zoster Immunization (1 of 2) Never done ??? Colorectal Cancer Screening 05/14/2020 ??? SARS-COV-2 Immunization (3 - Booster for Moderna series) 10/31/2021 Orders Pended: no The following BPA's have been addressed with the patient today: Colonoscopy and Depression * Yinka Harrison MD - 04/11/2022 1:30 PM CDT Subjective: HPI Follow-up for annual fasting well exam. Patient is also followed for hypertension, hyperlipidemia and rheumatoid arthritis. She has her usual diffuse arthralgias, particularly in the hands. She stillclaims no insurance and does not want to be referred to rheumatology for treatment. She did suffer a mild COVID-19 infection in early March. She has not had any of her booster shots. Past medical history, social history, family history and medications have been reviewed. Review of Systems Constitutional: Negative. HENT: Negative. Eyes: Negative. Respiratory: Negative. Cardiovascular: Negative. Gastrointestinal: Negative. Endocrine: Negative. Genitourinary: Negative. Musculoskeletal: Positive for arthralgias (diffuse). Skin: Negative. Allergic/Immunologic: Negative. Neurological: Negative. Hematological: Negative. Psychiatric/Behavioral: Negative. Objective: Physical Exam Constitutional: Appearance: She is well-developed. Comments: Transfers with minimal difficulty. HENT: Head: Normocephalic. Right Ear: External ear normal. Left Ear: External ear normal. Nose: Nose normal. Eyes: General: Lids are normal. Conjunctiva/sclera: Conjunctivae [...] Palpations: Abdomen is soft. There is no mass. Tenderness: There is no abdominal tenderness. There is no guarding or rebound. Hernia: No hernia is present. Musculoskeletal: General: No tenderness. Normal range of motion. Cervical back: [...] Reflexes: Reflexes are normal and symmetric. Psychiatric: Mood and Affect: Mood is anxious (slight). Speech: Speech normal. Behavior: Behavior normal. Thought Content: Thought content normal. Judgment: Judgment normal. Assessment and Plan See Diagnoses, Orders, Follow-up, and Instructions Problem List Items Addressed This Visit Cardiovascular Hyperlipidemia Relevant Orders LIPID PANEL Hypertension, essential Relevant Orders CMP (COMPREHENSIVE METABOLIC PANEL) Musculoskeletal Rheumatoid arthritis involving multiple sites with positive rheumatoid factor (HCC) Other Visit Diagnoses Encounter for health maintenance examination (Adult) - Primary Relevant Orders COMPLETE BLOOD COUNT (CBC) WITH DIFF CMP (COMPREHENSIVE METABOLIC PANEL) LIPID PANEL THYROID STIMULATING HORMONE (TSH) Check CMP, CBC, lipids and TSH. Urged to get the COVID-19 booster shots. I have advised her that there are several effective treatments for rheumatoid arthritis but that we would need to get her established with rheumatology for definitive diagnosis and treatment. Follow-up in 1 year with annual fasting well exam. I have seen and examined the patient on today's date. Documentation for this visit was completed using the assistance of a template. Everything documented in this visit was personally performed todaywith the necessary additions, deletions and changes. documented in this encounter Plan of Treatment Upcoming Encounters Date Type Department Care Team (Latest Contact Info) Description 09/23/2024 10:45 AM WIRING TECHNICIAN Physical Therapy [facility] Rehab at [facility] [address] [facility], [address] [place] [address] Dave Fernando MD [address] [place] [address] Lucy Garduno, [place] Discharge Disposition: Discharged to home or Selfcare 11/22/2024 10:15 AM CDT Appointment [facility] Mammography 1 [place] [address] Yinka Harrison MD [address] [place] [address] Discharge Disposition: Discharged to home or Selfcare 06/13/2025 10:30 AM CDT Office Visit [facility] - Primary Care - [place] [address] [place] [address] Yinka Harrison MD [address] [place] [address] documented as of this encounter Results * THYROID STIMULATING HORMONE (TSH) (04/15/2022 8:51 AM CDT) TSH 0.643 0.270 - 4.200 mIU/L 04/15/2022 1:47 PM CDT [facility] Blood Venipuncture / Unknown 04/15/2022 8:51 AM CDT 04/15/2022 8:51 AM CDT us Yinka Harrison MD CHEMISTRY ORDERABLES [place] Result [facility] [place] [address] * (ABNORMAL) LIPID PANEL (04/15/2022 8:51 AM CDT) CHOLESTEROL 321(H) <=200 mg/dL 04/15/2022 1:47 PM CDT [facility] TRIGLYCERIDES 66 <150 mg/dL 04/15/2022 1:47 PM CDT [facility] HDL CHOLESTEROL 62.5 >40 mg/dL 1:47 PM CDT [facility] LDL 245(H) 5 - 130 mg/dL 04/15/2022 1:47 PM CDT [facility] VLDL 13 5 - 55 mg/dL 04/15/2022 1:47 PM CDT [facility] CHOL/HDL RATIO 5.1(H) 0.0 - 4.4 04/15/2022 1:47 PM CDT [facility] NON-HDL CHOLESTEROL 258.5(H) <130 mg/dL 04/15/2022 1:47 PM CDT [facility] IS THE PATIENT REQUIRED TO BE FASTING? Yes 04/15/2022 1:47 PM CDT [facility] HAS THE PATIENT BEEN FASTING? Yes 04/15/2022 1:47 PM CDT [facility] Blood Venipuncture / Unknown 04/15/2022 8:51 AM CDT 04/15/2022 8:51 AM CDT us Yinka Harrison MD CHEMISTRY ORDERABLES [place] Result [facility] [place] [address] * (ABNORMAL) CMP (COMPREHENSIVE METABOLIC PANEL) (04/15/2022 8:51 AM CDT) SODIUM 141 136 - 144 mmol/L 04/15/2022 1:47 PM CDT [facility] POTASSIUM 3.7 3.5 - 5.1 mmol/L 04/15/2022 1:47 PM CDT [facility] CHLORIDE 106 100 - 110 mmol/L 04/15/2022 1:47 PM CDT [facility] CO2, VENOUS 23 22 - 32 mmol/L 04/15/2022 1:47 PM CDT [facility] ANION GAP 15.7 8.0 - 20.0 mmol/L 04/15/2022 1:47 PM CDT [facility] GLUCOSE 90 70 - 99 mg/dL 04/15/2022 1:47 PM CDT [facility] BUN 34(H) 8 - 23 mg/dL 04/15/2022 1:47 PM CDT [facility] CREATININE, BLOOD 1.14(H) 0.60 - 1.10 mg/dL 04/15/2022 1:47 PM CDT [facility] BUN/CREATININE RATIO 30(H) 12 - 20 ratio 04/15/2022 1:47 PM CDT [facility] TOTAL PROTEIN 7.7 6.0 - 8.3 g/dL 04/15/2022 1:47 PM CDT [facility] ALBUMIN 4.4 3.5 - 5.2 g/dL 04/15/2022 1:47 PM CDT [facility] Comment: The colormetric methods used for the determination of Albumin may lead to falsely elevated test results in patients suffering from renal failure or insufficiency due to interference with other proteins. A/G RATIO 1.3 1.0 - 2.0 04/15/2022 1:47 PM CDT [facility] CALCIUM 9.7 8.9 - 10.3 mg/dL 04/15/2022 1:47 PM CDT [facility] T BILI <0.3 <=1.2 mg/dL 04/15/2022 1:47 PM CDT [facility] SGOT (AST) 21 <=32 U/L 04/15/2022 1:47 PM CDT [facility] SGPT (ALT) 15 <=41 U/L 04/15/2022 1:47 PM CDT [facility] ALKALINE PHOSPHATASE 63 35 - 105 U/L 04/15/2022 1:47 PM CDT [facility] IS THE PATIENT REQUIRED TO BE FASTING? No 04/15/2022 1:47 PM CDT [facility] GFR, ESTIMATED 54(L) >=60 04/15/2022 1:47 PM CDT [facility] Comment: Creatinine Clearance is the preferred criteria for selecting drug dose adjustments in renally impaired patients. ??The GFR is provided as additional pertinent clinical information. GFR is reported in mL/min/1.73 sq m. Blood Venipuncture / Unknown 04/15/2022 8:51 AM CDT 04/15/2022 8:51 AM CDT us Yinka Harrison MD CHEMISTRY ORDERABLES [place] l Result [facility] [place] [address] documented in this encounter Visit Diagnoses Diagnosis [...] as of this encounter Care Teams Data Developer Relationship Specialty Start Date End Date Yinka Harrison MD [address] [place] [address] PCP - General Internal Medicine 07/27/18 Dave Fernando MD [address] [facility] [address] [place] [address] Consulting Physician Orthopaedic Surgery 02/20/19 documented as of this encounter
--- OUTSIDE RECORDS SUMMARY | 2024-09-22 13:05 | XMS_ITS | Encounter Summary ---
Author Organization [facility] Address [address] [place] [address] Phone Care Team Providers Care Capacitor Pack Press Operator Name Role Phone Yinka Harrison MD Primary Care Provider [phone] Dave Fernando MD Unavailable [phone] Reason for Visit * Reason Comments Medication Refill Encounter Details Date Type Department Care Team (Late st Contact Info) Description 08/12/2022 Refill [facility] Primary [facility] - [place] [address] [place] [address] Yinka Harrison MD [address] [place] [address] Medication Refill Social History Tobacco [...] suspected to have Coronavirus/COVID-19? No / Unsure 07/20/2022 9:32 AM CERTIFIED OPHTHALMIC SURGICAL ASSISTANT documented as of this encounter Miscellaneous Notes * Telephone Encounter - Mariposa Castelan RN - 08/12/2022 1:45 PM CERTIFIED OPHTHALMIC SURGICAL ASSISTANT Medication(s) [facility] Med[facility] Ref[facility] Standing Order for Pediatricand Adult Patients. Requested Prescriptions Pending Prescriptions Disp Refills ??? hydroCHLOROthiazide 12.5 MG Tablet [Pharmacy Med Name: HYDROCHLOROTHIAZIDE 12.5MG TABLET] 90 Tablet 2 Sig: TAKE ONE (1) TABLET BY MOUTH DAILY. Diuretics Protocol Passed - 08/12/2022 1:43 PM Passed - Serum potassium on record [...] Dept 04/11/22 Office Visit Yinka Harrison MD [facility] Showing recent visits within past [...] GFR is reported in mL/min/1.73 sq m. IFIED OPHTHALMIC SURGICAL ASSISTANT documented in this encounter Plan of Treatment Upcoming Encounters Date Type Department Care Team (Latest Contact Info) Description 09/23/2024 10:45 AM CERTIFIED OPHTHALMIC SURGICAL ASSISTANT [facility] [address] [place] [address] Dave Fernando MD [address] [place] [address] Lucy Garduno, PT [place] Discharge Disposition: Discharged to home or Selfcare 11/22/2024 10:15 AM CDT [facility] [place] [address] Yinka Harrisno MD [address] [place] [address] Discharge Disposition: Discharged to home or Selfcare 06/13/2025 10:30 AM CDT Office Visit [facility] - Primary Care - [place] [address] [address] Yinka Harrison MD [address] [place] [address] documented as of this encounter Visit Diagnoses Not on filedocumented in this encounter Additional Health Concerns Assessment Noted Time PHQ-9 Depression Total Score: 0 03/10/20 21 10:00 AM CDT documented as of this encounter Care Teams Capacitor Pack Press Operator Relationship Specialty Start Date End Date Yinka Harrison MD [address] [place] [address] PCP - General Internal Medicine 07/27/18 Dave Fernando MD [address] [place] [address] Consulting Physician Orthopaedic Surgery 02/20/19 documented as of this encounter
--- OUTSIDE RECORDS SUMMARY | 2024-09-22 13:05 | XMS_ITS | Encounter Summary ---
Author Organization [facility] Address [address] [place] [address] Phone Care Team Providers Care First Front Ventilator Name Role Phone Yinka Harrison MD Primary Care Provider [phone] Dave Fernando MD Unavailable [phone] Reason for Visit * Reason Comments Medication Refill Encounter Details Date Type Department Care Team (Late st Contact Info) Description 04/06/2022 [facility] [place] [address] [place] [address] Yinka Harrison MD [address] [place] [address] Medication Refill Social History Tobacco [...] Telephone Encounter - Yinka Harrison MD - 04/06/2022 11:20 AM CDT Refill request approved. * Telephone Encounter - Makayla Arreguin RN - 04/06/2022 10:25 AM CDT Medication failed the protocol, provider to review and approve the medication order if appropriate. Requested Prescriptions Pending Prescriptions Disp Refills pravastatin (PRAVACHOL) 40 MG Tablet [Pharmacy Med Name: PRAVASTATIN SODIUM 40MG TABLET] 90 Tablet 3 Sig: TAKE ONE (1) TABLET BY MOUTH DAILY. Hmg CoA Reductase Inhibitors Protocol Failed - 04/06/2022 8:45 AM Failed - Lipid panel in past 12 months LDL Date Value Ref Range Status 03/10/2021 197 (H) 5 - 130 mg/dL Final HDL CHOLESTEROL Date Value Ref Range Status 03/10/2021 67.2 >40 mg/dL Final CHOLESTEROL Date Value Ref Range Status 03/10/2021 285 (H) <=200 mg/dL Final TRIGLYCERIDES Date Value Ref Range Status 03/10/2021 102 <150 mg/dL Final VLDL Date Value Ref Range Status 03/10/2021 20 5 - 55 mg/dL Final CHOL/HDL RATIO Date Value Ref Range Status 03/10/2021 4.2 0.0 - 4.4 Final NON-HDL CHOLESTEROL Date Value Ref Range Status 03/10/2021 217.8 (H) <130 mg/dL Final Passed - Visit with relevant provider in past 12 months or upcoming 90 days Recent Visits No visits were found meeting these conditions. Showing recent visits within past 365 days and meeting all other requirements Future Appointments Date Type Provider Dept 04/11/22 Appointment Yinka Harrison MD [facility] Showing future appointments within next 90 days and meeting all other requirements documented in this encounter Plan of Treatment Upcoming Encounters Date Type Department Care Team (Latest Contact Info) Description 09/23/2024 10:45 AM ASSISTANT REAL ESTATE MANAGER Physical Therapy [facility] Rehab at [facility] [address] [place] [address] Dave Feranndo MD [address] [place] [address] Lucy Garduno, PT [place] Discharge Disposition: Discharged to home or Selfcare 11/22/2024 10:15 AM CDT Appointment [facility] [address] [facility] [place] [address] Yinka Harrison MD [address] [place] [address] Discharge Disposition: Discharged to home or Selfcare 06/13/2025 10:30 AM CDT [facility] - [place] [address] [place] [address] Yinka Harrison MD [address] [place] [address] documented as of this encounter Visit Diagnoses Not on filedocumented in this encounter Additional Health Concerns Assessment Noted Time PHQ-9 Depression Total Score: 0 03/10/20 21 10:00 AM CDT documented as of this encounter Care Teams First Front Ventilator Relationship Specialty Start Date End Date Yinka Harrison MD [address] [place] [address] PCP - General Internal Medicine 07/27/18 Dave Fernando MD [address] [place] [address] Consulting Physician Orthopaedic Surgery 02/20/19 documented as of this encounter
--- OUTSIDE RECORDS SUMMARY | 2024-09-22 13:05 | XMS_ITS | Encounter Summary ---
Author Organization [facility] Address [address] [place] [address] Phone Care Team Providers Care Grinder Chipper Name Role Phone Yinka Harrison MD Primary Care Provider [phone] Dave Fernando MD Unavailable [phone] Reason for Visit * Reason Onset Date Comments Medication Refill 09/15/2022 Encounter Details Date Type Department Care Team (Late st Contact Info) Description 09/15/2022 MyChart RX Renewal [facility] - Primary Care - [place] [address] [place] [address] Yinka Harrison MD [address] [place] [address] Medication Renewal Declined Social History [...] Telephone Encounter - Mariposa Castelan RN - 09/15/2022 12:13 PM GATE WATCHMAN My Chart message sent to patient. Medication requested denied as refill too soon. WATCHMAN documented in this encounter Plan of Treatment Upcoming Encounters Date Type Department Care Team (Latest Contact Info) Description 09/23/2024 10:45 AM GATE WATCHMAN Physical Therapy [facility] Rehab at [facility] [address] [place] [address] Dave Fernando MD [address] [place] [address] Lucy Garduno, PT [place] Discharge Disposition: Discharged to home or Selfcare 11/22/2024 10:15 AM CDT [facility] 1 [place] [address] Yinka Harrison MD [address] [place] [address] Discharge Disposition: Discharged to home or Selfcare 06/13/2025 10:30 AM CDT Office Visit [facility] - Primary Care - [place] [address] [place] [address] Yinka Harrison MD [address] [place] [address] documented as of this encounter Visit Diagnoses Diagnosis Essential hypertension Unspecified essential hypertension documented in this encounter Additional Health Concerns Assessment Noted Time PHQ-9 Depression Total Score: 0 03/10/ 21 10:00 AM CDT documented as of this encounter Care Teams Grinder Chipper Relationship Specialty Start Date End Date Yinka Harrison MD [address] [place] [address] PCP - General Internal Medicine 07/27/18 Dave Fernando MD [address] [place] [address] Consulting Physician Orthopaedic Surgery 02/20/19 documented as of this encounter
--- OUTSIDE RECORDS SUMMARY | 2024-09-22 13:05 | XMS_ITS | Encounter Summary ---
Author Organization [facility] Address [address] [place] [address] Phone Care Team Providers Care Flag Maker Name Role Phone Yinka Harrison MD Primary Care Provider [phone] Dave Fernando MD Unavailable [phone] [facility] Unavailable Unavailab le Reason for Visit * Reason Comments Medication Refill Encounter Details Date Type Department Care Team (Late st Contact Info) Description 01/30/2023 [facility]ill [facility] - [place] [address] [place] [address] Yinka Harrison MD [address] [place] [address] Medication Refill Social History Tobacco [...] encounter Miscellaneous Notes * Telephone Encounter - Citlaly Esteban RN - 01/30/2023 10:39 AM CDT Refill requested too soon. documented in this encounter Plan of Treatment Upcoming Encounters Date Type Department Care Team (Latest Contact Info) Description 09/23/2024 10:45 AM CAMPUS DEAN [facility] [address] [place] [address] Dave Fernando MD [address] [place] [address] Lucy Garduno, PT [place] Discharge Disposition: Discharged to home or Selfcare 11/22/2024 10:15 AM CDT [facility] 1 [place] [address] Yinka Harrison MD [address] [place] [address] Discharge Disposition: Discharged to home or Selfcare 06/13/2025 10:30 AM CDT Office Visit [facility] - Primary Care - [place] [address] [place] [address] Yinka Harrison MD [address] [place] [address] documented as of this encounter Visit Diagnoses Diagnosis Arthritis Arthropathy, unspecified, site unspecified Chronic pain of right knee Rheumatoid arthritis involving multiple sites with positive rheumatoid factor (HCC) documented in this encounter Additional Health Concerns Assessment Noted Time PHQ-9 Depression Total Score: 0 03/10/20 21 10:00 AM CDT documented as of this encounter Care Teams Flag Maker Relationship Specialty Start Date End Date Yinka Harrison MD [address] [place] [address] PCP - General Internal Medicine 07/27/18 Dave Fernando MD [address] [place] [address] Consulting Physician Orthopaedic Surgery 02/20/19 Merari Mclean LSW [place] Agricultural Education Professor 05/05/23 07/04/23 documented as of this encounter
--- OUTSIDE RECORDS SUMMARY | 2024-09-22 13:05 | XMS_ITS | Encounter Summary ---
Author Organization [facility] Address [address] [place] [address] Phone Care Team Providers Care Per Diem Registered Nurse Name Role Phone Yinka Harrison MD Primary Care Provider [phone] Dave Fernando MD Unavailable [phone] Reason for Visit * Reason Onset Date Comments Medication Refill 09/30/2022 Encounter Details Date Type Department Care Team (Late st Contact Info) Description 09/30/2022 MyChart RX Renewal [facility] - Primary Care - [place] [address] [place] [address] Yinka Harrison MD [address] [place] [address] Medication Renewal Reviewed Social History [...] Telephone Encounter - Yinka Harrison MD - 10/03/2022 7:53 AM CIAIO LUMITE INJECTOR Refill request approved. O LUMITE INJECTOR * Telephone Encounter - Mariposa Castelan RN - 09/30/2022 2:27 PM CIAIO LUMITE INJECTOR Medication failed the protocol, provider to review and approve the medication order if appropriate. Requested Prescriptions Pending Prescriptions Disp Refills traMADol (ULTRAM) 50 MG Tablet 30 Tablet 0 Sig: Take 1 Tablet by mouth every 8 hours as needed for Moderate or more severe pain. Not Delegated - Opioid Agonists Protocol Failed - 09/30/2022 2:26 PM Failed - This refill cannot be [...] 90 days and meeting all other requirements O LUMITE INJECTOR documented in this encounter Plan of Treatment Upcoming Encounters Date Type Department Care Team (Latest Contact Info) Description 09/23/2024 10:45 AM CIAIO LUMITE INJECTOR [facility] [address] [place] [address] Dave Fernando MD [address] [place] [address] Lucy Garduno, PT [place] Discharge Disposition: Discharged to home or Selfcare 11/22/2024 10:15 AM CDT [facility] 1 [place] [address] Yinka Harrison MD [address] [facility] [place] [place] [address] Discharge Disposition: Discharged to home or Selfcare 06/13/2025 10:30 AM CDT Office Visit [facility] - Primary Care - [place] [address] [place] [address] Yinka Harrison MD [address] [place] [address] documented as of this encounter Visit Diagnoses Diagnosis Arthritis Arthropathy, unspecified, site unspecified Chronic pain of right knee Rheumatoid arthritis involving multiple sites with positive rheumatoid factor (HCC) documented in this encounter Additional Health Concerns Assessment Noted Time PHQ-9 Depression Total Score: 0 03/10/20 21 10:00 AM CDT documented as of this encounter Care Teams Per Diem Registered Nurse Relationship Specialty Start Date End Date Yinka Harrison MD [address] [place] [address] PCP - General Internal Medicine 07/27/18 Dave Fernando MD [address] [place] [address] Consulting Physician Orthopaedic Surgery 02/20/19 documented as of this encounter
--- OUTSIDE RECORDS SUMMARY | 2024-09-22 13:05 | XMS_ITS | Encounter Summary ---
Author Organization [facility] Address [address] [place] [address] Phone Care Team Providers Care Shingle Bolt Cutter Name Role Phone Yinka Harrison MD Primary Care Provider [phone] Dave Fernando MD Unavailable [phone] Encounter Details Date Type Department Care Team (Late st Contact Info) Description 07/20/2022 9:50 AM STRAIGHT KNIFE CUTTER MACHINE Lab [facility] - Primary Care - [address] [address] Lab, [facility] Rheumatoid arthritis involving multiple sites with positive rheumatoid factor (HCC); Hyperlipidemia Discharge Disposition: Discharged to home or Selfcare [...] Coronavirus/COVID-19? No / Unsure 07/20/2022 9:32 AM STRAIGHT KNIFE CUTTER MACHINE documented as of this encounter Progress Notes * Lulu Ma - 07/20/2022 9:50 AM CST Sriram presents for lab draw per order of Dr. Harrison dated 07/20/22. Specimen collected from right hand without incident. sah IGHT KNIFE CUTTER MACHINE documented in this encounter Plan of Treatment Upcoming Encounters Date Type Department Care Team (Latest Contact Info) Description 09/23/2024 10:45 AM STRAIGHT KNIFE CUTTER MACHINE Physical Therapy [facility] Rehab at [facility] [address] [place] [address] Dave Fernando MD [address] [place] [address] Lucy Garduno, PT [place] Discharge Disposition: Discharged to home or Selfcare 11/22/2024 10:15 AM CDT [facility] 1 [place] [address] Yinka Harrison MD [address] [place] [address] Discharge Disposition: Discharged to home or Selfcare 06/13/2025 10:30 AM CDT Office Visit [facility] - Primary Care - [place] [address] [place] [address] Yinka Harrison MD [address] [place] [address] documented as of this encounter Procedures Procedure Name Priority Date/Time Associated Diagnosis Comments CBC WITH AUTO DIFFERENTIAL Routine 07/20/2022 9:34 AM STRAIGHT KNIFE CUTTER MACHINE Rheumatoid arthritis involving multiple sites with positive rheumatoid factor (HCC) LIPID PANEL Routine 07/20/2022 9:34 AM STRAIGHT KNIFE CUTTER MACHINE Hyperlipidemia COMPLETE BLOOD COUNT (CBC) WITH DIFF Routine 07/20/2022 9:34 AM STRAIGHT KNIFE CUTTER MACHINE Rheumatoid arthritis involving multiple sites with positive rheumatoid factor (HCC) documented in this encounter Results * (ABNORMAL) CBC WITH AUTO DIFFERENTIAL (07/20/2022 9:34 AM STRAIGHT KNIFE CUTTER MACHINE) WBC 4.29 4.00 - 12.00 10(3)/mcL 07/20/2022 12:40 PM [facility] RBC 4.05 3.80 - 5.30 10(6)/mcL 07/20/2022 12:40 PM [facility] HEMOGLOBIN (HGB) 12.0 12.0 - 15.8 g/dL 07/20/2022 12:40 PM [facility] HEMATOCRIT (HCT) 37.5 36.0 - 47.0 % 07/20/2022 12:40 PM [facility] MCV 92.6 82.0 - 96.0 fL 07/20/2022 12:40 PM [facility] MCH 29.6 26.0 - 34.0 pg 07/20/2022 12:40 PM [facility] MCHC 32.0 31.0 - 36.0 g/dL 07/20/2022 12:40 PM [facility] PLATELET COUNT 302 140 - 440 10(3)/mcL 07/20/2022 12:40 PM [facility] RDW 13.1 11.8 - 15.5 % 07/20/2022 12:40 PM [facility] MPV 9.8 9.7 - 12.4 fL 07/20/2022 12:40 PM [facility] NEUTROPHILS 48.5 47.0 - 73.0 % 07/20/2022 12:40 PM [facility] LYMPHOCYTES 30.3 18.0 - 42.0 % 07/20/2022 12:40 PM [facility] MONOCYTES 15.4(H) 4.0 - 12.0 % 07/20/2022 12:40 PM STRAIGHT KNIFE CUTTER MACHINE [facility] EOSINOPHILS 5.1(H) 0.0 - 5.0 % 07/20/2022 12:40 PM STRAIGHT KNIFE CUTTER MACHINE [facility] BASOPHILS 0.7 0.0 - 1.0 % 07/20/2022 12:40 PM STRAIGHT KNIFE CUTTER MACHINE [facility] ABSOLUTE NEUTROPHILS 2.08 1.60 - 7.70 10(3)/[facility] 07/20/2022 12:40 PM STRAIGHT KNIFE CUTTER MACHINE [facility] ABSOLUTE LYMPHOCYTES 1.30 1.30 - 3.20 10(3)/[facility] 07/20/2022 12:40 PM STRAIGHT KNIFE CUTTER MACHINE [facility] ABSOLUTE MONOCYTES 0.66 0.20 - 1.00 10(3)/[facility] 07/20/2022 12:40 PM STRAIGHT KNIFE CUTTER MACHINE [facility] ABSOLUTE EOSINOPHIL 0.22 0.00 - 0.40 10(3)/[facility] 07/20/2022 12:40 PM STRAIGHT KNIFE CUTTER MACHINE [facility] ABSOLUTE BASOPHILS 0.03 0.00 - 0.10 10(3)/[facility] 07/20/2022 12:40 PM [facility] NRBC PER 100 WBC 0 07/20/20 22 12:40 PM [facility] Blood Venipuncture / Unknown 07/20/2022 9:34 AM STRAIGHT KNIFE CUTTER MACHINE 07/20/2022 9:34 AM STRAIGHT KNIFE CUTTER MACHINE us Yinka Harrison MD HEMATOLOGY ORDERABLES Fin al Result [facility] [address] [place] [address] * (ABNORMAL) LIPID PANEL (07/20/2022 9:34 AM STRAIGHT KNIFE CUTTER MACHINE) CHOLESTEROL 252(H) <=200 mg/dL 07/20/2022 1:23 PM STRAIGHT KNIFE CUTTER MACHINE [facility] TRIGLYCERIDES 101 <150 mg/dL 07/20/2022 1:23 PM STRAIGHT KNIFE CUTTER MACHINE [facility] HDL CHOLESTEROL 69.4 >40 mg/dL 1:23 PM STRAIGHT KNIFE CUTTER MACHINE [facility] LDL 162(H) 5 - 130 mg/dL 07/20/2022 1:23 PM STRAIGHT KNIFE CUTTER MACHINE [facility] VLDL 20 5 - 55 mg/dL 07/20/2022 1:23 PM [facility] CHOL/HDL RATIO 3.6 0.0 - 4.4 07/20/2022 1:23 PM STRAIGHT KNIFE CUTTER MACHINE [facility] NON-HDL CHOLESTEROL 182.6(H) <130 mg/dL 07/20/2022 1:23 PM [facility] IS THE PATIENT REQUIRED TO BE FASTING? Yes 07/20/2022 1:23 PM [facility] HAS THE PATIENT BEEN FASTING? Yes 07/20/2022 1:23 PM [facility] Blood Venipuncture / Unknown 07/20/2022 9:34 AM STRAIGHT KNIFE CUTTER MACHINE 07/20/2022 9:34 AM STRAIGHT KNIFE CUTTER MACHINE us Yinka Harrison MD CHEMISTRY ORDERABLES [place] peacock Result [facility] [place] [address] documented in this encounter Visit Diagnoses Diagnosis Rheumatoid arthritis involving multiple sites with positive rheumatoid factor (HCC) Hyperlipidemia Mixed hyperlipidemia documented in this encounter Additional Health Concerns Assessment Noted Time PHQ-9 Depression Total Score: 0 03/10/20 21 10:00 AM CDT documented as of this encounter Care Teams Shingle Bolt Cutter Relationship Specialty Start Date End Date Yinka Harrison MD [address] [place] [address] PCP - General Internal Medicine 07/27/18 Dave Fernando MD [address] [place] [address] Consulting Physician Orthopaedic Surgery 02/20/19 documented as of this encounter
--- OUTSIDE RECORDS SUMMARY | 2024-09-22 13:05 | XMS_ITS | Encounter Summary ---
Author Organization [facility] Address [address] [place] [address] Phone Care Team Providers Care Self Propelled Mining Machine Operator Name Role Phone Yinka Harrison MD Primary Care Provider [phone] Dave Fernadno MD Unavailable Reason for Visit * Reason Onset Date Comments Results 04/18/2022 lab Encounter Details Date Type Department Care Team (Late st Contact Info) Description 04/18/2022 Telephone [facility] - [place] [address] [place] [address] Yinka Harrison MD [address] [place] [address] Results (lab) Social History Tobacco Use Types Packs/Day Years [...] Telephone Encounter - Mariposa Castelan RN - 04/18/2022 2:10 PM CDT See my chart message of 04/18/22. * Telephone Encounter - Jim Werner - 04/18/2022 10:12 AM CDT Patient returning call. Transferred to RN. * Telephone Encounter - Mariposa Castelan RN - 04/18/2022 8:35 AM CDT Attempted to call patient with results, no answer at this time. Left message to call back. * Telephone Encounter - Mariposa Castelan RN - 04/18/2022 8:35 AM CDT ----- Message from Yinka Harrison MD sent at 04/18/2022 8:15 AM CDT ----- Lab results are OK except lipids remain quite high. Has the patient been taking her pravastatin daily? Also, since she is unable to afford seeing a bead wire taper, we could try her on methotrexate for her rheumatoid arthritis. If she is willing to proceed, please let me know. documented in this encounter Plan of Treatment Upcoming Encounters Date Type Department Care Team (Latest Contact Info) Description 09/23/2024 10:45 AM CATCHER HELPER Physical Therapy [facility] Rehab at [address] [place] [address] Dave Fernando MD [address] [place] [address] Lucy Garduno, PT [place] Discharge Disposition: Discharged to home or Selfcare 11/22/2024 10:15 AM CDT [facility] 1 [facility] [place] [address] Yinka Harrison MD [address] [place] [address] Discharge Disposition: Discharged to home or Selfcare 06/13/2025 10:30 AM CDT Office Visit [facility] - Primary Care - [place] [address] [place] [address] Yinka Harrison MD [address] [place] [address] documented as of this encounter Visit Diagnoses Not on filedocumented in this encounter Additional Health Concerns Assessment Noted Time PHQ-9 Depression Total Score: 0 03/10/20 21 10:00 AM CDT documented as of this encounter Care Teams Self Propelled Mining Machine Operator Relationship Specialty Start Date End Date Yinka Harrison MD [address] [place] [address] PCP - General Internal Medicine 07/27/18 Dave Fernando MD [address] [place] [address] Consulting Physician Orthopaedic Surgery 02/20/19 documented as of this encounter
--- OUTSIDE RECORDS SUMMARY | 2024-09-22 13:05 | XMS_ITS | Encounter Summary ---
Author Organization [facility] Address [address] [place] [address] Phone Care Team Providers Care Data Communications Software Consultant Name Role Phone Yinka Harrison MD Primary Care Provider [phone] Dave Fernando MD Unavailable [phone] Merari Mclean [facility] Unavailable Unavailab le Reason for Visit * Reason Comments Medication Refill Encounter Details Date Type Department Care Team (Late st Contact Info) Description 06/06/2022 Refill [facility] - [facility] Care - [place] [address] [place] [address] Yinka Harrison MD [address] [place] [address] Medication Refill Social History Tobacco [...] Telephone Encounter - Yinka Harrison MD - 06/06/2022 11:04 AM CDT This medication was filled for 2 months on May 13, 2022. * Telephone Encounter - Jen Zurita RN - 06/06/2022 10:37 AM CDT Medication failed the protocol, provider to review and approve the medication order if appropriate. Requested Prescriptions Pending Prescriptions Disp Refills traMADol (ULTRAM) 50 MG Tablet [Pharmacy Med Name: TRAMADOL HCL 50MG TABLET] 30 Tablet 1 Sig: TAKE ONE (1) TABLET BY MOUTH EVERY 8 HOURS NEEDED FOR MODERATE OR MORE SEVERE PAIN. Not Delegated - Opioid Agonists Protocol Failed - 06/06/2022 8:59 AM Failed - This refill cannot be delegated Passed - Visit with relevant provider in past 12 months or upcoming 90 days Recent Visits Date Type Provider Dept 04/11/22 Office Visit Yinka Harrison MD [facility] Showing recent visits within past 365 days and meeting all other requirements Future Appointments No visits were found meeting these conditions. Showing future appointments within next 90 days and meeting all other requirements documented in this encounter Plan of Treatment Upcoming Encounters Date Type Department Care Team (Latest Contact Info) Description 09/23/2024 10:45 AM MERGERS AND ACQUISITIONS CONSULTANT Physical Therapy [facility] [address] [place] [address] Dave Fernando MD [address] [place] [address] Lucy Garduno, [place] Discharge Disposition: Discharged to home or Selfcare 11/22/2024 10:15 AM CDT Appointment [facility] 1 [facility] [place] [address] Yinka Harrison MD [address] [place] [address] Discharge Disposition: Discharged to home or Selfcare 06/13/2025 10:30 AM CDT Office Visit [facility] - Primary Care - [place] [address] [place] [address] Yinka Harrison MD [address] [place] [address] documented as of this encounter Visit Diagnoses Diagnosis Arthritis Arthropathy, unspecified, site unspecified Chronic pain of right knee Rheumatoid arthritis involving multiple sites with positive rheumatoid factor (HCC) documented in this encounter Additional Health Concerns Assessment Noted Time PHQ-9 Depression Total Score: 0 03/10/20 21 10:00 AM CDT documented as of this encounter Care Teams Data Communications Software Consultant Relationship Specialty Start Date End Date Yinka Harrison MD [address] [place] [address] PCP - General Internal Medicine 07/27/18 Dave Fernando MD [address] [place] [address] Consulting Physician Orthopaedic Surgery 02/20/19 Merari Mclean LSW ND [employer] 05/05/23 07/04/23 documented as of this encounter
--- OUTSIDE RECORDS SUMMARY | 2024-09-22 13:05 | XMS_ITS | Encounter Summary ---
Author Organization [facility] [facility] Care Team Providers Care Signal Operator Linguist Name Role Phone Yinka Harrison MD Primary Care Provider [phone] Dave Fernando MD Unavailable [phone] Encounter Details Date Type Department Care Team (Latest Contact Info) Description 04/15/2022 Travel Social History Tobacco Use Types Packs/Day [...] (Latest Contact Info) Description 09/23/2024 10:45 AM ENDOSCOPY REGISTERED NURSE Physical Therapy [facility] at [facility] [address] [place] [address] Dave Fernando MD [address] [place] [address] Lucy Garduno, [place] Discharge Disposition: Discharged to home or Selfcare 11/22/2024 10:15 AM CDT [facility] 1 [place] [address] Yinka Harrison MD [address] [place] [address] Discharge Disposition: Discharged to home or Selfcare 06/13/2025 10:30 AM CDT Office Visit [facility] - Primary Care - [place] [address] [place] [address] Yinka Harrison MD [address] [place] [address] documented as of this encounter Visit Diagnoses Not on filedocumented in this encounter Additional Health Concerns Assessment Noted Time PHQ-9 Depression Total Score: 0 03/10/20 21 10:00 AM CDT documented as of this encounter Care Teams Signal Operator Linguist Relationship Specialty Start Date End Date Yinka Harrison MD [address] [place] [address] PCP - General Internal Medicine 07/27/18 Dave Fernando MD [address] [place] [address] Consulting Physician Orthopaedic Surgery 02/20/19 documented as of this encounter
--- OUTSIDE RECORDS SUMMARY | 2024-09-22 13:05 | XMS_ITS | Encounter Summary ---
Author Organization [facility] Address [address] [place] [address] Phone Care Team Providers Care Inkjet Operator Name Role Phone Yinka Harrison MD Primary Care Provider [phone] Dave Fernando MD Unavailable [phone] Reason for Visit * Reason Comments Medication Refill Encounter Details Date Type Department Care Team (Late st Contact Info) Description 09/12/2022 [facility] - [place] [address] [place] [address] Yinka Harrison MD [address] [place] [address] Medication Refill Social History Tobacco [...] Telephone Encounter - Yinka Harrison MD - 09/13/2022 10:25 AM SENIOR HR BUSINESS PARTNER Refill request approved. OR HR BUSINESS PARTNER * Telephone Encounter - Kamla Lowry RN - 09/13/2022 9:42 AM CST Medication failed the protocol, provider to review and approve the medication order if appropriate. Requested Prescriptions Pending Prescriptions Disp Refills ibuprofen (MOTRIN) 800 MG Tablet [Pharmacy Med Name: IBUPROFEN 800MG TABLET] 270 Tablet 3 Sig: TAKE ONE (1) TAB BY MOUTH EVERY 8 HOURS NEEDED FOR MILD OR MORE SEVERE PAIN. NSAIDs Protocol Failed - 09/12/2022 9:17 AM Failed - Normal serum creatinine in past 12 months CREATININE, BLOOD Date Value Ref Range Status 04/15/2022 1.14 (H) 0.60 - 1.10 mg/dL Final Passed - Visit with relevant provider in past 12 months or upcoming 90 days Recent Visits Date Type Provider Dept 04/11/22 Office Visit Yinka Harrison MD [facility] Showing recent visits within past 365 days and meeting all other requirements Future Appointments No visits were found meeting these conditions. Showing future appointments within next 90 days and meeting all other requirements Passed - No matching NSAID med order in past 45 days No matching medication orders between 07/30/2022 9:42 AM and 09/13/2022 9:42 AM Passed - AST less than 55 or ALT less than 90 in past 12 months SGOT (AST) Date Value Ref Range Status 04/15/2022 21 <=32 U/L Final SGPT (ALT) Date Value Ref Range Status 04/15/2022 15 <=41 U/L Final Passed - HGB greater than 10 or HCT greater than 30 in past 12 months HEMOGLOBIN (HGB) Date Value Ref Range Status 07/20/2022 12.0 12.0 - 15.8 g/dL Final HEMATOCRIT (HCT) Date Value Ref Range Status 07/20/2022 37.5 36.0 - 47.0 % Final OR HR BUSINESS PARTNER documented in this encounter Plan of Treatment Upcoming Encounters Date Type Department Care Team (Latest Contact Info) Description 09/23/2024 10:45 AM SENIOR HR BUSINESS PARTNER Physical Therapy [facility] at [facility] [address] [place] [address] Dave Fernando MD [address] [place] [address] Lucy Garduno, [place] Discharge Disposition: Discharged to home or Selfcare 11/22/2024 10:15 AM CDT Appointment [facility] 1 [place] [address] Yinka Harrison MD [address] [place] [address] Discharge Disposition: Discharged to home or Selfcare 06/13/2025 10:30 AM CDT Office Visit [facility] - Primary Care - [place] [address] [place] [address] Yinka Harrison MD [address] [place] [address] documented as of this encounter Visit Diagnoses Not on filedocumented in this encounter Additional Health Concerns Assessment Noted Time PHQ-9 Depression Total Score: 0 03/10/20 21 10:00 AM CDT documented as of this encounter Care Teams Inkjet Operator Relationship Specialty Start Date End Date Yinka Harrison MD [address] [place] [address] PCP - General Internal Medicine 07/27/18 Dave Fernando MD [address] [place] [address] Consulting Physician Orthopaedic Surgery 02/20/19 documented as of this encounter
--- OUTSIDE RECORDS SUMMARY | 2024-09-22 13:05 | XMS_ITS | Encounter Summary ---
Author Organization [facility] Address [address] [place] [address] Phone Care Team Providers Care Food Service Substitute Name Role Phone Yinka Harrison MD Primary Care Provider [phone] Dave Fernando MD Unavailable [phone] Reason for Referral * Consult, Test & Initiate Treatment (Routine) - Closed Specialty Diagnoses / Procedures Referred By Alyce lemus Referred To Contact Family Practice Diagnoses Encounter for health maintenance examination (Adult) Yinka Harrison MD [address] [place] [address] Phone: tel: fax: [facility] [address] [place] [address] Phone: tel: fax: Referral ID Status Reason Start Date Expiration Date Visits Re quested Visits Authorized [id number] Closed 04/17/2023 1 1 Scheduling Instructions Sriram is being referred for issues with insurance. See below for Sriram's current medications, allergies and problem list. Please contact patient for scheduling questions or concerns. CURRENT MEDS: Current Outpatient Medications: amLODIPine (NORVASC) 10 MG Tablet, TAKE ONE (1) TABLET BY MOUTH DAILY., Disp: 90 Tablet, Rfl: 3 Ascorbic Acid (VITAMIN C PO), Take 500 mg by mouth., Disp: , Rfl: Flaxseed, Linseed, (Flax Seed Oil) 1000 MG Capsule, Take 1,000 mg by mouth daily., Disp: , Rfl: hydroCHLOROthiazide 12.5 MG Tablet, TAKE ONE (1) TABLET BY MOUTH DAILY., Disp: 90 Tablet, Rfl: 2 ibuprofen (MOTRIN) 800 MG Tablet, TAKE ONE (1) TAB BY MOUTH EVERY 8 HOURS NEEDED FOR MILD OR MORE SEVERE PAIN., Disp: 270 Tablet, Rfl: 1 IRON PO, Take by mouth., Disp: , Rfl: methotrexate 2.5 MG Tablet, Take 2 Tablets by mouth every 7 days (Patient not taking: Reported on 04/17/2023), Disp: 8 Tablet, Rfl: 1 rosuvastatin (CRESTOR) 20 MG Tablet, Take 1 Tablet by mouth daily., Disp: 90 Tablet, Rfl: 1 traMADol (ULTRAM) 50 MG Tablet, Take 1 Tablet by mouth every 8 hours as needed for Moderate or more severe pain., Disp: 30 Tablet, Rfl: 1 No current facility-administered medications for this visit. ALLERGIES: No Known Allergies PROBLEM LIST: Patient Active Problem List: Hypertension, essential Hyperlipidemia Iron deficiency anemia Arthritis Obesity Rheumatoid arthritis involving multiple sites with positive rheumatoid factor (HCC) Chronic pain of right knee Reason for Visit * Reason Comments High Blood Pressure Yearly Encounter Details Date Type Department Care Team (Late st Contact Info) Description 04/17/2023 10:30 AM CDT Office Visit [facility] - Primary Care - [place] [address] [address] Yinka Harrison MD [address] [address] Encounter for health maintenance examination (Adult) (Primary Dx); Hypertension, essential; Mixed hyperlipidemia; Rheumatoid arthritis involving multiple sites with positive rheumatoid factor (HCC) Discharge Disposition: Discharged to home or Selfcare Social History Tobacco Use Types Packs/Day Years Used Date Smoking Tobacco: Former Smokeless Tobacco: Never Tobacco Cessation:Counseling Given: Not Answered Alcohol Use Standard Drinks/Week Comments No 0 (1 standard drink = 0.6 oz pur e alcohol) PHQ-2 Answer Date Recorded Total Score - Questions 1-9 0 09/2021 Education Answer Date Recorded What is [...] Sign Reading Time Taken Comments Blood Pressure 140/80 04/17/2023 10:37 AM CDT Pulse 86 04/17/2023 10:37 AM CDT Temperature 36.7 ??C (98 ??F) 04/17/2023 10:37 AM CDT Respiratory Rate 18 04/17/2023 10:37 AM CDT Oxygen Saturation 98% 04/17/2023 10:37 AM CDT Inhaled Oxygen Concentration - - Weight 97.1 kg (214 lb) 04/17/2023 10:37 AM CDT Height 160 cm (5' 3 ) 04/17/2023 10:37 AM CDT Body Mass Index 37.91 04/17/2023 10:37 AM CDT documented in this encounter Functional [...] Donaldson RMA documented as of this encounter Progress Notes * Jesi Donaldson RMA - 04/17/2023 10:30 AM CDT Sriram Srinivasan is a 62 y.o. female with current BMI: Body mass index is 37.91 kg/m??. Interventions discussed including: encourage daily physical activity and well- balanced diet. * Jesi Donaldson RMA - 04/17/2023 10:30 AM CDT Sriram screened for Social Determinants of Health and screened positive for Safety & Domestic Violence and Medicine and/or Healthcare Needs. Care Management referral pended. * Jesi Donaldsno RMA - 04/17/2023 10:30 AM CDT Sriram Srinivasan, 62 y.o., female is here for High Blood Pressure (Yearly ) Medication Refills: Patient reports/denies need for medication refills. Orders Pended: no Requested Prescriptions No prescriptions requested or ordered in this encounter Home Medications Medication Sig Start Date End Date Taking? Authorizing Provider amLODIPine (NORVASC) 10 MG Tablet TAKE ONE (1) TABLET BY MOUTH DAILY. 06/09/22 Yes Yinka Harrison MD Ascorbic Acid (VITAMIN C PO) Take 500 mg by mouth. Yes ProviderRosendo MD Flaxseed, Linseed, (Flax Seed Oil) 1000 MG Capsule Take 1,000 mg by mouth daily. Yes Rosendo Hussein MD hydroCHLOROthiazide 12.5 MG Tablet TAKE ONE (1) TABLET BY MOUTH DAILY. 08/12/22 Yes Yinka Harrison MD ibuprofen (MOTRIN) 800 MG Tablet TAKE ONE (1) TAB BY MOUTH EVERY 8 HOURS NEEDED FOR MILD OR MORESEVERE PAIN. 09/13/22 Yes Yinka Harrison MD IRON PO Take by mouth. Yes ProviderRosendo MD methotrexate 2.5 MG Tablet Take 2 Tablets by mouth every 7 days Patient not taking: Reported on 04/17/2023 04/18/22 Yinka Harrison MD rosuvastatin (CRESTOR) 20 MG Tablet Take 1 Tablet by mouth daily. 07/20/22 Yes Yinka Harrison MD traMADol (ULTRAM) 50 MG Tablet Take 1 Tablet by mouth every 8 hours as needed for Moderate or more severe pain. 03/02/23 Yes Yinka Harrison MD There are no discontinued medications. I have reviewed the home medication list with the patient and have reconciled discrepancies. The list is accurate to the best of my knowledge. Smoking Status: Social History Tobacco Use ??? Smoking status: Former ??? Smokeless tobacco: Never Substance Use Topics ??? Alcohol use: No Alcohol/week: 0.0 oz ??? Drug use: No Smoking Cessation Counseling Given: no Health Care Maintenance: Health Maintenance Due Topic Date Due ??? Hepatitis C Virus (HCV) Screening Never done ??? Zoster Immunization (1 of 2) Never done ??? Colorectal Cancer Screening 05/14/2020 ??? SARS-COV-2 Immunization (3 - Moderna risk series) 06/28/2021 ??? Mammogram 03/01/2023 Orders Pended: no The following BPA's have been addressed with the patient today: BMI and Depression * Yinka Harrison MD - 04/17/2023 10:30 AM CDT Subjective: HPI Follow-up for hypertension, hyperlipidemia and rheumatoid arthritis with annual fasting well exam. Patient reports occasional slight tingling in her right foot. She also indicates that she decided not to take the methotrexate because she was concerned about possible side effects. She continues to have her usual arthralgias. Past medical history, social history, family history and medications have been reviewed. Review of Systems Constitutional: Negative. HENT: Negative. Eyes: Negative. Respiratory: Negative. Cardiovascular: Negative. Gastrointestinal: Negative. Endocrine: Negative. Genitourinary: Negative. Musculoskeletal: Positive for arthralgias (diffuse). Skin: Negative. Allergic/Immunologic: Negative. Neurological: Positive for numbness (+tingling, right foot, intermittent). Hematological: Negative. Psychiatric/Behavioral: Negative. Objective: Physical Exam Constitutional: Appearance: She is well-developed. Comments: Transfers with minimal difficulty. HENT: Head: Normocephalic. Right Ear: Tympanic membrane, ear canal and external ear normal. Tympanic membrane is not erythematous or bulging. Left Ear: Tympanic membrane, ear canal and external ear normal. Tympanic membrane is not erythematous or bulging. Nose: Nose normal. Mouth/Throat: Pharynx: Uvula midline. Eyes: General: Lids are normal. Conjunctiva/sclera: Conjunctivae [...] Mixed hyperlipidemia Relevant Orders LIPID PANEL Musculoskeletal Rheumatoid arthritis involving multiple sites with positive rheumatoid factor (HCC) Relevant Orders COMPLETE BLOOD COUNT (CBC) WITH DIFF Other Visit Diagnoses Encounter for health maintenance examination (Adult) - Primary Relevant Orders PATIENT CARE MGMT EVAL REFERRAL COMPLETE BLOOD COUNT (CBC) WITH DIFF CMP (COMPREHENSIVE METABOLIC PANEL) LIPID PANEL Check CMP, CBC and lipids. Referral placed to long term care social worker for her insurance issues. She is not inclined to proceed with colonoscopy due to those same insurance issues. Follow-up in 1 year with annual fasting [...] (Latest Contact Info) Description 09/23/2024 10:45 AM FRAME TABLE OPERATOR [facility] [address] [place] [address] Dave Fernando MD [address] [place] [address] Lucy Garduno, [place] Discharge Disposition: Discharged to home or Selfcare 11/22/2024 10:[address] [facility] 1 [place] [address] Yinka Harrison MD [address] [place] [address] Discharge Disposition: Discharged to home or Selfcare 06/13/2025 10:30 AM CDT Office Visit [facility] - Primary Care - [place] [address] [place] [address] Yinka Harrison MD [address] [place] [address] documented as of this encounter Results * (ABNORMAL) LIPID PANEL (04/20/2023 9:31 AM CDT) CHOLESTEROL 253(H) <200 mg/dL 04/20/2023 1:07 PM CDT [facility] TRIGLYCERIDES 94 <150 mg/dL 04/20/2023 1:07 PM CDT [facility] HDL CHOLESTEROL 65 >40 mg/dL 1:07 PM CDT [facility] LDL 169(H) <130 mg/dL 04/20/2023 1:07 PM CDT [facility] VLDL 19 10 - 50 mg/dL 04/20/2023 1:07 PM CDT [facility] CHOL/HDL RATIO 3.9 0.0 - 4.4 04/20/2023 1:07 PM CDT [facility] NON-HDL CHOLESTEROL 188(H) <130 mg/dL 04/20/2023 1:07 PM CDT [facility] IS THE PATIENT REQUIRED TO BE FASTING? Yes 04/20/2023 1:07 PM CDT [facility] HAS THE PATIENT BEEN FASTING? Yes 04/20/2023 1:07 PM CDT [facility] Blood Venipuncture / Unknown 04/20/2023 9:31 AM CDT 04/20/2023 9:31 AM CDT us Yinka Harrison MD CHEMISTRY ORDERABLES [place] l Result [facility] [place] [address] * (ABNORMAL) CMP (COMPREHENSIVE METABOLIC PANEL) (04/20/2023 9:31 AM CDT) SODIUM 141 136 - 145 mmol/L 04/20/2023 1:07 PM CDT [facility] POTASSIUM 4.1 3.5 - 5.1 mmol/L 04/20/2023 1:07 PM CDT [facility] CHLORIDE 106 98 - 107 mmol/L 04/20/2023 1:07 PM CDT [facility] CO2, VENOUS 25 22 - 30 mmol/L 04/20/2023 1:07 PM CDT [facility] ANION GAP 14.1 <18.0 mmol/L 04/20/2023 1:07 PM CDT [facility] GLUCOSE 84 70 - 99 mg/dL 04/20/2023 1:07 PM [facility] BUN 20 10 - 20 mg/dL 04/20/2023 1:07 PM [facility] CREATININE, BLOOD 1.08(H) 0.60 - 1.00 mg/dL 04/20/2023 1:07 PM [facility] BUN/CREATININE RATIO 19 12 - 20 ratio 04/20/2023 1:07 PM [facility] TOTAL PROTEIN 7.6 6.3 - 8.2 g/dL 04/20/2023 1:07 PM [facility] ALBUMIN 4.1 3.5 - 5.0 g/dL 04/20/2023 1:07 PM [facility] A/G RATIO 1.2 1.0 - 2.2 04/20/2023 1:07 PM [facility] CALCIUM 9.4 8.7 - 10.5 mg/dL 04/20/2023 1:07 PM [facility] T BILI 0.3 0.2 - 1.2 mg/dL 04/20/2023 1:07 PM [facility] SGOT (AST) 22 5 - 34 U/L 04/20/2023 1:07 PM [facility] SGPT (ALT) 14 0 - 55 U/L 04/20/2023 1:07 PM [facility] ALKALINE PHOSPHATASE 65 40 - 150 U/L 04/20/2023 1:07 PM [facility] IS THE PATIENT REQUIRED TO BE FASTING? No 04/20/2023 1:07 PM [facility] GFR, ESTIMATED 58(L) >=60 04/20/2023 1:07 PM [facility] Comment: Creatinine Clearance is the preferred criteria for selecting drug dose adjustments in renally impaired patients. ??The GFR is provided as additional pertinent clinical information. GFR is reported in mL/min/1.73 sq m. Calculation based on the Chronic Kidney Disease Epidemiology Collaboration (CKD- EPI) equation refit without adjustment for race. GFR, EST. >60 >=60 023 1:[address] [facility] GFR, EST. NONAFRICAN 51(L) >=60 04/20/2023 1:[address] [facility] Blood Venipuncture / Unknown 04/20/2023 9:31 AM CDT 04/20/2023 9:31 AM CDT us Yinka Harrison MD CHEMISTRY ORDERABLES [place] l Result [facility] [place] [address] * PATIENT CARE MGMT EVAL REFERRAL (04/18/2023 12:04 PM CDT) us Yinka Harrison MD OUTPT REFERRALS EXT/INT F inal Result documented in this encounter Visit Diagnoses Diagnosis Encounter for health maintenance examination (Adult)- Primary Unspecified general medical examination Hypertension, essential Unspecified essential hypertension Mixed hyperlipidemia Rheumatoid arthritis involving multiple sites with positive rheumatoid factor (HCC) documented in this encounter Additional Health Concerns Assessment Noted Time PHQ-9 Depression Total Score: 0 03/10/20 21 10:00 AM CDT documented as of this encounter Care Teams Food Service Substitute Relationship Specialty Start Date End Date Yinka Harrison MD [address] [place] [address] PCP - General Internal Medicine 07/27/18 Dave Fernando MD [address] [place] [address] Consulting Physician Orthopaedic Surgery 02/20/19 documented as of this encounter
--- OUTSIDE RECORDS SUMMARY | 2024-09-22 13:05 | XMS_ITS | Encounter Summary ---
Author Organization [facility] [employer] [facility] Care Team Providers Care Vice President Mission Integration Name Role Phone Yinka Harrison MD Primary Care Provider [phone] Dave Fernando MD Unavailable [phone] Encounter Details Date Type Department Care Team (Latest Contact Info) Description 07/20/2022 Travel Social History Tobacco Use Types Packs/Day [...] Coronavirus/COVID-19? No / Unsure 07/20/2022 9:32 AM BABY SITTER documented as of this encounter Plan of Treatment Upcoming Encounters Date Type Department Care Team (Latest Contact Info) Description 09/23/2024 10:45 AM BABY SITTER Physical Therapy [facility] [address] [place] [address] Dave Fernando MD [address] [place] [address] Lucy Garduno, [place] Discharge Disposition: Discharged to home or Selfcare 11/22/2024 10:15 AM CDT Appointment [facility] 1 [facility] [place] [address] Yinka Harrison MD [address] [place] [address] Discharge Disposition: Discharged to home or Selfcare 06/13/2025 10:30 AM CDT Office Visit [facility] - Primary Care - [place] [address] [place] [address] Yinka Harrison MD [address] [place] [address] documented as of this encounter Visit Diagnoses Not on filedocumented in this encounter Additional Health Concerns Assessment Noted Time PHQ-9 Depression Total Score: 0 03/10/20 21 10:00 AM CDT documented as of this encounter Care Teams Vice President Mission Integration Relationship Specialty Start Date End Date Yinka Harrison MD [address] [place] [address] PCP - General Internal Medicine 07/27/18 Dave Fernando MD [address] [place] [address] Consulting Physician Orthopaedic Surgery 02/20/19 documented as of this encounter
--- OUTSIDE RECORDS SUMMARY | 2024-09-22 13:05 | XMS_ITS | Encounter Summary ---
Author Organization [facility] Address [address] [place] [address] Phone Care Team Providers Care Angiography Nurse Name Role Phone Yinka Harrison MD Primary Care Provider [phone] Dave Fernando MD Unavailable [phone] Merari Mclean [facility] Unavailable Unavailab le Reason for Visit * Reason Comments Medication Refill Encounter Details Date Type Department Care Team (Late st Contact Info) Description 12/28/2022 Refill [facility] - [place] [address] [place] [address] Yinka Harrison MD [address] [place] [address] Medication Refill Social History Tobacco [...] Telephone Encounter - Yinka Harrison MD - 12/28/2022 3:57 PM CDT Refill request approved. * Telephone Encounter - Mariposa Castelan RN - 12/28/2022 3:15 PM CDT Medication failed the protocol, provider to review and approve the medication order if appropriate. Requested Prescriptions Pending Prescriptions Disp Refills traMADol (ULTRAM) 50 MG Tablet [Pharmacy Med Name: TRAMADOL HCL 50MG TABLET] 30 Tablet 1 Sig: TAKE ONE (1) TABLET BY MOUTH EVERY 8 HOURS NEEDED FOR MODERATE OR MORE SEVERE PAIN. Not Delegated - Opioid Agonists Protocol Failed - 12/28/2022 3:06 PM Failed - This refill cannot be delegated Passed - Visit with relevant provider in past 12 months or upcoming 90 days Recent Visits Date Type Provider Dept 04/11/22 Office Visit Yinka Harrison MD [facility] Showing recent visits within past 365 days and meeting all other requirements Future Appointments No visits were found meeting these conditions. Showing future appointments within next 90 days and meeting all other requirements documented in this encounter Plan of Treatment Upcoming Encounters Date Type Department Care Team (Latest Contact Info) Description 09/23/2024 10:45 AM VISITOR SERVICES REPRESENTATIVE Physical Therapy [facility] at [facility] [address], [address] [place] [address] Dave Fernando MD [address] [place] [address] Lucy Garduno, [place] Discharge Disposition: Discharged to home or Selfcare 11/22/2024 10:15 AM CDT [facility] 1 [place] [address] Yinka Harrison MD [address] [place] [address] Discharge Disposition: Discharged to home or Selfcare 06/13/2025 10:30 AM CDT Office Visit [facility] - [facility] Care - [place] [address] [place] [address] Yinka Harrison MD [address] [place] [address] documented as of this encounter Visit Diagnoses Diagnosis Arthritis Arthropathy, unspecified, site unspecified Chronic pain of right knee Rheumatoid arthritis involving multiple sites with positive rheumatoid factor (HCC) documented in this encounter Additional Health Concerns Assessment Noted Time PHQ-9 Depression Total Score: 0 03/10/20 10:00 AM CDT documented as of this encounter Care Teams Angiography Nurse Relationship Specialty Start Date End Date Yinka Harrison MD [address] [place] [address] PCP - General Internal Medicine 07/27/18 Dave Fernando MD [address] [place] [address] Consulting Physician Orthopaedic Surgery 02/20/19 Merari Mclean LSW [place] Candy Cutter Hand 05/05/23 07/04/23 documented as of this encounter
--- OUTSIDE RECORDS SUMMARY | 2024-09-22 13:05 | XMS_ITS | Encounter Summary ---
Author Organization [facility] Address [address] [place] [address] Phone Care Team Providers Care Violin Tutor Name Role Phone Yinka Harrison MD Primary Care Provider [phone] Dave Fernando MD Unavailable [phone] Reason for Visit * Reason Onset Date Comments Results 07/20/2022 lab Encounter Details Date Type Department Care Team (Late st Contact Info) Description 07/20/2022 Telephone [facility] - [place] [address] [place] [address] Yinka Harrison MD [address] [place] [address] Results (lab) Social History Tobacco [...] Coronavirus/COVID-19? No / Unsure 07/20/2022 9:32 AM ACTIVATED SLUDGE ATTENDANT documented as of this encounter Miscellaneous Notes * Telephone Encounter - Mariposa Castelan RN - 07/21/2022 8:22 AM ACTIVATED SLUDGE ATTENDANT See my chart message of 07/20/22. VATED SLUDGE ATTENDANT * Telephone Encounter - Mariposa Castelan RN - 07/20/2022 2:10 PM ACTIVATED SLUDGE ATTENDANT Attempted to call patient with results, no answer at this time. Left message to call back. VATED SLUDGE ATTENDANT * Telephone Encounter - Yinka Harrison MD - 07/20/2022 1:37 PM ACTIVATED SLUDGE ATTENDANT Lab results showed at lipids are written proved dramatically on rosuvastatin, with LDL of 162. Please ask the patient to double her rosuvastatin dosage to 20 mg q.d.. I am sending a new script to thepharmacy to reflect the dosing change. Otherwise follow-up as scheduled. VATED SLUDGE ATTENDANT documented in this encounter Plan of Treatment Upcoming Encounters Date Type Department Care Team (Latest Contact Info) Description 09/23/2024 10:45 AM ACTIVATED SLUDGE ATTENDANT Physical Therapy [facility] at [facility] [address] [place] [address] Dave Fernando MD [address] [place] [address] Lucy Garduno, [place] Discharge Disposition: Discharged to home or Selfcare 11/22/2024 10:15 AM CDT Appointment [facility] Mammography 1 [facility] [place] [address] Yinka Harrison MD [address] [place] [address] Discharge Disposition: Discharged to home or Selfcare 06/13/2025 10:30 AM CDT Office Visit [facility] - [facility] - [place] [address] [place] [address] Yinka Harrison MD [address] [place] [address] documented as of this encounter Visit Diagnoses Diagnosis Hyperlipidemia Mixed hyperlipidemia documented in this encounter Additional Health Concerns Assessment Noted Time PHQ-9 Depression Total Score: 0 03/10/20 21 10:00 AM CDT documented as of this encounter Care Teams Violin Tutor Relationship Specialty Start Date End Date Yinka Harrison MD [address] [place] [address] PCP - General Internal Medicine 07/27/18 Dave Fernando MD [address] [place] [address] Consulting Physician Orthopaedic Surgery 02/20/19 documented as of this encounter
--- OUTSIDE RECORDS SUMMARY | 2024-09-22 13:05 | XMS_ITS | Encounter Summary ---
Author Organization [facility] Address [address] [place] [address] Phone Care Team Providers Care Beer Maker Name Role Phone Yinka Harrison MD Primary Care Provider [phone] Dave Fernando MD Unavailable [phone] Reason for Visit * Reason Onset Date Comments Medication Refill 12/28/2022 Encounter Details Date Type Department Care Team (Late st Contact Info) Description 12/28/[address] [facility] - Primary Care - [place] [address] [place] [address] Yinka Harrison MD [address] [place] [address] Medication Renewal Declined Social History [...] Castelan RN - 12/28/2022 3:15 PM CDT Duplicate request. documented in this encounter Plan of Treatment Upcoming Encounters Date Type Department Care Team (Latest Contact Info) Description 09/23/2024 10:45 AM INFRASTRUCTURE MANAGER [facility] [address] [place] [address] Dave Fernando MD [address] [place] [address] Lucy Garduno, [place] Discharge Disposition: Discharged to home or Selfcare 11/22/2024 10:15 AM CDT [facility] 1 [place] [address] Yinka Harrison MD [address] [place] [address] Discharge Disposition: Discharged to home or Selfcare 06/13/2025 10:30 AM CDT Office Visit [facility] - Primary Care - [place] [address] [place] [address] Yinka Harrison MD [address] [place] [address] documented as of this encounter Visit Diagnoses Diagnosis Arthritis Arthropathy, unspecified, site unspecified Chronic pain of right knee Rheumatoid arthritis involving multiple sites with positive rheumatoid factor (HCC) documented in this encounter Additional Health Concerns Assessment Noted Time PHQ-9 Depression Total Score: 0 03/10/20 21 10:00 AM CDT documented as of this encounter Care Teams Beer Maker Relationship Specialty Start Date End Date Yinka Harrison MD [address] [place] [address] PCP - General Internal Medicine 07/27/18 Dave Fernando MD [address] [place] [address] Consulting Physician Orthopaedic Surgery 02/20/19 documented as of this encounter
--- OUTSIDE RECORDS SUMMARY | 2024-09-22 13:05 | XMS_ITS | Encounter Summary ---
Author Organization [facility] Address [address] [place] [address] Phone Care Team Providers Care Buffer Operator Name Role Phone Yinka Harrison MD Primary Care Provider [phone] Dave Fernando MD Unavailable [phone] Reason for Visit * Reason Onset Date Comments Medication Refill 01/28/2023 Encounter Details Date Type Department Care Team (Late st Contact Info) Description 01/28/2023 MyChart RX Renewal [facility] - Primary Care - [place] [address] [place] [address] Yinka Harrison MD [address] [place] [address] Medication Renewal Declined Social History [...] encounter Miscellaneous Notes * Telephone Encounter - Mary Thomas RN - 01/30/2023 10:00 AM CDT S: Sriram calling to inquire about why Tramadol was not refilled A: Advised she has another refill at pharmacy R: She verbalizes understanding and wants Dr. Harrison to know she did not realize she had a refill. States, I'm not trying to do anything fishy. * Telephone Encounter - Yinka Harrison MD - 01/30/2023 8:54 AM CDT This medication was filled for 60 days on 01/01/2023. * Telephone Encounter - Mariposa Castelan RN - 01/30/2023 8:03 AM CDT Medication failed the protocol, provider to review and approve the medication order if appropriate. Requested Prescriptions Pending Prescriptions Disp Refills traMADol (ULTRAM) 50 MG Tablet 30 Tablet 1 Sig: Take 1 Tablet by mouth every 8 hours as needed for Moderate or more severe pain. Not Delegated - Opioid Agonists Protocol Failed - 01/28/2023 9:51 PM Failed - This refill cannot be delegated Passed - Visit with relevant provider in past 12 months or upcoming 90 days Recent Visits Date Type Provider Dept 04/11/22 Office Visit Yinka Harrison MD [facility] Showing recent visits within past 365 days and meeting all other requirements Future Appointments Date Type Provider Dept 04/14/23 Appointment Yinka Harrison MD [facility] Showing future appointments within next 90 days and meeting all other requirements documented in this encounter Plan of Treatment Upcoming Encounters Date Type Department Care Team (Latest Contact Info) Description 09/23/2024 10:45 AM LOCK OPERATOR Physical Therapy [facility] Rehab at [facility] [address] [place] [address] Dave Fernando MD [address] [place] [address] Lucy Garduno, [place] Discharge Disposition: Discharged to home or Selfcare 11/22/2024 10:15 AM CDT Appointment [facility] Mammography 1 [facility] [place] [address] Yinka Harrison MD [address] [place] [address] Discharge Disposition: Discharged to home or Selfcare 06/13/2025 10:30 AM CDT Office Visit [facility] - Primary Care - [place] [address] [place] [address] Yinka Harrison MD [address] [place] [address] documented as of this encounter Visit Diagnoses Diagnosis Arthritis Arthropathy, unspecified, site unspecified Chronic pain of right knee Rheumatoid arthritis involving multiple sites with positive rheumatoid factor (HCC) documented in this encounter Additional Health Concerns Assessment Noted Time PHQ-9 Depression Total Score: 0 03/10/20 21 10:00 AM CDT documented as of this encounter Care Teams Buffer Operator Relationship Specialty Start Date End Date Yinka Harrison MD [address] [place] [address] PCP - General Internal Medicine 07/27/18 Dave Fernando MD [address] [place] [address] Consulting Physician Orthopaedic Surgery 02/20/19 documented as of this encounter
--- OUTSIDE RECORDS SUMMARY | 2024-09-22 13:05 | XMS_ITS | Encounter Summary ---
Author Organization [facility] Address [address] [place] [address] Phone Care Team Providers Care Manager China Name Role Phone Yinka Harrison MD Primary Care Provider [phone] Dave Fernando MD Unavailable [phone] Reason for Visit * Reason Onset Date Comments Medication Refill 07/27/2022 Encounter Details Date Type Department Care Team (Late st Contact Info) Description 07/27/2022 MyChart RX Renewal [facility] - Primary Care - [place] [address] [place] [address] Lucy Forbes, EVE, DATA WAREHOUSING ENGINEER [address] [place] [address] Medication Renewal Reviewed Social History [...] Coronavirus/COVID-19? No / Unsure 07/20/2022 9:32 AM CHEMICAL ANALYST documented as of this encounter Miscellaneous Notes * Telephone Encounter - Yinka Harrison MD - 07/27/2022 3:27 PM CHEMICAL ANALYST Refill request approved. ICAL ANALYST * Telephone Encounter - Mariposa Castelan RN - 07/27/2022 3:07 PM CHEMICAL ANALYST Medication failed the protocol, provider to review and approve the medication order if appropriate. Requested Prescriptions Pending Prescriptions Disp Refills traMADol (ULTRAM) 50 MG Tablet 30 Tablet 0 Sig: Take 1 Tablet by mouth every 8 hours as needed for Moderate or more severe pain. Not Delegated - Opioid Agonists Protocol Failed - 07/27/2022 2:59 PM Failed - This refill cannot be delegated Passed - Visit with relevant provider in past 12 months or upcoming 90 days Recent Visits Date Type Provider Dept 04/11/22 Office Visit Yinka Harrison MD [facility] Showing recent visits within past 365 days and meeting all other requirements Future Appointments No visits were found meeting these conditions. Showing future appointments within next 90 days and meeting all other requirements ICAL ANALYST documented in this encounter Plan of Treatment Upcoming Encounters Date Type Department Care Team (Latest Contact Info) Description 09/23/2024 10:45 AM CHEMICAL ANALYST [facility] [address] [place] [address] Dave Fernando MD [address] [place] [address] Lucy Garduno, PT [place] Discharge Disposition: Discharged to home or Selfcare 11/22/2024 10:15 AM CDT [facility] 1 [facility] [address] Yinka Harrison MD [address] [place] [address] Discharge Disposition: Discharged to home or Selfcare 06/13/2025 10:30 AM CDT Office Visit [facility] - Primary Care - [place] [address] [place] [address] Yinka Harrison MD [address] [place] [address] documented as of this encounter Visit Diagnoses Diagnosis Arthritis Arthropathy, unspecified, site unspecified Chronic pain of right knee Rheumatoid arthritis involving multiple sites with positive rheumatoid factor (HCC) documented in this encounter Additional Health Concerns Assessment Noted Time PHQ-9 Depression Total Score: 0 03/10/20 21 10:00 AM CDT documented as of this encounter Care Teams Manager China Relationship Specialty Start Date End Date Yinka Harrison MD [address] [place] [address] PCP - General Internal Medicine 07/27/18 Dave Fernando MD [address] [place] [address] Consulting Physician Orthopaedic Surgery 02/20/19 documented as of this encounter
--- OUTSIDE RECORDS SUMMARY | 2024-09-22 13:06 | XMS_ITS | Encounter Summary ---
Author Organization [facility] Address [address] [place] [address] Phone Care Team Providers Care Steno Typist Name Role Phone Yinka Harrison MD Primary Care Provider [phone] Dave Fernando MD Unavailable [phone] Reason for Visit * Reason Comments Medication Refill Encounter Details Date Type Department Care Team (Late st Contact Info) Description [facility] [place] [address] [place] [address] Yinka Harrison MD [address] [place] [address] Medication Refill Social History Tobacco [...] Telephone Encounter - Jen Zurita RN - 11/22/2021 10:21 AM CDT Medication approved and signed per standing order protocol. documented in this encounter Plan of Treatment Upcoming Encounters Date Type Department Care Team (Latest Contact Info) Description 09/23/2024 10:45 AM STAGE SETTING PAINTER APPRENTICE Physical Therapy [facility] Rehab at [facility] [address] [place] [address] Dave Fernando MD [address] [place] [address] Lucy Garduno, PT [place] Discharge Disposition: Discharged to home or Selfcare 11/22/2024 10:15 AM CDT [facility] 1 [place] [address] Yinka Harrison MD [address] [place] [address] Discharge Disposition: Discharged to home or Selfcare 06/13/2025 10:30 AM CDT Office Visit [facility] - Primary Care - [place] [address] [place] [address] Yinka Harrison MD [address] [place] [address] documented as of this encounter Visit Diagnoses Diagnosis Essential hypertension Unspecified essential hypertension documented in this encounter Additional Health Concerns Assessment Noted Time PHQ-9 Depression Total Score: 0 03/10/ 21 10:00 AM CDT documented as of this encounter Care Teams Steno Typist Relationship Specialty Start Date End Date Yinka Harrison MD [address] [place] [address] PCP - General Internal Medicine 07/27/18 Dave Fernando MD [address] [facility] [address] [place] [address] Consulting Physician Orthopaedic Surgery 02/20/19 documented as of this encounter
--- OUTSIDE RECORDS SUMMARY | 2024-09-22 13:06 | XMS_ITS | Encounter Summary ---
Author Organization [facility] Address [address] [place] [address] Phone Care Team Providers Care Portable Pinch Riveter Name Role Phone Yinka Harrison MD Primary Care Provider [phone] Dave Fernando MD Unavailable [phone] Reason for Visit * Reason Onset Date Comments Results 03/11/2021 lab Encounter Details Date Type Department Care Team (Late st Contact Info) Description 03/11/2021 Telephone [facility] - [place] [address] [place] [address] Yinka Harrison MD [address] [place] [address] Results (lab) Social History Tobacco [...] Exposure Response Date Recorded In the last month, have you been in contact with someone who was confirmed or suspected to have Coronavirus / COVID-19? No / Unsure 03/10/2021 10:03 AM CDT documented as of this encounter Miscellaneous Notes * Telephone Encounter - Sandra Urrutia RN - 03/16/2021 11:00 AM CDT Reviewed MD's/PA's note with Antonieta and she voiced understanding. Knew about the increase and was picking it up today. * Telephone Encounter - Mariposa Castelan RN - 03/16/2021 8:25 AM CDT Unable to reach patient via telephone. Letter sent through my chart to call the office. * Telephone Encounter - Mariposa Castelan RN - 03/12/2021 8:24 AM CDT Attempted to call patient with results, no answer at this time. Left message to call back. * Telephone Encounter - Mariposa Castelan RN - 03/11/2021 3:25 PM CDT Attempted to call patient with results, no answer at this time. Left message to call back. * Telephone Encounter - Yinka Harrison MD - 03/11/2021 8:02 AM CDT Lab results are OK except lipids are quite elevated. I am sending a script for an increase strengththe pravastatin to the patient's pharmacy. We will routinely check labs at her next office visit. Please follow-up as scheduled. documented in this encounter Plan of Treatment Upcoming Encounters Date Type Department Care Team (Latest Contact Info) Description 09/23/2024 10:45 AM JET ENGINE MECHANIC Physical Therapy [facility] Rehab at [facility] [address] [place] [address] Dave Fernando MD [address] [place] [address] Lucy Garduno, PT [place] Discharge Disposition: Discharged to home or Selfcare 11/22/2024 10:15 AM CDT [facility] 1 [place] [address] Yinka Harrison MD [address] [place] [address] Discharge Disposition: Discharged to home or Selfcare 06/13/2025 10:30 AM CDT Office Visit [facility] - Primary Care - [place] [address] [place] [address] Yinka Harrison MD [address] [place] [address] documented as of this encounter Visit Diagnoses Not on filedocumented in this encounter Additional Health Concerns Assessment Noted Time PHQ-9 Depression Total Score: 0 03/10/20 21 10:00 AM CDT documented as of this encounter Care Teams Portable Pinch Riveter Relationship Specialty Start Date End Date Yinka Harrison MD [address] [place] [address] PCP - General Internal Medicine 07/27/18 Dave Fernando MD [address] [place] [address] Consulting Physician Orthopaedic Surgery 02/20/19 documented as of this encounter
--- OUTSIDE RECORDS SUMMARY | 2024-09-22 13:06 | XMS_ITS | Encounter Summary ---
Author Organization [facility] Address [address] [place] [address] Phone Care Team Providers Care Sterilization Specialist Name Role Phone Yinka Harrison MD Primary Care Provider [phone] Dave Fernando MD Unavailable [phone] Merari Mclean [facility] Unavailable Unavailab le Reason for Visit * Reason Comments Medication Refill Encounter Details Date Type Department Care Team (Late st Contact Info) Description 01/31/2022 Refill [facility] - Primary Care - [place] [place] [address] Yinka Harrison MD [address] [place] [address] Medication Refill Social History Tobacco [...] (Latest Contact Info) Description 09/23/2024 10:45 AM UTILIZATION SUPERVISOR Physical Therapy [facility] Rehab at [facility] [address], [address] [place] [address] Dave Fernando MD [address] [place] [address] Lucy Garduno, PT [place] Discharge Disposition: Discharged to home or Selfcare 11/22/2024 10:15 AM CDT Appointment [facility] Mammography 1 [place] [address] Yinka Harrison MD [address] [place] [address] Discharge Disposition: Discharged to home or Selfcare 06/13/2025 10:30 AM CDT Office Visit [facility] - Primary Care - [place] [address] [place] [address] Yinka Harrison MD [address] [place] [address] documented as of this encounter Visit Diagnoses Not on filedocumented in this encounter Additional Health Concerns Assessment Noted Time PHQ-9 Depression Total Score: 0 03/10/20 21 10:00 AM CDT documented as of this encounter Care Teams Sterilization Specialist Relationship Specialty Start Date End Date Yinka Harrison MD [address] [place] [address] PCP - General Internal Medicine 07/27/18 Dave Fernando MD [address] [place] [address] Consulting Physician Orthopaedic Surgery 02/20/19 Merari Mclean LSW [place] Mutton Puncher 05/05/23 07/04/23 documented as of this encounter
--- OUTSIDE RECORDS SUMMARY | 2024-09-22 13:06 | XMS_ITS | Encounter Summary ---
Author Organization [facility] Care Team Providers Care Insulation Mechanic Name Role Phone Yinka Harrison MD Primary Care Provider [phone] Dave Fernando MD Unavailable [phone] Encounter Details Date Type Department Care Team (Latest Contact Info) Description 03/10/2021 Travel Social History Tobacco Use Types Packs/Day [...] Contact Info) Description 09/23/2024 10:45 AM SENIOR STAFF SPECIALIZED EMPLOYMENT Physical Therapy [facility] Rehab at [facility] [address] [place] [address] Dave Fernando MD [address] [place] [address] Lucy Garduno, PT [place] Discharge Disposition: Discharged to home or Selfcare 11/22/2024 10:15 AM CDT [facility] [place] [address] Yinka Harrison MD [address] [place] [address] Discharge Disposition: Discharged to home or Selfcare 06/13/2025 10:30 AM CDT [facility] - Primary Care - [place] [address] [place] [address] Yinka Harrison MD [address] [place] [address] documented as of this encounter Visit Diagnoses Not on filedocumented in this encounter Additional Health Concerns Assessment Noted Time PHQ-9 Depression Total Score: 0 03/10/20 21 10:00 AM CDT documented as of this encounter Care Teams Insulation Mechanic Relationship Specialty Start Date End Date Yinka Harrison MD [address] [place] [address] PCP - General Internal Medicine 07/27/18 Dave Fernando MD [address] [place] [address] Consulting Physician Orthopaedic Surgery 02/20/19 documented as of this encounter
--- OUTSIDE RECORDS SUMMARY | 2024-09-22 13:06 | XMS_ITS | Encounter Summary ---
Author Organization [facility] [employer] [facility] Care Team Providers Care Cherry Picker Operator Name Role Phone Yinka Harrison MD Primary Care Provider [phone] Dave Fernando MD Unavailable [phone] Encounter Details Date Type Department Care Team (Latest Contact Info) Description 06/17/2021 Travel Social History Tobacco Use Types Packs/Day [...] have Coronavirus / COVID-19? No / Unsure 06/17/2021 10:30 AM CDT documented as of this encounter Plan of Treatment Upcoming Encounters Date Type Department Care Team (Latest Contact Info) Description 09/23/2024 10:45 AM WORK STUDY STUDENT Physical Therapy [facility] Rehab at [facility] [address] [place] [address] Dave Fernando MD [address] [place] [address] Lucy Garduno, PT [place] Discharge Disposition: Discharged to home or Selfcare 11/22/2024 10:15 AM CDT [facility] [place] [address] Yinka Harrison MD [address] [place] [address] Discharge Disposition: Discharged to home or Selfcare 06/13/2025 10:30 AM CDT [facility] [place] [address] [place] [address] Yinka Harrison MD [address] [place] [address] documented as of this encounter Visit Diagnoses Not on filedocumented in this encounter Additional Health Concerns Assessment Noted Time PHQ-9 Depression Total Score: 0 03/10/20 21 10:00 AM CDT documented as of this encounter Care Teams Cherry Picker Operator Relationship Specialty Start Date End Date Yinka Harrison MD [address] [place] [address] PCP - General Internal Medicine 07/27/18 Dave Fernando MD [address] [place] [address] Consulting Physician Orthopaedic Surgery 02/20/19 documented as of this encounter
--- OUTSIDE RECORDS SUMMARY | 2024-09-22 13:06 | XMS_ITS | Encounter Summary ---
Author Organization [facility] Address [address] [place] [address] Phone Care Team Providers Care Universal Grinder Set Up Operator Name Role Phone Yinka Harrison MD Primary Care Provider [phone] Dave Fernando MD Unavailable [phone] Merari Mclean [facility] Unavailable Unavailab le Reason for Visit * Reason Comments Medication Refill Encounter Details Date Type Department Care Team (Late st Contact Info) Description 11/24/2020 Refill [facility] [address] [place] [address] Yinka Harrison MD [address] [place] [address] Medication Refill Social History Tobacco Use Types Packs/Day Years Used Date Smoking Tobacco: Former Smokeless Tobacco: Never Alcohol Use Standard Drinks/Week Comments No 0 (1 standard drink = 0.6 oz pur e alcohol) PHQ-2 Answer Date Recorded Total Score - Questions 1-9 0 02/10 Sexually Active Control Partners Comments Never Comments No Sex and Gender Information Value Date Recorded Sex Assigned at Not on file Legal Sex Female 11:27 PM CDT Gender Identity Not on file Sexual Orientation Not on file documented as of this encounter Miscellaneous Notes * Telephone Encounter - Mariposa Castelan RN - 11/24/2020 10:14 AM CDT Medication approved and signed per standing order protocol. documented in this encounter Plan of Treatment Upcoming Encounters Date Type Department Care Team (Latest Contact Info) Description 09/23/2024 10:45 AM COOK'S ASSISTANT Physical Therapy [facility] Rehab at [facility] [address] [place] [address] Dave Fernando MD [address] [place] [address] Lucy Garduno, PT [place] Discharge Disposition: Discharged to home or Selfcare 11/22/2024 10:15 AM CDT [facility] 1 [place] [address] Yinka Harrison MD [address] [place] [address] Discharge Disposition: Discharged to home or Selfcare 06/13/2025 10:30 AM CDT Office Visit [facility] - Primary Care - [place] [address] [place] [address] Yinka Harrison MD [address] [place] [address] documented as of this encounter Visit Diagnoses Not on filedocumented in this encounter Additional Health Concerns Assessment Noted Time PHQ-9 Depression Total Score: 0 03/09/20 20 11:00 AM CDT documented as of this encounter Care Teams Universal Grinder Set Up Operator Relationship Specialty Start Date End Date Yinka Harrison MD [address] [place] [address] PCP - General Internal Medicine 07/27/18 Dave Fernando MD [address] [place] [address] Consulting Physician Orthopaedic Surgery 02/20/19 Merari Mclean LSW [place] Slab Inspector 05/05/23 07/04/23 documented as of this encounter
--- OUTSIDE RECORDS SUMMARY | 2024-09-22 13:06 | XMS_ITS | Encounter Summary ---
Author Organization [facility] Address [address] [place] [address] Phone Care Team Providers Care Banking Analyst Name Role Phone Yinka Harrison MD Primary Care Provider [phone] Dave Fernando MD Unavailable [phone] Reason for Visit * Reason Onset Date Comments Medication Refill 04/19/2021 Encounter Details Date Type Department Care Team (Late st Contact Info) Description 04/19/2021 MyChart RX Renewal [facility] [address] [place] [address] Yinka Harrison MD [address] [place] [address] RE:Medication Renewal Reviewed Social History Tobacco Use Types [...] Telephone Encounter - Yinka Harrison MD - 04/19/2021 11:51 AM CDT Refill request approved. documented in this encounter Plan of Treatment Upcoming Encounters Date Type Department Care Team (Latest Contact Info) Description 09/23/2024 10:45 AM MILLER WOOD FLOUR Physical Therapy [facility] Rehab at [facility] [address] [place] [address] Dave Fernando MD [address] [place] [address] Lucy Garduno, PT [place] Discharge Disposition: Discharged to home or Selfcare 11/22/2024 10:15 AM CDT [facility] 1 [place] [address] Yinka Harrison MD [address] [place] [address] Discharge Disposition: Discharged to home or Selfcare 06/13/2025 10:30 AM CDT Office Visit [facility] - Primary Care - [place] [address] [place] [address] Yinka Harrison MD [address] [place] [address] documented as of this encounter Visit Diagnoses Diagnosis Essential hypertension Unspecified essential hypertension Arthritis Arthropathy, unspecified, site unspecified Chronic pain of right knee Rheumatoid arthritis involving multiple sites with positive rheumatoid factor (HCC) documented in this encounter Additional Health Concerns Assessment Noted Time PHQ-9 Depression Total Score: 0 03/10/20 21 10:00 AM CDT documented as of this encounter Care Teams Banking Analyst Relationship Specialty Start Date End Date Yinka Harrison MD [address] [place] [address] PCP - General Internal Medicine 07/27/18 Dave Fernando MD [address] [place] [place] [address] Consulting Physician Orthopaedic Surgery 02/20/19 documented as of this encounter
--- OUTSIDE RECORDS SUMMARY | 2024-09-22 13:06 | XMS_ITS | Encounter Summary ---
Author Organization [facility] Address [address] [place] [address] Phone Care Team Providers Care Disabilities Services Officer Name Role Phone Yinka Harrison MD Primary Care Provider [phone] Dave Fernando MD Unavailable [phone] Reason for Visit * Reason Onset Date Comments Medication Refill 11/06/2021 Encounter Details Date Type Department Care Team (Late st Contact Info) Description 11/06/[address] [facility] - Primary Care - [place] [address] [place] [address] Yinka Harrison MD [address] [place] [address] Medication Renewal Request Social History [...] Telephone Encounter - Yinka Harrison MD - 11/08/2021 2:21 PM WAREHOUSE SHIPPING RECEIVING CLERK Refill request approved. HOUSE SHIPPING RECEIVING CLERK documented in this encounter Plan of Treatment Upcoming Encounters Date Type Department Care Team (Latest Contact Info) Description 09/23/2024 10:45 AM WAREHOUSE SHIPPING RECEIVING CLERK Physical Therapy [facility] Rehab at [facility] [address] [place] [address] Dave Fernando MD [address] [place] [address] Lucy Garduno, PT [place] Discharge Disposition: Discharged to home or Selfcare 11/22/2024 10:15 AM CDT [facility] 1 [place] [address] Yinka Harrison MD [address] [place] [address] Discharge Disposition: Discharged to home or Selfcare 06/13/2025 10:30 AM CDT Office Visit [facility] - Primary Care - [place] [address] [place] [address] Yinka Harrison MD [address] [place] [address] documented as of this encounter Visit Diagnoses Diagnosis Arthritis Arthropathy, unspecified, site unspecified Chronic pain of right knee Rheumatoid arthritis involving multiple sites with positive rheumatoid factor (HCC) documented in this encounter Additional Health Concerns Assessment Noted Time PHQ-9 Depression Total Score: 0 03/10/20 10:00 AM CDT documented as of this encounter Care Teams Disabilities Services Officer Relationship Specialty Start Date End Date Yinka Harrison MD [address] [place] [address] PCP - General Internal Medicine 07/27/18 Dave Fernando MD [address] [place] [place] [address] Consulting Physician Orthopaedic Surgery 02/20/19 documented as of this encounter
--- OUTSIDE RECORDS SUMMARY | 2024-09-22 13:06 | XMS_ITS | Encounter Summary ---
Author Organization [facility] Address [address] [place] [address] Phone Care Team Providers Care Spinner Tender Name Role Phone Yinka Harrison MD Primary Care Provider [phone] Dave Fernando MD Unavailable [phone] Encounter Details Date Type Department Care Team (Late st Contact Info) Description 03/10/2021 11:40 AM CDT Lab [facility] - Primary Care - [address] [address] Lab, [facility] Hypertension, essential; Hyperlipidemia Discharge Disposition: Discharged to home or [...] Progress Notes * Nargis Gage RMA - 03/10/2021 11:40 AM CDT Sriram presents for lab draw per order of Dr. Harrison dated 03/10/21. Specimen collected from right antecubital without incident. sah documented in this encounter Plan of Treatment Upcoming Encounters Date Type Department Care Team (Latest Contact Info) Description 09/23/2024 10:45 AM DOUGH MACHINE OPERATOR Physical Therapy [facility] Rehab at [facility] [address] [place] [address] Dave Fernando MD [address] [place] [address] Lucy Garduno, PT [place] Discharge Disposition: Discharged to home or Selfcare 11/22/2024 10:15 AM CDT Appointment [facility] Mammography 1 [place] [address] Yinka Harrison MD [address] [place] [address] Discharge Disposition: Discharged to home or Selfcare 06/13/2025 10:30 AM CDT Office Visit [facility] - Primary Care - [place] [address] [place] [address] Yinka Harrison MD [address] [place] [address] documented as of this encounter Procedures Procedure Name Priority Date/Time Associated Diagnosis Comments LIPID PANEL Routine 03/10/2021 10:42 AM CDT Hyperlipidemia CMP (COMPREHENSIVE METABOLIC PANEL) Today 03/10/2021 10:42 AM CDT Hypertension, essential documented in this encounter Results * (ABNORMAL) LIPID PANEL (03/10/2021 10:42 AM CDT) CHOLESTEROL 285(H) <=200 mg/dL 03/10/2021 4:06 PM CDT [facility] TRIGLYCERIDES 102 <150 mg/dL 03/10/2021 4:06 PM CDT [facility] HDL CHOLESTEROL 67.2 >40 mg/dL 4:06 PM CDT [facility] LDL 197(H) 5 - 130 mg/dL 03/10/2021 4:06 PM CDT [facility] VLDL 20 5 - 55 mg/dL 03/10/2021 4:06 PM CDT [facility] CHOL/HDL RATIO 4.2 0.0 - 4.4 03/10/2021 4:06 PM CDT [facility] NON-HDL CHOLESTEROL 217.8(H) <130 mg/dL 03/10/2021 4:06 PM CDT [facility] IS THE PATIENT REQUIRED TO BE FASTING? Yes 03/10/2021 4:06 PM CDT [facility] HAS THE PATIENT BEEN FASTING? Yes 03/10/2021 4:06 PM CDT [facility] Blood Venipuncture / Unknown 03/10/2021 10:42 AM CDT 03/10/2021 10:42 AM CDT us Yinka Harrison MD CHEMISTRY ORDERABLES [place] l Result [facility] [address] [place] [address] * (ABNORMAL) CMP (COMPREHENSIVE METABOLIC PANEL) (03/10/2021 10:42 AM CDT) SODIUM 141 136 - 144 mmol/L 03/10/2021 4:06 PM [facility] POTASSIUM 3.7 3.5 - 5.1 mmol/L 03/10/2021 4:06 PM [facility] CHLORIDE 105 100 - 110 mmol/L 03/10/2021 4:06 PM [facility] CO2, VENOUS 25 22 - 32 mmol/L 03/10/2021 4:06 PM [facility] ANION GAP 14.7 8.0 - 20.0 mmol/L 03/10/2021 4:06 PM [facility] GLUCOSE 88 70 - 99 mg/dL 03/10/2021 4:06 PM [facility] BUN 18 8 - 23 mg/dL 03/10/2021 4:06 PM [facility] CREATININE, BLOOD 1.01 0.60 - 1.10 mg/dL 03/10/2021 4:06 PM [facility] BUN/CREATININE RATIO 18 12 - 20 ratio 03/10/2021 4:06 PM [facility] TOTAL PROTEIN 7.7 6.0 - 8.3 g/dL 03/10/2021 4:06 PM [facility] ALBUMIN 4.2 3.5 - 5.2 g/dL 03/10/2021 4:06 PM [facility] Comment: The colormetric methods used for the determination of Albumin may lead to falsely elevated test results in patients suffering from renal failure or insufficiency due to interference with other proteins. A/G RATIO 1.2 1.0 - 2.0 03/10/2021 4:06 PM [facility] CALCIUM 9.8 8.9 - 10.3 mg/dL 03/10/2021 4:06 PM [facility] T BILI <0.3 <=1.2 mg/dL 03/10/2021 4:06 PM [facility] SGOT (AST) 21 <=32 U/L 03/10/2021 4:06 PM [facility] SGPT (ALT) 17 <=41 U/L 03/10/2021 4:06 PM CDT [facility] ALKALINE PHOSPHATASE 78 35 - 105 U/L 03/10/2021 4:06 PM CDT [facility] GFR, EST. NONAFRICAN 56(L) >=60 03/10/2021 4:06 PM CDT [facility] GFR, EST. >60 >=60 021 4:06 PM CDT [facility] Comment: Creatinine Clearance is the preferred criteria for selecting drug dose adjustments in renally impaired patients. ??The GFR is provided as additional pertinent clinical information. GFR is reported in mL/min/1.73 sq m. IS THE PATIENT REQUIRED TO BE FASTING? No 03/10/2021 4:06 PM CDT [facility] Blood Venipuncture / Unknown 03/10/2021 10:42 AM CDT 03/10/2021 10:42 AM CDT us Yinka Harrison MD CHEMISTRY ORDERABLES [place] l Result [facility] [place] [address] documented in this encounter Visit Diagnoses Diagnosis Hypertension, essential Unspecified essential hypertension Hyperlipidemia Mixed hyperlipidemia documented in this encounter Additional Health Concerns Assessment Noted Time PHQ-9 Depression Total Score: 0 03/10/20 21 10:00 AM CDT documented as of this encounter Care Teams Spinner Tender Relationship Specialty Start Date End Date Yinka Harrison MD [address] [place] [address] PCP - General Internal Medicine 07/27/18 Dave Fernando MD [address] [place] [address] Consulting Physician Orthopaedic Surgery 02/20/19 documented as of this encounter
--- OUTSIDE RECORDS SUMMARY | 2024-09-22 13:06 | XMS_ITS | Encounter Summary ---
Author Organization [facility] Address [address] [place] [address] Phone Care Team Providers Care Automotive Service Advisor Name Role Phone Yinka Harrison MD Primary Care Provider [phone] Dave Fernando MD Unavailable [phone] Reason for Visit * Reason Comments Medication Refill Encounter Details Date Type Department Care Team (Late st Contact Info) Description 07/13/2021 Refill [facility] Primary Care - [place] [address] [place] [address] Yinka Harrison MD [address] [place] [address] Medication Refill Social History Tobacco [...] have Coronavirus / COVID-19? No / Unsure 06/21/2021 1:04 PM CDT documented as of this encounter Miscellaneous Notes * Telephone Encounter - Yinka Harrison MD - 07/13/2021 9:28 AM CDT Refill request approved. * Telephone Encounter - Mariposa Castelan RN - 07/13/2021 9:20 AM CDT Medication failed the protocol, provider to review and approve the medication order if appropriate. Requested Prescriptions Pending Prescriptions Disp Refills traMADol (ULTRAM) 50 MG Tablet [Pharmacy Med Name: TRAMADOL HCL 50 MG TAB 50 Tablet] 30 Tablet 0 Sig: TAKE ONE TABLET BY MOUTH EVERY 8 HOURS NEEDED MODERATE OR MORE SEVERE PAIN [facility] Not Delegated - Analgesics: Opioid Agonists Failed - 07/13/2021 9:17 AM Failed - This refill cannot be delegated Passed - Valid encounter within last 6 months Past Office Visits Recent Outpatient Visits 4 months ago Hypertension, essential [facility] Yinka Harrison MD 1 year ago Hypertension, essential [facility] - Yinka Walters MD 2 years ago Hypertension, essential [facility] - Yinka Walters MD 2 years ago [facility]ential [facility] Upcoming Appointments Future Appointments In 8 months Yinka Harrison MD [facility] PROCESS COACH - Recent and Past Visits Recent Visits Date Type Provider Dept 03/10/21 Office Visit Yinka Harrison MD [facility] Showing recent visits within past 460 days with a meds authorizing provider and meeting all other requirements Future Appointments No visits were found meeting these conditions. Showing future appointments within next 90 days with a meds authorizing provider and meeting all other requirements documented in this encounter Plan of Treatment Upcoming Encounters Date Type Department Care Team (Latest Contact Info) Description 09/23/2024 10:45 AM SIX SIGMA BLACK BELT ENGINEER [facility] [address] [place] [address] Dave Fernando MD [address] [place] [address] Lucy Garduno, PT [place] Discharge Disposition: Discharged to home or Selfcare 11/22/2024 10:15 AM CDT Appointment [facility] Mammography 1 [place] [address] Yinka Harrison MD [address] [place] [address] Discharge Disposition: Discharged to home or Selfcare 06/13/2025 10:30 AM CDT Office Visit [facility] - Primary Care - [place] [address] [place] [address] Yinka Harrison MD [address] [place] [address] documented as of this encounter Visit Diagnoses Diagnosis Arthritis Arthropathy, unspecified, site unspecified Chronic pain of right knee Rheumatoid arthritis involving multiple sites with positive rheumatoid factor (HCC) documented in this encounter Additional Health Concerns Assessment Noted Time PHQ-9 Depression Total Score: 0 03/10/20 21 10:00 AM CDT documented as of this encounter Care Teams Automotive Service Advisor Relationship Specialty Start Date End Date Yinka Harrison MD [address] [place] [address] PCP - General Internal Medicine 07/27/18 Dave Fernando MD [address] [facility] [address] [place] [address] Consulting Physician Orthopaedic Surgery 02/20/19 documented as of this encounter
--- OUTSIDE RECORDS SUMMARY | 2024-09-22 13:06 | XMS_ITS | Encounter Summary ---
Author Organization [facility] Address [address] [place] [address] Phone Care Team Providers Care Waste Minimization Technician Name Role Phone Yinka Harrison MD Primary Care Provider [phone] Dave Fernando MD Unavailable [phone] Reason for Visit * Reason Onset Date Comments Medication Refill 02/24/2021 Encounter Details Date Type Department Care Team (Late st Contact Info) Description 02/24/2021 MyChart RX Renewal [facility] - Family Medicine [facility] [address] [place] [address] Yinka Harrison MD [address] [place] [address] Medication Renewal Reviewed Social History [...] Telephone Encounter - Yinka Harrison MD - 02/24/2021 9:59 AM CDT Refill request approved. documented in this encounter Plan of Treatment Upcoming Encounters Date Type Department Care Team (Latest Contact Info) Description 09/23/2024 10:45 AM MUSHROOM LABORER Physical Therapy [facility] [address] [place] [address] Dave Fernando MD [address] [place] [address] Lucy Garduno, [place] Discharge Disposition: Discharged to home or Selfcare 11/22/2024 10:15 AM CDT [facility] 1 [place] [address] Yinka Harrison MD [address] [place] [address] Discharge Disposition: Discharged to home or Selfcare 06/13/2025 10:30 AM CDT Office Visit [facility] - Primary Care - [place] [address] [place] [address] Yinka Harrison MD [address] [place] [address] documented as of this encounter Visit Diagnoses Diagnosis Arthritis Arthropathy, unspecified, site unspecified Chronic pain of right knee Rheumatoid arthritis involving multiple sites with positive rheumatoid factor (HCC) documented in this encounter Additional Health Concerns Assessment Noted Time PHQ-9 Depression Total Score: 0 03/09/20 20 11:00 AM CDT documented as of this encounter Care Teams Waste Minimization Technician Relationship Specialty Start Date End Date Yinka Harrison MD [address] [place] [address] PCP - General Internal Medicine 07/27/18 Dave Fernando MD [address] [facility] [address] [place] [address] Consulting Physician Orthopaedic Surgery 02/20/19 documented as of this encounter
--- OUTSIDE RECORDS SUMMARY | 2024-09-22 13:06 | XMS_ITS | Encounter Summary ---
Author Organization [facility] Address [address] [place] [address] Phone Care Team Providers Care Composing Room Machinist Apprentice Name Role Phone Yinka Harrison MD Primary Care Provider [phone] Dave Fernando MD Unavailable [phone] Merari Mclean [facility] Unavailable Unavailab le Reason for Visit * Reason Comments Medication Refill Encounter Details Date Type Department Care Team (Late st Contact Info) Description 11/06/2021 Refill [facility] - Primary Care - [place] [address] [place] [address] Yinka Harrison MD [address] [place] [address] Medication Refill Social History Tobacco [...] Telephone Encounter - Jen Zurita RN - 11/08/2021 10:16 AM TRAVEL JOURNALIST Medication failed the protocol, provider to review and approve the medication order if appropriate. Requested Prescriptions Pending Prescriptions Disp Refills traMADol (ULTRAM) 50 MG Tablet [Pharmacy Med Name: TRAMADOL HCL 50MG TABLET] 30 Tablet 1 Sig: TAKE ONE (1) TABLET BY MOUTH EVERY 8 HOURS NEEDED FOR MODERATE OR MORE SEVERE PAIN. Not Delegated - Opioid Agonists Protocol Failed - 11/06/2021 1:57 PM Failed - This refill cannot be delegated Passed - Visit with relevant provider in past 12 months or upcoming 90 days Recent Visits Date Type Provider Dept 03/10/21 Office Visit Yinka Harrison MD [facility] Showing recent visits within past 365 days and meeting all other requirements Future Appointments No visits were found meeting these conditions. Showing future appointments within next 90 days and meeting all other requirements EL JOURNALIST documented in this encounter Plan of Treatment Upcoming Encounters Date Type Department Care Team (Latest Contact Info) Description 09/23/2024 10:45 AM TRAVEL JOURNALIST Physical Therapy [facility] at [facility] [address], [address] [place] [address] Dave Fernando MD [address] [place] [address] Lucy Garduno, [place] Discharge Disposition: Discharged to home or Selfcare 11/22/2024 10:15 AM CDT Appointment [facility] Mammography 1 [place] [address] Yinka Harrison MD [address] [place] [address] Discharge Disposition: Discharged to home or Selfcare 06/13/2025 10:30 AM CDT Office Visit [facility] - Primary Care - [place] [address] [place] [address] Yinka Harrison MD [address] [place] [address] documented as of this encounter Visit Diagnoses Diagnosis Arthritis Arthropathy, unspecified, site unspecified Chronic pain of right knee Rheumatoid arthritis involving multiple sites with positive rheumatoid factor (HCC) documented in this encounter Additional Health Concerns Assessment Noted Time PHQ-9 Depression Total Score: 0 03/10/20 10:00 AM CDT documented as of this encounter Care Teams Composing Room Machinist Apprentice Relationship Specialty Start Date End Date Yinka Harrison MD [address] [place] [address] PCP - General Internal Medicine 07/27/18 Dave Fernando MD [address] [place] [address] Consulting Physician Orthopaedic Surgery 02/20/19 Merari Mclean LSW [place] Sample Tester Grinder 05/05/23 07/04/23 documented as of this encounter
--- OUTSIDE RECORDS SUMMARY | 2024-09-22 13:06 | XMS_ITS | Encounter Summary ---
Author Organization [facility] Address [address] [place] [address] Phone Care Team Providers Care Heel Coverer Machine Operator Name Role Phone Yinka Harrison MD Primary Care Provider [phone] Dave Fernando MD Unavailable [phone] Reason for Visit * Reason Onset Date Comments Medication Refill 12/21/2020 Encounter Details Date Type Department Care Team (Late st Contact Info) Description 12/21/2020 MyChart RX Renewal [facility] - Primary Care - [place] [address] [place] [address] Yinka Harrison MD [address] [place] [address] Medication Renewal Reviewed Social History [...] (Latest Contact Info) Description 09/23/2024 10:45 AM TIEING MACHINE OPERATOR [facility] [address], [address] [place] [address] Dave Fernando MD [address] [place] [address] Lucy Garduno, PT [place] Discharge Disposition: Discharged to home or Selfcare 11/22/2024 10:15 AM CDT [facility] [place] [address] Yinka Harrison MD [address] [place] [address] Discharge Disposition: Discharged to home or Selfcare 06/13/2025 10:30 AM CDT Office Visit [facility] - Primary Care - [place] [address] [place] [address] Yinka Harrison MD [address] [place] [address] documented as of this encounter Visit Diagnoses Not on filedocumented in this encounter Additional Health Concerns Assessment Noted Time PHQ-9 Depression Total Score: 0 03/09/20 20 11:00 AM CDT documented as of this encounter Care Teams Heel Coverer Machine Operator Relationship Specialty Start Date End Date Yinka Harrison MD [address] [place] [address] PCP - General Internal Medicine 07/27/18 Dave Fernando MD [address] [place] [address] Consulting Physician Orthopaedic Surgery 02/20/19 documented as of this encounter
--- OUTSIDE RECORDS SUMMARY | 2024-09-22 13:06 | XMS_ITS | Encounter Summary ---
Author Organization [facility] Address [address] [place] [address] Phone Care Team Providers Care Contact Center Manager Name Role Phone Yinka Harrison MD Primary Care Provider [phone] Dave Fernando MD Unavailable [phone] Reason for Visit * Reason Comments Medication Refill Encounter Details Date Type Department Care Team (Late st Contact Info) Description 06/16/2021 Refill [facility] [address] [place] [address] Yinka Harrison MD [address] [place] [address] Medication Refill Social History Tobacco [...] encounter Miscellaneous Notes * Telephone Encounter - Mara Limon RN - 06/17/2021 10:33 AM CDT Received return call from patient. Scheduled for a urine drug screen. Advised RX was given to slab worker to be picked up when completing UDS. Patient verbalized understanding. Assistive services verified. All Patient Appointments Provider Department Dept Phone 06/22/2021 10:10 AM [facility] [phone] * Telephone Encounter - Florentin Thomas PAC - 06/17/2021 9:02 AM CDT Orders signed. * Telephone Encounter - Makayla Arreguin RN - 06/17/2021 8:45 AM CDT UDS pended . LVM for pt to return call regarding the need for a periodic in office Rx black pickler. Rx handed off to lead principal technical architect Nargis Gage. * Telephone Encounter - Florentin Thomas PAC - 06/17/2021 8:37 AM CDT Rx refill approved. Pt will need to black pickler in office. (Pend UDS) * Telephone Encounter - Jen Zurita RN - 06/16/2021 3:28 PM CDT Medication failed the protocol, provider to review and approve the medication order if appropriate. Requested Prescriptions Pending Prescriptions Disp Refills traMADol (ULTRAM) 50 MG Tablet [Pharmacy Med Name: TRAMADOL HCL 50 MG TAB 50 Tablet] 30 Tablet 1 Sig: Take 1 Tablet by mouth every 8 hours as needed for Moderate or more severe pain. healthfinch Not Delegated - Analgesics: Opioid Agonists Failed - 06/16/2021 3:05 PM Failed - This refill cannot be delegated Passed - Valid encounter within last 6 months Past Office Visits Recent Outpatient Visits 3 months ago Hypertension, essential [facility] Yinka Harrison MD 1 year ago Hypertension, essential [facility] Yinka Walters MD 2 years ago Hypertension, essential [facility] Yinka Walters MD 2 years ago Bilateral leg weakness [facility] Yinka Harrison MD 2 years ago Essential hypertension [facility] Yinka Harrison MD Upcoming Appointments Future Appointments In 9 months Yinka Harrison MD [facility] - Recent and Past Visits Recent Visits Date Type Provider Dept 03/10/21 Office Visit Yinka Harrison MD [facility] Showing recent visits within past 460 days [...] (Latest Contact Info) Description 09/23/2024 10:45 AM TRADE SPECIALIST Physical Therapy [facility] at [facility] [address] [place] [address] Dave Fernando MD [address] [place] [address] Lucy Garduno, [place] Discharge Disposition: Discharged to home or Selfcare 11/22/2024 10:15 AM CDT [facility] [address] [place] [address] Yinka Harrison MD [address] [place] [address] Discharge Disposition: Discharged to home or Selfcare 06/13/2025 10:30 AM CDT Office Visit [facility] - Primary Care - [place] [address] [place] [address] Yinka Harrison MD [address] [place] [address] documented as of this encounter Visit Diagnoses Diagnosis Arthritis Arthropathy, unspecified, site unspecified Chronic pain of right knee Rheumatoid arthritis involving multiple sites with positive rheumatoid factor (HCC) documented in this encounter Additional Health Concerns Assessment Noted Time PHQ-9 Depression Total Score: 0 03/10/20 21 10:00 AM CDT documented as of this encounter Care Teams Contact Center Manager Relationship Specialty Start Date End Date Yinka Harrison MD [address] [place] [address] PCP - General Internal Medicine 07/27/18 Dave Fernando MD [address] [place] [address] Consulting Physician Orthopaedic Surgery 02/20/19 documented as of this encounter
--- OUTSIDE RECORDS SUMMARY | 2024-09-22 13:06 | XMS_ITS | Encounter Summary ---
Author Organization [facility] Address [address] [place] [address] Phone Care Team Providers Care Silver Solution Mixer Name Role Phone Yinka Harriosn MD Primary Care Provider [phone] Dave Fernando MD Unavailable [phone] Reason for Visit * Reason Onset Date Comments Medication Refill 12/21/2020 Encounter Details Date Type Department Care Team (Late st Contact Info) Description 12/21/2020 MyChart RX Renewal [facility] - Family Medicine [facility] [address] [place] [address] Yinka Harrison MD [address] [place] [address] Medication Renewal Reviewed Social History [...] Telephone Encounter - Yinka Harrison MD - 12/22/2020 10:55 AM CDT Refill request approved. * Telephone Encounter - Jen Zurita RN - 12/22/2020 10:30 AM CDT Medication failed the protocol, provider to review and approve the medication order if appropriate. Requested Prescriptions Pending Prescriptions Disp Refills traMADol (ULTRAM) 50 MG Tablet 30 Tablet 1 Sig: Take 1 Tablet by mouth every 8 hours as needed for Moderate or more severe pain. Not Delegated - Analgesics: Opioid Agonists Failed - 12/21/2020 12:26 PM Failed - Valid encounter within last 6 months Past Office Visits Recent Outpatient Visits 9 months ago Hypertension, essential [facility] - Yinka Walters MD 1 year ago Hypertension, essential [facility] - Yinka Walters MD 1 year ago Bilateral leg weakness [facility] - Yinka Walters MD 2 years ago Essential hypertension [facility] - Yinka Walters MD 2 years ago Essential hypertension [facility] Ordaz MD Upcoming Appointments Future Appointments In 2 months Yinka Harrison MD [facility] Caryl [facility] - Recent and Past Visits Recent Visits Date Type Provider Dept 03/09/20 Office Visit Yinka Harrison MD [facility] Showing recent visits within past 460 days with a meds authorizing provider and meeting all other requirements Future Appointments Date Type Provider Dept 03/10/21 Appointment Yinka Harrison MD [facility] Showing future appointments within next 90 days with a meds authorizing provider and meeting all other requirements Failed - This refill cannot be delegated documented in this encounter Plan of Treatment Upcoming Encounters Date Type Department Care Team (Latest Contact Info) Description 09/23/2024 10:45 AM WEED COOKING OPERATOR [facility] [address] [place] [address] Dave Fernando MD [address] [place] [address] Lucy Garduno, PT [place] Discharge Disposition: Discharged to home or Selfcare 11/22/2024 10:15 AM CDT [facility] 1 [facility] [place] [address] Yinka Harrison MD [address] [place] [address] Discharge Disposition: Discharged to home or Selfcare 06/13/2025 10:30 AM CDT Office Visit [facility] - Primary Care - [place] [address] [place] [address] Yinka Harrison MD [address] [place] [address] documented as of this encounter Visit Diagnoses Diagnosis Arthritis Arthropathy, unspecified, site unspecified Chronic pain of right knee Rheumatoid arthritis involving multiple sites with positive rheumatoid factor (HCC) documented in this encounter Additional Health Concerns Assessment Noted Time PHQ-9 Depression Total Score: 0 03/09/20 20 11:00 AM CDT documented as of this encounter Care Teams Silver Solution Mixer Relationship Specialty Start Date End Date Yinka Harrison MD [address] [place] [address] PCP - General Internal Medicine 07/27/18 Dave Fernando MD [address] [place] [address] Consulting Physician Orthopaedic Surgery 02/20/19 documented as of this encounter
--- OUTSIDE RECORDS SUMMARY | 2024-09-22 13:06 | XMS_ITS | Encounter Summary ---
Author Organization [facility] Merchant View [facility] Care Team Providers Care Can Patcher Name Role Phone Yinka Harrison MD Primary Care Provider [phone] Dave Fernando MD Unavailable [phone] Encounter Details Date Type Department Care Team (Latest Contact Info) Description 06/21/2021 Travel Social History Tobacco Use Types Packs/Day [...] PM CDT documented as of this encounter Plan of Treatment Upcoming Encounters Date Type Department Care Team (Latest Contact Info) Description 09/23/2024 10:45 AM ART GLASS SETTER Physical Therapy [facility] [address] [place] [address] Dave Fernando MD [address] [place] [address] Lucy Garduno, PT [place] Discharge Disposition: Discharged to home or Selfcare 11/22/2024 10:15 AM CDT [facility] 1 [facility] [address] Yinka Harrison MD [address] [place] [address] Discharge Disposition: Discharged to home or Selfcare 06/13/2025 10:30 AM CDT [facility] - [place] [address] [place] [address] Yinka Harrison MD [address] [place] [address] documented as of this encounter Visit Diagnoses Not on filedocumented in this encounter Additional Health Concerns Assessment Noted Time PHQ-9 Depression Total Score: 0 03/10/20 21 10:00 AM CDT documented as of this encounter Care Teams Can Patcher Relationship Specialty Start Date End Date Yinka Harrison MD [address] [place] [address] PCP - General Internal Medicine 07/27/18 Dave Fernando MD [address] [place] [address] Consulting Physician Orthopaedic Surgery 02/20/19 documented as of this encounter
--- OUTSIDE RECORDS SUMMARY | 2024-09-22 13:06 | XMS_ITS | Encounter Summary ---
Author Organization [facility] Address [address] [place] [address] Phone Care Team Providers Care Nursing Manager Name Role Phone Yinka Harrison MD Primary Care Provider [phone] Dave Fernando MD Unavailable [phone] Merari Mclean [facility] Unavailable Unavailab le Reason for Visit * Reason Comments Medication Refill Encounter Details Date Type Department Care Team (Late st Contact Info) Description 07/19/2021 Refill [facility] - Primary Care - [place] [address] [place] [address] Yinka Harrison MD [address] [place] [address] Medication Refill Social History Tobacco [...] (Latest Contact Info) Description 09/23/2024 10:45 AM BISQUE FINISHER [facility] [address] [place] [address] Dave Fernando MD [address] [place] [address] Lucy Garduno, PT [place] Discharge Disposition: Discharged to home or Selfcare 11/22/2024 10:15 AM CDT [facility] 1 [facility] [place] [address] Yinka Harrison MD [address] [place] [address] Discharge Disposition: Discharged to home or Selfcare 06/13/2025 10:30 AM CDT Office [facility] - [facility] Care - [place] [address] [place] [address] Yinka Harrison MD [address] [place] [address] documented as of this encounter Visit Diagnoses Not on filedocumented in this encounter Additional Health Concerns Assessment Noted Time PHQ-9 Depression Total Score: 0 03/10/20 21 10:00 AM CDT documented as of this encounter Care Teams Nursing Manager Relationship Specialty Start Date End Date Yinka Harrison MD [address] [place] [address] PCP - General Internal Medicine 07/27/18 Dave Fernando MD [address] [place] [address] Consulting Physician Orthopaedic Surgery 02/20/19 Merari Mclean LSW [place] Medical Record Clerk 05/05/23 07/04/23 documented as of this encounter
--- OUTSIDE RECORDS SUMMARY | 2024-09-22 13:06 | XMS_ITS | Encounter Summary ---
Author Organization [facility] Address [address] [place] [address] Phone Care Team Providers Care Lining Caser Name Role Phone Yinka Harrison MD Primary Care Provider [phone] Dave Fernando MD Unavailable [phone] Reason for Visit * Reason Comments Preventive Care Encounter Details Date Type Department Care Team (Late st Contact Info) Description 03/10/2021 10:15 AM CDT Office Visit [facility] - Primary Care - [place] [address] [place] [address] Yinka Harrison MD [address] [place] [address] Hypertension, essential (Primary Dx); Hyperlipidemia; Arthritis; Excessive cerumen in left ear canal; Chronic pain of left wrist; Screening for cervical cancer Discharge Disposition: Discharged to home or Selfcare [...] Sign Reading Time Taken Comments Blood Pressure 138/68 03/10/2021 10:06 AM CDT Pulse 88 03/10/2021 10:06 AM CDT Temperature 36.7 ??C (98 ??F) 03/10/2021 10:06 AM CDT Respiratory Rate 18 03/10/2021 10:06 AM CDT Oxygen Saturation 98% 03/10/2021 10:06 AM CDT Inhaled Oxygen Concentration - - Weight 99.8 kg (220 lb) 03/10/2021 10:06 AM CDT Height 160 cm (5' 3 ) 03/10/2021 10:06 AM CDT Body Mass Index 38.97 03/10/2021 10:06 AM CDT documented in this encounter Progress Notes * Jesi Donaldson RMA - 03/10/2021 10:15 AM CDT Sriram Srinivasan is a 60 y.o. female with current BMI: Body mass index is 38.97 kg/m??. Interventions discussed including: encourage daily physical activity and well- balanced diet. * Jesi Donaldson RMA - 03/10/2021 10:15 AM CDT Sriram Srinivasan, 60 y.o., female is here for Preventive Care Medication Refills: Patient reports/denies need for medication refills. Orders Pended: no Requested Prescriptions No prescriptions requested or ordered in this encounter Home Medications Medication Sig Start Date End Date Taking? Authorizing Provider amLODIPine (NORVASC) 10 MG Tablet TAKE 1 TAB BY MOUTH DAILY. 06/16/20 Yes Yinka Harrison MD Ascorbic Acid (VITAMIN C PO) Take 500 mg by mouth. Yes Provider, MD Rosendo hydroCHLOROthiazide 12.5 MG Tablet Take 1 Tablet by mouth daily. 12/22/20 Yes Yinka Harrison MD ibuprofen (MOTRIN) 800 MG Tablet Take 1 Tab by mouth every 8 hours as needed for Mild or more severe pain. 06/03/20 Yes Yinka Harrison MD IRON PO Take by mouth. Yes ProviderRosendo MD pravastatin (PRAVACHOL) 20 MG Tablet TAKE ONE TABLET BY MOUTH EVERY DAY 11/24/20 Yes Yinka Harrison MD traMADol (ULTRAM) 50 MG Tablet Take 1 Tablet by mouth every 8 hours as needed for Moderate or more severe pain. 02/27/21 Yes Yinka Harrison MD Medications Discontinued During This Encounter Medication Reason ??? aspirin EC 81 MG Tablet Delayed Response Med List Clean Up I have reviewed the home medication list [...] Health Maintenance Due Topic Date Due ??? SARS-COV-2 Immunization (1) Never done ??? Pap Smear Never done ??? Zoster Immunization (1 of 2) Never done ??? Colorectal Cancer Screening 05/14/2020 Orders Pended: n/a The following BPA's have been addressed with the patient today: BMI, Colonoscopy, Pap, Depression and Advanced Care Planning * Yinka Harrison MD - 03/10/2021 10:15 AM CDT Subjective: HPI Follow-up for hypertension, hyperlipidemia and arthritis. Patient is reporting some fullness and loss of hearing in the left ear recently. She tried an OTC wax removal kit without success. She is also reporting some increasing arthralgias in her left wrist. She continues to have bilateral knee problems, for which she sees Orthopedics. Past medical history, social history, family history and medications have been reviewed. Review of Systems Constitutional: Negative. HENT: Positive for hearing loss (Left). Eyes: Negative. Respiratory: Negative. Cardiovascular: Negative. Gastrointestinal: Negative. Endocrine: Negative. Genitourinary: Negative. Musculoskeletal: Positive for arthralgias (Left wrist, knees). Skin: Negative. Allergic/Immunologic: Negative. Neurological: Negative. Hematological: Negative. Psychiatric/Behavioral: Negative. Objective: Physical Exam Constitutional: Appearance: She is well-developed. HENT: Head: Normocephalic. Right Ear: Tympanic membrane, ear canal and external ear normal. There is impacted cerumen (20% soft). Left Ear: Ear canal and external ear normal. There is impacted cerumen (95% moderate). Nose: Nose normal. Eyes: General: Lids are [...] Reflexes: Reflexes are normal and symmetric. Psychiatric: Speech: Speech normal. Behavior: Behavior normal. Thought Content: Thought content normal. Judgment: Judgment normal. Assessment and Plan See Diagnoses, Orders, Follow-up, and Instructions Problem List Items Addressed This Visit Cardiovascular Hyperlipidemia Relevant Orders LIPID PANEL Hypertension, essential - Primary Relevant Orders CMP (COMPREHENSIVE METABOLIC PANEL) Musculoskeletal Arthritis Other Visit Diagnoses Excessive cerumen in left ear canal Chronic pain of left wrist Screening for cervical cancer Relevant Orders EXTERNAL GYNECOLOGY REFERRAL Check CMP and lipids. Referral for cervical cancer screening ordered. We will attempt to flush out her left ear. Advised that she can take her ibuprofen up to 4 times per day if needed. Follow-up in 1 year with annual fasting exam. I have seen and examined the patient on today's date. Documentation for this visit was completed using the assistance of a template. Everything documented in this visit was personally performed todaywith the necessary additions, deletions and changes. * Jesi oDnaldson RMA - 03/10/2021 10:15 AM CDT Sriram Srinivasan presents for removal of impacted cerumen per order of Dr. Harrison dated 03/11/21.Ear Assessment Findings cerumen. Impacted wax completely successful removed from the left ear canal(s) via irrigation only. Warm water irrigated to left Patient's tolerated procedure without report of any discomfort expressed during the procedure: Yes Patient education provided on AVS, including teachback for proper ear care and the importance of avoiding self-treatment with cotton swabs and other objects. documented in this encounter Plan of Treatment Upcoming Encounters Date Type Department Care Team (Latest Contact Info) Description 09/23/2024 10:45 AM CLINICAL ANALYST Physical Therapy [facility] [address] [place] [address] Dave Fernando MD [address] [place] [address] Lucy Garduno, [place] Discharge Disposition: Discharged to home or Selfcare 11/22/2024 10:15 AM CDT Appointment [facility] [address] [facility] [place] [address] Yinka Harrison MD [address] [place] [address] Discharge Disposition: Discharged to home or Selfcare 06/13/2025 10:30 AM CDT Office Visit [facility] - Primary Care - [place] [address] [place] [phone] Yinka Harrison MD [address] [place] [address] documented as of this encounter Results * (ABNORMAL) LIPID PANEL (03/10/2021 10:42 AM CDT) CHOLESTEROL 285(H) <=200 mg/dL 03/10/2021 4:06 PM CDT [facility] TRIGLYCERIDES 102 <150 mg/dL 03/10/2021 4:06 PM CDT [facility] HDL CHOLESTEROL 67.2 >40 mg/dL 4:06 PM CDT [facility] LDL 197(H) 5 - 130 mg/dL 03/10/2021 4:06 PM CDT [facility] VLDL 20 5 - 55 mg/dL 03/10/2021 4:06 PM CDT [facility] CHOL/HDL RATIO 4.2 0.0 - 4.4 03/10/2021 4:06 PM CDT [facility] NON-HDL CHOLESTEROL 217.8(H) <130 mg/dL 03/10/2021 4:06 PM CDT [facility] IS THE PATIENT REQUIRED TO BE FASTING? Yes 03/10/2021 4:06 PM CDT [facility] HAS THE PATIENT BEEN FASTING? Yes 03/10/2021 4:06 PM CDT [facility] Blood Venipuncture / Unknown 03/10/2021 10:42 AM CDT 03/10/2021 10:42 AM CDT us Yinka Harrison MD CHEMISTRY ORDERABLES [place] peacock Result [facility] [address] [place] [address] * (ABNORMAL) CMP (COMPREHENSIVE METABOLIC PANEL) (03/10/2021 10:42 AM CDT) SODIUM 141 136 - 144 mmol/L 03/10/2021 4:06 PM CDT [facility] POTASSIUM 3.7 3.5 - 5.1 mmol/L 03/10/2021 4:06 PM CDT [facility] CHLORIDE 105 100 - 110 mmol/L 03/10/2021 4:06 PM CDT [facility] CO2, VENOUS 25 22 - 32 mmol/L 03/10/2021 4:06 PM CDT [facility] ANION GAP 14.7 8.0 - 20.0 mmol/L 03/10/2021 4:06 PM CDT [facility] GLUCOSE 88 70 - 99 mg/dL 03/10/2021 4:06 PM CDT [facility] BUN 18 8 - 23 mg/dL 03/10/2021 4:06 PM CDT [facility] CREATININE, BLOOD 1.01 0.60 - 1.10 mg/dL 03/10/2021 4:06 PM T [facility] BUN/CREATININE RATIO 18 12 - 20 ratio 03/10/2021 4:06 PM CDT [facility] TOTAL PROTEIN 7.7 6.0 - 8.3 g/dL 03/10/2021 4:06 PM CDT [facility] ALBUMIN 4.2 3.5 - 5.2 g/dL 03/10/2021 4:06 PM CDT [facility] Comment: The colormetric methods used for the determination of Albumin may lead to falsely elevated test results in patients suffering from renal failure or insufficiency due to interference with other proteins. A/G RATIO 1.2 1.0 - 2.0 03/10/2021 4:06 PM CDT [facility] CALCIUM 9.8 8.9 - 10.3 mg/dL 03/10/2021 4:06 PM CDT [facility] T BILI <0.3 <=1.2 mg/dL 03/10/2021 4:06 PM CDT [facility] SGOT (AST) 21 <=32 U/L 03/10/2021 4:06 PM CDT [facility] SGPT (ALT) 17 <=41 U/L 03/10/2021 4:06 PM CDT [facility] ALKALINE PHOSPHATASE 78 35 - 105 U/L 03/10/2021 4:06 PM CDT [facility] GFR, EST. NONAFRICAN 56(L) >=60 03/10/2021 4:06 PM CDT [facility] GFR, EST. >60 >=60 021 4:06 PM CDT [facility] Comment: Creatinine Clearance is the preferred criteria for selecting drug dose adjustments in renally impaired patients. ??The GFR is provided as additional pertinent clinical information. GFR is reported in mL/min/1.73 sq m. IS THE PATIENT REQUIRED TO BE FASTING? No 03/10/2021 4:06 PM CDT [facility] Blood Venipuncture / Unknown 03/10/2021 10:42 AM CDT 03/10/2021 10:42 AM CDT us Yinka Harrison MD CHEMISTRY ORDERABLES [place] peacock Result [facility] [address] [place] [address] documented in this encounter Visit Diagnoses Diagnosis Hypertension, essential- Primary Unspecified essential hypertension Hyperlipidemia Mixed hyperlipidemia Arthritis Arthropathy, unspecified, site unspecified Excessive cerumen in left ear canal Chronic pain of left wrist Screening for cervical cancer Screening for malignant neoplasm of the cervix documented in this encounter Additional Health Concerns Assessment Noted Time PHQ-9 Depression Total Score: 0 03/10/20 21 10:00 AM CDT documented as of this encounter Care Teams Lining Caser Relationship Specialty Start Date End Date Yinka Harrison MD [address] [place] [address] PCP - General Internal Medicine 07/27/18 Dave Fernando MD [address] [address] Consulting Physician Orthopaedic Surgery 02/20/19 documented as of this encounter
--- OUTSIDE RECORDS SUMMARY | 2024-09-22 13:06 | XMS_ITS | Encounter Summary ---
Author Organization [facility] Address [address] [place] [address] Phone Care Team Providers Care Lasting Floorworker Name Role Phone Yinka Harrison MD Primary Care Provider [phone] Dave Fernando MD Unavailable [phone] Reason for Visit * Reason Comments Medication Refill Encounter Details Date Type Department Care Team (Late st Contact Info) Description 03/31/2021 [facility]ill [facility] - [place] [address] [place] [address] Yinka Harrison MD [address] [place] [address] Medication Refill Social History Tobacco [...] Telephone Encounter - Makayla Arreguin RN - 03/31/2021 11:44 AM CDT Medication approved and signed per standing order protocol. documented in this encounter Plan of Treatment Upcoming Encounters Date Type Department Care Team (Latest Contact Info) Description 09/23/2024 10:45 AM INSTRUMENTATION TECH Physical Therapy [facility] at [facility] [address] [place] [address] Dave Fernando MD [address] [place] [address] Lucy Garduno, PT [place] Discharge Disposition: Discharged to home or Selfcare 11/22/2024 10:15 AM CDT Appointment [facility] Mammography 1 [place] [address] Yinka Harrison MD [address] [place] [address] Discharge Disposition: Discharged to home or Selfcare 06/13/2025 10:30 AM CDT Office Visit [facility] - Primary Care - [place] [address] [place] [phone] Yinka Harrison MD [address] [place] [address] documented as of this encounter Visit Diagnoses Not on filedocumented in this encounter Additional Health Concerns Assessment Noted Time PHQ-9 Depression Total Score: 0 03/10/20 10:00 AM CDT documented as of this encounter Care Teams Lasting Floorworker Relationship Specialty Start Date End Date Yinka Harrison MD [address] [place] [address] PCP - General Internal Medicine 07/27/18 Dave Fernando MD [address] [address] Consulting Physician Orthopaedic Surgery 02/20/19 documented as of this encounter
--- OUTSIDE RECORDS SUMMARY | 2024-09-22 13:06 | XMS_ITS | Encounter Summary ---
Author Organization [facility] Address [address] [place] [address] Phone Care Team Providers Care Cash Reconciliation Specialist Name Role Phone Yinka Harrison MD Primary Care Provider [phone] Dave Fernando MD Unavailable [phone] Merari Mclean DINING CAR STEWARD Unavailable Unavailab le Reason for Visit * Reason Comments Medication Refill Encounter Details Date Type Department Care Team (Late st Contact Info) Description 04/19/2021 Refill [facility] [address] [place] [address] Yinka Harrison MD [address] [place] [address] Medication Refill Social History Tobacco [...] Telephone Encounter - Makayla Arreguin RN - 04/19/2021 12:12 PM CDT Duplicate documented in this encounter Plan of Treatment Upcoming Encounters Date Type Department Care Team (Latest Contact Info) Description 09/23/2024 10:45 AM BLOOD BANK CREDIT CLERK Physical Therapy [facility] at [facility] [address] [place] [address] Dave Fernando MD [address] [place] [address] Lucy Garduno, PT [place] Discharge Disposition: Discharged to home or Selfcare 11/22/2024 10:15 AM CDT [facility] 1 [place] [address] Yinka Harrison MD [address] [place] [address] Discharge Disposition: Discharged to home or Selfcare 06/13/2025 10:30 AM CDT Office Visit [facility] - Primary Care - [place] [address] [place] [address] Yinka Harrison MD [address] [place] [address] documented as of this encounter Visit Diagnoses Diagnosis Arthritis Arthropathy, unspecified, site unspecified Chronic pain of right knee Rheumatoid arthritis involving multiple sites with positive rheumatoid factor (HCC) Essential hypertension Unspecified essential hypertension documented in this encounter Additional Health Concerns Assessment Noted Time PHQ-9 Depression Total Score: 0 03/10/20 21 10:00 AM CDT documented as of this encounter Care Teams Cash Reconciliation Specialist Relationship Specialty Start Date End Date Yinka Harrison MD [address] [place] [address] PCP - General Internal Medicine 07/27/18 Dave Fernando MD [address] [place] [address] Consulting Physician Orthopaedic Surgery 02/20/19 Merari Mclean LSW [place] Program Project Analyst 05/05/23 07/04/23 documented as of this encounter
--- OUTSIDE RECORDS SUMMARY | 2024-09-22 13:06 | XMS_ITS | Encounter Summary ---
Author Organization [facility] Address [address] [place] [address] Phone Care Team Providers Care Quarter Trimmer Name Role Phone Yinka Harrison MD Primary Care Provider [phone] Dave Fernando MD Unavailable [phone] Reason for Visit * Reason Comments Medication Refill Encounter Details Date Type Department Care Team (Late st Contact Info) Description 05/19/2021 Refill [facility] [address] [place] [address] Yinka Harrison MD [address] [place] [address] Medication Refill Social History Tobacco [...] Telephone Encounter - Yinka Harrison MD - 05/19/2021 2:47 PM CDT This medication was filled for 2 months on April 28, 2021. * Telephone Encounter - Makayla Arreguin RN - 05/19/2021 2:40 PM CDT [place] last fill date 04/21/21 Medication failed the protocol, provider to review and approve the medication order if appropriate. Requested Prescriptions Pending Prescriptions Disp Refills traMADol (ULTRAM) 50 MG Tablet [Pharmacy Med Name: TRAMADOL HCL 50 MG TAB 50 Tablet] 30 Tablet 1 Sig: TAKE 1 TABLET BY MOUTH EVERY 8 HOURS NEEDED FOR MODERATE OR MORE SEVERE PAIN. [facility] Not Delegated - Analgesics: Opioid Agonists Failed - 05/19/2021 2:40 PM Failed - This refill cannot be delegated Passed - Valid encounter within last 6 months Past Office Visits Recent Outpatient Visits 2 months ago Hypertension, essential [facility] Yinka Harrison MD 1 year ago Hypertension, essential [facility] - Yinka Walters MD 2 years ago Hypertension, essential [facility] - Yinka Walters MD 2 years ago Bilateral leg weakness [facility] - Yinka Walters MD 2 years ago Essential hypertension [facility] - Yinka Walters MD Upcoming Appointments Future Appointments In 10 months Yinka Harrison MD [facility] GLASSWARE SELECTOR - Recent and Past Visits Recent Visits Date Type Provider Dept 03/10/21 Office Visit Yinka Harrison MD [facility] 03/09/20 Office Visit Yinka Harrison MD [facility] Showing recent visits within past 460 [...] (Latest Contact Info) Description 09/23/2024 10:45 AM YARD PIPE GRADER [facility] [address] [place] [address] Dave Fernando MD [address] [place] [address] Lucy Garduno, PT [place] Discharge Disposition: Discharged to home or Selfcare 11/22/2024 10:15 AM CDT [facility] 1 [place] [address] Yinka Harrison MD [address] [place] [address] Discharge Disposition: Discharged to home or Selfcare 06/13/2025 10:30 AM CDT Office Visit [facility] - Primary Care - [place] [address] [place] [phone] Yinka Harrison MD [address] [place] [address] documented as of this encounter Visit Diagnoses Diagnosis Arthritis Arthropathy, unspecified, site unspecified Chronic pain of right knee Rheumatoid arthritis involving multiple sites with positive rheumatoid factor (HCC) documented in this encounter Additional Health Concerns Assessment Noted Time PHQ-9 Depression Total Score: 0 03/10/20 21 10:00 AM CDT documented as of this encounter Care Teams Quarter Trimmer Relationship Specialty Start Date End Date Yinka Harrison MD [address] [place] [address] PCP - General Internal Medicine 07/27/18 Dave Fernando MD [address] [facility] [address] [place] [address] Consulting Physician Orthopaedic Surgery 02/20/19 documented as of this encounter
--- OUTSIDE RECORDS SUMMARY | 2024-09-22 13:06 | XMS_ITS | Encounter Summary ---
Author Organization [facility] Care Team Providers Care Piercing Artist Name Role Phone Yinka Harrison MD Primary Care Provider [phone] Dave Fernando MD Unavailable [phone] Encounter Details Date Type Department Care Team (Latest Contact Info) Description 03/08/2021 Travel Social History Tobacco Use Types Packs/Day Years Used Date Smoking Tobacco: Former Smokeless Tobacco: Never Alcohol Use Standard Drinks/Week Comments No 0 (1 standard drink = 0.6 oz pur e alcohol) PHQ-2 Answer Date Recorded Total Score - Questions 1-9 0 02/10 Education Answer Date Recorded What is the [...] have Coronavirus / COVID-19? No / Unsure 03/08/2021 9:15 AM CDT documented as of this encounter Plan of Treatment Upcoming Encounters Date Type Department Care Team (Latest Contact Info) Description 09/23/2024 10:45 AM SALES REPRESENTATIVE AIRCRAFT Physical Therapy [facility] at [facility] [address] [place] [address] Dave Fernando MD [address] [place] [address] Lucy Garduno, PT [place] Discharge Disposition: Discharged to home or Selfcare 11/22/2024 10:15 AM CDT [facility]oint[facility] 1 [place] [address] Yinka Harrison MD [address] [place] [address] Discharge Disposition: Discharged to home or Selfcare 06/13/2025 10:30 AM CDT Office Visit [facility] Medical [facility] - Primary Care - [place] [address] [place] [address] Yinka Harrison MD [address] [place] [address] documented as of this encounter Visit Diagnoses Not on filedocumented in this encounter Additional Health Concerns Assessment Noted Time PHQ-9 Depression Total Score: 0 03/09/20 20 11:00 AM CDT documented as of this encounter Care Teams Piercing Artist Relationship Specialty Start Date End Date Yinka Harrison MD [address] [place] [address] PCP - General Internal Medicine 07/27/18 Dave Fernando MD [address] [place] [address] Consulting Physician Orthopaedic Surgery 02/20/19 documented as of this encounter
--- OUTSIDE RECORDS SUMMARY | 2024-09-22 13:06 | XMS_ITS | Encounter Summary ---
Author Organization [facility] Address [address] [place] [address] Phone Care Team Providers Care Oceanographer Assistant Name Role Phone Yinka Harrison MD Primary Care Provider [phone] Dave Fernando MD Unavailable [phone] Reason for Visit * Reason Onset Date Comments Medication Refill 10/29/2020 Encounter Details Date Type Department Care Team (Late st Contact Info) Description 10/29/2020 MyChart RX Renewal [facility] - Family Medicine [facility] [address] [place] [address] Yinka Harrison MD [address] [place] [address] Medication Renewal Reviewed Social History [...] Telephone Encounter - Yinka Harrison MD - 10/30/2020 7:43 AM CHICKEN FANCIER Refill request approved. KEN FANCIER * Telephone Encounter - Mariposa Castelan RN - 10/29/2020 2:09 PM CHICKEN FANCIER Medication failed the protocol, provider to review and approve the medication order if appropriate. Requested Prescriptions Pending Prescriptions Disp Refills traMADol (ULTRAM) 50 MG Tablet 30 Tablet 1 Sig: Take 1 Tablet by mouth every 8 hours as needed for Moderate or more severe pain. Not Delegated - Analgesics: Opioid Agonists Failed - 10/29/2020 9:21 AM Failed - Valid encounter within last 6 months Past Office Visits Recent Outpatient Visits 7 months ago Hypertension, essential [facility] - Yinka Walters MD 1 year ago Hypertension, essential [facility] - Yinka Walters MD 1 year ago Bilateral leg weakness [facility] - Yinka Walters MD 2 years ago Essential hypertension [facility] - Yinka Walters MD 2 years ago Essential hypertension [facility] - Demarcus Ordaz MD Upcoming Appointments Future Appointments In 4 months Yinka Harrison MD [facility] CONTRACTS ADMINISTRATOR - Recent and Past Visits Recent Visits Date Type Provider Dept 03/09/20 Office Visit Yinka Harrison MD [facility] Showing recent visits within past 460 days with a meds authorizing provider and meeting all other requirements Future Appointments No visits were found meeting these conditions. Showing future appointments within next 90 days with a meds authorizing provider and meeting all other requirements Failed - This refill cannot be delegated KEN FANCIER documented in this encounter Plan of Treatment Upcoming Encounters Date Type Department Care Team (Latest Contact Info) Description 09/23/2024 10:45 AM CHICKEN FANCIER Physical Therapy [facility] Rehab at [facility] [address], [address] [phone] Dave Fernando MD [address] [place] [address] Lucy Garduno, PT [place] Discharge Disposition: Discharged to home or Selfcare 11/22/2024 10:15 AM CDT [facility] 1 [facility] [place] [address] Yinka Harrison MD [address] [place] [address] Discharge Disposition: Discharged to home or Selfcare 06/13/2025 10:30 AM CDT Office Visit [facility] - Primary Care - [place] [address] [place] [address] Yinka Harrison MD [address] [place] [address] documented as of this encounter Visit Diagnoses Diagnosis Arthritis Arthropathy, unspecified, site unspecified Chronic pain of right knee Rheumatoid arthritis involving multiple sites with positive rheumatoid factor (HCC) documented in this encounter Additional Health Concerns Assessment Noted Time PHQ-9 Depression Total Score: 0 03/09/20 20 11:00 AM CDT documented as of this encounter Care Teams Oceanographer Assistant Relationship Specialty Start Date End Date Yinka Harrison MD [address] [place] [address] PCP - General Internal Medicine 07/27/18 Dave Fernando MD [address] [place] [address] Consulting Physician Orthopaedic Surgery 02/20/19 documented as of this encounter
--- OUTSIDE RECORDS SUMMARY | 2024-09-22 13:06 | XMS_ITS | Encounter Summary ---
Author Organization [facility] Address [address] [place] [address] Phone Care Team Providers Care Software Test Developer Name Role Phone Yinka Harrison MD Primary Care Provider [phone] Dave Fernando MD Unavailable [phone] Reason for Visit * Reason Onset Date Comments Medication Refill 08/26/2020 Encounter Details Date Type Department Care Team (Late st Contact Info) Description 08/26/2020 MyChart RX Renewal [facility] Medical [facility] - Family [facility] [address] [place] [address] Yinka Harrison MD [address] [place] [address] Medication Renewal Reviewed Social History [...] Telephone Encounter - Yinka Harrison MD - 08/26/2020 11:34 AM HOSPITALIST MEDICAL DIRECTOR Refill request approved. ITALIST MEDICAL DIRECTOR * Telephone Encounter - Mariposa Castelan RN - 08/26/2020 11:19 AM HOSPITALIST MEDICAL DIRECTOR Medication failed the protocol, provider to review and approve the medication order if appropriate. Requested Prescriptions Pending Prescriptions Disp Refills traMADol (ULTRAM) 50 MG Tablet 30 Tab 1 Sig: Take 1 Tab by mouth every 8 hours as needed for Moderate or more severe pain. Not Delegated - Analgesics: Opioid Agonists Failed - 08/26/2020 11:03 AM Failed - This refill cannot be delegated Passed - Valid encounter within last 6 months Past Office Visits Recent Outpatient Visits 5 months ago Hypertension, essential [facility] - Yinka Walters MD 1 year ago Hypertension, essential [facility] - Yinka Walters MD 1 year ago Bilateral leg weakness [facility] - Yinka Walters MD 2 years ago Essential hypertension [facility] - Yinka Walters MD 2 years ago Essential hypertension [facility] - Demarcus Ordaz MD Upcoming Appointments Future Appointments In 6 months Yinka Harrison MD [facility] - [place] BINDING STITCHER - Recent and Past Visits Recent Visits Date Type Provider Dept 03/09/20 Office Visit Yinka Harrison MD [facility] Showing recent visits within past 460 days with a meds authorizing provider and meeting all other requirements Future Appointments No visits were found meeting these conditions. Showing future appointments within next 90 days with a meds authorizing provider and meeting all other requirements ITALIST MEDICAL DIRECTOR documented in this encounter Plan of Treatment Upcoming Encounters Date Type Department Care Team (Latest Contact Info) Description 09/23/2024 10:45 AM HOSPITALIST MEDICAL DIRECTOR Physical Therapy [facility] at [facility] [address] [facility] [address] [address] Dave Fernando MD [address] [place] [address] Lucy Garduno, PT [place] Discharge Disposition: Discharged to home or Selfcare 11/22/2024 10:15 AM CDT [facility] 1 [place] [address] Yinka Harrison MD [address] [place] [address] Discharge Disposition: Discharged to home or Selfcare 06/13/2025 10:30 AM CDT Office Visit [facility] - Primary Care - [place] [address] [place] [address] Yinka Harrison MD [address] [place] [address] documented as of this encounter Visit Diagnoses Diagnosis Arthritis Arthropathy, unspecified, site unspecified Chronic pain of right knee Rheumatoid arthritis involving multiple sites with positive rheumatoid factor (HCC) documented in this encounter Additional Health Concerns Assessment Noted Time PHQ-9 Depression Total Score: 0 03/09/20 20 11:00 AM CDT documented as of this encounter Care Teams Software Test Developer Relationship Specialty Start Date End Date Yinka Harrison MD [address] [place] [address] PCP - General Internal Medicine 07/27/18 Dave Fernando MD [address] [place] [address] Consulting Physician Orthopaedic Surgery 02/20/19 documented as of this encounter
--- OUTSIDE RECORDS SUMMARY | 2024-09-22 13:06 | XMS_ITS | Encounter Summary ---
Author Organization [facility] Address [address] [place] [address] Phone Care Team Providers Care Assistant Executive Housekeeper Name Role Phone Yinka Harrison MD Primary Care Provider [phone] Dave Fernando MD Unavailable [phone] Merari Mclean [facility] Unavailable Unavailab le Reason for Visit * Reason Comments Medication Refill Encounter Details Date Type Department Care Team (Late st Contact Info) Description 11/05/2021 Refill [facility] - Primary Care - [place] [address] [place] [address] Yinka Harrison MD [address] [place] [address] Medication Refill Social History Tobacco [...] Telephone Encounter - Mariposa Castelan RN - 11/05/2021 9:06 AM FEATHER MIXER Refill not due until 11/13/21. HER MIXER documented in this encounter Plan of Treatment Upcoming Encounters Date Type Department Care Team (Latest Contact Info) Description 09/23/2024 10:45 AM FEATHER MIXER Physical Therapy [facility] Rehab at [facility] [address], [address] [place] [address] Dave Fernando MD [address] [place] [address] Lucy Garduno, PT [place] Discharge Disposition: Discharged to home or Selfcare 11/22/2024 10:15 AM CDT Appointment [facility] Mammography 1 [place] [address] Yinka Harrison MD [address] [place] [address] Discharge Disposition: Discharged to home or Selfcare 06/13/2025 10:30 AM CDT Office [facility] - [place] [address] [place] [address] Yinka Harrison MD [address] [place] [address] documented as of this encounter Visit Diagnoses Diagnosis Arthritis Arthropathy, unspecified, site unspecified Chronic pain of right knee Rheumatoid arthritis involving multiple sites with positive rheumatoid factor (HCC) documented in this encounter Additional Health Concerns Assessment Noted Time PHQ-9 Depression Total Score: 0 03/10/20 21 10:00 AM CDT documented as of this encounter Care Teams Assistant Executive Housekeeper Relationship Specialty Start Date End Date Yinka Harrison MD [address] [place] [address] PCP - General Internal Medicine 07/27/18 Dave Fernando MD [address] [place] [address] Consulting Physician Orthopaedic Surgery 02/20/19 Merari Mclean LSW [place] Cloth Checker 05/05/23 07/04/23 documented as of this encounter
--- OUTSIDE RECORDS SUMMARY | 2024-09-22 13:06 | XMS_ITS | Encounter Summary ---
Author Organization [facility] Address [address] [place] [address] Phone Care Team Providers Care Solution Advisor Name Role Phone Yinka Harrison MD Primary Care Provider [phone] Dave Fernando MD Unavailable Reason for Visit * Reason Comments Medication Refill Encounter Details Date Type Department Care Team (Late st Contact Info) Description 09/28/2020 Refill [facility] [address] [place] [address] Yinka Harrison MD [address] [place] [address] Medication Refill Social History Tobacco Use Types [...] Telephone Encounter - Yinka Harrison MD - 09/28/2020 9:11 AM DISTRIBUTION SALES REPRESENTATIVE This medication was filled for 2 months on August 29, 2020. RIBUTION SALES REPRESENTATIVE * Telephone Encounter - Kamla Lowry, [facility] - 09/28/2020 9:08 AM CST Medication failed the protocol, provider to review and approve the medication order if appropriate. Requested Prescriptions Pending Prescriptions Disp Refills traMADol (ULTRAM) 50 MG Tablet [Pharmacy Med Name: TRAMADOL HCL 50 MG TAB 50 Tablet] 30 Tab 1 Sig: TAKE 1 TAB BY MOUTH EVERY 8 HOURS NEEDED FOR MODERATE OR MORE SEVERE PAIN. Not Delegated - Analgesics: Opioid Agonists Failed - 09/28/2020 9:00 AM Failed - Valid encounter within last 6 months Past Office Visits Recent Outpatient Visits 6 months ago [facility] 1 year ago Hypertension, essential [facility] - Yinka Walters MD 1 year ago Bilateral leg weakness [facility] - Yinka Walters MD 2 years ago Essential hypertension [facility] - Yinka Walters MD 2 years ago Essential hypertension [facility] - Demarcus Ordaz MD Upcoming Appointments Future Appointments In 5 months Yinka Harrison MD [facility] - [place] MACHINIST GENERAL - Recent and Past Visits Recent Visits Date Type Provider Dept 03/09/20 Office Visit Yinka Harrison MD [facility] Showing recent visits within past 460 days with a meds authorizing provider and meeting all other requirements Future Appointments No visits were found meeting these conditions. Showing future appointments within next 90 days with a meds authorizing provider and meeting all other requirements Failed - This refill cannot be delegated pravastatin (PRAVACHOL) 20 MG Tablet [Pharmacy Med Name: PRAVASTATIN NA 20 MG TAB 20 Tablet] 90 Tab3 Sig: TAKE ONE TABLET BY MOUTH EVERY DAY Cardiovascular: Antilipid - HMG-CoA Reductase Inhibitors Passed - 09/28/2020 9:00 AM Passed - Valid encounter within last 12 months Past Office Visits Recent Outpatient Visits 6 months ago Hypertension, essential [facility] - Yinka Walters MD 1 year ago Hypertension, essential [facility] - Yinka Walters MD 1 year ago Bilateral leg weakness [facility] - Yinka Walters MD 2 years ago Essential hypertension [facility] - Yinka Walters MD 2 years ago Essential hypertension [facility] Demarcus Ordaz MD Upcoming Appointments Future Appointments In 5 months Yinka Harrison MD [facility] - [place] MACHINIST GENERAL - Recent and Past Visits Recent Visits Date Type Provider Dept 03/09/20 Office Visit [facility] Show[facility] recent visits within past 460 days with a meds authorizing provider and meeting all other requirements Future Appointments No visits were found meeting these conditions. Showing future appointments within next 90 days with a meds authorizing provider and meeting all other requirements RIBUTION SALES REPRESENTATIVE documented in this encounter Plan of Treatment Upcoming Encounters Date Type Department Care Team (Latest Contact Info) Description 09/23/2024 10:45 AM DISTRIBUTION SALES REPRESENTATIVE Physical Therapy [facility] Rehab at [facility] [address], [address] [place] [address] Dave Fernando MD [address] [place] [address] Lucy Garduno, PT [place] Discharge Disposition: Discharged to home or Selfcare 11/22/2024 10:15 AM CDT Appointment [facility] Mammography 1 [place] [address] Yinka Harrison MD [address] [place] [address] Discharge Disposition: Discharged to home or Selfcare 06/13/2025 10:30 AM CDT Office Visit [facility] - Primary Care - [place] [address] [place] [address] Yinka Hrarison MD [address] [place] [address] documented as of this encounter Visit Diagnoses Diagnosis Hyperlipidemia- Primary Mixed hyperlipidemia Arthritis Arthropathy, unspecified, site unspecified Chronic pain of right knee Rheumatoid arthritis involving multiple sites with positive rheumatoid factor (HCC) documented in this encounter Additional Health Concerns Assessment Noted Time PHQ-9 Depression Total Score: 0 03/09/20 20 11:00 AM CDT documented as of this encounter Care Teams Solution Advisor Relationship Specialty Start Date End Date Yinka Harrison MD [address] [place] [address] PCP - General Internal Medicine 07/27/18 Dave Fernando MD [address] [place] [address] Consulting Physician Orthopaedic Surgery 02/20/19 documented as of this encounter
--- OUTSIDE RECORDS SUMMARY | 2024-09-22 13:06 | XMS_ITS | Encounter Summary ---
Author Organization [facility] Address [address] [place] [address] Phone Care Team Providers Care Soil Scientist Name Role Phone Yinka Harrison MD Primary Care Provider [phone] Dave Fernando MD Unavailable [phone] Merari Mclean [facility] Unavailable Unavailab le Reason for Visit * Reason Comments Medication Refill Encounter Details Date Type Department Care Team (Late st Contact Info) Description 02/09[facility]20[facility] [address] [place] [address] Yinka Harrison MD [address] [place] [address] Medication Refill Social History Tobacco [...] (Latest Contact Info) Description 09/23/2024 10:45 AM EMISSION SPECIALIST Physical Therapy [facility] Rehab at [facility] [address], [address] [place] [address] Dave Fernando MD [address] [place] [address] Lucy Garduno, PT [place] Discharge Disposition: Discharged to home or Selfcare 11/22/2024 10:15 AM CDT [facility] 1 [facility] [place] [address] Yinka Harrison MD [address] [place] [address] Discharge Disposition: Discharged to home or Selfcare 06/13/2025 10:30 AM CDT Office Visit [facility] - Primary Care - [place] [address] [place] [address] Yinka Harrison MD [address] [place] [address] documented as of this encounter Visit Diagnoses Diagnosis Arthritis Arthropathy, unspecified, site unspecified Chronic pain of right knee Rheumatoid arthritis involving multiple sites with positive rheumatoid factor (HCC) documented in this encounter Additional Health Concerns Assessment Noted Time PHQ-9 Depression Total Score: 0 03/09/20 20 11:00 AM CDT documented as of this encounter Care Teams Soil Scientist Relationship Specialty Start Date End Date Yinka Harrison MD [address] [place] [address] PCP - General Internal Medicine 07/27/18 Dave Fernando MD [address] [place] [address] Consulting Physician Orthopaedic Surgery 02/20/19 Merari Mclean LSW [place] Data Conversion Developer 05/05/23 07/04/23 documented as of this encounter
--- OUTSIDE RECORDS SUMMARY | 2024-09-22 13:06 | XMS_ITS | Encounter Summary ---
Author Organization [facility] Address [address] [place] [address] Phone Care Team Providers Care White Sugar Syrup Operator Name Role Phone Yinka Harrison MD Primary Care Provider [phone] Dave Fernando MD Unavailable [phone] [facility] Unavailable Unavailab le Reason for Visit * Reason Comments Medication Refill Encounter Details Date Type Department Care Team (Late st Contact Info) Description 06/22/2021 Refill [facility] Primary Care - [place] [address] [place] [address] Yinka Harrison MD [address] [place] [address] Medication Refill Social History Tobacco [...] Telephone Encounter - Yinka Harrison MD - 06/22/2021 11:27 AM CDT Refill request approved. * Telephone Encounter - Jen Zurita RN - 06/22/2021 10:59 AM CDT Medication failed the protocol, provider to review and approve the medication order if appropriate. Requested Prescriptions Pending Prescriptions Disp Refills ibuprofen (MOTRIN) 800 MG Tablet [Pharmacy Med Name: IBUPROFEN 800 MG TAB 800 Tablet] 90 Tablet 3 Sig: Take 1 Tab by mouth every 8 hours as needed for Mild or more severe pain. NSAIDs Protocol Failed - 06/22/2021 10:50 AM Failed - HGB greater than 10 or HCT greater than 30 in past 12 months HEMOGLOBIN (HGB) Date Value Ref Range Status 01/21/2016 12.1 12.0 - 15.8 g/dL Final HEMATOCRIT (HCT) Date Value Ref Range Status 01/21/2016 36.9 36.0 - 47.0 % Final Passed - Normal serum creatinine in past 12 months CREATININE, BLOOD Date Value Ref Range Status 03/10/2021 1.01 0.60 - 1.10 mg/dL Final Passed - Visit with relevant provider in past 12 months or upcoming 90 days Recent Visits Date Type Provider Dept 03/10/21 Office Visit Yinka Harrison MD [facility] Showing recent visits within past 365 days and meeting all other requirements Future Appointments No visits were found meeting these conditions. Showing future appointments within next 90 days and meeting all other requirements Passed - No matching NSAID med order in past 45 days No matching medication orders between 05/08/2021 10:59 AM and 06/22/2021 10:59 AM Passed - AST less than 55 or ALT less than 90 in past 12 months SGOT (AST) Date Value Ref Range Status 03/10/2021 21 <=32 U/L Final SGPT (ALT) Date Value Ref Range Status 03/10/2021 17 <=41 U/L Final documented in this encounter Plan of Treatment Upcoming Encounters Date Type Department Care Team (Latest Contact Info) Description 09/23/2024 10:45 AM CFO CONTROLLER [facility] [address] [place] [address] Dave Fernando MD [address] [place] [address] Lucy Garduno, PT [place] Discharge Disposition: Discharged to home or Selfcare 11/22/2024 10:15 AM CDT [facility] 1 [facility] [place] [address] Yinka Harrison MD [address] [place] [address] Discharge Disposition: Discharged to home or Selfcare 06/13/2025 10:30 AM CDT Office Visit [facility] - Primary Care - [place] [address] [place] [address] Yinka Harrison MD [address] [place] [address] documented as of this encounter Visit Diagnoses Not on filedocumented in this encounter Additional Health Concerns Assessment Noted Time PHQ-9 Depression Total Score: 0 03/10/20 21 10:00 AM CDT documented as of this encounter Care Teams White Sugar Syrup Operator Relationship Specialty Start Date End Date Yinka Harrison MD [address] [place] [address] PCP - General Internal Medicine 07/27/18 Dave Fernando MD [address] [facility] [address] [place] [address] Consulting Physician Orthopaedic Surgery 02/20/19 Merari Mclean LSW [place] Fortune Teller 05/05/23 07/04/23 documented as of this encounter
--- OUTSIDE RECORDS SUMMARY | 2024-09-22 13:06 | XMS_ITS | Encounter Summary ---
Author Organization [facility] Address [address] [place] [address] Phone Care Team Providers Care Adjunct Instructor Chemistry Name Role Phone Yinka Harrison MD Primary Care Provider [phone] Dave Fernando MD Unavailable [phone] Reason for Visit * Reason Comments Medication Refill Encounter Details Date Type Department Care Team (Late st Contact Info) Description 11/01/2021 [facility] [place] [address] [place] [address] Yinka Harrison MD [address] [place] [address] Medication Refill Social History Tobacco [...] Telephone Encounter - Jen Zurita RN - 11/01/2021 1:31 PM UTILITY LOCATE TECHNICIAN Medication approved and signed per standing order protocol. ITY LOCATE TECHNICIAN documented in this encounter Plan of Treatment Upcoming Encounters Date Type Department Care Team (Latest Contact Info) Description 09/23/2024 10:45 AM UTILITY LOCATE TECHNICIAN Physical Therapy [facility] Rehab at [facility] [address], [address] [place] [address] Dave Fernando MD [address] [place] [address] Lucy Garduno, [place] Discharge Disposition: Discharged to home or Selfcare 11/22/2024 10:[address] [facility] Mammography 1 [place] [address] Yinka Harrison MD [address] [place] [address] Discharge Disposition: Discharged to home or Selfcare 06/13/2025 10:30 AM CDT Office Visit [facility] - Primary Care - [place] [address] [place] [address] Yinka Harrison MD [address] [place] [address] documented as of this encounter Visit Diagnoses Not on filedocumented in this encounter Additional Health Concerns Assessment Noted Time PHQ-9 Depression Total Score: 0 03/10/20 10:00 AM CDT documented as of this encounter Care Teams Adjunct Instructor Chemistry Relationship Specialty Start Date End Date Yinka Harrison MD [address] [place] [address] PCP - General Internal Medicine 07/27/18 Dave Fernando MD [address] [facility] [address] [place] [address] Consulting Physician Orthopaedic Surgery 02/20/19 documented as of this encounter
--- OUTSIDE RECORDS SUMMARY | 2024-09-22 13:06 | XMS_ITS | Encounter Summary ---
Author Organization [facility] Address [address] [place] [address] Phone Care Team Providers Care Carpenters Name Role Phone Yinka Harrison MD Primary Care Provider [phone] Dave Fernando MD Unavailable [phone] Reason for Visit * Reason Onset Date Comments Medication Refill 09/15/2021 Encounter Details Date Type Department Care Team (Late st Contact Info) Description 09/15/2021 MyChart RX Renewal [facility] - Primary Care - [place] [address] [place] [address] Yinka Harrison MD [address] [place] [address] Medication Renewal Request Social History [...] Telephone Encounter - Yinka Harrison MD - 09/15/2021 3:34 PM SAND BUFFER Refill request approved. BUFFER * Telephone Encounter - Mariposa Castelan RN - 09/15/2021 3:15 PM SAND BUFFER Medication failed the protocol, provider to review and approve the medication order if appropriate. Requested Prescriptions Pending Prescriptions Disp Refills traMADol (ULTRAM) 50 MG Tablet 30 Tablet 1 Not Delegated - Opioid Agonists Protocol Failed - 09/15/2021 3:04 PM Failed - This refill cannot be delegated Passed - Visit with relevant provider in past 12 months or upcoming 90 days Recent Visits Date Type Provider Dept 03/10/21 Office Visit Yinka Harrison MD [facility] Showing recent visits within past 365 days and meeting all other requirements Future Appointments No visits were found meeting these conditions. Showing future appointments within next 90 days and meeting all other requirements BUFFER documented in this encounter Plan of Treatment Upcoming Encounters Date Type Department Care Team (Latest Contact Info) Description 09/23/2024 10:45 AM SAND BUFFER Physical Therapy [facility] at [facility] [address] [facility], [address] [place] [address] Dave Fernando MD [address] [place] [address] Lucy Garduno, [place] Discharge Disposition: Discharged to home or Selfcare 11/22/2024 10:15 AM CDT Appointment [facility] Mammography 1 [place] [address] [place] [address] [place] [address] Discharge Disposition: Discharged to home or Selfcare 06/13/2025 10:30 AM CDT Office Visit [facility] - Primary Care - [place] [address] [place] [address] Yinka Harrison MD [address] [place] [address] documented as of this encounter Visit Diagnoses Diagnosis Arthritis Arthropathy, unspecified, site unspecified Chronic pain of right knee Rheumatoid arthritis involving multiple sites with positive rheumatoid factor (HCC) documented in this encounter Additional Health Concerns Assessment Noted Time PHQ-9 Depression Total Score: 0 03/10/20 21 10:00 AM CDT documented as of this encounter Care Teams Carpenters Relationship Specialty Start Date End Date Yinka Harrison MD [address] [place] [address] PCP - General Internal Medicine 07/27/18 Dave Fernando MD [address] [place] [address] Consulting Physician Orthopaedic Surgery 02/20/19 documented as of this encounter
--- OUTSIDE RECORDS SUMMARY | 2024-09-22 13:06 | XMS_ITS | Encounter Summary ---
Author Organization [facility] Address [address] [place] [address] Phone Care Team Providers Care Motor Vehicle Inspector Name Role Phone Yinka Harrison MD Primary Care Provider [phone] Dave Fernando MD Unavailable [phone] Encounter Details Date Type Department Care Team (Late st Contact Info) Description 06/21/2021 1:10 PM CDT Lab [facility] - Primary Care - [address] [address] [facility] Discharge Disposition: Discharged to home or Selfcare [...] PM CDT documented as of this encounter Progress Notes * Jasson Ahmadi - 06/21/2021 1:10 PM CDT UDS sent to [employer]. documented in this encounter Plan of Treatment Upcoming Encounters Date Type Department Care Team (Latest Contact Info) Description 09/23/2024 10:45 AM GEOTHERMAL PLANT MANAGER Physical Therapy [facility] Rehab at [facility] [address] [place] [address] Dave Fernando MD [address] [place] [address] Lucy Garduno, [place] Discharge Disposition: Discharged to home or Selfcare 11/22/2024 10:15 AM CDT [facility] 1 [place] [address] Yinka Harrison MD [address] [place] [address] Discharge Disposition: Discharged to home or Selfcare 06/13/2025 10:30 AM CDT Office Visit [facility] - Primary Care - [place] [address] [place] [address] Yinka Harrison MD [address] [place] [address] documented as of this encounter Visit Diagnoses Not on filedocumented in this encounter Additional Health Concerns Assessment Noted Time PHQ-9 Depression Total Score: 0 03/10/20 21 10:00 AM CDT documented as of this encounter Care Teams Motor Vehicle Inspector Relationship Specialty Start Date End Date Yinka Harrison MD [address] [place] [address] PCP - General Internal Medicine 07/27/18 Dave Fernando MD [address] [facility] 159 [place] [address] Consulting Physician Orthopaedic Surgery 02/20/19 documented as of this encounter
--- OUTSIDE RECORDS SUMMARY | 2024-09-22 13:06 | XMS_ITS | Encounter Summary ---
Author Organization [facility] Address [address] [place] [address] Phone Care Team Providers Care Interactive Multimedia Designer Name Role Phone Yinka Harrison MD Primary Care Provider [phone] Dave Fernando MD Unavailable Reason for Visit * Reason Onset Date Comments Medication Refill 01/04/2022 Encounter Details Date Type Department Care Team (Late st Contact Info) Description 01/04/2022 MyChart RX Renewal [facility] - Primary Care - [place] [address] [place] [address] Yinka Harrison MD [address] [place] [address] Medication Renewal Request Social History [...] Telephone Encounter - Yinka Harrison MD - 01/05/2022 7:48 AM CDT Refill request approved. documented in this encounter Plan of Treatment Upcoming Encounters Date Type Department Care Team (Latest Contact Info) Description 09/23/2024 10:45 AM SPECIAL EDUCATION PARAEDUCATOR [facility] [address] [place] [address] Dave Fernando MD [address] [place] [address] Lucy Garduno, PT [place] Discharge Disposition: Discharged to home or Selfcare 11/22/2024 10:15 AM CDT [facility] 1 [place] [address] Yinka Harrison MD [address] [place] [address] Discharge Disposition: Discharged to home or Selfcare 06/13/2025 10:30 AM CDT Office Visit [facility] - Primary Care - [place] [address] [place] [address] Yinka Harrison MD [address] [place] [address] documented as of this encounter Visit Diagnoses Diagnosis Arthritis Arthropathy, unspecified, site unspecified Chronic pain of right knee Rheumatoid arthritis involving multiple sites with positive rheumatoid factor (HCC) documented in this encounter Additional Health Concerns Assessment Noted Time PHQ-9 Depression Total Score: 0 03/10/20 21 10:00 AM CDT documented as of this encounter Care Teams Interactive Multimedia Designer Relationship Specialty Start Date End Date Yinka Harrison MD [address] [place] [address] PCP - General Internal Medicine 07/27/18 Dave Fernando MD [address] [place] [address] Consulting Physician Orthopaedic Surgery 02/20/19 documented as of this encounter
--- OUTSIDE RECORDS SUMMARY | 2024-09-22 13:07 | XMS_ITS | Encounter Summary ---
Author Organization [facility] Address [address] [place] [address] Phone Care Team Providers Care Financial Systems Administrator Name Role Phone Yinka Harrison MD Primary Care Provider [phone] Dave Fernando MD Unavailable [phone] Reason for Visit * Reason Comments Medication Refill Encounter Details Date Type Department Care Team (Late st Contact Info) Description 12/30/2019 [facility] [address] [place] [address] Yinka Harrison MD [address] [place] [address] Medication Refill Social History Tobacco Use Types Packs/Day Years Used Date Smoking Tobacco: Former Smokeless Tobacco: Never Alcohol Use Standard Drinks/Week Comments No 0 (1 standard drink = 0.6 oz pur e alcohol) Sexually Active Control Partners Comments Never Comments No Sex and Gender Information Value Date Recorded Sex Assigned at Not on file Legal Sex Female 11:27 PM CDT Gender Identity Not on file Sexual Orientation Not on file documented as of this encounter Miscellaneous Notes * Telephone Encounter - Lucy Mijares, RN - 12/30/2019 9:41 AM CDT Medication(s) refilled and signed per [facility] Chronic Medication Refill Standing Order for Pediatric and Adult Patients. documented in this encounter Plan of Treatment Upcoming Encounters Date Type Department Care Team (Latest Contact Info) Description 09/23/2024 10:45 AM TIRE BEADER MAKER Physical Therapy [facility] Re[facility] at [facility] [address] [place] [address] Dave Fernando MD [address] [place] [address] Luyc Garduno, PT [place] Discharge Disposition: Discharged to home or Selfcare 11/22/2024 10:15 AM CDT Appointment [facility] Mammography 1 [place] [address] Yinka Harrison MD [address] [place] [address] Discharge Disposition: Discharged to home or Selfcare 06/13/2025 10:30 AM CDT Office Visit [facility] - Primary Care - [place] [address] [place] [address] Yinka Harrison MD [address] [place] [address] documented as of this encounter Visit Diagnoses Not on filedocumented in this encounter Additional Health Concerns Assessment Noted Time PHQ-9 Depression Total Score: 0 08/23/20 17 8:23 AM TIRE BEADER MAKER documented as of this encounter Care Teams Financial Systems Administrator Relationship Specialty Start Date End Date Yinka Harrison MD [address] [place] [address] PCP - General Internal Medicine 07/27/18 Dave Fernando MD [address] [place] [address] Consulting Physician Orthopaedic Surgery 02/20/19 documented as of this encounter
--- OUTSIDE RECORDS SUMMARY | 2024-09-22 13:07 | XMS_ITS | Encounter Summary ---
Author Organization [facility] Address [address] [place] [address] Phone Care Team Providers Care Scientific Research Manager Name Role Phone Yinka Amezcua MD Primary Care Provider [phone] Dave Fernando MD Unavailable [phone] Reason for Visit * Reason Comments Medication Refill Encounter Details Date Type Department Care Team (Late st Contact Info) Description 04/14/2020 Refill [facility] [address] [place] [address] Yinka Amezcua MD [address] [place] [address] Medication Refill Social History Tobacco Use Types [...] have Coronavirus / COVID-19? No / Unsure 04/09/2020 2:06 PM CDT documented as of this encounter Miscellaneous Notes * Telephone Encounter - Yinka Amezcua MD - 04/17/2020 1:47 PM CDT Refill request approved. * Telephone Encounter - Shari Rdz RN - 04/17/2020 1:39 PM CDT Medication failed the protocol, provider to review and approve the medication order. Requested Prescriptions Pending Prescriptions Disp Refills traMADol (ULTRAM) 50 MG Tablet [Pharmacy Med Name: TRAMADOL HCL 50 MG TAB 50 TAB] 30 Tab 1 Sig: TAKE 1 TAB BY MOUTH EVERY 8 HOURS NEEDED FOR MODERATE OR MORE SEVERE PAIN. Not Delegated - Analgesics: Opioid Agonists Failed - 04/14/2020 2:03 PM Failed - This refill cannot be delegated Passed - Valid encounter within last 6 months Past Office Visits Recent Outpatient Visits 1 month ago Hypertension, essential [facility] Yinka Walters [facility] 1 year ago Hypertension, essential [facility] - Yinka Walters MD 1 year ago Bilateral leg weakness [facility] - Yinka Walters MD 1 year ago Essential hypertension [facility] - Yinka Walters MD 1 year ago Essential hypertension [facility] Demarcus Wise MD Upcoming Appointments Future Appointments In 10 months Yinka Amezcua MD [facility] [address] ONLINE MERCHANDISER - Recent and Past Visits Recent Visits Date Type Provider Dept 03/09/20 Office Visit Yinka Amezcua MD [facility] 02/20/19 Office Visit Yinka Amezcua MD [facility] 01/15/19 Office Visit Yinka [facility]zcua MD [facility] [place] Showing recent visits within past 460 days with a meds authorizing provider and meeting all other requirements Future Appointments No visits were found meeting these conditions. Showing future appointments within next 90 days with a meds authorizing provider and meeting all other requirements Medication Dispense History (from 12/19/2019 to 04/14/2020) traMADol HCl Dispensed Written Strength Quantity Refills Days Supply Provider Pharmacy TRAMADOL HCL 02/14/2020 02/14/2020 50 MG 30 1 10 , YINKA AMEZCUA MD [facility] TRAMADOL HCL 01/18/2020 12/06/2019 50 MG 30 1 10 , YINKA AMEZCUA MD [facility] External Sources Source Last Check[place]dates [place] 05/03/2018 3:04 AM History Response Filed [place] 04/14/2020 2:03 PM History Response Filed documented in this encounter Plan of Treatment Upcoming Encounters Date Type Department Care Team (Latest Contact Info) Description 09/23/2024 10:45 AM PATTERNMAKER BENCH [facility] [address], [address] [place] [address] Dave Fernando MD [address] [place] [address] Lucy Garduno, PT [place] Discharge Disposition: Discharged to home or Selfcare 11/22/2024 10:15 AM CDT [facility] 1 [place] [address] Yinka Amezcua MD [address] [place] [address] Discharge Disposition: Discharged to home or Selfcare 06/13/2025 10:30 AM CDT Office Visit [facility] - Primary Care - [place] [address] [place] [address] Yinka Amezcua MD [address] [place] [address] documented as of this encounter Visit Diagnoses Diagnosis Arthritis Arthropathy, unspecified, site unspecified Chronic pain of right knee Rheumatoid arthritis involving multiple sites with positive rheumatoid factor (HCC) documented in this encounter Additional Health Concerns Assessment Noted Time PHQ-9 Depression Total Score: 0 03/09/20 20 11:00 AM CDT documented as of this encounter Care Teams Scientific Research Manager Relationship Specialty Start Date End Date Yinka Amezcua MD [address] [place] [address] PCP - General Internal Medicine 07/27/18 Dave Fernando MD [address] [place] [address] Consulting Physician Orthopaedic Surgery 02/20/19 documented as of this encounter
--- OUTSIDE RECORDS SUMMARY | 2024-09-22 13:07 | XMS_ITS | Encounter Summary ---
Author Organization [facility] Address [address] [place] [address] Phone Care Team Providers Care Squeegee Tender Name Role Phone Yinka Harrison MD Primary Care Provider [phone] Dave Fernando MD Unavailable [phone] Encounter Details Date Type Department Care Team (Late st Contact Info) Description 03/09/2020 11:50 AM CDT Lab [address] [address] Lab, [facility] Hypertension, essential; Hyperlipidemia Discharge Disposition: Discharged [...] have Coronavirus / COVID-19? No / Unsure 03/09/2020 10:50 AM CDT documented as of this encounter Progress Notes * Nargis Gage RMA - 03/09/2020 11:50 AM CDT Sriram presents for lab draw per order of Dr. Harrison dated 03/09/20. Specimen collected from right antecubital without incident. sah documented in this encounter Plan of Treatment Upcoming Encounters Date Type Department Care Team (Latest Contact Info) Description 09/23/2024 10:45 AM NEON PUMPER [facility] [address] [place] [address] Dave Fernando MD [address] [place] [address] Lucy Garduno, PT [place] Discharge Disposition: Discharged to home or Selfcare 11/22/2024 10:15 AM CDT [facility] 1 [place] [address] Yinka Harrison MD [address] [place] [address] Discharge Disposition: Discharged to home or Selfcare 06/13/2025 10:30 AM CDT Office Visit [facility] - Primary Care - [place] [address] [place] [address] Yinka Harrison MD [address] [place] [address] documented as of this encounter Procedures Procedure Name Priority Date/Time Associated Diagnosis Comments LIPID PANEL Routine 03/09/2020 11:54 AM CDT Hyperlipidemia CMP (COMPREHENSIVE METABOLIC PANEL) Today 03/09/2020 11:54 AM CDT Hypertension, essential documented in this encounter Results * (ABNORMAL) LIPID PANEL (03/09/2020 11:54 AM CDT) CHOLESTEROL 316(H) <=200 mg/dL 03/09/2020 5:07 PM CDT [facility] TRIGLYCERID[facility] 88 <150 mg/dL 03/09/2020 5:07 PM CDT [facility] HDL CHOLESTEROL 78.3 >40 mg/dL 0 5:07 PM CDT [facility] LDL 220(H) 5 - 130 mg/dL 03/09/2020 5:07 PM CDT [facility] VLDL 18 5 - 55 mg/dL 03/09/2020 5:07 PM CDT [facility] CHOL/HDL RATIO 4.0 0.0 - 4.4 03/09/2020 5:07 PM CDT [facility] NON-HDL CHOLESTEROL 237.7(H) <130 mg/dL 03/09/2020 5:07 PM CDT [facility] LIPID FASTING 03/09/2020 5:07 PM CDT [facility] Blood Venipuncture / Unknown 03/09/2020 11:54 AM CDT 03/09/2020 11:54 AM CDT us Yinka Harrison MD CHEMISTRY ORDERABLES [place] peacock Result [facility] [address] [place] [address] * (ABNORMAL) CMP (COMPREHENSIVE METABOLIC PANEL) (03/09/2020 11:54 AM CDT) Pathologist [facility] SODIUM 136 136 - 144 mmol/L 03/09/2020 5:07 PM CDT [facility] POTASSIUM 4.0 3.5 - 5.1 mmol/L 03/09/2020 5:07 PM CDT [facility] CHLORIDE 99(L) 100 - 110 mmol/L 03/09/2020 5:07 PM CDT [facility] CO2, VENOUS 24 22 - 32 mmol/L 03/09/2020 5:07 PM CDT [facility] ANION GAP 17.0 8.0 - 20.0 mmol/L 03/09/2020 5:07 PM CDT [facility] GLUCOSE 77 70 - 99 mg/dL 03/09/2020 5:07 PM CDT [facility] BUN 28(H) 8 - 23 mg/dL 03/09/2020 5:07 PM CDT [facility] CREATININE, BLOOD 1.45(H) 0.60 - 1.10 mg/dL 03/09/2020 5:07 PM CDT [facility] BUN/CREATININE RATIO 19 12 - 20 ratio 03/09/2020 5:07 PM CDT [facility] TOTAL PROTEIN 8.2 6.0 - 8.3 g/dL 03/09/2020 5:07 PM T [facility] ALBUMIN 4.6 3.5 - 5.2 g/dL 03/09/2020 5:07 PM [facility] Comment: The colormetric methods used for the determination of Albumin may lead to falsely elevated test results in patients suffering from renal failure or insufficiency due to interference with other proteins. A/G RATIO 1.3 1.0 - 2.0 03/09/2020 5:07 PM CDT [facility] CALCIUM 10.2 8.9 - 10.3 mg/dL 03/09/2020 5:07 PM CDT [facility] T BILI 0.3 <=1.2 mg/dL 03/09/2020 5:07 PM T [facility] SGOT (AST) 22 <=32 U/L 03/09/2020 5:07 PM CDT [facility] SGPT (ALT) 15 <=33 U/L 03/09/2020 5:07 PM CDT [facility] ALKALINE PHOSPHATASE 76 35 - 105 U/L 03/09/2020 5:07 PM CDT [facility] GFR, EST. NONAFRICAN 37(L) >=60 03/09/2020 5:07 PM CDT [facility] GFR, EST. 45(L) >=60 06/29/2 020 5:07 PM CDT [facility] Comment: Creatinine Clearance is the preferred criteria for selecting drug dose adjustments in renally impaired patients. ??The GFR is provided as additional pertinent clinical information. GFR is reported in mL/min/1.73 sq m. Blood Venipuncture / Unknown 03/09/2020 11:54 AM CDT 03/09/2020 11:54 AM CDT us Yinka Harrison MD CHEMISTRY ORDERABLES [place] peacock Result [facility] [address] [place] [address] documented in this encounter Visit Diagnoses Diagnosis Hypertension, essential Unspecified essential hypertension Hyperlipidemia Mixed hyperlipidemia documented in this encounter Additional Health Concerns Assessment Noted Time PHQ-9 Depression Total Score: 0 03/09/20 20 11:00 AM CDT documented as of this encounter Care Teams Squeegee Tender Relationship Specialty Start Date End Date Yinka Harrison MD [address] [place] [address] PCP - General Internal Medicine 07/27/18 Dave Fernando MD [address] [place] [address] Consulting Physician Orthopaedic Surgery 02/20/19 documented as of this encounter
--- OUTSIDE RECORDS SUMMARY | 2024-09-22 13:07 | XMS_ITS | Encounter Summary ---
Author Organization [facility] Address [address] [place] [address] Phone Care Team Providers Care Refinisher Name Role Phone Yinka Harrison MD Primary Care Provider [phone] Dave Fernando MD Unavailable [phone] Reason for Visit * Reason Comments Medication Refill Encounter Details Date Type Department Care Team (Late st Contact Info) Description 07/27/2020 Refill [facility] [address] [place] [address] Yinka Harrison MD [address] [place] [address] Medication Refill Social History Tobacco Use Types [...] have Coronavirus / COVID-19? No / Unsure 07/20/2020 8:44 AM SENIOR PROGRAM MANAGER documented as of this encounter Miscellaneous Notes * Telephone Encounter - Yinka Harrison MD - 07/27/2020 10:17 AM SENIOR PROGRAM MANAGER Medication was filled for 2 months on June 30, 2020 OR PROGRAM MANAGER * Telephone Encounter - Kamla Lowry CMA - 07/27/2020 10:04 AM SENIOR PROGRAM MANAGER Medication failed the protocol, provider to review and approve the medication order if appropriate. Requested Prescriptions Pending Prescriptions Disp Refills traMADol (ULTRAM) 50 MG Tablet [Pharmacy Med Name: TRAMADOL HCL 50 MG TAB 50 Tablet] 30 Tab 1 Sig: Take 1 Tab by mouth every 8 hours as needed for Moderate or more severe pain. Not Delegated - Analgesics: Opioid Agonists Failed - 07/27/2020 9:21 AM Failed - This refill cannot be delegated Passed - Valid encounter within last 6 months Past Office Visits Recent Outpatient Visits 4 months ago [facility] Y[facility] 1 year ago [facility]pert[facility], [facility] Y[facility]a Wal[facility] 1 year ago Bilateral leg weakness [facility] - Yinka Walters MD 2 years ago Essential hypertension [facility] - Yinka Walters MD 2 years ago Essential hypertension [facility] - Demarcus Ordaz MD Upcoming Appointments Future Appointments In 7 months Yinka Harrison MD [facility] - [place] MEDICAL LANGUAGE SPECIALIST - Recent and Past Visits Recent Visits Date Type Provider Dept 03/09/20 [facility] recent visits within past 460 days with a meds authorizing provider and meeting all other requirements Future Appointments No visits were found meeting these conditions. Showing future appointments within next 90 days with a meds authorizing provider and meeting all other requirements OR PROGRAM MANAGER documented in this encounter Plan of Treatment Upcoming Encounters Date Type Department Care Team (Latest Contact Info) Description 09/23/2024 10:45 AM SENIOR PROGRAM MANAGER Physical Therapy [facility] Rehab at [facility] Mall [address], [address] [place] [address] Dave Fernando MD [address] [place] [address] Lucy Garduno, PT [place] Discharge Disposition: Discharged to home or Selfcare 11/22/2024 10:15 AM CDT Appointment [facility] Mammography 1 [place] [address] Yinka Harrison MD [address] [place] [address] Discharge Disposition: Discharged to home or Selfcare 06/13/2025 10:30 AM CDT Office Visit [facility] - Primary Care - [place] [address] [place] [address] Yinka Harrison MD [address] [place] [address] documented as of this encounter Visit Diagnoses Diagnosis Arthritis Arthropathy, unspecified, site unspecified Chronic pain of right knee Rheumatoid arthritis involving multiple sites with positive rheumatoid factor (HCC) documented in this encounter Additional Health Concerns Assessment Noted Time PHQ-9 Depression Total Score: 0 03/09/20 20 11:00 AM CDT documented as of this encounter Care Teams Refinisher Relationship Specialty Start Date End Date Yinka Harrison MD [address] [place] [address] PCP - General Internal Medicine 07/27/18 Dave Fernando MD [address] [place] [address] Consulting Physician Orthopaedic Surgery 02/20/19 documented as of this encounter
--- OUTSIDE RECORDS SUMMARY | 2024-09-22 13:07 | XMS_ITS | Encounter Summary ---
Author Organization [facility] Address [address] [place] [address] Phone Care Team Providers Care Branch Account Manager Name Role Phone Yinka Harrison MD Primary Care Provider [phone] Dave Fernando MD Unavailable [phone] Reason for Visit * Reason Comments Medication Refill Encounter Details Date Type Department Care Team (Late st Contact Info) Description 05/20/2020 Refill [facility] Center [address] [place] [address] Yinka Harrison MD [address] [place] [address] Medication Refill Social History Tobacco [...] encounter Miscellaneous Notes * Telephone Encounter - Shari Rdz RN - 05/21/2020 8:00 AM CDT Medication(s) refilled and signed per [facility] Chronic Medication Refill Standing Order for Pediatric and Adult Patients. Requested Prescriptions Pending Prescriptions Disp Refills ??? pravastatin (PRAVACHOL) 20 MG Tablet [Pharmacy Med Name: PRAVASTATIN NA 20 MG TAB 20 TAB] 90 Tab 2 Sig: TAKE ONE TABLET BY MOUTH EVERY DAY Cardiovascular: Antilipid - HMG-CoA Reductase Inhibitors Passed - 05/20/2020 9:21 AM Passed - Valid encounter within last 12 months Past Office Visits Recent Outpatient Visits 2 months ago Hypertension, essential [facility] - Yinka Walters MD 1 year ago Hypertension, essential [facility] - Yinka Walters MD 1 year ago Bilateral leg weakness [facility] - Yinka Walters MD 1 year ago Essential hypertension [facility] Yinka Walters MD 2 years ago Essential hypertension [facility] Demarcus Wise MD Upcoming Appointments Future Appointments In 9 months Yinka Harrison MD [facility] - [place] CUSTOMER MARKETING MANAGER - Recent and Past Visits Recent Visits Date Type Provider Dept 03/09/20 Office Visit Yinka Harrison MD [facility] [place] 02/20/19 Office Visit Yinka Harrison MD [facility] [place] Showing recent visits within past 460 [...] (Latest Contact Info) Description 09/23/2024 10:45 AM ELECTROMECHANICAL EQUIPMENT TESTER Physical Therapy [facility] at [facility] [address], [address] [place] [address] Dave Fernando MD [address] [place] [address] Lucy Garduno, PT [place] Discharge Disposition: Discharged to home or Selfcare 11/22/2024 10:15 AM CDT [facility] 1 [facility] [place] [address] Yinka Harrison MD [address] [place] [address] Discharge Disposition: Discharged to home or Selfcare 06/13/2025 10:30 AM CDT Office Visit [facility] - Primary Care - [place] [address] [place] [address] Yinka Harrison MD [address] [place] [address] documented as of this encounter Visit Diagnoses Not on filedocumented in this encounter Additional Health Concerns Assessment Noted Time PHQ-9 Depression Total Score: 0 03/09/20 20 11:00 AM CDT documented as of this encounter Care Teams Branch Account Manager Relationship Specialty Start Date End Date Yinka Harrison MD [address] [place] [address] PCP - General Internal Medicine 07/27/18 Dave Fernando MD [address] [place] [address] Consulting Physician Orthopaedic Surgery 02/20/19 documented as of this encounter
--- OUTSIDE RECORDS SUMMARY | 2024-09-22 13:07 | XMS_ITS | Encounter Summary ---
Author Organization [facility] Address [address] [place] [address] Phone Care Team Providers Care Mount Loader Name Role Phone Yinka Harrison MD Primary Care Provider [phone] Dave Fernando MD Unavailable [phone] Reason for Visit * Reason Comments Medication Refill Encounter Details Date Type Department Care Team (Late st Contact Info) Description 02/13/2020 Refill [facility] [address] [place] [address] Yinka Harrison MD [address] [place] [address] Medication Refill Social History Tobacco Use Types [...] Telephone Encounter - Yinka Harrison MD - 02/14/2020 9:58 AM CDT Refill request approved. * Telephone Encounter - Leigh Ann Velasquez RN - 02/14/2020 8:49 AM CDT Requested Prescriptions Pending Prescriptions Disp Refills traMADol (ULTRAM) 50 MG Tablet [Pharmacy Med Name: TRAMADOL HCL 50 MG TAB 50 TAB] 30 Tab 0 Sig: TAKE 1 TAB BY MOUTH EVERY 8 HOURS NEEDED FOR MODERATE OR MORE SEVERE PAIN. Not Delegated - Analgesics: Opioid Agonists Failed - 02/13/2020 5:01 PM Failed - Valid encounter within last 6 months Past Office Visits Recent Outpatient Visits 11 months ago Hypertension, essential [facility] - Yinka Walters MD 1 year ago Bilateral leg weakness [facility] - Yinka Walters MD 1 year ago Essential hypertension [facility] - Yinka Walters MD 1 year ago Essential hypertension [facility] Demarcus Wise MD 2 years ago Rheumatoid arthritis involving multiple sites with positive rheumatoid factor (HCC) [facility] Demarcus Wise MD Upcoming Appointments Future Appointments In 1 week Yinka Harrison MD [facility] - [place] Failed - This refill cannot be delegated * Telephone Encounter - Leigh Ann Velasquez RN - 02/14/2020 8:49 AM CDT Last OV 02/20/2019. Next OV scheduled on 02/26/2020. documented in this encounter Plan of Treatment Upcoming Encounters Date Type Department Care Team (Latest Contact Info) Description 09/23/2024 10:45 AM TENTMAKER Physical Therapy [facility] Rehab at [facility] [address], [address] [place] [address] Dave Fernando MD [address] [place] [address] Lucy Garduno, PT [place] Discharge Disposition: Discharged to home or Selfcare 11/22/2024 10:15 AM CDT [facility] [address] [place] [address] Yinka Harrison MD [address] [place] [address] Discharge Disposition: Discharged to home or Selfcare 06/13/2025 10:30 AM CDT [facility] - [place] [address] [place] [address] Yinka Harrison MD [address] [place] [address] documented as of this encounter Visit Diagnoses Diagnosis Arthritis Arthropathy, unspecified, site unspecified Chronic pain of right knee Rheumatoid arthritis involving multiple sites with positive rheumatoid factor (HCC) documented in this encounter Additional Health Concerns Assessment Noted Time PHQ-9 Depression Total Score: 0 08/23/20 17 8:23 AM TENTMAKER documented as of this encounter Care Teams Mount Loader Relationship Specialty Start Date End Date Yinka Harrison MD [address] [place] [address] PCP - General Internal Medicine 07/27/18 Dave Fernando MD [address] [place] [address] Consulting Physician Orthopaedic Surgery 02/20/19 documented as of this encounter
--- OUTSIDE RECORDS SUMMARY | 2024-09-22 13:07 | XMS_ITS | Encounter Summary ---
Author Organization [facility] Address [address] [place] [address] Phone Care Team Providers Care Cane Weigher Helper Name Role Phone Yinka Harrison MD Primary Care Provider [phone] Dave Fernando MD Unavailable [phone] Reason for Visit * Reason Onset Date Comments Medication Refill 06/30/2020 Encounter Details Date Type Department Care Team (Late st Contact Info) Description 06/30/2020 MyChart RX Renewal [facility] - Family [facility] [address] [place] [address] Yinka Harrison MD [address] [place] [address] Medication Renewal Reviewed Social History [...] Telephone Encounter - Yinka Harrison MD - 06/30/2020 12:13 PM CDT Refill request approved. documented in this encounter Plan of Treatment Upcoming Encounters Date Type Department Care Team (Latest Contact Info) Description 09/23/2024 10:45 AM OUTSOLE CASER Physical Therapy [facility] [address] [place] [address] Dave Fernando MD [address] [place] [address] Lucy Garduno, PT [place] Discharge Disposition: Discharged to home or Selfcare 11/22/2024 10:15 AM CDT [facility]ment [facility] 1 [place] [address] Yinka Harrison MD [address] [place] [address] Discharge Disposition: Discharged to home or Selfcare 06/13/2025 10:30 AM CDT Office Visit [facility] - Primary Care - [place] [address] [place] [address] Yinka Harrison MD [address] [place] [address] documented as of this encounter Visit Diagnoses Diagnosis Arthritis Arthropathy, unspecified, site unspecified Chronic pain of right knee Rheumatoid arthritis involving multiple sites with positive rheumatoid factor (HCC) documented in this encounter Additional Health Concerns Assessment Noted Time PHQ-9 Depression Total Score: 0 03/09/20 20 11:00 AM CDT documented as of this encounter Care Teams Cane Weigher Helper Relationship Specialty Start Date End Date Yinka Harrison MD [address] [place] [address] PCP - General Internal Medicine 07/27/18 Dave Fernando MD [address] [place] [address] Consulting Physician Orthopaedic Surgery 02/20/19 documented as of this encounter
--- OUTSIDE RECORDS SUMMARY | 2024-09-22 13:07 | XMS_ITS | Encounter Summary ---
Author Organization [facility] [place] [facility] Care Team Providers Care Support Staff Name Role Phone Yinka Harrison MD Primary Care Provider [phone] Dave Fernando MD Unavailable [phone] Encounter Details Date Type Department Care Team (Latest Contact Info) Description 04/09/2020 Travel Social History Tobacco Use Types Packs/Day [...] Contact Info) Description 09/23/2024 10:45 AM SALES ENABLEMENT CONSULTANT Physical Therapy [facility] Rehab at [facility] [address] [place] [address] Dave Fernando MD [address] [place] [address] Lucy Garduno, PT [place] Discharge Disposition: Discharged to home or Selfcare 11/22/2024 10:15 AM CDT [facility]ment [facility] 1 [facility] [place] [address] Yinka Harrison MD [address] [place] [address] Discharge Disposition: Discharged to home or Selfcare 06/13/2025 10:30 AM CDT Office Visit [facility] - Primary Care - [place] [address] [place] [address] Yinka Harrison MD [address] [place] [address] documented as of this encounter Visit Diagnoses Not on filedocumented in this encounter Additional Health Concerns Assessment Noted Time PHQ-9 Depression Total Score: 0 03/09/20 20 11:00 AM CDT documented as of this encounter Care Teams Support Staff Relationship Specialty Start Date End Date Yinka Harrison MD [address] [place] [address] PCP - General Internal Medicine 07/27/18 Dave Fernando MD [address] [place] [address] Consulting Physician Orthopaedic Surgery 02/20/19 documented as of this encounter
--- OUTSIDE RECORDS SUMMARY | 2024-09-22 13:07 | XMS_ITS | Encounter Summary ---
Author Organization [facility] Address [address] [place] [address] Phone Care Team Providers Care Linter Saw Sharpener Name Role Phone Yinka Harrison MD Primary Care Provider [phone] Dave Fernando MD Unavailable [phone] Reason for Visit * Reason Comments Medication Refill Encounter Details Date Type Department Care Team (Late st Contact Info) Description 12/04/2019 Refill [facility] Center [address] [place] [address] Lucy Forbes, FLOW MACHINE OPERATOR, MATERIAL DISPOSITION INSPECTOR [address] [place] [address] Medication Refill Social History Tobacco Use Types [...] Telephone Encounter - Yinka Harrison MD - 12/04/2019 4:40 PM CDT Refill request approved. * Telephone Encounter - Lucy Mijares RN - 12/04/2019 4:19 PM CDT Requested Prescriptions Pending Prescriptions Disp Refills amLODIPine (NORVASC) 10 MG Tablet [Pharmacy Med Name: AMLODIPINE BESYLATE 10 MG T 10 TAB] 90 Tab 0 Sig: TAKE 1 TAB BY MOUTH DAILY. Cardiovascular: Calcium Channel Blockers Passed - 12/04/2019 4:12 PM Passed - Valid encounter within last 12 months Past Office Visits Recent Outpatient Visits 9 months ago Hypertension, essential [facility] - Yinka Walters MD 10 months ago Bilateral leg weakness [facility] - Yinka Walters MD 1 year ago Essential hypertension [facility] Yinka Walters MD 1 year ago Essential hypertension [facility] Demarcus Wise MD 2 years ago Rheumatoid arthritis involving multiple sites with positive rheumatoid factor (HCC) [facility] Demarcus Wise MD Upcoming Appointments Future Appointments In 2 months Yinka Harrison MD [facility] - [place] Passed - Last BP in normal range BP Readings from Last 1 Encounters: 02/20/19 128/64 Powered by [employer] - 12/04/2019 4:12 PM The requested medication is not on the active medication list. documented in this encounter Plan of Treatment Upcoming Encounters Date Type Department Care Team (Latest Contact Info) Description 09/23/2024 10:45 AM METAL TRIM ERECTOR Physical Therapy [facility] Rehab at [facility] [address] [place] [address] Dave Fernando MD [address] [place] [address] Lucy Garduno, PT [place] Discharge Disposition: Discharged to home or Selfcare 11/22/2024 10:15 AM CDT Appointment [facility] Mammography 1 [place] [address] Yinka Harrison MD [address] [place] [address] Discharge Disposition: Discharged to home or Selfcare 06/13/2025 10:30 AM CDT Office Visit [facility] - Primary Care - [place] [address] [place] [address] Yinka Harrison MD [address] [place] [address] documented as of this encounter Visit Diagnoses Diagnosis Essential hypertension Unspecified essential hypertension documented in this encounter Additional Health Concerns Assessment Noted Time PHQ-9 Depression Total Score: 0 08/23/20 17 8:23 AM METAL TRIM ERECTOR documented as of this encounter Care Teams Linter Saw Sharpener Relationship Specialty Start Date End Date Yinka Harrison MD [address] [place] [address] PCP - General Internal Medicine 07/27/18 Dave Fernando MD [address] [place] [address] Consulting Physician Orthopaedic Surgery 02/20/19 documented as of this encounter
--- OUTSIDE RECORDS SUMMARY | 2024-09-22 13:07 | XMS_ITS | Encounter Summary ---
Author Organization [facility] Address [address] [place] [address] Phone Care Team Providers Care Office Services Clerk Name Role Phone Yinka Harrison MD Primary Care Provider [phone] Dave Fernando MD Unavailable [phone] Reason for Visit * Reason Comments Medication Refill Encounter Details Date Type Department Care Team (Late st Contact Info) Description 06/02/2020 Refill [facility] [address] [place] [address] Yinka Harrison MD [address] [place] [address] Medication Refill Social History Tobacco [...] Telephone Encounter - Yinka Harrison MD - 06/03/2020 11:32 AM CDT Refill request approved. * Telephone Encounter - Citlaly Spencer RN - 06/03/2020 11:19 AM CDT JENNIFER: 03-09-2020 Next OV: 03-10-2021; fasting yearly appt documented in this encounter Plan of Treatment Upcoming Encounters Date Type Department Care Team (Latest Contact Info) Description 09/23/2024 10:45 AM SYSTEMS SECURITY ANALYST Physical Therapy [facility] at [facility] [address] [place] [address] Dave Fernando MD [address] [place] [address] Lucy Garduno, PT [place] Discharge Disposition: Discharged to home or Selfcare 11/22/2024 10:15 AM CDT [facility] 1 [place] [address] Yinka Harrison MD [address] [place] [address] Discharge Disposition: Discharged to home or Selfcare 06/13/2025 10:30 AM CDT Office Visit [facility] - Primary Care - [place] [address] [place] [address] Yinka Harrison MD [address] [place] [address] documented as of this encounter Visit Diagnoses Not on filedocumented in this encounter Additional Health Concerns Assessment Noted Time PHQ-9 Depression Total Score: 0 03/09/20 20 11:00 AM CDT documented as of this encounter Care Teams Office Services Clerk Relationship Specialty Start Date End Date Yinka Harrison MD [address] [place] [address] PCP - General Internal Medicine 07/27/18 Dave Fernando MD [address] [place] [address] Consulting Physician Orthopaedic Surgery 02/20/19 documented as of this encounter
--- OUTSIDE RECORDS SUMMARY | 2024-09-22 13:07 | XMS_ITS | Encounter Summary ---
Author Organization [facility] [email or web address] [facility] Care Team Providers Care Construction Foreman Name Role Phone Yinka Harrison MD Primary Care Provider [phone] Dave Fernando MD Unavailable [phone] Encounter Details Date Type Department Care Team (Latest Contact Info) Description 07/20/2020 Travel Social History Tobacco Use Types Packs/Day [...] COVID-19? No / Unsure 07/20/2020 8:44 AM RESEARCH EDITOR documented as of this encounter Plan of Treatment Upcoming Encounters Date Type Department Care Team (Latest Contact Info) Description 09/23/2024 10:45 AM RESEARCH EDITOR Physical Therapy [facility] Rehab at [facility] [address] [place] [address] Dave Fernando MD [address] [place] [address] Lucy Garduno, PT [place] Discharge Disposition: Discharged to home or Selfcare 11/22/2024 10:15 AM CDT Appointment [facility] Mammography 1 [facility] [place] [address] Yinka Harrison MD [address] [place] [address] Discharge Disposition: Discharged to home or Selfcare 06/13/2025 10:30 AM CDT Office Visit [facility] - Primary Care - [place] [address] [place] [address] Yinka Harrison MD [address] [place] [address] documented as of this encounter Visit Diagnoses Not on filedocumented in this encounter Additional Health Concerns Assessment Noted Time PHQ-9 Depression Total Score: 0 03/09/20 20 11:00 AM CDT documented as of this encounter Care Teams Construction Foreman Relationship Specialty Start Date End Date Yinka Harrison MD [address] [place] [address] PCP - General Internal Medicine 07/27/18 Dave Fernando MD [address] [place] [address] Consulting Physician Orthopaedic Surgery 02/20/19 documented as of this encounter
--- OUTSIDE RECORDS SUMMARY | 2024-09-22 13:07 | XMS_ITS | Encounter Summary ---
Author Organization [facility] Address [address] [place] [address] Phone Care Team Providers Care Ceramic Tile Installer Name Role Phone Yinka Harrison MD Primary Care Provider [phone] Dave Fernando MD Unavailable [phone] Encounter Details Date Type Department Care Team (Late st Contact Info) Description 04/09/2020 2:30 PM CDT Lab [facility] - Primary Care - [address] [address] Lab, [facility] Abnormal serum creatinine level Discharge Disposition: [...] Progress Notes * Nargis Gage RMA - 04/09/2020 2:30 PM CDT Sriram presents for lab draw per order of Dr. Harrison dated 04/09/20. Specimen collected from right antecubital without incident. sah * Kamla Lowry CMA - 04/09/2020 2:30 PM CDT Result letter sent. documented in this encounter Plan of Treatment Upcoming Encounters Date Type Department Care Team (Latest Contact Info) Description 09/23/2024 10:45 AM STONE DRILLER Physical Therapy [facility] at [facility] [address], [address] [place] [address] Dave Fernando MD [address] [place] [address] Lucy Garduno, [place] Discharge Disposition: Discharged to home or Selfcare 11/22/2024 10:[address] [facility] Mammography 1 [place] [address] Yinka Harrison MD [address] [place] [address] Discharge Disposition: Discharged to home or Selfcare 06/13/2025 10:30 AM CDT Office Visit [facility] - Primary Care - [place] [address] [place] [phone] Yinka Harrison MD [address] [place] [address] documented as of this encounter Procedures Procedure Name Priority Date/Time Associated Diagnosis Comments BASIC METABOLIC PANEL W/ CALCIUM TOTAL Routine 04/09/2020 2:08 PM CDT Abnormal serum creatinine level documented in this encounter Results * (ABNORMAL) BASIC METABOLIC PANEL W/ CALCIUM TOTAL (04/09/2020 2:08 PM CDT) SODIUM 132(L) 136 - 144 mmol/L 04/09/2020 4:28 PM CDT [facility] POTASSIUM 4.0 3.5 - 5.1 mmol/L 04/09/2020 4:28 PM CDT [facility] CHLORIDE 98(L) 100 - 110 mmol/L 04/09/2020 4:28 PM CDT [facility] CO2, VENOUS 23 22 - 32 mmol/L 04/09/2020 4:28 PM CDT [facility] ANION GAP 15.0 8.0 - 20.0 mmol/L 04/09/2020 4:28 PM CDT [facility] GLUCOSE 92 70 - 99 mg/dL 04/09/2020 4:28 PM CDT [facility] BUN 30(H) 8 - 23 mg/dL 04/09/2020 4:28 PM CDT [facility] CREATININE, BLOOD 1.06 0.60 - 1.10 mg/dL 04/09/2020 4:28 PM CDT [facility] BUN/CREATININE RATIO 28(H) 12 - 20 ratio 04/09/2020 4:28 PM CDT [facility] CALCIUM 9.9 8.9 - 10.3 mg/dL 04/09/2020 4:28 PM CDT [facility] GFR, EST. NONAFRICAN 53(L) >=60 04/09/2020 4:28 PM CDT [facility] GFR, EST. >60 >=60 04/09/2020 4:28 PM CDT [facility] Comment: Creatinine Clearance is the preferred criteria for selecting drug dose adjustments in renally impaired patients. ??The GFR is provided as additional pertinent clinical information. GFR is reported in mL/min/1.73 sq m. Blood Venipuncture / Unknown 04/09/2020 2:08 PM CDT 04/09/2020 2:08 PM CDT us Yinka Harrison MD CHEMISTRY ORDERABLES [place] peacock Result [facility] [place] [address] documented in this encounter Visit Diagnoses Diagnosis Abnormal serum creatinine level documented in this encounter Additional Health Concerns Assessment Noted Time PHQ-9 Depression Total Score: 0 03/09/20 20 11:00 AM CDT documented as of this encounter Care Teams Ceramic Tile Installer Relationship Specialty Start Date End Date Yinka Harrison MD [address] [place] [address] PCP - General Internal Medicine 07/27/18 Dave Fernando MD [address] [place] [address] Consulting Physician Orthopaedic Surgery 02/20/19 documented as of this encounter
--- OUTSIDE RECORDS SUMMARY | 2024-09-22 13:07 | XMS_ITS | Encounter Summary ---
Author Organization [facility] Address [address] [place] [address] Phone Care Team Providers Care Retail Coordinator Name Role Phone Yinka Harrison MD Primary Care Provider [phone] Dave Fernando MD Unavailable [phone] Reason for Visit * Reason Comments Medication Refill Encounter Details Date Type Department Care Team (Late st Contact Info) Description 03/12/2020 Refill [facility] [address] [place] [address] Yinka Harrison MD [address] [place] [address] Medication Refill Social History Tobacco [...] Telephone Encounter - Shari Rdz RN - 03/16/2020 4:01 PM CDT Medication(s) refilled and signed per [facility] Chronic Medication Refill Standing Order for Pediatric and Adult Patients. documented in this encounter Plan of Treatment Upcoming Encounters Date Type Department Care Team (Latest Contact Info) Description 09/23/2024 10:45 AM SEO ASSOCIATE Physical Therapy [facility] Re[facility] at [facility] [address], [address] [place] [address] Dave Fernando MD [address] [place] [address] Lucy Garduno, [place] Discharge Disposition: Discharged to home or Selfcare 11/22/2024 10:15 AM CDT Appointment [facility] Mammography 1 [place] [address] Yinka Harrison MD [address] [place] [address] Discharge Disposition: Discharged to home or Selfcare 06/13/2025 10:30 AM CDT Office Visit [facility] - Primary Care - [place] [address] [place] [address] Yinka Harrison MD [address] [place] [address] documented as of this encounter Visit Diagnoses Not on filedocumented in this encounter Additional Health Concerns Assessment Noted Time PHQ-9 Depression Total Score: 0 03/09/20 20 11:00 AM CDT documented as of this encounter Care Teams Retail Coordinator Relationship Specialty Start Date End Date Yinka Harrison MD [address] [place] [address] PCP - General Internal Medicine 07/27/18 Dave Fernando MD [address] [place] [address] Consulting Physician Orthopaedic Surgery 02/20/19 documented as of this encounter
--- OUTSIDE RECORDS SUMMARY | 2024-09-22 13:07 | XMS_ITS | Encounter Summary ---
Author Organization [facility] Address [address] [place] [address] Phone Care Team Providers Care Bill Cutter Name Role Phone Yinka Harrison MD Primary Care Provider [phone] Dave Fernando MD Unavailable Reason for Visit * Reason Onset Date Comments Medication Refill 12/06/2019 Encounter Details Date Type Department Care Team (Late st Contact Info) Description 12/06/2019 [facility]ill [facility] [place] [address] Yinka Harrison MD [address] [place] [address] Medication Refill Social History Tobacco [...] Telephone Encounter - Yinka Harrison MD - 12/06/2019 9:44 AM CDT Refill request approved. * Telephone Encounter - Lucy Mijares RN - 12/06/2019 9:24 AM CDT Requested Prescriptions Pending Prescriptions Disp Refills traMADol (ULTRAM) 50 MG Tablet 30 Tab 0 Sig: Take 1 Tab by mouth every 8 hours as needed (pain). Not Delegated - Analgesics: Opioid Agonists Failed - 12/06/2019 8:22 AM Failed - Valid encounter within last 6 months Past Office Visits Recent Outpatient Visits 9 months ago Hypertension, essential [facility] - Yinka Walters MD 10 months ago Bilateral leg weakness [facility] - Yinka Walters MD 1 year ago Essential hypertension [facility] - Yinka Walters MD 1 year ago Essential hypertension [facility] Demarcus Wise MD 2 years ago Rheumatoid arthritis involving multiple sites with positive rheumatoid factor (HCC) [facility] Demarcus Wise MD Upcoming Appointments Future Appointments In 2 months Yinka Harrison MD [facility] [address] Failed - This refill cannot be delegated * Telephone Encounter - Mirian Reilly - 12/06/2019 8:22 AM CDT Refill request for Tramadol HCL 50mg documented in this encounter Plan of Treatment Upcoming Encounters Date Type Department Care Team (Latest Contact Info) Description 09/23/2024 10:45 AM TRACER BULLET SECTION SUPERVISOR Physical Therapy [facility] Re[facility] at [facility] [address] [place] [address] Dave Fernando MD [address] [place] [address] Lucy Garduno, PT [place] Discharge Disposition: Discharged to home or Selfcare 11/22/2024 10:15 AM CDT [facility] 1 [facility] [address] [place] [address] Yinka Harrison MD [address] [place] [address] Discharge Disposition: Discharged to home or Selfcare 06/13/2025 10:30 AM CDT Office Visit [facility] - Primary Care - [place] [address] [place] [address] Yinka Harrison MD [address] [place] [address] documented as of this encounter Visit Diagnoses Diagnosis Arthritis Arthropathy, unspecified, site unspecified Chronic pain of right knee Rheumatoid arthritis involving multiple sites with positive rheumatoid factor (HCC) documented in this encounter Additional Health Concerns Assessment Noted Time PHQ-9 Depression Total Score: 0 08/23/20 17 8:23 AM TRACER BULLET SECTION SUPERVISOR documented as of this encounter Care Teams Bill Cutter Relationship Specialty Start Date End Date Yinka Harrison MD [address] [place] [address] PCP - General Internal Medicine 07/27/18 Dave Fernando MD [address] [place] [address] Consulting Physician Orthopaedic Surgery 02/20/19 documented as of this encounter
--- OUTSIDE RECORDS SUMMARY | 2024-09-22 13:07 | XMS_ITS | Encounter Summary ---
Author Organization [facility] Care Team Providers Care Firestopper Technician Name Role Phone Yinka Harrison MD Primary Care Provider [phone] Dave Fernando MD Unavailable [phone] Encounter Details Date Type Department Care Team (Latest Contact Info) Description 03/09/2020 Travel Social History Tobacco Use Types Packs/Day [...] (Latest Contact Info) Description 09/23/2024 10:45 AM WEB MACHINE TENDER Physical Therapy [facility] at [facility] [address] [place] [address] Dave Fernando MD [address] [place] [address] Lucy Garduno, PT [place] Discharge Disposition: Discharged to home or Selfcare 11/22/2024 10:15 AM CDT [facility] 1 [facility] [address] Yinka Harrison MD [address] [place] [address] Discharge Disposition: Discharged to home or Selfcare 06/13/2025 10:30 AM CDT Office Visit [facility] - Primary Care - [place] [address] [place] [address] Yinka Harrison MD [address] [place] [address] documented as of this encounter Visit Diagnoses Not on filedocumented in this encounter Additional Health Concerns Assessment Noted Time PHQ-9 Depression Total Score: 0 03/09/20 20 11:00 AM CDT documented as of this encounter Care Teams Firestopper Technician Relationship Specialty Start Date End Date Yinka Harrison MD [address] [place] [address] PCP - General Internal Medicine 07/27/18 Dave Fernando MD [address] [place] [address] Consulting Physician Orthopaedic Surgery 02/20/19 documented as of this encounter
--- OUTSIDE RECORDS SUMMARY | 2024-09-22 13:07 | XMS_ITS | Encounter Summary ---
Author Organization [facility] Address [address] [place] [address] Phone Care Team Providers Care Road Packer Operator Name Role Phone Yinka Harrison MD Primary Care Provider [phone] Dave Fernando MD Unavailable [phone] Encounter Details Date Type Department Care Team (Late st Contact Info) Description 03/10/2020 Telephone [facility] - AULT [address] [place] [address] Yinka Harrison MD [address] [place] [address] Social History Tobacco Use Types [...] encounter Miscellaneous Notes * Telephone Encounter - Mariajose Howard RN - 03/10/2020 10:59 AM CDT Patient is aware and verbalizes understanding. * Telephone Encounter - Yinka Harrison MD - 03/10/2020 7:50 AM CDT Lab results are OK except serum creatinine is mildly elevated. Please reduce hydrochlorothiazide to12.5 mg q.d.. New script has been sent to the patient's pharmacy. Repeat BMP in 1 month has been ordered. documented in this encounter Plan of Treatment Upcoming Encounters Date Type Department Care Team (Latest Contact Info) Description 09/23/2024 10:45 AM TERMITE INSPECTOR Physical Therapy [facility] at [facility] [address] [place] [address] Dave Fernando MD [address] [place] [address] Lucy Garduno, PT [place] Discharge Disposition: Discharged to home or Selfcare 11/22/2024 10:15 AM CDT [facility] 1 [place] [address] Yinka Harrison MD [address] [place] [address] Discharge Disposition: Discharged to home or Selfcare 06/13/2025 10:30 AM CDT Office Visit [facility] - Primary Care - [place] [address] [place] [phone] Yinka Harrison MD [address] [place] [address] documented as of this encounter Results * (ABNORMAL) BASIC METABOLIC PANEL W/ CALCIUM TOTAL (04/09/2020 2:08 PM CDT) SODIUM 132(L) 136 - 144 mmol/L 04/09/2020 4:28 PM CDT [facility] POTASSIUM 4.0 3.5 - 5.1 mmol/L 04/09/2020 4:28 PM CDT [facility] CHLORIDE 98(L) 100 - 110 mmol/L 04/09/2020 4:28 PM CDT [facility] CO2, VENOUS 23 22 - 32 mmol/L 04/09/2020 4:28 PM CDT [facility] ANION GAP 15.0 8.0 - 20.0 mmol/L 04/09/2020 4:28 PM CDT [facility] GLUCOSE 92 70 - 99 mg/dL 04/09/2020 4:28 PM CDT [facility] BUN 30(H) 8 - 23 mg/dL 04/09/2020 4:28 PM CDT [facility] CREATININE, BLOOD 1.06 0.60 - 1.10 mg/dL 04/09/2020 4:28 PM CDT [facility] BUN/CREATININE RATIO 28(H) 12 - 20 ratio 04/09/2020 4:28 PM CDT [facility] CALCIUM 9.9 8.9 - 10.3 mg/dL 04/09/2020 4:28 PM CDT [facility] GFR, EST. NONAFRICAN 53(L) >=60 04/09/2020 4:28 PM CDT [facility] GFR, EST. >60 >=60 04/09/2020 4:28 PM CDT [facility] Comment: Creatinine Clearance is the preferred criteria for selecting drug dose adjustments in renally impaired patients. ??The GFR is provided as additional pertinent clinical information. GFR is reported in mL/min/1.73 sq m. Blood Venipuncture / Unknown 04/09/2020 2:08 PM CDT 04/09/2020 2:08 PM CDT us Yinka Harrison MD CHEMISTRY ORDERABLES [place] peacock Result [facility] [place] [address] documented in this encounter Visit Diagnoses Diagnosis Abnormal serum creatinine level- Primary documented in this encounter Additional Health Concerns Assessment Noted Time PHQ-9 Depression Total Score: 0 03/09/20 20 11:00 AM CDT documented as of this encounter Care Teams Road Packer Operator Relationship Specialty Start Date End Date Yinka Harrison MD [address] [place] [address] PCP - General Internal Medicine 07/27/18 Dave Fernando MD [address] [place] [address] Consulting Physician Orthopaedic Surgery 02/20/19 documented as of this encounter
--- OUTSIDE RECORDS SUMMARY | 2024-09-22 13:07 | XMS_ITS | Encounter Summary ---
Author Organization [facility] Address [address] [place] [address] Phone Care Team Providers Care Dry Cell Assembly Machine Tender Name Role Phone Yinka Harrison MD Primary Care Provider [phone] Dave Fernando MD Unavailable [phone] Reason for Visit * Reason Comments Preventive Care yearly Encounter Details Date Type Department Care Team (Late st Contact Info) Description 03/09/2020 11:30 AM CDT Office Visit [facility] [address] [place] [address] Yinka Harrison MD [address] [place] [address] Hypertension, essential (Primary Dx); Hyperlipidemia; Arthritis Discharge Disposition: Discharged to home or Selfcare [...] Sign Reading Time Taken Comments Blood Pressure 136/80 03/09/2020 11:26 AM CDT Pulse 78 03/09/2020 11:26 AM CDT Temperature 36.6 ??C (97.8 ??F) 03/09/2020 11:26 AM C DT Respiratory Rate 18 03/09/2020 11:26 AM CDT Oxygen Saturation 96% 03/09/2020 11:26 AM CDT Inhaled Oxygen Concentration - - Weight 98.4 kg (217 lb) 03/09/2020 11:26 AM CDT Height 160 cm (5' 3 ) 03/09/2020 11:26 AM CDT Body Mass Index 38.44 03/09/2020 11:26 AM CDT documented in this encounter Progress Notes * Jesi Donaldson RMA - 03/09/2020 11:30 AM CDT Sriram Srinivasan is a 59 y.o. female with current BMI: Body mass index is 38.44 kg/m??. Interventions discussed including: encourage daily physical activity and well- balanced diet. * Jesi Donaldson RMA - 03/09/2020 11:30 AM CDT Sriram Srinivasan, 59 y.o., female is here for Preventive Care (yearly ) Medication Refills: Patient reports/denies need for medication refills. Orders Pended: yes Requested Prescriptions No prescriptions requested or ordered in this encounter Home Medications Medication Sig Start Date End Date Taking? Authorizing Provider amLODIPine (NORVASC) 10 MG Tablet TAKE 1 TAB BY MOUTH DAILY. 12/04/19 Yes Yinka Harrison MD Ascorbic Acid (VITAMIN C PO) Take 500 mg by mouth. Yes ProviderRosendo MD aspirin EC 81 MG Tablet Delayed Response Take 81 mg by mouth daily. ProviderRosendo MD hydroCHLOROthiazide 25 MG Tablet Take 1 Tab by mouth daily. 07/05/19 Yes Yinka Harrison MD ibuprofen (MOTRIN) 800 MG Tablet TAKE 1 TAB BY MOUTH EVERY 8 HOURS NEEDED FOR MILD OR MORE SEVERE PAIN. 05/14/19 Yes Yinka Harrison MD IRON PO Take by mouth. Yes Provider, MD Rosendo pravastatin (PRAVACHOL) 20 MG Tablet TAKE ONE TABLET BY MOUTH EVERY DAY 12/30/19 Yes Yinka Harrison MD traMADol (ULTRAM) 50 MG Tablet TAKE 1 TAB BY MOUTH EVERY 8 HOURS NEEDED FOR MODERATE OR MORE SEVERE PAIN. 02/14/20 Yes Yinka Harrison MD There are no [...] Health Maintenance Due Topic Date Due ??? Pap Smear 1980 ??? Zoster Immunization (1 of 2) 2009 ??? Mammogram 12/09/2018 ??? Colonoscopy 05/14/2020 Orders Pended: n/a The following BPA's have been addressed with the patient today: BMI, Mammogram and Pap * Yinka Harrison MD - 03/09/2020 11:30 AM CDT Subjective: HPI Follow-up for hypertension, hyperlipidemia and arthritis with annual fasting exam. She recently hadinjections in both knees by her orthopedic surgeon. Her exercise capacity has been significantly reduced due to bilateral knee pain. Weight is unchanged in the past year. Past medical history, social history, family history and medications have been reviewed. Review of Systems Constitutional: Negative. HENT: Negative. Eyes: Negative. Respiratory: Negative. Cardiovascular: Negative. Gastrointestinal: Negative. Endocrine: Negative. Genitourinary: Negative. Musculoskeletal: Positive for arthralgias (Especially knees). Skin: Negative. Allergic/Immunologic: Negative. Neurological: Negative. Hematological: Negative. Psychiatric/Behavioral: Negative. Objective: Physical Exam Constitutional: Appearance: She is well-developed. Comments: Transfers with mild difficulty. HENT: Head: Normocephalic. Right Ear: External ear normal. Left Ear: External ear normal. Nose: Nose normal. Eyes: General: Lids are normal. Conjunctiva/sclera: Conjunctivae normal. Pupils: Pupils are equal, round, and reactive to light. Neck: Musculoskeletal: Normal range of motion and neck supple. Thyroid: No thyroid mass or thyromegaly. Trachea: Trachea normal. Cardiovascular: Rate and Rhythm: Normal rate and regular rhythm. Pulses: Normal pulses. Heart sounds: Normal heart sounds. No murmur. No friction rub. No gallop. Pulmonary: Effort: [...] rebound. Hernia: No hernia is present. Musculoskeletal: Normal range of motion. General: No tenderness. Lymphadenopathy: Cervical: No cervical adenopathy. Skin: General: Skin is warm and dry. Coloration: Skin is not pale. Findings: No erythema or rash. Neurological: Mental Status: She is alert and oriented to person, place, and time. Coordination: Coordination normal. Gait: Gait normal. Deep Tendon Reflexes: Reflexes are normal and symmetric. Psychiatric: Mood and Affect: Mood is anxious (mild). Speech: Speech normal. Behavior: Behavior normal. Thought Content: Thought content normal. Judgment: Judgment normal. Assessment and Plan See Diagnoses, Orders, Follow-up, and Instructions Check CMP and lipids. 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 Hopefully she will get this, as the work would not require a strain on her knees. Follow-up in 1 year with annual fasting [...] (Latest Contact Info) Description 09/23/2024 10:45 AM TECHNICAL ASSISTANT Physical Therapy [facility] [address] [place] [phone] Dave Fernando MD [address] [place] [address] Lucy Garduno, PT [place] Discharge Disposition: Discharged to home or Selfcare 11/22/2024 10:15 AM CDT Appointment [facility] 1 [facility] [place] [address] Yinka Harrison MD [address] [place] [address] Discharge Disposition: Discharged to home or Selfcare 06/13/2025 10:30 AM CDT Office Visit [facility] - [facility] - [place] [address] [place] [phone] Yinka Harrison MD [address] [place] [address] documented as of this encounter Results * (ABNORMAL) LIPID PANEL (03/09/2020 11:54 AM CDT) CHOLESTEROL 316(H) <=200 mg/dL 03/09/2020 5:07 PM CDT [facility] TRIGLYCERIDES 88 <150 mg/dL 03/09/2020 5:07 PM CDT [facility] HDL CHOLESTEROL 78.3 >40 mg/dL 0 5:07 PM CDT [facility] LDL 220(H) 5 - 130 mg/dL 03/09/2020 5:07 PM CDT [facility] VLDL 18 5 - 55 mg/dL 03/09/2020 5:07 PM CDT [facility] CHOL/HDL RATIO 4.0 0.0 - 4.4 03/09/2020 5:07 PM CDT [facility] NON-HDL CHOLESTEROL 237.7(H) <130 mg/dL 03/09/2020 5:07 PM CDT [facility] LIPID FASTING 03/09/2020 5:07 PM CDT [facility] Blood Venipuncture / Unknown 03/09/2020 11:54 AM CDT 03/09/2020 11:54 AM CDT us Yinka Harrison MD CHEMISTRY ORDERABLES Virginia madonna Result [facility] [address] [place] [address] * (ABNORMAL) CMP (COMPREHENSIVE METABOLIC PANEL) (03/09/2020 11:54 AM CDT) SODIUM 136 136 - 144 mmol/L 03/09/2020 5:07 PM CDT [facility] POTASSIUM 4.0 3.5 - 5.1 mmol/L 03/09/2020 5:07 PM CDT [facility] CHLORIDE 99(L) 100 - 110 mmol/L 03/09/2020 5:07 PM CDT [facility] CO2, VENOUS 24 22 - 32 mmol/L 03/09/2020 5:07 PM CDT [facility] ANION GAP 17.0 8.0 - 20.0 mmol/L 03/09/2020 5:07 PM CDT [facility] GLUCOSE 77 70 - 99 mg/dL 03/09/2020 5:07 PM CDT [facility] BUN 28(H) 8 - 23 mg/dL 03/09/2020 5:07 PM CDT [facility] CREATININE, BLOOD 1.45(H) 0.60 - 1.10 mg/dL 03/09/2020 5:07 PM CDT [facility] BUN/CREATININE RATIO 19 12 - 20 ratio 03/09/2020 5:07 PM CDT [facility] TOTAL PROTEIN 8.2 6.0 - 8.3 g/dL 03/09/2020 5:07 PM CDT [facility] ALBUMIN 4.6 3.5 - 5.2 g/dL 03/09/2020 5:07 PM CDT [facility] Comment: The colormetric methods used for the determination of Albumin may lead to falsely elevated test results in patients suffering from renal failure or insufficiency due to interference with other proteins. A/G RATIO 1.3 1.0 - 2.0 03/09/2020 5:07 PM CDT [facility] CALCIUM 10.2 8.9 - 10.3 mg/dL 03/09/2020 5:07 PM CDT [facility] T BILI 0.3 <=1.2 mg/dL 03/09/2020 5:07 PM CDT [facility] SGOT (AST) 22 <=32 U/L 03/09/2020 5:07 PM CDT [facility] SGPT (ALT) 15 <=33 U/L 03/09/2020 5:07 PM CDT [facility] ALKALINE PHOSPHATASE 76 35 - 105 U/L 03/09/2020 5:07 PM CDT [facility] GFR, EST. NONAFRICAN 37(L) >=60 03/09/2020 5:07 PM CDT [facility] GFR, EST. 45(L) >=60 020 5:07 PM CDT [facility] Comment: Creatinine Clearance is the preferred criteria for selecting drug dose adjustments in renally impaired patients. ??The GFR is provided as additional pertinent clinical information. GFR is reported in mL/min/1.73 sq m. Blood Venipuncture / Unknown 03/09/2020 11:54 AM CDT 03/09/2020 11:54 AM CDT us Yinka Harrison MD CHEMISTRY ORDERABLES Virginia peaccok Result [facility] [address] [place] [address] documented in this encounter Visit Diagnoses Diagnosis Hypertension, essential- Primary Unspecified essential hypertension Hyperlipidemia Mixed hyperlipidemia Arthritis Arthropathy, unspecified, site unspecified documented in this encounter Additional Health Concerns Assessment Noted Time PHQ-9 Depression Total Score: 0 03/09/20 20 11:00 AM CDT documented as of this encounter Care Teams Dry Cell Assembly Machine Tender Relationship Specialty Start Date End Date Yinka Harrison MD [address] [place] [address] PCP - General Internal Medicine 07/27/18 Dave Fernando MD [address] [place] [address] Consulting Physician Orthopaedic Surgery 02/20/19 documented as of this encounter
--- OUTSIDE RECORDS SUMMARY | 2024-09-22 13:07 | XMS_ITS | Encounter Summary ---
Author Organization [facility] Address [address] [place] [address] Phone Care Team Providers Care Spanish Tutor Name Role Phone Yinka Harrison MD Primary Care Provider [phone] Dave Fernando MD Unavailable [phone] Reason for Visit * Reason Comments Medication Refill Encounter Details Date Type Department Care Team (Late st Contact Info) Description 10/22/2019 Refill [facility] [address] [place] [address] Yinka Harrison MD [address] [place] [address] Medication Refill Social History Tobacco [...] encounter Miscellaneous Notes * Telephone Encounter - Leigh Ann Velasquez, RN - 10/22/2019 11:33 AM RETAIL MARKETING MANAGER Medication(s) refilled and signed per [facility] Chronic Medication Refill Standing Order for Pediatric and Adult Patients. [place] MARKETING MANAGER documented in this encounter Plan of Treatment Upcoming Encounters Date Type Department Care Team (Latest Contact Info) Description 09/23/2024 10:45 AM RETAIL MARKETING MANAGER Physical Therapy [facility] at [facility] [address] [place] [address] Dave Fernando MD [address] [place] [address] Lucy Garduno, PT [place] Discharge Disposition: Discharged to home or Selfcare 11/22/2024 10:15 AM CDT Appointment [facility] 1 [place] [address] Yinka Harrison MD [address] [place] [address] Discharge Disposition: Discharged to home or Selfcare 06/13/2025 10:30 AM CDT Office Visit [facility] - [facility] - [place] [address] [place] [phone] Yinka Harrison MD [address] [place] [address] documented as of this encounter Visit Diagnoses Not on filedocumented in this encounter Additional Health Concerns Assessment Noted Time PHQ-9 Depression Total Score: 0 08/23/20 17 8:23 AM RETAIL MARKETING MANAGER documented as of this encounter Care Teams Spanish Tutor Relationship Specialty Start Date End Date Yinka Harrison MD [address] [place] [address] PCP - General Internal Medicine 07/27/18 Dave Fernando MD [address] [place] [address] Consulting Physician Orthopaedic Surgery 02/20/19 documented as of this encounter
--- OUTSIDE RECORDS SUMMARY | 2024-09-22 13:07 | XMS_ITS | Encounter Summary ---
Author Organization [facility] Address [address] [place] [address] Phone Care Team Providers Care Ignition Mechanic Name Role Phone Yinka Harrison MD Primary Care Provider [phone] Dave Fernando MD Unavailable [phone] Reason for Visit * Reason Comments Medication Refill Encounter Details Date Type Department Care Team (Late st Contact Info) Description 06/15/2020 Refill [facility] [address] [place] [address] Yinka Harrison MD [address] [place] [address] Medication Refill Social History Tobacco [...] encounter Miscellaneous Notes * Telephone Encounter - Yuly Bliss RN - 06/16/2020 12:02 PM CDT Medication(s) refilled and signed per [facility] Chronic Medication Refill Standing Order for Pediatric and Adult Patients. Requested Prescriptions Pending Prescriptions Disp Refills ??? amLODIPine (NORVASC) 10 MG Tablet [Pharmacy Med Name: AMLODIPINE BESYLATE 10 MG T 10 Tablet] 90Tab 1 Sig: TAKE 1 TAB BY MOUTH DAILY. Cardiovascular: Calcium Channel Blockers Passed - 06/16/2020 12:01 PM Passed - Valid encounter within last 12 months Past Office Visits Recent Outpatient Visits 3 months ago Hypertension, essential [facility] Yinka Walters MD 1 year ago Hypertension, essential [facility] Yinka Walters MD 1 year ago Bilateral leg weakness [facility] Yinka Walters MD 1 year ago Essential hypertension [facility] Yinka Walters MD 2 years ago Essential hypertension [facility] Demarcus Ordaz MD Upcoming Appointments Future Appointments In 8 months Yinka Harrison MD [facility] BILLING SPECIALIST - Recent and Past Visits Recent Visits Date Type Provider Dept 03/09/20 Office Visit Yinka Harrison MD [facility] Showing recent visits within past 460 days with a meds authorizing provider and meeting all other requirements Future Appointments No visits were found meeting these conditions. Showing future appointments within next 90 days with a meds authorizing provider and meeting all other requirements Passed - Last BP in normal range BP Readings from Last 1 Encounters: 03/09/20 136/80 documented in this encounter Plan of Treatment Upcoming Encounters Date Type Department Care Team (Latest Contact Info) Description 09/23/2024 10:45 AM FRENCH BINDING FOLDER Physical Therapy [facility] at [facility] [address] [place] [address] Dave Fernando MD [address] [place] [address] Lucy Garduno, PT [place] Discharge Disposition: Discharged to home or Selfcare 11/22/2024 10:15 AM CDT Appointment [facility] 1 [facility] [place] [address] Yinka Harrison MD [address] [place] [address] Discharge Disposition: Discharged to home or Selfcare 06/13/2025 10:30 AM CDT Office Visit [facility] - [place] [address] [place] [address] Yinka Harrison MD [address] [place] [address] documented as of this encounter Visit Diagnoses Diagnosis Essential hypertension Unspecified essential hypertension documented in this encounter Additional Health Concerns Assessment Noted Time PHQ-9 Depression Total Score: 0 03/09/20 20 11:00 AM CDT documented as of this encounter Care Teams Ignition Mechanic Relationship Specialty Start Date End Date Yinka Harrison MD [address] [place] [address] PCP - General Internal Medicine 07/27/18 Dave Fernando MD [address] [place] [address] Consulting Physician Orthopaedic Surgery 02/20/19 documented as of this encounter
== END 2024-09-17 13:40 | disposition home or self-care (01) ==
LOC: ANHSURGERY 06:33 → ANH3MEDSUR 11:48
PROVIDERS: PCP Internal Medicine; Visit Provider Orthopaedic Surgery
PROC: (CPT 27447; principal; 2024-09-16 07:30)
DX: M17.11 Unilateral primary osteoarthritis, right knee (principal); G89.18 Other acute postprocedural pain; I10 Essential (primary) hypertension; E78.5 Hyperlipidemia, unspecified; E66.9 Obesity, unspecified; Z68.34 Body mass index [BMI] 34.0-34.9, adult; Z79.1 Long term (current) use of non-steroidal anti-inflammatories (NSAID); Z79.891 Long term (current) use of opiate analgesic; Z98.890 Other specified postprocedural states; Z80.9 Family history of malignant neoplasm, unspecified; Z82.49 Family history of ischemic heart disease and other diseases of the circulatory system
CPT/HCPCS: 64447; 27447; 36415; 73560; 80048; 85025; 86850; 86900; 86901; 97110; 97116; 97161; 97165; 97530; 97535; A9270; C1713; C1776; J0171; J0690; J1100; J1171; J1885; J2003; J2250; J2270; J2405; J2704; J2795; J3010; J3370; J7030; J7120

== ENCOUNTER 2024-11-06 01:03 | Day surgery (SDC) | payer MEDICARE, MEDICAID, SELFPAY ==
--- NOTE | 2024-10-31 07:11 | P.HP_ITS ---
H&P: HPI History of Present Illness Date/Time: 10/31/24 07:11 Chief Complaint: Patient underwent total hip are total knee arthroplasty on the right to 6 weeks ago. She has done reasonably well except for her lack of of motion. She could only bend a little over 100?. I discussed treatment options with her risks benefits limitations and alternatives she would like to considers surgical manipulation. Review of Systems Musculoskeletal: Musculoskeletal: Reports arthralgias, Reports joint swelling and Reports stiffness Neurologic: Reports abnormal gait [facility] Past Medical History Medical History Osteoarthritis of right knee Osteoarthritis Hypertension Hyperlipidemia Arthritis Surgical History Surgical History Right knee meniscal tear repair 2015 Family History Family History Father Hypertension Cerebrovascular accident Grandparent Asthma Cancer Social History Social History Smoking packs per day: 1 Smoking cigarettes per day: 20.0 Years smoked: 3 Smoking pack-years: 3.00 Smoking status: Never smoker Smoking end date: 09/11/78 Additional smoking assessment comments: Tried smoking in her 20's Alcohol intake: never Substance use: never Do You Feel Safe in your Home?: Yes Lack of Transportation: No Lack of Food: Never True Current Housing: I Have Housing Concerned About Future Housing: No Difficulty Paying Gas/Electric Bills: YES Difficulty Paying for Meds: No Currently Unemployed: No Education: Bachelor's Degree Difficulty w/ Childcare or Family Care: No Living arrangements: with family Additional living arrangements comments: daughter Spiritual care concerns: No Meds Home Medications and Allergies Home Medications ?Medication ?Instructions ?Recorded ?Confirmed ?Type amlodipine 10 mg tablet 10 mg PO DAILY 07/16/24 10/29/24 History ascorbate calcium (vitamin C) 500 500 mg PO DAILY 07/16/24 10/29/24 History mg tablet ferrous sulfate 325 mg (65 mg 325 mg PO DAILY 07/16/24 10/29/24 History iron) tablet flaxseed 1,000 mg capsule 1,000 mg PO DAILY 07/16/24 10/29/24 History rosuvastatin 40 mg tablet 40 mg PO DAILY 07/16/24 10/29/24 History acetaminophen 500 mg tablet 500 mg PO Q6H PRN pain 08/28/24 10/29/24 History (Acetaminophen Extra Strength) cetirizine 10 mg tablet (24Hour 10 mg PO DAILY PRN allergy symptoms 08/28/24 10/29/24 History Allergy) diphenhydramine HCl 25 mg capsule 25 mg PO HS PRN itching 08/28/24 10/29/24 History (Allergy Medication) ibuprofen 800 mg tablet (IBU) 800 mg PO Q6H PRN pain 08/28/24 10/29/24 History tramadol 50 mg tablet 50 mg PO Q6H PRN pain 08/28/24 10/29/24 History hydrocodone 7.5 mg-acetaminophen 1 tablet PO Q4H PRN pain #40 tabs 09/17/24 10/29/24 Rx 325 mg tablet Allergies Allergy/AdvReac Type Severity Reaction Status Date / Time No Known Allergies Allergy Verified 10/29/24 09:16 Exam Narrative: On exam patient walks with a minimally antalgic gait. She has motion from about 2-100 and degrees. She lacks of motion beyond that. She has pain at the extremes. Neurologically she appears to be intact. Eyes: General: appearance normal, both eyes and all related structures Neck: Neck: supple Resp: Effort & Inspection: normal respiratory effort Cardio: Rate: regular rate Rhythm: regular rhythm Radiology Reports: Comments: Signed Patient: Sriram Srinivasan Results of Diagnostic Exam (Interpreted Today) Order: 10/29/24 07:01 XR knee RT 3V Routine Interpretation: AP lateral skyline view right knee demonstrates total knee arthroplasty in good alignment. Please be advised this is a medical document. It is intended for [id number] communication. It is written in medical language and may contain unfamiliar abbreviations or verbiage. Medical documents are intended to carry relevant information, facts as evident, and the clinical opinion of the practitioner at the time of the encounter. This report may have been done utilizing a voice recognition system. Attempts have been made to correct errors. However, there may be uncorrected grammatical, spelling, and recognition errors present. The file time of this note does not necessarily represent the time the patient was seen. Knee X-Ray 10/29/24 Orthopedics Result Report 10/31/24 Assessment and Plan Assessment and plan (1) Osteoarthritis of right knee: Code(s): M17.11 - Unilateral primary osteoarthritis, right knee Status: Acute Assessment and Plan: Patient has pain and stiffness after total knee replacement. The she has been unable to get it therapy. We discussed treatment options risks benefits limitations and alternatives. She would like to try manipulation. She is well aware the fact that the we may not be able to get any more motion but I think it is probably worth a try. I have discussed this with her risks benefits woodard itations and alternatives in detail. (2) Arthrofibrosis of total knee arthroplasty: Code(s): T84.82XA - Fibrosis due to internal orthopedic prosthetic devices, implants and grafts, initial encounter Status: Acute
[2024-10-31 15:40] VITALS: BMI 34.3
--- NOTE | 2024-10-31 15:46 | PC.NURSE ---
Report to the Outpatient Waiting Room, entrance under the green pavilion located off [facility], at time __0830am on date _11/06/24 . Planned Procedure Time: _1030am .? Time changes happen often and if your time is changed the preop area will call you the afternoon before. - You and your visitor will be asked to self-screen and do not enter if you have any COVID symptoms. Please call surgeon if you need to reschedule. - A mask is optional within the hospital at this time. Patients may have clear liquids (water, carbonated beverages, clear teas, apple juice) until 3 hours prior to surgery with a maximum of 20 ounces. - No food from midnight until time of surgery and no smoking, or chewing tobacco (or any form of nicotine). No chewing gum, candy or mints. (0730AM) - Take only the following medications with a SIP of water on the morning of surgery: __Amlodipine DO NOT STOP ANY OF YOUR OTHER PRESCRIPTION MEDICATIONS PRIOR TO SURGERY EXCEPT THE FOLLOWING Hold all vitamins and supplements for 3 days per anesthesiologist.Date to take last dose__11/02/24 Medications to discontinue per physician ____None Date to take last dose____None Dr Fernando office called and aware pt on IBUPROFEN around the clock, they will let pt know if NSAID needs stopped or ok to stay on with current Procedure. Pt aware she will hear from them. Please no make-up, nail mongolian, hairspray, perfume, deodorant, or body powder the day of surgery.? No jewelry (including any body piercings) or valuables the day of surgery, leave them at home.? Please take a shower or bath the night before, or the morning of, surgery with an antibacterial soap.? Wear comfortable, loose fitting clothing.? - Jewelry must be removed prior to entering the operating room.? Rings and piercings that are not removed may be cut off. - The hospital will not accept responsibility for valuables.? - Please leave all valuables, including medications, at home the day of surgery. If you are going home after surgery, a licensed front load trash truck driver must drive you home.? - NO public transportation without another adult if you receive anesthesia. - We recommend that an adult stay with you for 24 hours following discharge. - We also recommend that you do not drive, make important decision, drink alcoholic beverages, or take any drugs that were not prescribed by your health care provider for at least 24 hours after your discharge time. Follow any additional instructions given to you from your surgeon. Telephone instructions given to __Patient and asked if any additional questions and then verbalized understanding. Patient advised to call surgeon office or pre surgery nurse liaison [phone] if any additional questions.
[2024-11-06] VITALS (9 sets, daily range): BP systolic 100–150; BP diastolic 65–84; PULSE 72–100; RESP 12–116; TEMP 36.3–36.6; O2SAT 97–100; BMI 34.1
--- OUTSIDE RECORDS SUMMARY | 2024-11-06 01:06 | XMS_ITS | Encounter Summary ---
Author Organization [facility] Address [address] [place] [address] Phone Care Team Providers Care Local Company Hazmat Driver Name Role Phone Yinka Harrison MD Primary Care Provider [phone] Dave Fernando MD Unavailable [phone] Encounter Details Date Type Department Care Team (Late st Contact Info) Description 12/26/2023 Telephone [facility] Call [facility] [address] [place] [address] Yinka Harrison MD [address] [place] [address] Social History Tobacco Use Types Packs/Day Years Used Date Smoking Tobacco: Former Smokeless Tobacco: Never Alcohol Use Standard Drinks/Week Comments No 0 (1 standard drink = 0.6 oz pur e alcohol) [facility] Utilities Answer Date Recorded In the past 12 months has [employer], gas, oil, or water [employer] threatened to shut off services in your [...] week 12/26/2023 How often do you attend [facility] or sikh services? More than 4 times per year [...] Score - Questions 1-9 0 12/10 [facility] of Occupat ional [facility] - Occupational Stress Questionnaire Answer Date [...] in a long-term (including now)? No 12/26/2023 Education Answer Date [...] Department Care Team (Latest Contact Info) Description 11/11/2024 11:30 AM MEDICAL ASSISTING INSTRUCTOR Physical Therapy [facility] at [facility] [address], [address] [place] [address] Dave Fernando MD [address] [place] [address] Lucy Garduno, PT [place] Discharge Disposition: Discharged to home or Selfcare 11/14/2024 11:30 AM MEDICAL ASSISTING INSTRUCTOR Physical Therapy [facility] at [facility] [address], [address] [place] [address] Dave Fernando MD [address] [place] [id number] Lucy Garduno, PT [place] 11/22/2024 10:15 AM CDT Appointment [facility] Mammography 1 [place] [address] Yinka Harrison MD [address] [place] [address] Discharge Disposition: Discharged to home or Selfcare 06/13/2025 10:30 AM CDT Office Visit [facility] - Primary Care - [place] [address] [place] [id number] Yinka Harrison MD [address] [place] [address] documented as of this encounter Visit Diagnoses Not on filedocumented in this encounter Additional Health Concerns Assessment Noted Time PHQ-9 Depression Total Score: 0 03/10/20 21 10:00 AM CDT documented as of this encounter Care Teams Local Company Hazmat Driver Relationship Specialty Start Date End Date Yinka Harrison MD [address] [place] [id number] PCP - General Internal Medicine 07/27/18 Dave Fernando MD [address] [place] [id number] Consulting Physician Orthopaedic Surgery 02/20/19 documented as of this encounter
--- OUTSIDE RECORDS SUMMARY | 2024-11-06 01:06 | XMS_ITS | Encounter Summary ---
Author Organization [facility] Address [address] [facility] [place] [address] Phone Care Team Providers Care Aerotriangulation Specialist Name Role Phone Yinka Harrison MD Primary Care Provider [phone] Dave Fernando MD Unavailable Reason for Referral * PT/OT/ST (Routine) - Authorized Specialty Diagnoses / Procedures Referred By Contac t Referred To Contact Physical Therapy Diagnoses Other specified postprocedural states Presence of right artificial knee joint Dave Fernando MD [address] [place] [address] Phone: tel: fax: [facility] [address] [facility], [address] [place] [address] Phone: tel: fax: Referral ID Status Reason Start Date Expiration Date V isits Requested Visits Authorized [id number] Authorized 10/29/2024 50 50 Scheduling Instructions CLOTH FOLDER Encounter Details Date Type Department Care Team (Latest Contact Info) Description 10/29/2024 Transcribe Orders [facility] [address] [place] [address] Dave Fernando MD [address] [place] [address] Other specified postprocedural states (Primary Dx); Presence of right artificial knee joint Social History Tobacco Use Types Packs/Day Years Used Date Smoking Tobacco: Former Cigarettes Q uit: 09/11/1984 Smokeless Tobacco: Never Alcohol Use Standard Drinks/Week Comments No 0 (1 standard drink = 0.6 oz pur e alcohol) [facility] Utilities Answer Date Recorded In the past 12 months has e electric, gas, oil, or water [email or web address] threatened to shut off services in your [...] often do you attend chur ch or scientologist services? More than 4 times per year 02/26/2024 Do you belong to any clubs o r organizations such as mandaen groups, unions, fraternal or athletic groups, or [...] Total Score - Questions 1-9 0 12/10 [facility] of Occupat ional Health - Occupational Stress [...] any time in the past 12 m [facility], were you homeless or [...] (Latest Contact Info) Description 11/11/2024 11:30 AM WASHCLOTH FOLDER Physical Therapy [facility] Rehab at [facility] [address], [address] [place] [address] Dave Fernando MD [address] [place] [address] Lucy Garduno, PT [place] Discharge Disposition: Discharged to home or Selfcare 11/14/2024 11:30 AM WASHCLOTH FOLDER Physical Therapy [facility] Rehab at [facility] [address] [place] [address] Dave Fernando MD [address] [place] [address] Lucy Garduno, PT [place] 11/22/2024 10:15 AM CDT Appointment [facility] Mammography 1 [place] [address] Yinka Harrison MD [address] [place] [address] Discharge Disposition: Discharged to home or Selfcare 06/13/2025 10:30 AM CDT Office Visit [facility] - Primary Care - [place] [address] [place] [phone] Yinka Harrison MD [address] [place] [address] Scheduled Referrals Name Type Priority Associated Diagnoses Orde r Schedule PHYSICAL THERAPY REFERRAL Outpatient Referral Routine Other specified postprocedural states Presence of right artificial knee joint Expected: 10/29/2024, Expires: 10/29/2025 documented as of this encounter Visit Diagnoses Diagnosis Other specified postprocedural states- Primary Presence of right artificial knee joint Knee joint replacement by other means documented in this encounter Additional Health Concerns Assessment Noted Time PHQ-9 Depression Total Score: 0 12/27/19 24 8:35 AM CDT documented as of this encounter Care Teams Aerotriangulation Specialist Relationship Specialty Start Date End Date Yinka Harrison MD [address] [place] [address] PCP - General Internal Medicine 07/27/18 Dave Fernando MD [address] [place] [place] [address] Consulting Physician Orthopaedic Surgery 02/20/19 documented as of this encounter
--- OUTSIDE RECORDS SUMMARY | 2024-11-06 01:06 | XMS_ITS | Encounter Summary ---
Author Organization [facility] Address [address] [place] [address] Phone Care Team Providers Care Software Developer Name Role Phone Yinka Harrison MD Primary Care Provider [phone] Dave Fernando MD Unavailable [phone] Encounter Details Date Type Department Care Team (Late st Contact Info) Description 02/26/2024 Telephone [facility] Call [facility] [address] [place] [address] Yinka Harrison MD [address] [place] [address] Social History Tobacco Use Types Packs/Day Years Used Date Smoking Tobacco: Former Smokeless Tobacco: Never Alcohol Use Standard Drinks/Week Comments No 0 (1 standard drink = 0.6 oz pur e alcohol) [facility] Utilities Answer Date Recorded In the past 12 months has [employer], gas, oil, or water [employer] threatened to shut off services in your [...] week 02/26/2024 How often do you attend [facility] or orthodoxy services? More than 4 times per year 02/26/2024 Do you belong to any clubs o r organizations such as religious groups, unions, fraternal or athletic groups, or [...] Total Score - Questions 1-9 0 12/10 [facility] - Occupational Stress Questionnaire Answer Date Recorded [...] any time in the past 12 m [facility], were you homeless or [...] (Latest Contact Info) Description 11/11/2024 11:30 AM RADIO REPAIRER Physical Therapy [facility] at [facility] [address] [place] [address] Dave Fernando MD [address] [place] [address] Lucy Garduno, PT [place] Discharge Disposition: Discharged to home or Selfcare 11/14/2024 11:30 AM RADIO REPAIRER Physical Therapy [facility] at [facility] [address] [facility], [address] [place] [address] Dave Fernando MD [address] [place] [address] Lucy Garduno, PT [place] 11/22/2024 10:15 AM CDT Appointment [facility]amm[facility] 1 [facility] [place] [address] Yinka Harrison MD [address] [place] [address] Discharge Disposition: Discharged to home or Selfcare 06/13/2025 10:30 AM CDT [facility] [place] [address] [place] [address] Yinka Harrison MD [address] [place] [address] documented as of this encounter Visit Diagnoses Not on filedocumented in this encounter Additional Health Concerns Assessment Noted Time PHQ-9 Depression Total Score: 0 12/27/19 24 8:35 AM CDT documented as of this encounter Care Teams Software Developer Relationship Specialty Start Date End Date Yinka Harrison MD [address] [place] [address] PCP - General Internal Medicine 07/27/18 Dave Fernando MD [address] [place] [address] Consulting Physician Orthopaedic Surgery 02/20/19 documented as of this encounter
--- OUTSIDE RECORDS SUMMARY | 2024-11-06 01:07 | XMS_ITS | Encounter Summary ---
Author Organization [facility] Address [address] [place] [address] Phone Care Team Providers Care Seasonal Retail Merchandiser Name Role Phone Yinka Harrison MD Primary Care Provider [phone] Dave Fernando MD Unavailable [phone] Merari Mclean [facility] Unavailable Unavailab le Reason for Visit * Reason Comments Medication Refill Encounter Details Date Type Department Care Team (Late st Contact Info) Description 07/04/2023 Refill [facility] - [place] [address] [place] [address] Yinka Harrison MD [address] [place] [address] Medication Refill Social History Tobacco [...] (Latest Contact Info) Description 11/11/2024 11:30 AM SURFACE SUPERVISOR Physical Therapy [facility] Rehab at [facility] [address] [place] [address] Dave Fernando MD [address] [place] [address] Lucy Garduno, PT [place] Discharge Disposition: Discharged to home or Selfcare 11/14/2024 11:30 AM SURFACE SUPERVISOR Physical Therapy [facility] Rehab at [facility] [address] [place] [address] Dave Fernando MD [address] [place] [address] Lucy Garduno, PT [place] 11/22/2024 10:15 AM CDT Appointment [facility] Mammography 1 [place] [address] Yinka Harrison MD [address] [place] [address] Discharge Disposition: Discharged to home or Selfcare 06/13/2025 10:30 AM CDT Office Visit [facility] - Primary Care - [place] [address] [place] [address] Yinka Harrison MD [address] [place] [address] documented as of this encounter Visit Diagnoses Diagnosis Arthritis Arthropathy, unspecified, site unspecified Chronic pain of right knee Rheumatoid arthritis involving multiple sites with positive rheumatoid factor (HCC) documented in this encounter Additional Health Concerns Assessment Noted Time PHQ-9 Depression Total Score: 0 03/10/20 21 10:00 AM CDT documented as of this encounter Care Teams Seasonal Retail Merchandiser Relationship Specialty Start Date End Date Yinka Harrison MD [address] [place] [address] PCP - General Internal Medicine 07/27/18 Dave Fernando MD [address] [place] [place] [address] Consulting Physician Orthopaedic Surgery 02/20/19 Merari Mclean LSW [place] Scientific Informatics Project Leader 05/05/23 07/04/23 documented as of this encounter
--- OUTSIDE RECORDS SUMMARY | 2024-11-06 01:07 | XMS_ITS | Encounter Summary ---
Author Organization [facility] Address [address] [place] [address] Phone Care Team Providers Care Tableau Report Developer Name Role Phone Yinka Harrison MD Primary Care Provider [phone] Dave Fernando MD Unavailable [phone] eMrari Mclean [facility] Unavailable Unavailab le Reason for Visit * Reason Comments Medication Refill Encounter Details Date Type Department Care Team (Late st Contact Info) Description [facility] [facility] [address] [place] [address] Yinka Harrison MD [address] [place] [address] Medication Refill Social History Tobacco [...] (Latest Contact Info) Description 11/11/2024 11:30 AM GRANT ADMINISTRATOR [facility] [address] [place] [address] Dave Fernando MD [address] [place] [address] Lucy Garduno, PT [place] Discharge Disposition: Discharged to home or Selfcare 11/14/2024 11:30 AM GRANT ADMINISTRATOR [facility] [address] [place] [address] Dave Fernando MD [address] [place] [address] Lucy Garduno, PT [place] 11/22/2024 10:15 AM CDT Appointment [facility] Mammography 1 [place] [address] Yinka Harrison MD [address] [place] [address] Discharge Disposition: Discharged to home or Selfcare 06/13/2025 10:30 AM CDT Office Visit [facility] - Primary Care - [place] [address] [place] [address] Yinka Harrison MD [address] [place] [address] documented as of this encounter Visit Diagnoses Diagnosis Arthritis Arthropathy, unspecified, site unspecified Chronic pain of right knee Rheumatoid arthritis involving multiple sites with positive rheumatoid factor (HCC) documented in this encounter Additional Health Concerns Assessment Noted Time PHQ-9 Depression Total Score: 0 03/09/20 20 11:00 AM CDT documented as of this encounter Care Teams Tableau Report Developer Relationship Specialty Start Date End Date Yinka Harrison MD [address] [place] [address] PCP - General Internal Medicine 07/27/18 Dave Fernando MD [address] [facility] [address] [place] [address] Consulting Physician Orthopaedic Surgery 02/20/19 Merari Mclean LSW [place] Criminal Investigative Agent 05/05/23 07/04/23 documented as of this encounter
--- OUTSIDE RECORDS SUMMARY | 2024-11-06 01:07 | XMS_ITS | Encounter Summary ---
Author Organization [facility] Address [address] [place] [address] Phone Care Team Providers Care Director Treasurer Name Role Phone Yinka Harrison MD Primary Care Provider [phone] Dave Fernando MD Unavailable [phone] Merari Mclean [facility] Unavailable Unavailab le Reason for Visit * Reason Comments Medication Refill Encounter Details Date Type Department Care Team (Late st Contact Info) Description 04/19/2021 Refill [facility] [address] [place] [address] Yinka Harrison MD [address] [place] [address] Medication Refill Social History Tobacco [...] (Latest Contact Info) Description 11/11/2024 11:30 AM GEOMETRY TEACHER Physical Therapy [facility] Rehab at [facility] [address] [place] [address] Dave Fernando MD [address] [place] [address] Lucy Garduno, PT [place] Discharge Disposition: Discharged to home or Selfcare 11/14/2024 11:30 AM GEOMETRY TEACHER Physical Therapy [facility] Rehab at [facility] [address] [place] [address] Dave Fernando MD [address] [place] [address] Lucy Garduno, PT [place] 11/22/2024 10:15 AM CDT Appointment [facility] Mammography 1 [place] [address] Yinka Harrison MD [address] [place] [address] Discharge Disposition: Discharged to home or Selfcare 06/13/2025 10:30 AM CDT Office Visit [facility] - Primary Care - [place] [address] [place] [phone] Yinka Harrison MD [address] [place] [address] documented as of this encounter Visit Diagnoses Diagnosis Arthritis Arthropathy, unspecified, site unspecified Chronic pain of right knee Rheumatoid arthritis involving multiple sites with positive rheumatoid factor (HCC) Essential hypertension Unspecified essential hypertension documented in this encounter Additional Health Concerns Assessment Noted Time PHQ-9 Depression Total Score: 0 03/10/20 21 10:00 AM CDT documented as of this encounter Care Teams Director Treasurer Relationship Specialty Start Date End Date Yinka Harrison MD [address] [place] [address] PCP - General Internal Medicine 07/27/18 Dave Fernando MD [address] [place] [address] Consulting Physician Orthopaedic Surgery 02/20/19 Merari Mclean LSW [place] Internal Audit Director 05/05/23 07/04/23 documented as of this encounter
--- OUTSIDE RECORDS SUMMARY | 2024-11-06 01:07 | XMS_ITS | Encounter Summary ---
Author Organization [facility] Address [address] [place] [address] Phone Care Team Providers Care Kindergarten Instructional Assistant Name Role Phone Yinka Harrison MD Primary Care Provider [phone] Dave Fernando MD Unavailable [phone] Merari Mclean [facility] Unavailable Unavailab le Reason for Visit * Reason Comments Medication Refill Encounter Details Date Type Department Care Team (Late st Contact Info) Description 01/31/2022 Refill [facility] - [place] [address] [place] [address] Yinka Harrison MD [address] [place] [address] Medication Refill Social History Tobacco [...] (Latest Contact Info) Description 11/11/2024 11:30 AM TENSION WORKER Physical Therapy [facility] Rehab at [facility] [address] [place] [address] Dave Fernando MD [address] [place] [address] Lucy Garduno, PT [place] Discharge Disposition: Discharged to home or Selfcare 11/14/2024 11:30 AM TENSION WORKER Physical Therapy [facility] Rehab at [facility] [address] [place] [address] Dave Fernando MD [address] [place] [address] Lucy Garduno, PT [place] 11/22/2024 10:15 AM CDT Appointment [facility] Mammography 1 [place] [address] Yinka Harrison MD [address] [place] [address] Discharge Disposition: Discharged to home or Selfcare 06/13/2025 10:30 AM CDT Office Visit [facility] - Primary Care - [place] [address] [place] [phone] Yinka Harrison MD [address] [place] [address] documented as of this encounter Visit Diagnoses Not on filedocumented in this encounter Additional Health Concerns Assessment Noted Time PHQ-9 Depression Total Score: 0 03/10/20 21 10:00 AM CDT documented as of this encounter Care Teams Kindergarten Instructional Assistant Relationship Specialty Start Date End Date Yinka Harrison MD [address] [place] [address] PCP - General Internal Medicine 07/27/18 Dave Fernando MD [address] [place] [address] Consulting Physician Orthopaedic Surgery 02/20/19 Merari Mclean LSW [place] Sculpture Conservator 05/05/23 07/04/23 documented as of this encounter
--- OUTSIDE RECORDS SUMMARY | 2024-11-06 01:07 | XMS_ITS | Clinical Summary ---
Author Organization [facility] Address [address], [address] [address] Phone Care Team Providers Care Road Test Examiner Name Role Phone Yinka Harrison MD Primary Care Provider [phone] Dave Fernando MD Unavailable [phone] Allergies Active Allergy Reactions Criticality Noted Date [...] (FLONASE) 50 MCG/ACT SuspensionIndicat ions:Chronic cough 1 [place] by Nasal route daily. 16 g 09/02/20 24 Active traMADol (ULTRAM) 50 MG TabletIndications :Arthritis,Chroni c pain of right knee,Rheumatoid arthritis involving multiple sites with positive rheumatoid factor (HCC) Take 1 Tablet by mouth every 8 hours as needed for Moderate or more severe pain. 30 Tablet 1 11/05/19 25 Active traMADol (ULTRAM) 50 MG TabletIndications :Arthritis,Chroni c pain of right knee,Rheumatoid arthritis involving multiple sites with positive rheumatoid factor (HCC) TAKE 1 TABLET BY MOUTH EVERY 8 HOURS NEEDED FOR MODERATE OR MORE SEVERE PAIN. 30 Tablet 1 09/06/20 24 025 Discontinued Active Problems Problem Noted Date Diagnosed [...] Encounters Date Type Department Care Team Description 11/04/2024 11:30 AM SECRETARY OF POLICE Physical Therapy [facility] [address], [address] [place] [address] Dave Fernando MD Bogowith, Kelly A, PT Presence of right artificial knee joint (Primary Dx); Chronic pain of right knee; Decreased range of motion (ROM) of right knee Discharge Disposition: Discharged to home or Selfcare 11/02/2024 Travel 10/31/2024 11:30 AM SECRETARY OF POLICE Physical Therapy [facility] [address] [place] [address] Dave Fernando MD Stewart, James R, CLAIMS INVESTIGATOR Presence of right artificial knee joint (Primary Dx) Discharge Disposition: Discharged to home or Selfcare 10/30/2024 Travel 10/29/2024 Transcribe Orders [facility] [address] [place] [address] Dave Fernando MD Other specified postprocedural states (Primary Dx); Presence of right artificial knee joint 10/28/2024 10:45 AM SECRETARY OF POLICE Physical Therapy [facility] [address], [address] [address] Dave Fernando MD Stewart, James R, CLAIMS INVESTIGATOR Presence of right artificial knee joint (Primary Dx) Discharge Disposition: Discharged to home or Selfcare 10/26/2024 Travel 10/24/2024 11:30 AM SECRETARY OF POLICE Physical Therapy [facility] at [address], [address] [address] Dave Fernando MD Bogowith, Kelly A, PT Presence of right artificial knee joint (Primary Dx); Chronic pain of right knee; Decreased range of motion (ROM) of right knee Discharge Disposition: Discharged to home or Selfcare 10/22/2024 Travel 10/21/2024 11:30 AM SECRETARY OF POLICE Physical Therapy [facility] at [address], [address] [address] Dave Fernando MD Bogowith, Kelly A, PT Presence of right artificial knee joint (Primary Dx); Chronic pain of right knee; Decreased range of motion (ROM) of right knee Discharge Disposition: Discharged to home or Selfcare 10/21/2024 MyChart RX Renewal [facility] [address] [place] [address] Yinka Harrison MD Medication Renewal Declined 10/19/2024 Travel 10/18/[address] [facility] [address] [place] [address] Yinka Harrison MD Medication Refill 10/16/2024 11:30 AM SECRETARY OF POLICE Physical Therapy [facility] [address] [place] [address] Dave Fernando MD Bogowith, Kelly A, PT Presence of right artificial knee joint (Primary Dx); Chronic pain of right knee; Decreased range of motion (ROM) of right knee Discharge Disposition: Discharged to home or Selfcare 10/14/2024 11:30 AM SECRETARY OF POLICE Physical Therapy [facility] [address] [place] [address] Dave Fernando, Lucy Hogan, PT Presence of right artificial knee joint (Primary Dx); Chronic pain of right knee; Decreased range of motion (ROM) of right knee; S/P revision of total knee, right Discharge Disposition: Discharged to home or Selfcare 10/14/2024 Travel 10/12/2024 Travel 10/11/2024 11:00 AM SECRETARY OF POLICE Physical Therapy [facility] at [address] [place] [address] Dave Fernando, Lucy Hogan, PT Presence of right artificial knee joint (Primary Dx); Chronic pain of right knee; Decreased range of motion (ROM) of right knee Discharge Disposition: Discharged to home or Selfcare 10/09/2024 Travel 10/07/2024 11:30 AM SECRETARY OF POLICE Physical Therapy [facility] [address] [place] [address] Dave Fernando MD Bogowith, Kelly A, PT Presence of right artificial knee joint (Primary Dx); Chronic pain of right knee; Decreased range of motion (ROM) of right knee Discharge Disposition: Discharged to home or Selfcare 10/05/2024 Travel 10/03/2024 2:00 PM SECRETARY OF POLICE Physical Therapy [facility] [address] [place] [address] Dave Fernando, Lucy Hogan, PT Presence of right artificial knee joint (Primary Dx); S/P revision of total knee, right; Chronic pain of right knee; Decreased range of motion (ROM) of right knee Discharge Disposition: Discharged to home or Selfcare 10/02/2024 Travel 10/01/2024 4:15 PM SECRETARY OF POLICE Physical Therapy [facility] [address] [place] [address] Dave Fernando MD Bogowith, Kelly A, PT Presence of right artificial knee joint (Primary Dx); S/P revision of total knee, right; Chronic pain of right knee Discharge Disposition: Discharged to home or Selfcare 09/29/2024 Travel 09/26/2024 11:30 AM SECRETARY OF POLICE Physical Therapy [facility] [address], [address] [place] [address] Dave Fernando MD Bogowith, Kelly A, PT Presence of right artificial knee joint (Primary Dx); S/P revision of total knee, right; Chronic pain of right knee; Decreased range of motion (ROM) of right knee Discharge Disposition: Discharged to home or Selfcare 09/24/2024 Travel 09/23/2024 10:45 AM SECRETARY OF POLICE Physical Therapy [facility] [address], [address] [place] [address] Dave Fernando, Lucy Hogan, PT S/P revision of total knee, right (Primary Dx); Presence of right artificial knee joint; Chronic pain of right knee; Decreased range of motion (ROM) of right knee Discharge Disposition: Discharged to home or Selfcare 09/23/2024 Plan of Care Documentation [facility] [address], [address] [place] [address] 09/21/2024 Travel 09/05/2024 Refill [facility] [place] [address] [place] [address] Yinka Harrison MD Medication Refill 09/02/2024 Results Follow-Up [address] [address] Yinka Harrison MD Chronic cough (Primary Dx) 08/30/2024 9:40 AM SECRETARY OF POLICE Ancillary Procedure [facility] Diagnostic Radiology - [address] [address] Yinka Harrison MD Chronic cough Discharge Disposition: Discharged to home or Selfcare 08/30/2024 9:00 AM SECRETARY OF POLICE Office Visit [address] [address] Yinka Harrison MD Chronic cough (Primary Dx); Colon cancer screening; Screening for osteoporosis; Encounter for vaccination; Postmenopausal Discharge Disposition: Discharged to home or Selfcare 08/30/2024 Travel 08/29/2024 Travel 08/28/2024 Telephone [facility] Call Center [address] [place] [address] Yinka Harrison MD Advice Only 08/13/2024 9:40 AM SECRETARY OF POLICE Lab [facility] [address] [address] Lab, [facility] Abnormal serum creatinine level Discharge Disposition: Discharged to home or Selfcare 08/12/2024 Travel from Last 3 Months Immunizations Immunization Administration Dates Next Due Covid-19, Mrna, Lnp-s, PF, 1 00 mcg/0.5 mL Dose (Moderna) 05/31/2021,05/03/2021 Influenza Vaccine 07/16/2018,06/23/2015 Influenza Vaccine, Quadrivalent, PF 08/12/2020,1 Influenza, Trivalent, Adjuvanted, PF 08/30/2024 Pneumococcal conjugate PCV20 , polysaccharide [id number] conjugate, adjuvant, PF 08/30/2024 Family History Medical History Relation Name Comments High Cholesterol Father [place] Hypertension Father [place] Stroke Father [place] x3 Rheumatoid Arthritis Maternal Aunt Jasmina Asthma Maternal Grandmother Viviana Rheumatoid Arthritis Maternal Grandmother Viviana Rheumatoid Arthritis Mother Shannan Migraines Other Rheumatoid Arthritis Paternal Aunt Arely Breast Cancer Paternal Grandmother Brianne Cancer Paternal Grandmother Brianne Rheumatoid Arthritis Paternal Grandmother Brianne Relation Name Status Comments Father Jessy (Age 95) Maternal Aunt Jasmina Maternal Grandmother Viviana Mother Shannan Other Paternal Aunt Arely Paternal Grandmother Brianne Social History Tobacco Use Types Packs/Day Years Used Date Smoking Tobacco: Former Cigarettes Q uit: 09/11/1984 Smokeless Tobacco: Never Alcohol Use Standard Drinks/Week Comments No 0 (1 standard drink = 0.6 oz pur e alcohol) [facility] Utilities Answer Date Recorded In the past 12 months has e [employer], gas, oil, or water [employer] threatened to shut off services in your [...] often do you attend chur ch or evangelical services? More than 4 times per year 02/26/2024 Do you belong to any clubs o r organizations such as advent groups, unions, fraternal or athletic groups, or [...] Total Score - Questions 1-9 0 12/10 [facility] [place] of Occupat ional Health - Occupational Stress [...] any time in the past 12 m [facility], were you homeless or living in a [...] Comments Blood Pressure 148/68 08/30/2024 9:14 AM SECRETARY OF POLICE Pulse 106 08/30/2024 9:14 AM SECRETARY OF POLICE Temperature 36.3 C (97.4 F) 08/30/2024 9:14 AM SECRETARY OF POLICE Respiratory Rate 18 08/30/2024 9:14 AM SECRETARY OF POLICE Oxygen Saturation 99% 08/30/2024 9:14 AM SECRETARY OF POLICE Inhaled Oxygen Concentration - - Weight 88.7 kg (195 lb 8 oz) 08/30/2024 9:14 AM SECRETARY OF POLICE Height 160 cm (5' 3 ) 08/30/2024 9:14 AM SECRETARY OF POLICE Body Mass Index 34.63 08/30/2024 9:14 AM SECRETARY OF POLICE Plan of Treatment Upcoming Encounters Date Type Department Care Team (Latest Contact Info) Description 11/11/2024 11:30 AM SECRETARY OF POLICE Physical Therapy [facility] [address] [place] [address] Dave Fernando MD [address] [place] [address] Lucy Garduno, PT [place] Discharge Disposition: Discharged to home or Selfcare 11/14/2024 11:30 AM SECRETARY OF POLICE Physical Therapy [facility] [address] [place] [address] Dave Fernando MD [address] [place] [address] Lucy Garduno, PT [place] 11/22/2024 10:15 AM CDT Appointment [facility] [address] [facility] [place] [address] Yinka Harrison MD [address] [place] [address] Discharge Disposition: Discharged to home or Selfcare 06/13/2025 10:30 AM CDT Office Visit [facility] - [place] [address] [place] [address] Yinka Harrison MD [address] [place] [address] Health Maintenance Due Date Last Done Comments DEXA Bone Density 1960 TdaP Immunization 1960 Immunochemical Fecal Occult Blood 2009 Zoster Immunization (1 of 2) 2009 Colonoscopy 05/14/2020 05/14/2010 Pap Smear 03/24/2024 03/24/2021 SARS-COV-2 Immunization ( season) 2024 05/31/2021, 05/03/2021 Mammogram 01/22/2025 01/23/2024, 12/10, 12/19/2022, Additional history exists Cervical Cancer Screening (CCS) 03/24/2026 HPV/Cotest 03/24/2026 03/24/2021 Cologuard 10/15/2027 10/15/2024 Colorectal Cancer Screening 10/15/2027 Respiratory Syncytial Virus (RSV) Immunization (Adult) (1 [...] Procedure Name Priority Date/Time Associated Diagnosis Comments ORTHOPEDIC SURGERY CONSULT 10/29/2024 12:00 AM SECRETARY OF POLICE COLOGUARD Routine 10/15/2024 11:25 AM SECRETARY OF POLICE Colon cancer screening COMPLETE BLOOD COUNT (CBC) WITH DIFF 09/17/2024 12:00 AM SECRETARY OF POLICE UR 24 HR CREATININE CLEARANCE 09/17/2024 12:00 AM SECRETARY OF POLICE BASIC METABOLIC PANEL W/ CALCIUM TOTAL 09/17/2024 12:00 AM SECRETARY OF POLICE ORTHOPEDIC SURGERY CONSULT 09/16/2024 12:00 AM SECRETARY OF POLICE XR - LOWER EXTREMITY 09/16/2024 12:00 AM SECRETARY OF POLICE ORTHOPEDIC PROCEDURE 09/16/2024 12:00 AM SECRETARY OF POLICE XR CHEST 2 VIEWS Today 08/30/2024 9:44 AM SECRETARY OF POLICE Chronic cough PROTIME (PT) (PROTHROMBIN TIME) 08/28/2024 12:00 AM SECRETARY OF POLICE HEMOGLOBIN, A1C 08/28/2024 12:00 AM SECRETARY OF POLICE APTT (PTT) 08/28/2024 12:00 AM SECRETARY OF POLICE COMPLETE BLOOD COUNT (CBC) WITH DIFF 08/28/2024 12:00 AM SECRETARY OF POLICE LAB - MISCELLANEOUS 08/28/2024 1 2:00 AM SECRETARY OF POLICE RENAL FUNCTION PANEL (RFP) 08/28/2024 12:00 AM SECRETARY OF POLICE CULTURE - MISCELLANEOUS 08/28/2024 12:00 AM SECRETARY OF POLICE BASIC METABOLIC PANEL W/ CALCIUM TOTAL Routine 08/13/2024 8:40 AM SECRETARY OF POLICE Abnormal serum creatinine level HEPATITIS C ANTIBODY Routine 06/07/2024 1:31 PM CDT Encounter for hepatitis C screening test for low risk patient KASI SCREENING BILATERAL DIGITAL W CAD W PIYUSH Routine 01/23/2024 9:20 AM CDT Visit for screening mammogram HUMAN PAPILLOMA VIRUS (HPV) Routine 03/24/2021 PATHOLOGY CYTOLOGY BRAILLE PROOFREADER Routine 03/24/2021 HM COLONOSCOPY Routine 05/14/2010 from Last 3 Months or Most Recently Relevant to Health Maintenance Results * ORTHOPEDIC SURGERY CONSULT (10/29/2024 12:00 AM SECRETARY OF POLICE) Only the most recent of2 resultswithin the time period is included. 10/29/2024 us Provider Scan GENERIC SCAN ORDERS CONSULT [place] l Result SCAN * COLOGUARD (10/15/2024 11:25 AM SECRETARY OF POLICE) Cologuard Negative Negative [facility] Comment: NEGATIVE TEST RESULT. A negative Cologuard result indicates a low likelihood that a colorectal cancer (CRC) or advanced adenoma (adenomatous polyps with more advanced pre-malignant features) is present. The chance that a person with a negative Cologuard test has a colorectal cancer is less than 1 in 1500 (negative predictive value >99.9%) or has an advanced adenoma is less than 5.3% (negative predictive value 94.7%). These data are based on a prospective cross-sectional study of 10,000 individuals at average risk for colorectal cancer who were screened with both Cologuard and colonoscopy. (Myke Castillo. et al, N Engl J Med 2014;370(14):7464-3529) The normal value (reference range) for this assay is negative. COLOGUARD RE-SCREENING RECOMMENDATION: Periodic colorectal cancer screening is an important part of preventive healthcare for asymptomatic individuals at average risk for colorectal cancer. Following a negative Cologuard result, the [place] Cancer Society and U.S. Multi-Society Task Force screening guidelines recommend a Cologuard re-screening interval of 3 years. References: [place] Cancer Society Guideline for Colorectal Cancer Screening: https://www.cancer.org/cancer/pnjbs-teyrby-amkooi/ifpftxtci-fkadcfwpo-hmqqrxk/ acs-recommendations.html.; Jimy GARCIA, Nini PETERSON, Olga DICKSON, Colorectal Cancer Screening: Recommendations for Physicians and Patients from the U.S. Multi-Society Task Force on Colorectal Cancer Screening , Am J Gastroenterology 2017; 112:8346-5588. TEST DESCRIPTION: Composite algorithmic analysis of stool DNA-biomarkers with hemoglobin immunoassay. Quantitative values of individual biomarkers are not reportable and are not associated with individual biomarker result reference ranges. Cologuard is intended for colorectal cancer screening of adults of either sex, 45 years or older, who are at average-risk for colorectal cancer (CRC). Cologuard has been approved for use by the U.S. FDA. The performance of Cologuard was established in a cross sectional study of average-risk adults aged 50-84. Cologuard performance in patients ages 45 to 49 years was estimated by sub-group analysis of near-age groups. Colonoscopies performed for a positive result may find as the most clinically significant lesion: colorectal cancer [4.0%], advanced adenoma (including sessile serrated polyps greater than or equal to 1cm diameter) [20%] or non- advanced adenoma [31%]; or no colorectal neoplasia [45%]. These estimates are derived from a prospective cross-sectional screening study of 10,000 individuals at average risk for colorectal cancer who were screened with both Cologuard and colonoscopy. (Myke Castillo. et al, N Engl J Med 2014;370(14):6561-9208.) Cologuard may produce a false negative or false positive result (no colorectal cancer or precancerous polyp present at colonoscopy follow up). A negative Cologuard test result does not guarantee the absence of CRC or advanced adenoma (pre-cancer). The current Cologuard screening interval is every 3 years. ([place] Cancer Society and U.S. Multi-Society Task Force). Cologuard performance data in a 10,000 patient pivotal study using colonoscopy as the reference method can be accessed at the following location: www.FreeBorders.JumpPost/results. Additional description of the Cologuard test process, warnings and precautions can be found at www.Inviragenrd.com. Stool 10/15/2024 11:2 5 AM SECRETARY OF POLICE 10/17/2024 10:16 AM SECRETARY OF POLICE us Yinka Harrison MD BODY FLUIDS & STOOLS JOSE VELARDE Final Result [address] [place] [address], [employer] [place] [address] * UR 24 HR CREATININE CLEARANCE (09/17/2024 12:00 AM SECRETARY OF POLICE) 09/17/2024 us Provider Scan CHEMISTRY ORDERABLES Final Resul t Performing Organization Address [facility] de Phone Number SCAN * COMPLETE BLOOD COUNT (CBC) WITH DIFF (09/17/2024 12:00 AM SECRETARY OF POLICE) Only the most recent of2 resultswithin the time period is included. 09/17/2024 us Provider Scan HEMATOLOGY ORDERABLES Final Resu lt Performing Organization [facility] de Phone Number SCAN * BASIC METABOLIC PANEL W/ CALCIUM TOTAL (09/17/2024 12:00 AM SECRETARY OF POLICE) Only the most recent of2 resultswithin the time period is included. 09/17/2024 us Provider Scan CHEMISTRY ORDERABLES Final Resul t Performing Organization Address [facility] de Phone Number SCAN * ORTHOPEDIC PROCEDURE (09/16/2024 12:00 AM SECRETARY OF POLICE) 09/16/2024 us Provider Scan GEN ORDERS Final Result Performing Organization Address [facility] de Phone Number SCAN * XR - LOWER EXTREMITY (09/16/2024 12:00 AM SECRETARY OF POLICE) 09/16/2024 us Provider Scan IMG DIAGNOSTIC ORDERABLES Final Result Performing Organization [facility] de Phone Number SCAN * XR CHEST 2 VIEWS (08/30/2024 9:44 AM SECRETARY OF POLICE) Anatomical Region Laterality Modality Chest N/A Digital Radiogra phy 08/30/2024 5:31 PM SECRETARY OF POLICE Impressions 08/30/2024 5:34 PM SECRETARY OF POLICE IMPRESSION: No acute cardiopulmonary abnormality. Narrative 08/30/2024 5:34 PM SECRETARY OF POLICE EXAM DESCRIPTION: XR CHEST 2 VIEWS REASON [...] Richard Mckeon M.D. AM: AM Report ID: [id number] Reading Location: [id number] Procedure Note Richard Mckeon MD - 08/30/2024 [...] 08/30/2024 5:31 PM - Electronically signed by Ricahrd cMkeon M.D. AM: AM Report ID: [id number] Reading Location: [id number] IMPRESSION: No acute cardiopulmonary abnormality. Yinka Harrison MD [facility] DIAGNOSTIC ORDERABLES Final Result * LAB - MISCELLANEOUS (08/28/2024 12:00 AM SECRETARY OF POLICE) 08/28/2024 us Provider Scan CHEMISTRY ORDERABLES Final Resul t SCAN * CULTURE - MISCELLANEOUS (08/28/2024 12:00 AM SECRETARY OF POLICE) 08/28/2024 us Provider Scan MICROBIOLOGY - GENERAL ORDERABLE S Final Result Performing Organization Address [facility] de Phone Number SCAN * RENAL FUNCTION PANEL (RFP) (08/28/2024 12:00 AM SECRETARY OF POLICE) 08/28/2024 us Provider Scan CHEMISTRY ORDERABLES Final Resul t Performing Organization Address City/[facility] de Phone Number SCAN * APTT (PTT) (08/28/2024 12:00 AM SECRETARY OF POLICE) 08/28/2024 us Provider Scan HEMATOLOGY ORDERABLES Final Resu lt Performing Organization Address City/[facility] de Phone Number SCAN * PROTIME (PT) (PROTHROMBIN TIME) (08/28/2024 12:00 AM SECRETARY OF POLICE) INR 0.9 SCAN 08/28/2024 us Provider Scan HEMATOLOGY ORDERABLES Final Resu lt Performing Organization Address City/[facility] de Phone Number SCAN * HEMOGLOBIN, A1C (08/28/2024 12:00 AM SECRETARY OF POLICE) HGB-A1C 5.7 SCAN 08/28/2024 us Provider Scan CHEMISTRY ORDERABLES Final Resul t Performing Organization Address City/[facility] Co de Phone Number SCAN * HEPATITIS C ANTIBODY (06/07/2024 1:31 PM CDT) hepatitis C antibody 0.14 <1 S/CO 06/07/2024 10:57 PM CDT [facility] Comment: Signal/Cutoff ratio < 0.79 is Nondetected Signal/Cutoff ratio 0.80-0.99 is Grayzone Signal/Cutoff ratio > 0.99 is Detected Supplemental assays are recommended if signal/cutoff ratio is >/=1.00. Signal/cutoff ratio result >/= 5.00 is 97% predictive of positivity for recombinant immunoblot assay (RIBA) and will be reported to the [place] Department of Public Health as required. Blood Venipuncture / Unknown 06/07/2024 1:31 PM CDT 06/07/2024 1:31 PM CDT us Yinka Harrison MD CHEMISTRY ORDERABLES [place] peacock Result Performing Organization Address City/State/[facility] Co de Phone Number [facility] [address] [place] [address], [place] * KASI SCREENING BILATERAL DIGITAL W [...] to exams dated: 12/09/2016, 04/02/2015, and 02/05/2014 [facility]. BREAST TISSUE:The tissue of both breasts is [...] exam. Electronically signed by: Violet Stein M.D. /penrad:01/23/2024 11:12:16 Sql Database Programmer(s): RT Trevin(R)(M), [facility] letter sent: Normal Exam Reading location: [place] BI-RADS: 2 Benign Procedure [...] to exams dated: 12/09/2016, 04/02/2015, and 02/05/2014 [facility]. BREAST TISSUE:The tissue of both breasts is [...] exam. Electronically signed by: Violet Stein M.D. /penrad:01/23/2024 11:12:16 Sql Database Programmer(s): RT Trevin(Sonia)(M), [facility] letter sent: Normal Exam Reading location: [place] BI-RADS: 2 Benign Edouard Devora IMG MAMMO ORDERABLES Final Resul t * PATHOLOGY CYTOLOGY BRAILLE PROOFREADER (03/24/2021) Other Edouard Devora PATHOLOGY/CYTOLOGY ORDERABLES Fi nal Result * HUMAN PAPILLOMA VIRUS (HPV) (03/24/2021) Other Edouard Lozoya LAB SEND OUTS Final Result * HM COLONOSCOPY (05/14/2010) Hollis Mcfadden MD PROCEDURE/MINOR SURGICAL ORDERABLES Final Result from Last 3 Months or Most Recently Relevant to Health Maintenance Insurance MEDICARE [facility] [place] [address] [place]ICA[place] BREAST CERVICAL CANCER Advance Directives * Full Code (Latest Code Status on File) Date Activated Date Inactivated Comments 08/05/2015 6:23 AM 08/05/2015 9:03 PM Full Code: FULL ARREST: Attempt Resuscitation/CPR and use intubation and mechanical ventilation as indicated. PRE-ARREST: Use all measures to stabilize patient. Care Teams Road Test Examiner Relationship Specialty Start Date End Date Yinka Harrison MD [address] [place] [address] PCP - General Internal Medicine 07/27/18 Dave Fernando MD [address] [place] [address] Consulting Physician Orthopaedic Surgery 02/20/19
--- OUTSIDE RECORDS SUMMARY | 2024-11-06 01:07 | XMS_ITS | Encounter Summary ---
Author Organization [facility] Address [address] [place] [address] Phone Care Team Providers Care Tank Carpenter Name Role Phone Yinka Harrison MD Primary Care Provider [phone] Dave Fernando MD Unavailable [phone] Merari Mclean [facility] Unavailable Unavailab le Reason for Visit * Reason Comments Medication Refill Encounter Details Date Type Department Care Team (Late st Contact Info) Description 06/06/2022 Refill [facility] - Primary Care - [address] [place] [address] Yinka Harrison MD [address] [place] [address] Medication Refill Social History Tobacco [...] Dept 04/11/22 Office Visit Yinka Harrison MD [facility] Showing recent visits within past 365 days and meeting all other requirements Future Appointments No visits were found meeting these conditions. Showing future appointments within next 90 days and meeting all other requirements documented in this encounter Plan of Treatment Upcoming Encounters Date Type Department Care Team (Latest Contact Info) Description 11/11/2024 11:30 AM MATCH MAKER Physical Therapy [facility] at [address] [place] [address] Dave Fernando MD [address] [place] [address] Lucy Garduno, PT [place] Discharge Disposition: Discharged to home or Selfcare 11/14/2024 11:30 AM MATCH MAKER Physical Therapy [facility] at [address] [place] [address] Dave Fernando MD [address] [place] [address] Lucy Garduno, PT [place] 11/22/2024 10:15 AM CDT [facility] 1 [facility] [place] [address] Yinka Harrison MD [address] [place] [address] Discharge Disposition: Discharged to home or Selfcare 06/13/2025 10:30 AM CDT Office Visit [facility] - Primary Care - [place] [place] [address] Yinka Harrison MD [address] [place] [address] documented as of this encounter Visit Diagnoses Diagnosis Arthritis Arthropathy, unspecified, site unspecified Chronic pain of right knee Rheumatoid arthritis involving multiple sites with positive rheumatoid factor (HCC) documented in this encounter Additional Health Concerns Assessment Noted Time PHQ-9 Depression Total Score: 0 03/10/20 21 10:00 AM CDT documented as of this encounter Care Teams Tank Carpenter Relationship Specialty Start Date End Date Yinka Harrison MD [address] [place] [address] PCP - General Internal Medicine 07/27/18 Dave Fernando MD [address] [place] [address] Consulting Physician Orthopaedic Surgery 02/20/19 Merari Mclean, EMILI [place] Control Clerk Head 05/05/23 07/04/23 documented as of this encounter
--- OUTSIDE RECORDS SUMMARY | 2024-11-06 01:07 | XMS_ITS | Encounter Summary ---
Author Organization [facility] Address [address] [place] [address] Phone Care Team Providers Care Telephone Installer Name Role Phone Yinka Harrison MD Primary Care Provider [phone] Dave Fernando MD Unavailable [phone] Merari Mclean [facility] Unavailable Unavailab le Reason for Visit * Reason Comments Medication Refill Encounter Details Date Type Department Care Team (Late st Contact Info) Description 01/30/2023 Refill [facility] Primary Care - [place] [address] [place] [address] Yinka Harrison MD [address] [place] [address] Medication Refill Social History Tobacco [...] (Latest Contact Info) Description 11/11/2024 11:30 AM SUPPLY CHAIN DESIGN MANAGER Physical Therapy [facility] at [facility] [address] [place] [address] Dave Fernando MD [address] [place] [address] Lucy Garduno, PT [place] Discharge Disposition: Discharged to home or Selfcare 11/14/2024 11:30 AM SUPPLY CHAIN DESIGN MANAGER Physical Therapy [facility] at [facility] [address] [place] [address] Dave Fernando MD [address] [place] [address] Lucy Garduno, PT [place] 11/22/2024 10:15 AM CDT Appointment [facility] Mammography 1 [place] [address] Yinka Harrison MD [address] [place] [address] Discharge Disposition: Discharged to home or Selfcare 06/13/2025 10:30 AM CDT Office Visit [facility] - Primary Care - [place] [address] [place] [address] Yinka Harrison MD [address] [place] [address] documented as of this encounter Visit Diagnoses Diagnosis Arthritis Arthropathy, unspecified, site unspecified Chronic pain of right knee Rheumatoid arthritis involving multiple sites with positive rheumatoid factor (HCC) documented in this encounter Additional Health Concerns Assessment Noted Time PHQ-9 Depression Total Score: 0 03/10/20 21 10:00 AM CDT documented as of this encounter Care Teams Telephone Installer Relationship Specialty Start Date End Date Yinka Harrison MD [address] [place] [address] PCP - General Internal Medicine 07/27/18 Dave Fernando MD [address] [place] [address] Consulting Physician Orthopaedic Surgery 02/20/19 Merari Mclean LSW [place] Wire Puller 05/05/23 07/04/23 documented as of this encounter
--- OUTSIDE RECORDS SUMMARY | 2024-11-06 01:07 | XMS_ITS | Encounter Summary ---
Author Organization [facility] Address [address] [place] [address] Phone Care Team Providers Care Masonry Supervisor Name Role Phone Yinka Harrison MD Primary Care Provider [phone] Dave Fernando MD Unavailable [phone] Merari Mclean [facility] Unavailable Unavailab le Reason for Visit * Reason Comments Medication Refill Encounter Details Date Type Department Care Team (Late st Contact Info) Description 11/24/2020 Refill [facility] [address] [place] [address] Yinka Harrison MD [address] [place] [address] Medication Refill Social History Tobacco [...] (Latest Contact Info) Description 11/11/2024 11:30 AM CHIEF CUSTOMER OFFICER Physical Therapy [facility] Rehab at [facility] [address] [place] [address] Dave Fernando MD [address] [place] [address] Lucy Garduno, PT [place] Discharge Disposition: Discharged to home or Selfcare 11/14/2024 11:30 AM CHIEF CUSTOMER OFFICER Physical Therapy [facility] at [facility] [address] [place] [address] Dave Fernando MD [address] [place] [address] Lucy Garduno, PT [place] 11/22/2024 10:15 AM CDT Appointment [facility] Mammography [address] [place] [address] Yinka Harrison MD [address] [place] [address] Discharge Disposition: Discharged to home or Selfcare 06/13/2025 10:30 AM CDT Office Visit [facility] - Primary Care - [address] [place] [address] Yinka Harrison MD [address] [place] [address] documented as of this encounter Visit Diagnoses Not on filedocumented in this encounter Additional Health Concerns Assessment Noted Time PHQ-9 Depression Total Score: 0 03/09/20 20 11:00 AM CDT documented as of this encounter Care Teams Masonry Supervisor Relationship Specialty Start Date End Date Yinka Harrison MD [address] [place] [address] PCP - General Internal Medicine 07/27/18 Dave Fernando MD [address] [place] [address] Consulting Physician Orthopaedic Surgery 02/20/19 Merari Mclean LSW [place] Patient Safety Tech 05/05/23 07/04/23 documented as of this encounter
--- OUTSIDE RECORDS SUMMARY | 2024-11-06 01:07 | XMS_ITS | Encounter Summary ---
Author Organization [facility] Address [address] [place] [address] Phone Care Team Providers Care Cam Specialist Name Role Phone Yinka Harrison MD Primary Care Provider [phone] Dave Fernando MD Unavailable [phone] Merari Mclean [facility] Unavailable Unavailab le Reason for Visit * Reason Comments Medication Refill Encounter Details Date Type Department Care Team (Late st Contact Info) Description 11/06/2021 Refill [facility] Primary Care - [place] [address] [place] [address] Yinka Harrison MD [address] [place] [address] Medication Refill Social History Tobacco [...] Jen Zurita RN - 11/08/2021 10:16 AM SHOE DYER Medication failed the protocol, provider to review [...] Dept 03/10/21 Office Visit Yinka Harrison MD [facility] Showing recent visits within past 365 days and meeting all other requirements Future Appointments No visits were found meeting these conditions. Showing future appointments within next 90 days and meeting all other requirements DYER documented in this encounter Plan of Treatment Upcoming Encounters Date Type Department Care Team (Latest Contact Info) Description 11/11/2024 11:30 AM SHOE DYER Physical Therapy [facility] at [facility] [address] [place] [address] Dave Fernando MD [address] [place] [address] Lucy Garduno, PT [place] Discharge Disposition: Discharged to home or Selfcare 11/14/2024 11:30 AM SHOE DYER Physical Therapy [facility] at [facility] [address] [place] [address] Dave Fernando MD [address] [place] [address] Lucy Garduno, PT [place] 11/22/2024 10:15 AM CDT [facility] 1 [facility] [place] [address] Yinka Harrison MD [address] [place] [address] Discharge Disposition: Discharged to home or Selfcare 06/13/2025 10:30 AM CDT Office Visit [facility] - Primary Care - [place] [address] [place] [address] Yinka Harrison MD [address] [place] [address] documented as of this encounter Visit Diagnoses Diagnosis Arthritis Arthropathy, unspecified, site unspecified Chronic pain of right knee Rheumatoid arthritis involving multiple sites with positive rheumatoid factor (HCC) documented in this encounter Additional Health Concerns Assessment Noted Time PHQ-9 Depression Total Score: 0 03/10/20 21 10:00 AM CDT documented as of this encounter Care Teams Cam Specialist Relationship Specialty Start Date End Date Yinka Harrison MD [address] [place] [address] PCP - General Internal Medicine 07/27/18 Dave Fernando MD [address] [place] [address] Consulting Physician Orthopaedic Surgery 02/20/19 Merari Mclean LSW [place] Lookback Coordinator 05/05/23 07/04/23 documented as of this encounter
--- OUTSIDE RECORDS SUMMARY | 2024-11-06 01:07 | XMS_ITS | Encounter Summary ---
Author Organization [facility] Address [address] [place] [address] Phone Care Team Providers Care Manager Chinese Name Role Phone Yinka Harrison MD Primary Care Provider [phone] Dave Fernando MD Unavailable [phone] Merari Mclean [facility] Unavailable Unavailab le Reason for Visit * Reason Comments Medication Refill Encounter Details Date Type Department Care Team (Late st Contact Info) Description 06/22/2021 Refill [facility] - Primary Care - [place] [address] [place] [address] Yinka Harrison MD [address] [place] [address] Medication Refill Social History Tobacco [...] Dept 03/10/21 Office Visit Yinka Harrison MD [facility] Showing recent visits within past 365 days [...] (Latest Contact Info) Description 11/11/2024 11:30 AM MANAGER ELECTRICAL Physical Therapy [facility] at [facility] [address] [place] [address] Dave Fernando MD [address] [place] [address] Lucy Garduno, PT [place] Discharge Disposition: Discharged to home or Selfcare 11/14/2024 11:30 AM MANAGER ELECTRICAL Physical Therapy [facility] at [facility] [address] [place] [address] Dave Fernando MD [address] [place] [address] Lucy Garduno, PT [place] 11/22/2024 10:15 AM CDT Appointment [address] [address] Yinka Harrison MD [address] [place] [address] Discharge Disposition: Discharged to home or Selfcare 06/13/2025 10:30 AM CDT Office Visit [facility] - Primary Care - [place] [address] [place] [address] Yinka Harrison MD [address] [place] [address] documented as of this encounter Visit Diagnoses Not on filedocumented in this encounter Additional Health Concerns Assessment Noted Time PHQ-9 Depression Total Score: 0 03/10/20 21 10:00 AM CDT documented as of this encounter Care Teams Manager Chinese Relationship Specialty Start Date End Date Yinka Harrison MD [address] [place] [address] PCP - General Internal Medicine 07/27/18 Dave Fernando MD [address] [place] [address] Consulting Physician Orthopaedic Surgery 02/20/19 Merari Mclean LSW [place] Cold Strip Roller 05/05/23 07/04/23 documented as of this encounter
--- OUTSIDE RECORDS SUMMARY | 2024-11-06 01:07 | XMS_ITS | Encounter Summary ---
Author Organization [facility] Address [address] [place] [address] Phone Care Team Providers Care Agricultural Engineering Technician Name Role Phone Yinka Harrison MD Primary Care Provider [phone] Dave Fernando MD Unavailable [phone] Merari Mclean [facility] Unavailable Unavailab le Reason for Visit * Reason Comments Medication Refill Encounter Details Date Type Department Care Team (Late st Contact Info) Description 12/28/2022 Refill [facility] Primary Care - [place] [address] [place] [address] Yinka Harrison MD [address] [place] [address] Medication Refill Social History Tobacco [...] Dept 04/11/22 Office Visit Yinka Harrison MD [facility] Showing recent visits within past 365 days and meeting all other requirements Future Appointments No visits were found meeting these conditions. Showing future appointments within next 90 days and meeting all other requirements documented in this encounter Plan of Treatment Upcoming Encounters Date Type Department Care Team (Latest Contact Info) Description 11/11/2024 11:30 AM TIRE CENTER MANAGER Physical Therapy [facility] at [facility] [address] [place] [address] Dave Fernando MD [address] [place] [address] Lucy Garduno, PT [place] Discharge Disposition: Discharged to home or Selfcare 11/14/2024 11:30 AM TIRE CENTER MANAGER Physical Therapy [facility] at [facility] [address] [place] [address] Dave Fernando MD [address] [place] [address] Lucy Garduno, PT [place] 11/22/2024 10:15 AM CDT [facility] [address] [facility] [place] [address] Yinka Harrison MD [address] [place] [address] Discharge Disposition: Discharged to home or Selfcare 06/13/2025 10:30 AM CDT Office Visit [facility] - Primary Care - [place] [address] [place] [address] Yinka Harrison MD [address] [place] [address] documented as of this encounter Visit Diagnoses Diagnosis Arthritis Arthropathy, unspecified, site unspecified Chronic pain of right knee Rheumatoid arthritis involving multiple sites with positive rheumatoid factor (HCC) documented in this encounter Additional Health Concerns Assessment Noted Time PHQ-9 Depression Total Score: 0 03/10/20 21 10:00 AM CDT documented as of this encounter Care Teams Agricultural Engineering Technician Relationship Specialty Start Date End Date Yinka Harrison MD [address] [place] [address] PCP - General Internal Medicine 07/27/18 Dave Fernando MD [address] [place] [address] Consulting Physician Orthopaedic Surgery 02/20/19 Merari Mclean LSW [place] Retail Training Manager 05/05/23 07/04/23 documented as of this encounter
--- OUTSIDE RECORDS SUMMARY | 2024-11-06 01:07 | XMS_ITS | Encounter Summary ---
Author Organization [facility] Address [address] [place] [address] Phone Care Team Providers Care Armature Rewinder Name Role Phone Yinka Harrison MD Primary Care Provider [phone] Dave Fernando MD Unavailable [phone] Merari Mclean [facility] Unavailable Unavailab le Reason for Visit * Reason Comments Medication Refill Encounter Details Date Type Department Care Team (Late st Contact Info) Description 11/05/2021 Refill [facility] - Primary Care - [place] [address] [place] [address] Yinka Harrison MD [address] [place] [address] Medication Refill Social History Tobacco [...] Mariposa Castelan RN - 11/05/2021 9:06 AM MORTISING MACHINE OPERATOR Refill not due until 11/13/21. ISING MACHINE OPERATOR documented in this encounter Plan of Treatment Upcoming Encounters Date Type Department Care Team (Latest Contact Info) Description 11/11/2024 11:30 AM MORTISING MACHINE OPERATOR Physical Therapy [facility] at [facility] [address] [place] [address] Dave Fernando MD [address] [place] [address] Lucy Garduno, PT [place] Discharge Disposition: Discharged to home or Selfcare 11/14/2024 11:30 AM MORTISING MACHINE OPERATOR Physical Therapy [facility] at [facility] [address] [place] [address] Dave Fernando MD [address] [place] [address] Lucy Garduno, PT [place] 11/22/2024 10:15 AM CDT Appointment [facility] Mammography 1 [place] [address] Yinka Harrison MD [address] [place] [address] Discharge Disposition: Discharged to home or Selfcare 06/13/2025 10:30 AM CDT Office Visit [facility] - Primary Care - [place] [address] [place] [address] Yinka Harrison MD [address] [place] [address] documented as of this encounter Visit Diagnoses Diagnosis Arthritis Arthropathy, unspecified, site unspecified Chronic pain of right knee Rheumatoid arthritis involving multiple sites with positive rheumatoid factor (HCC) documented in this encounter Additional Health Concerns Assessment Noted Time PHQ-9 Depression Total Score: 0 03/10/20 21 10:00 AM CDT documented as of this encounter Care Teams Armature Rewinder Relationship Specialty Start Date End Date Yinka Harrison MD [address] [place] [address] PCP - General Internal Medicine 07/27/18 Dave Fernando MD [address] [place] [address] Consulting Physician Orthopaedic Surgery 02/20/19 Merari Mclean LSW [place] Wash Rack Operator 05/05/23 07/04/23 documented as of this encounter
--- OUTSIDE RECORDS SUMMARY | 2024-11-06 01:07 | XMS_ITS | Encounter Summary ---
Author Organization [facility] Address [address] [place] [address] Phone Care Team Providers Care Inspector Penetrant Name Role Phone Yinka Harrison MD Primary Care Provider [phone] Dave Fernando MD Unavailable [phone] Merari Mclean [facility] Unavailable Unavailab le Reason for Visit * Reason Comments Medication Refill Encounter Details Date Type Department Care Team (Late st Contact Info) Description 07/19/2021 Refill [facility] Primary Care - [place] [address] [place] [address] Yinka Harrison MD [address] [place] [address] Medication Refill Social History Tobacco [...] (Latest Contact Info) Description 11/11/2024 11:30 AM WAREHOUSE LOGISTICS MANAGER Physical Therapy [facility] at [facility] [address] [place] [address] Dave Fernando MD [address] [place] [address] Lucy Garduno, PT [place] Discharge Disposition: Discharged to home or Selfcare 11/14/2024 11:30 AM WAREHOUSE LOGISTICS MANAGER [facility] [address] [place] [address] Dave Fernando MD [address] [place] [address] Lucy Garduno, PT [place] 11/22/2024 10:15 AM CDT Appointment [address] [address] Yinka Harrison MD [address] [place] [address] Discharge Disposition: Discharged to home or Selfcare 06/13/2025 10:30 AM CDT Office Visit [facility] - Primary Care - [place] [address] [place] [address] Yinka Harrison MD [address] [place] [address] documented as of this encounter Visit Diagnoses Not on filedocumented in this encounter Additional Health Concerns Assessment Noted Time PHQ-9 Depression Total Score: 0 03/10/20 21 10:00 AM CDT documented as of this encounter Care Teams Inspector Penetrant Relationship Specialty Start Date End Date Yinka Harrison MD [address] [place] [address] PCP - General Internal Medicine 07/27/18 Dave Fernando MD [address] [place] [address] Consulting Physician Orthopaedic Surgery 02/20/19 Merari Mclean LSW [place] Wood Form Builder 05/05/23 07/04/23 documented as of this encounter
--- OUTSIDE RECORDS SUMMARY | 2024-11-06 01:07 | XMS_ITS | Encounter Summary ---
Author Organization [facility] Address [address] [place] [address] Phone Care Team Providers Care Tax Services Professional Name Role Phone Yinka Harrison MD Primary Care Provider [phone] Dave Fernando MD Unavailable [phone] Reason for Visit * Reason Comments Medication Refill Encounter Details Date Type Department Care Team (Late st Contact Info) Description 09/05/2024 Refill [facility] - Primary Care - [place] [address] [place] [address] Yinka Harrison MD [address] [place] [address] Medication Refill Social History Tobacco Use Types Packs/Day Years Used Date Smoking Tobacco: Former Cigarettes Q uit: 09/11/1984 Smokeless Tobacco: Never Alcohol Use Standard Drinks/Week Comments No 0 (1 standard drink = 0.6 oz pur e alcohol) [facility] Utilities Answer Date Recorded In the past 12 months has [employer], gas, oil, or water company threatened to [...] often do you attend chur ch or judaism services? More than 4 times per year 02/26/2024 Do you belong to any clubs o r organizations such as episcopal groups, unions, fraternal or athletic groups, or [...] Total Score - Questions 1-9 0 12/10 [facility] [place] of Occupat ional Health - Occupational Stress [...] to sleep or slept in a senior care (including now)? No 12/26/2023 Housing Stability Vital Sign Answer Sushil e Recorded In the last 12 months, was t here a time when you were not able to pay the mortgage or rent on time? No 02/26/2024 In the past 12 months, how m any times have you moved where you were living? 0 02/26/2024 At any time in the past 12 m [facility], were you homeless or living in a senior care (including now)? No 02/26/2024 Education Answer Date [...] Yinka Harrison MD - 09/06/2024 8:04 AM ENERGY ENGINEER Refill request approved. GY ENGINEER * Telephone Encounter - Graeme Hansen RN [...] Dept 08/30/24 Office Visit Yinka Harrison MD [facility] 06/07/24 Office Visit Yinka Harrison MD [facility] 02/26/24 Office Visit Yinka Harrison MD [facility] 12/27/23 Office Visit Yinka Harrison MD [facility] Showing recent visits within past 365 days and meeting all other requirements Future Appointments No visits were found meeting these conditions. Showing future appointments within next 90 days and meeting all other requirements GY ENGINEER documented in this encounter Plan of Treatment Upcoming Encounters Date Type Department Care Team (Latest Contact Info) Description 11/11/2024 11:30 AM ENERGY ENGINEER Physical Therapy [facility] [address] [place] [address] Dave Fernando MD [address] [place] [address] Lucy Garduno, PT [place] Discharge Disposition: Discharged to home or Selfcare 11/14/2024 11:30 AM ENERGY ENGINEER Physical Therapy [facility] [address] [place] [address] Dave Fernando MD [address] [place] [address] uLcy Garduno, PT [place] 11/22/2024 10:15 AM CDT Appointment [facility] [address] [place] [address] Yinka Harrison MD [address] [place] [address] Discharge Disposition: Discharged to home or Selfcare 06/13/2025 10:30 AM CDT Office Visit [facility] - Primary Care - [place] [address] [place] [address] Yinka Harrison MD [address] [place] [address] documented as of this encounter Visit Diagnoses Diagnosis Arthritis Arthropathy, unspecified, site unspecified Chronic pain of right knee Rheumatoid arthritis involving multiple sites with positive rheumatoid factor (HCC) documented in this encounter Additional Health Concerns Assessment Noted Time PHQ-9 Depression Total Score: 0 12/27/19 24 8:35 AM CDT documented as of this encounter Care Teams Tax Services Professional Relationship Specialty Start Date End Date Yinka Harrison MD [address] [place] [address] PCP - General Internal Medicine 07/27/18 Dave Fernando MD [address] [place] [address] Consulting Physician Orthopaedic Surgery 02/20/19 documented as of this encounter
--- OUTSIDE RECORDS SUMMARY | 2024-11-06 01:07 | XMS_ITS | CONTINUITY OF CARE DOCUMENT ---
Author Name stephanie brown Address Unknown Organization [facility] Address [address] [place] [address] Phone [phone] Care Team Providers Care Billet Assembler Name Role Phone stephanie brown Unavailable Unavailable
[2024-11-06] MEDS: LACTATED RINGERS 1,000 ML 30 ML IV CONT (08:50)
[2024-11-06] MEDS: KETOROLAC 15 MG/ML VIAL (*BKC) IV PUSH (09:25)
[2024-11-06] MEDS: ACETAMINOPHEN 500 MG TABLET 1000 MG PO (09:25)
--- NOTE | 2024-11-06 09:29 | WPDHPUPDATE1 ---
History and Physical Update Update Date/Time: 11/06/24 09:29 History and Physical has been reviewed, including an updated exam of the patient. There are NO changes in the patient's condition. Risks, benefits, and alternatives have been discussed and questions answered. Patient agrees to proceed with procedure.
--- NOTE | 2024-11-06 09:53 | P.PNAN_ITS ---
Anes - Initial Pre Proc Eval Procedure: Operation Date: 11/06/24 10:30 Proposed Procedures p Right Knee Manipulation - Dave Fernando MD Date/Time: 11/06/24 09:53 Surgeon: Dave Fernando MD Pre Op Diagnosis: status post right tka Patient Data Age: 64 Gender: F Height: 1.6 m Weight: 87.4 kg Last Vital Signs Temp 97.4 F L 11/06/24 08:30 Pulse 90 11/06/24 08:30 Resp 14 11/06/24 08:30 BP 150/65 H 11/06/24 08:30 Pulse Ox 100 11/06/24 08:30 O2 Del Method Room Air 11/06/24 08:30 Allergies Allergy/AdvReac Type Severity Reaction Status Date / Time No Known Allergies Allergy Verified 11/06/24 08:35 Home Medications ?Medication ?Instructions ?Recorded ?Confirmed ?Type amlodipine 10 mg tablet 10 mg PO DAILY 07/16/24 11/06/24 History ascorbate calcium (vitamin C) 500 500 mg PO DAILY 07/16/24 11/06/24 History mg tablet ferrous sulfate 325 mg (65 mg 325 mg PO DAILY 07/16/24 11/06/24 History iron) tablet flaxseed 1,000 mg capsule 1,000 mg PO DAILY 07/16/24 11/06/24 History rosuvastatin 40 mg tablet 40 mg PO DAILY 07/16/24 11/06/24 History acetaminophen 500 mg tablet 500 mg PO Q6H PRN pain 08/28/24 11/06/24 History (Acetaminophen Extra Strength) cetirizine 10 mg tablet (24Hour 10 mg PO DAILY PRN allergy symptoms 08/28/24 11/06/24 History Allergy) diphenhydramine HCl 25 mg capsule 25 mg PO HS PRN itching 08/28/24 10/31/24 History (Allergy Medication) ibuprofen 800 mg tablet (IBU) 800 mg PO Q6H PRN pain 08/28/24 11/06/24 History tramadol 50 mg tablet 50 mg PO Q6H PRN pain 08/28/24 11/06/24 History Patient hx anesthesia problems: none Family hx anesthesia problems: none Results Review: All pre-operative results and documents have been reviewed as part of the pre- operative evaluation. [facility] Past Medical History Medical History Osteoarthritis of right knee Osteoarthritis Hypertension Hyperlipidemia Arthritis Surgical History Surgical History Right knee meniscal tear repair 2016 Family History Family History Father Hypertension Cerebrovascular accident Grandparent Asthma Cancer Social History Social History Smoking packs per day: 1 Smoking cigarettes per day: 20.0 Years smoked: 3 Smoking pack-years: 3.00 Smoking status: Never smoker Smoking end date: 09/11/78 Additional smoking assessment comments: Tried smoking in her 20's Alcohol intake: never Substance use: never Do You Feel Safe in your Home?: Yes Lack of Transportation: No Lack of Food: Never True Current Housing: I Have Housing Concerned About Future Housing: No Difficulty Paying Gas/Electric Bills: YES Difficulty Paying for Meds: No Currently Unemployed: No Education: Bachelor's Degree Difficulty w/ Childcare or Family Care: No Living arrangements: with family Additional living arrangements comments: daughter Spiritual care concerns: No Anes - Eval Final PreProcedure Day of Procedure 11/06/24 09:53 Patient weight: obese Lungs: normal air movement Airway: Mallampati scale class II Neurological: alert and oriented Last oral intake: >/= 8 hours ASA classification: II Emergent: no Anesthetic plan: proceed Anesthesia type and monitoring: general GIVS and standard monitoring Results Review: All pre-operative results and documents have been reviewed as part of the pre-operative evaluation. HTN, hyperlipidemia. Informed Consent: The patient's anesthetic plan and its attendant risks and benefits were discussed with the patient/family/POA. Questions were solicited and answers provided to the satisfaction of the patient/family/POA.
--- NOTE | 2024-11-06 10:09 | W.PM.PROC2 ---
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 A general anesthetic was administered. The knee was gently manipulated and I obtained about 120? of flexion. He is also able to obtain near full extension. The knee was stable after the manipulation no fractures were appreciated. Patient left the operating room in satisfactory condition. Estimated Blood Loss 0 Complications No immediate complications Condition Stable Disposition PACU [facility] Billing Surgery - Charge Forward: Surgery Billing (27219 Knee Manipulation)
[2024-11-06] MEDS: fentaNYL CITRATE INJ (*CRX) 100 MCG/2 ML VIAL 25 MCG IV PUSH ×4 (10:36→10:58)
[2024-11-06] MEDS: oxyCODONE (*CRX) 5 MG/5 ML ORAL SOLN IR PO (11:30)
== END 2024-11-06 11:55 | disposition home or self-care (01) ==
PROVIDERS: PCP Internal Medicine; Visit Provider Orthopaedic Surgery
PROC: (CPT 27570; principal; 2024-11-06 10:30)
DX: M17.11 Unilateral primary osteoarthritis, right knee (principal); T84.82XA Fibrosis due to internal orthopedic prosthetic devices, implants and grafts, initial encounter; E78.5 Hyperlipidemia, unspecified; I10 Essential (primary) hypertension; Y83.8 Other surgical procedures as the cause of abnormal reaction of the patient, or of later complication, without mention of misadventure at the time of the procedure; E66.9 Obesity, unspecified; Z68.34 Body mass index [BMI] 34.0-34.9, adult; Z79.1 Long term (current) use of non-steroidal anti-inflammatories (NSAID); Z79.891 Long term (current) use of opiate analgesic; Z98.890 Other specified postprocedural states; Z96.651 Presence of right artificial knee joint; Z87.891 Personal history of nicotine dependence; Z80.9 Family history of malignant neoplasm, unspecified; Z82.49 Family history of ischemic heart disease and other diseases of the circulatory system
CPT/HCPCS: 27570; A9270; J1100; J1885; J2250; J2405; J2704; J3010; J7120